=== PATIENT | male | born 1970 | race Caucasian/White ===

== ENCOUNTER 2018-12-24 04:56 | Inpatient (IN) | payer MEDICAID ==
[2018-12-24] VITALS (78 sets, daily range): BP systolic 69–153; BP diastolic 46–81; PULSE 67–117; RESP 18–28; Ht 167.6 cm; Wt 68.2 kg
[~2018-12-24] VITALS: Ht 167.6 cm; Wt 68.2 kg
[2018-12-24] MEDS ORDERED: SUCCINYLCHOLINE CHLORIDE 100 MG/5 ML SYG IV STA (05:25)
[2018-12-24] MEDS ORDERED: DOPamine-D5W 1.6 MG/ML 250 ML IV SCH (05:30)
[2018-12-24] MEDS ORDERED: SOD CHLORIDE 0.9% 1,000 ML IV ONE (05:30)
--- NOTE | 2018-12-24 05:39 | ERD ---
ER Documentation Chief Complaint Chief Complaint Cardiac arrest HPI This is a 43-year-old male brought in by rescue in cardiac arrest. Apparently the patient was being arrested by police when he suddenly dropped. According to police were here in the ER, the patient admitted to using meth for the past 5 days. Upon arrival the patient is pulseless and cannot provide any history outside of what EMS and police have given me at this time. EMS established an IV and started ACLS on route. ROS All systems reviewed and are negative except as per history of present illness. Physical Exam Physical Exam Const: Obtunded Head: Atraumatic Eyes: Fixed dilated ENT: Normal External Ears, Nose and Mouth. Neck: Full range of motion. No meningismus. Resp: Clear to auscultation bilaterally Cardio: No heart rate Abd: Soft, non tender, non distended. No bowel sounds Skin: No petechiae or rashes Back: No midline or flank tenderness Ext: No cyanosis, or edema Neur: Obtunded Psych: Deferred Result Diagram: 12/24/18 0515 Results 24 hrs Laboratory Tests Test 12/24/18 05:15 White Blood Count 12.9 10^3/ul Red Blood Count 4.76 10^6/ul Hemoglobin 14.3 g/dl Hematocrit 47.7 % Mean Corpuscular Volume 100.2 fl Mean Corpuscular Hemoglobin 30.0 pg Mean Corpuscular Hemoglobin Concent 30.0 g/dl Red Cell Distribution Width 12.9 % Platelet Count 340 10^3/UL Mean Platelet Volume 10.1 fl Immature Granulocytes % 4.200 % Neutrophils % 44.5 % Lymphocytes % 38.4 % Monocytes % 12.3 % Eosinophils % 0.2 % Basophils % 0.4 % Nucleated Red Blood Cells % 0.2 /100WBC Immature Granulocytes # 0.540 10^3/ul Neutrophils # 5.7 10^3/ul Lymphocytes # 4.9 10^3/ul Monocytes # 1.6 10^3/ul Eosinophils # 0.0 10^3/ul Basophils # 0.1 10^3/ul Nucleated Red Blood Cells # 0.0 10^3/ul Current Medications Medications Dose Sig/Adalberto Start Time Status Last (Trade) Ordered Route PRN Stop Time Admin Dose Reason Admin 100 mg ONCE STAT 12/24/18 DC Succinylcholi IV 05:25 12/24/18 ne Chloride 05:29 (Anectine Syringe) Dopamine 250 ml @ TITRATE IV 12/24/18 UNV HCl/ 5.625 mls/ 05:30 Dextrose hr Sodium 1,000 ml @ Q1H ONCE 12/24/18 Chloride 1,000 mls/hr IV 05:30 12/24/18 06:29 Procedures/MDM Emergency department course: ACLS initiated by EMS continued here in the e mergency department. Patient was intubated. Serial rounds of ACLS. Patient regained pulses twice, lost pulses twice, regained pulses of the third time. Post resuscitation EKG showed STEMI. STEMI on-call editorial director Dr. Ng and notified. Patient to be taken to [facility]. Patient's course in the ER remained complicated and he lost pulses a total of 3 times here in the emergency department prior to being stabilized enough to be taken to [facility]. EKG: Rate/Rhythm: [Normal Sinus Rhythm] QRS, ST, T-waves: ST segment elevation in 1 aVL V1 V2 with reciprocal changes Impression: STEMI Chest X-ray 1V Interpreted by me: Soft Tissue: No acute abnormalities Bones: No acute abnormalities Mediastinum/Cardiac Silhouette/Lungs: ET tube in good position Critical Care: Time: 32 minutes, independent of any separately billable procedural time Treatments/Evaluations: Close monitoring and treatment of unstable vital signs, cardiorespiratory, and neurologic status, while maintaining tight balance of fluid, respiratory, and cardiac interventions. Endotracheal Intubation by me: Pre assessment performed. See preceding note for details. Pre-oxygenation performed with 100% oxygen RSI: Performed w/o complication or hypoxic events. Medications as ordered. Blade: [Mac 4] ET Tube: 7.5 cm Depth: 22 cm at the lip Intubation confirmed by colorimetric CO2, equal breath sounds, quiet over the stomach. Chest X-ray 1V Interpreted by me: 2 cm above the collette ET tube. Normal soft tissue, No pneumothorax. Medical decision making: This is a 43-year-old male cardiac arrest with postarrest STEMI to be taken to [facility] and then to the intensive care unit where he will hopefully recover. Dr. Han was made aware of situation at 5:40 AM. Departure Diagnosis: Primary Impression: Cardiac arrest Additional Impression: STEMI (ST elevation myocardial infarction) Involved coronary artery: unspecified coronary artery Qualified Codes: I21.3 - ST elevation (STEMI) myocardial infarction of unspecified site Condition: Critical CECI RUANO Dec 24, 2018 05:39
--- NOTE | 2018-12-24 05:52 | CONS ---
Assessment/Plan Assessment/Plan Hospital Course (Demo Recall) Cardiac arrest: PEA and not VF. EKG with JACOBO V1 and III with Brugada looking ST elevation V2. Does have anterolateral ST depressions though. Cath to evaluate Acute respiratory failure: intubated Unknown history -cath to define coronary anatomy Consultation Date/Type/Reason Admit Date/Time Date of Consultation: Dec 24, 2018 Type of Consult Cardiology Reason for Consultation STEMI Requesting Provider: CECI RUANO Date/Time of Note DATE: 12/24/18 TIME: 05:45 Hx of Present Illness 43 yo M [place] who was apparently found altered on the street and in the process of being arrested, had cardiac arrest. No defibrillation per report. I was called by the ER MD for anterior STEMI. He was coded multiple times in the ER as well for PEA arrest.No information is known about the pt but he is presumed to be under the influence. not able to obtain Past Medical History not known Medications Current Medications Dopamine HCl/ Dextrose 250 ml @ 5.625 mls/ hr TITRATE IV ; Start 12/24/18 at 05:30 Sodium Chloride 1,000 ml @ 1,000 mls/hr Q1H ONCE IV ; Start 12/24/18 at 05:30; Stop 12/24/18 at 06:29 Allergies: Coded Allergies: No Known Allergies (Verified Allergy, Unknown, 12/24/18) Exam/Review of Systems Exam Constitutional: No alert, No oriented ENMT: intubated Neck: No jvd Respiratory: No clear to auscultation, No diminished breath sounds Cardiovascular: No edema Gastrointestinal: soft; No distended Musculoskeletal: No nl extremities to inspection Neurological: No nl mental status, No nl speech Labs Result Diagram: 12/24/18 0515 12/24/18 0515 Results 24hrs Laboratory Tests Test 12/24/18 05:15 White Blood Count 12.9 H Red Blood Count 4.76 Hemoglobin 14.3 Hematocrit 47.7 Mean Corpuscular Volume 100.2 Mean Corpuscular Hemoglobin 30.0 Mean Corpuscular Hemoglobin Concent 30.0 L Red Cell Distribution Width 12.9 Platelet Count 340 Mean Platelet Volume 10.1 Immature Granulocytes % 4.200 H Neutrophils % 44.5 Lymphocytes % 38.4 Monocytes % 12.3 H Eosinophils % 0.2 Basophils % 0.4 Nucleated Red Blood Cells % 0.2 H Immature Granulocytes # 0.540 H Neutrophils # 5.7 Lymphocytes # 4.9 H Monocytes # 1.6 H Eosinophils # 0.0 Basophils # 0.1 Nucleated Red Blood Cells # 0.0 Sodium Level 143 Potassium Level 4.7 Chloride Level 99 Carbon Dioxide Level 7 *L Anion Gap 37 H Blood Urea Nitrogen 20 Creatinine 1.39 H Est Glomerular Filtrat Rate mL/min 55 L Glucose Level 294 H Calcium Level 10.0 Total Bilirubin 0.2 Direct Bilirubin 0.00 Indirect Bilirubin 0.2 Aspartate Amino Transf (AST/SGOT) 447 H Alanine Aminotransferase (ALT/SGPT) 324 H Alkaline Phosphatase 102 Troponin I Pending B-Type Natriuretic Peptide Pending Total Protein 7.7 Albumin 4.5 Globulin 3.20 Albumin/Globulin Ratio 1.40 Triglycerides Level 141 Cholesterol Level 194 LDL Cholesterol, Calculated 112 HDL Cholesterol 54 Cholesterol/HDL Ratio 3.5 Medications Medications Current Medications Dopamine HCl/ Dextrose 250 ml @ 5.625 mls/ hr TITRATE IV ; Start 12/24/18 at 05:30 Sodium Chloride 1,000 ml @ 1,000 mls/hr Q1H ONCE IV ; Start 12/24/18 at 05:30; Stop 12/24/18 at 06:29 KRISTIAN GUERRERO Dec 24, 2018 05:52
[2018-12-24] MEDS ORDERED: SOD CHLORIDE 0.9% 1,000 ML IV SCH ×2 (06:25→09:00)
[2018-12-24] MEDS ORDERED: IPRATROPIUM (HFA) 12.9 GM INHALER INH PRN (06:30)
[2018-12-24] MEDS ORDERED: DEXTROSE 50% 50 ML SYRINGE IV PRN ×4 (06:30→07:30)
[2018-12-24] MEDS ORDERED: INSULIN HUMAN REGULAR 100 UNIT in SOD CHLORIDE 0.9% 99 ML IV SCH (06:30)
[2018-12-24] MEDS ORDERED: MEPERIDINE 25 MG INJ IV PRN ×4 (06:30→07:30)
[2018-12-24] MEDS ORDERED: ACETAMINOPHEN 650 MG SUPP PR PRN ×2 (06:30→07:30)
[2018-12-24] MEDS ORDERED: ACETAMINOPHEN 650MG/20.3ML CUP PO PRN ×3 (06:30→07:30)
--- NOTE | 2018-12-24 06:41 | OPR ---
Date/Time of Note Date/Time of Note DATE: 12/24/18 TIME: 06:33 Operative Report Preoperative Diagnosis cardiac arrest, concern for STEMI Postoperative Diagnosis normal coronaries and EF Operation/Procedure Performed see details Surgeon see signature line Gasoline Catalyst Operator none Anesthesia Type: other (intubated ) Estimated Blood Loss: minimal Transfusion none Specimen none Grafts/Implants none Complications none Procedure Description Procedure Date:12/24/2018 Tipple Boss/surgeon:Néstor Sung MD. Procedures Performed: 1)Left heart catheterization with selective left and right coronary angiography. 2)Left ventricle angiography 3)Right femoral artery angiography with Perclose closure 4)Right femoral venous central venous catheter Pre-operative Diagnosis:cardiac arrest, concern for STEMI Post-operative Diagnosis:normal coronaries and LV function Indications: 43 yo M with PEA arrest. EKG with ST elevations Description of Procedure: The procedure site was prepped and draped in usual manner. Using the Seldinger technique, the 6 vietnamese sheath was inserted into the left femoral artery. Next u sing the JL4 and JR4, selective angiography of the left and right coronary arteries were obtained. The pigtail was then advanced into the ventricle and hemodynamics obtained. Left ventricle angiography was obtained. Next all equipment was removed and hemostasis was obtained by Perclose after right femoral artery angiography. A right femoral vein triple lumen catheter was also placed via Seldinger technique. Findings: Anatomy/Hemodynamics: Left main:normal LAD:normal Diagonal:normal Circumflex:normal Obtuse marginal:normal RCA:normal PDA:normal PLV:normal Right femoral artery: normal. Sheath enters through the common femoral LV angiography: EF >60, no wall motion abnormalities LV-Ao:no gradient LVEDP:18 mmHg Contrast used:60 mL Fluoroscopy time:3.0 Estimated blood loss<10 mL. Specimen: none Grafts/implants: none Complications: none Assessment: PEA cardiac arrest ST elevation: possible Brugada. Normal coronaries and LV function Plan: -hypothermia protocol -ABG was 6.75 with PCO 88. Vent rate and TV increased. Recheck in ICU -continue dopamine and levophed NÉSTOR SUNG Dec 24, 2018 06:41
[2018-12-24] MEDS ORDERED: NA BICARBONATE 8.4% 50 ML SYG ONE ×2 (07:00→09:14)
[2018-12-24] MEDS ORDERED: DOPamine-D5W 1.6 MG/ML 250 ML ONE (07:00)
[2018-12-24] MEDS ORDERED: SODIUM CL BACTERIOSTATIC 30 ML INJ ONE (07:00)
[2018-12-24] MEDS ORDERED: CA CHLORIDE 10% 10 ML SYRINGE ONE (07:00)
[2018-12-24] MEDS ORDERED: EPINEPHrine 0.1 MG/ML SYG ONE (07:00)
[2018-12-24] MEDS ORDERED: DEXTROSE 50% 50 ML SYRINGE ONE (07:00)
[2018-12-24] MEDS ORDERED: PROPOFOL 100 ML ONE (07:21)
[2018-12-24] MEDS ORDERED: FENTAnyl 50 MCG/ML VIAL IV ONE (07:30)
[2018-12-24] MEDS ORDERED: ACCU-CHEK XX SCH ×3 (07:30→12:00)
[2018-12-24] MEDS ORDERED: ALBUTEROL HFA 8 GM INHALER INH PRN (07:30)
[2018-12-24] MEDS ORDERED: FENTAnyl 50 MCG/ML VIAL IV SCH (07:30)
[2018-12-24] MEDS ORDERED: PROPOFOL 100 ML IV SCH (07:30)
[2018-12-24] MEDS: MIDAZOLAM (DRIP) 50 mg/50 mL 50 ML IV SCH ×2 (08:30→14:40)
[2018-12-24] MEDS ORDERED: VECURONIUM 10 MG VIAL IV ONE (09:00)
[2018-12-24] MEDS: VECURONIUM 100 MG in DEXTROSE 5% 100 ML IV SCH (09:13)
[2018-12-24] MEDS ORDERED: NA BICARBONATE 8.4% 50 ML SYG IV STA ×3 (09:14→11:55)
--- NOTE | 2018-12-24 09:42 | CONS ---
Assessment/Plan Assessment/Plan Assessment/Plan (Daily) Chest x-ray showing right mainstem intubation with left lung atelectasis, pulmonary edema is present. Ventilator setting; AC of 22, tidal volume 550, PEEP of 0, 100% FiO2. Patient is on Levophed 24 mics per minute, dopamine 10 mcg/min, propofol 40 mics per kilogram per minute, Versed 1 mg/h. Assessment recommendations; next 1. Patient status post cardiac arrest currently on hypothermia protocol, status post cardiac cath which was negative for CAD. This likely is drug induced. 2. Right mainstem intubation, repeat chest x-ray pending after he was withdrawn. 3. Severe metabolic acidosis. 4. Acute renal injury. 5. Difficult to rule out some element of aspiration. 6. Persistent severe shock. Administer additional sodium bicarbonate. Patient will need to have an arterial line placed. Add Zosyn 2.25 g every 8 hours. Monitor renal function. Add fentanyl and discontinue propofol because of hypotension. Prognosis very guarded. 40 minutes of critical care time was spent evaluating patient exclusive of any procedures. Consultation Date/Type/Reason Admit Date/Time Date of Consultation: Dec 24, 2018 Type of Consult Pulmonary/critical care Patient is a 43-year-old male who was admitted to the hospital after cardiac arrest event. Patient apparently was being arrested when he collapsed, CPR was done with revival of vital signs. Patient developed acute IN was taken to the [place] [facility] where patient had normal coronary arteries. Patient is transferred to ICU intubated, remains hypotensive and hypoxemic. Patient is currently on hypothermia protocol. Past medical history; unknown. Apparently none. Medications; reviewed. Patient is on Levophed 24 mics per minute, dopamine 10 mics per kilogram per minute, propofol 40 mics per kilogram per minute, Versed 4 mg/h. Other medications were reviewed as well. Allergies; none. Family history; not available. Occupational history and review of systems not available either. General exam; young male, orally intubated, on hypothermia protocol. Sedated. Date/Time of Note DATE: 12/24/18 TIME: 09:37 Past Medical History Medications Current Medications Dopamine HCl/ Dextrose 250 ml @ 5.625 mls/ hr TITRATE IV ; Start 12/24/18 at 05:30 Sodium Chloride 1,000 ml @ 75 mls/hr [id number] IV ; Start 12/24/18 at 06:25 Albuterol (Ventolin Hfa) 4 puff Q2H RESP THERAPY PRN INH SHORTNESS OF BREATH; Start 12/24/18 at 07:30 Ipratropium Novelty (Atrovent Hfa) 4 puff Q2H RESP THERAPY PRN INH SHORTNESS OF BREATH; Start 12/24/18 at 06:30 Acetaminophen (Tylenol Liquid) 650 mg Q6H PRN PO PAIN LEVEL 1-3 OR FEVER; Start 12/24/18 at 06:30 Midazolam HCl 50 ml @ 2 mls/hr PER PROTOCOL IV ; Start 12/24/18 at 07:30 Propofol 100 ml @ 2.041 mls/ hr PER PROTOCOL IV Last administered on 12/24/18at 07:27; Admin Dose 2.041 MLS/HR; Start 12/24/18 at 07:30 Vecuronium Novelty 100 mg/ Dextrose 100 ml @ 4.08 mls/hr Q24H IV Last administered on 12/24/18at 09:13; Admin Dose 4.08 MLS/HR; Start 12/24/18 at 08:30 Acetaminophen (Tylenol Supp) 650 mg Q4H PRN OR TEMP > 37C; Start 12/24/18 at 07:30 Acetaminophen (Tylenol Liquid) 650 mg Q4H PRN PO TEMP > 37C; Start 12/24/18 at 07:30 Acetaminophen (Tylenol Supp) 500 mg Q6H OR ; Start 12/25/18 at 07:30 Acetaminophen (Tylenol Liquid) 500 mg Q6H PO ; Start 12/25/18 at 07:30 Meperidine HCl (Demerol) 12.5 mg Q4H PRN IV POST OPERATIVE SHIVERING; Start 12/24/18 at 07:30 Meperidine HCl (Demerol) 25 mg Q4H PRN IV POST OPERATIVE SHIVERING; Start 12/24/18 at 07:30 Eye Lubricant (Artificial Tears Oph) 2 drop Q6 BOTH EYES ; Start 12/24/18 at 12:00 Diagnostic Test (Pha) (Accu-Chek) 1 ea Q1H XX Last administered on 12/24/18at 07:36; Admin Dose 1 EA; Start 12/24/18 at 07:30 Insulin Human Regular 100 unit/ Sodium Chloride 100 ml @ 0 mls/hr PER PROTOCOL IV ; Start 12/24/18 at 08:30 Miscellaneous Information (* Miscellaneous Pharmacy Order) Treatment of Hypoglycemia: 1.BG 51... Per protocol XX ; Start 12/24/18 at 07:30 Dextrose (D50w Syringe) 25 ml Q15M PRN IV .DECREASED GLUCOSE; Start 12/24/18 at 07:30 Dextrose (D50w Syringe) 50 ml Q15M PRN IV .DECREASED GLUCOSE; Start 12/24/18 at 07:30 Hypromellose (Genteal Severe) 1 applic Q6 BOTH EYES ; Start 12/24/18 at 12:00 Fentanyl 100 ml @ 2.5 mls/hr TITRATE IV ; Start 12/24/18 at 08:30 Sodium Chloride 1,000 ml @ 75 mls/hr [id number] IV Last administered on 12/24/18at 09:19; Admin Dose 75 MLS/HR; Start 12/24/18 at 09:00; Stop 12/25/18 at 11:39 Pantoprazole (Protonix Iv) 40 mg BID@06,18 IV ; Start 12/24/18 at 18:00 Allergies: Coded Allergies: No Known Allergies (Verified Allergy, Unknown, 12/24/18) Exam/Review of Systems Exam Vitals Vital Signs Date Temp Pulse Resp B/P (MAP) Pulse Ox O2 O2 Flow FiO2 Time Delivery Rate 12/24/18 98.3 114 25 93/63 (73) 97 08:12 12/24/18 100 07:52 Exam H EENT exam; supple neck, positive JVD. No lymphadenopathy. Midline trachea. Pupils are small bilaterally. Patient has fair dentition. No neck masses. Chest exam; bilateral crackles. S1-S2 audible, no murmurs. Frothy secretions coming through endotracheal tube. Abdomen exam; soft, no organomegaly. Bowel sounds are absent. Extremity exam; no peripheral edema. [employer] INTERMEDIARY exam; patient is sedated. Results Result Diagram: 12/24/18 0741 12/24/18 0741 Results 24hrs Laboratory Tests Test 12/24/18 05:10 12/24/18 05:15 12/24/18 05:25 12/24/18 07:26 Bedside Glucose 221 H 124 White Blood Count 12.9 H Red Blood Count 4.76 Hemoglobin 14.3 Hematocrit 47.7 Mean Corpuscular 100.2 Volume Mean Corpuscular 30.0 Hemoglobin Mean Corpuscular 30.0 L Hemoglobin Concent Red Cell 12.9 Distribution Width Platelet Count 340 Mean Platelet 10.1 Volume Immature 4.200 H Granulocytes % Neutrophils % 44.5 Lymphocytes % 38.4 Monocytes % 12.3 H Eosinophils % 0.2 Basophils % 0.4 Nucleated Red 0.2 H Blood Cells % Immature 0.540 H Granulocytes # Neutrophils # 5.7 Lymphocytes # 4.9 H Monocytes # 1.6 H Eosinophils # 0.0 Basophils # 0.1 Nucleated Red 0.0 Blood Cells # Prothrombin Time 18.2 H Prothrombin Time 1.4 Ratio INR International 1.50 Normalized Ratio Activated 46.[address] Time Sodium Level 143 Potassium Level 4.7 Chloride Level 99 Carbon Dioxide 7 *L Level Anion Gap 37 H Blood Urea 20 Nitrogen Creatinine 1.39 H Est Glomerular 55 L Filtrat Rate mL/min Glucose Level 294 H Calcium Level 10.0 Total Bilirubin 0.2 Direct Bilirubin 0.00 Indirect Bilirubin 0.2 Aspartate Amino 447 H Transf (AST/SGOT) Alanine 324 H Aminotransferase ( ALT/SGPT) Alkaline 108 Phosphatase Troponin I < 0.012 B-Type Natriuretic 229 H Peptide Total Protein 7.7 Albumin 4.5 Globulin 3.20 Albumin/Globulin 1.40 Ratio Triglycerides 141 Level Cholesterol Level 194 LDL Cholesterol, 112 Calculated HDL Cholesterol 54 Cholesterol/HDL 3.5 Ratio Ethyl Alcohol < 10.0 H Level Blood Gas Specimen Blood arterial Source Arterial Blood 12/24/2018 6:05:03 Date Drawn AM Arterial Blood pH 6.751 *L (Temp corrected) Arterial Blood 88.3 *H pCO2 (Temp correct) Arterial Blood pO2 152.6 H (Temp corrected) Arterial Blood 12.0 L HCO3 Arterial Blood -24.6 L Base Excess Arterial Blood 95.9 Oxygen Saturation Adarsh Test N/A Arterial Blood Gas A-Line Puncture Site Arterial 0.3 Blood Carboxyhemog lobin Arterial Blood 0.6 Methemoglobin Blood Gas A-a O2 472.1 H Differential Oxyhemoglobin 95.0 Percent Blood Gas 37.0 Temperature Blood Gas 14.0 Respiration Rate Blood Gas Actual 14 Respiration Rate Blood Gas Modality VENT - AC FiO2 100.0 Blood Gas Tidal 500.0 Volume Blood Gas Low PEEP 0 Setting Blood Gas Critical Tyler QUINN MD Value Read Back Blood Gas Notified AA Whom Blood Gas Notified 12/24/2018 6:10:59 Time AM Test 12/24/18 07:41 White Blood Count 12.0 H Red Blood Count 4.79 Hemoglobin 14.4 Hematocrit 43.4 Mean Corpuscular 90.6 Volume Mean Corpuscular 30.1 Hemoglobin Mean Corpuscular 33.2 Hemoglobin Concent Red Cell 13.1 Distribution Width Platelet Count 262 # Mean Platelet 8.6 Volume Immature 9.900 H Granulocytes % Neutrophils % Segmented 64 Neutrophils % (Manual) Band Neutrophils % 10 H (Manual) Lymphocytes % Lymphocytes % 14 L (Manual) Reactive 5 H Lymphocytes % (Manual) Monocytes % Monocytes % 4 (Manual) Eosinophils % Eosinophils % 1 (Manual) Basophils % Metamyelocytes % 1 H (manual) Myelocytes % 1 H (Manual) Nucleated Red 0.2 H Blood Cells % Immature 1.180 H Granulocytes # Neutrophils # Neutrophils # 7.8 H (Manual) Band Neutrophils # 1.2 H Lymphocytes 1.6 (Manual) Lymphocytes # Reactive 0.6 H Lymphocytes # Monocytes # Monocytes # 0.4 (Manual) Eosinophils # Basophils # Metamyelocytes # 0.1 H Myelocytes # 0.1 H Nucleated Red Blood Cells # Platelet Estimate NORMAL Giant Platelets 1 H Poikilocytosis 1+ Prothrombin Time 17.0 H Prothrombin Time 1.3 Ratio INR International 1.37 Normalized Ratio Activated 77.7 *H Partial Thrombopla st Time Sodium Level 140 Potassium Level 4.9 Chloride Level 102 Carbon Dioxide 22 # Level Anion Gap 16 #H Blood Urea 28 H Nitrogen Creatinine 1.70 H Est Glomerular 44 L Filtrat Rate mL/min Glucose Level 88 # Calcium Level 9.0 Phosphorus Level 12.6 H Magnesium Level 4.7 H Total Bilirubin 0.1 L Direct Bilirubin 0.00 Indirect Bilirubin 0.1 Aspartate Amino 742 #H Transf (AST/SGOT) Alanine 512 H Aminotransferase ( ALT/SGPT) Alkaline 216 #H Phosphatase Lactate 4520 H Dehydrogenase Creatine Kinase 1347 H Creatine Kinase 2.1 Index Creatinine Kinase 27.80 H MB (Mass) Troponin I 1.650 *H Total Protein 7.0 Albumin 3.8 Globulin 3.20 Albumin/Globulin 1.18 Ratio Amylase Level 204 H Lipase 251 Thyroid 3.910 Stimulating Hormone (TSH) Medications Medication Current Medications Dopamine HCl/ Dextrose 250 ml @ 5.625 mls/ hr TITRATE IV ; Start 12/24/18 at 05:30 Sodium Chloride 1,000 ml @ 75 mls/hr [id number] IV ; Start 12/24/18 at 06:25 Albuterol (Ventolin Hfa) 4 puff Q2H RESP THERAPY PRN INH SHORTNESS OF BREATH; Start 12/24/18 at 07:30 Ipratropium Novelty (Atrovent Hfa) 4 puff Q2H RESP THERAPY PRN INH SHORTNESS OF BREATH; Start 12/24/18 at 06:30 Acetaminophen (Tylenol Liquid) 650 mg Q6H PRN PO PAIN LEVEL 1-3 OR FEVER; Start 12/24/18 at 06:30 Midazolam HCl 50 ml @ 2 mls/hr PER PROTOCOL IV ; Start 12/24/18 at 07:30 Propofol 100 ml @ 2.041 mls/ hr PER PROTOCOL IV Last administered on 12/24/18at 07:27; Admin Dose 2.041 MLS/HR; Start 12/24/18 at 07:30 Vecuronium Novelty 100 mg/ Dextrose 100 ml @ 4.08 mls/hr Q24H IV Last administered on 12/24/18at 09:13; Admin Dose 4.08 MLS/HR; Start 12/24/18 at 08:30 Acetaminophen (Tylenol Supp) 650 mg Q4H PRN OR TEMP > 37C; Start 12/24/18 at 07:30 Acetaminophen (Tylenol Liquid) 650 mg Q4H PRN PO TEMP > 37C; Start 12/24/18 at 07:30 Acetaminophen (Tylenol Supp) 500 mg Q6H OR ; Start 12/25/18 at 07:30 Acetaminophen (Tylenol Liquid) 500 mg Q6H PO ; Start 12/25/18 at 07:30 Meperidine HCl (Demerol) 12.5 mg Q4H PRN IV POST OPERATIVE SHIVERING; Start 12/24/18 at 07:30 Meperidine HCl (Demerol) 25 mg Q4H PRN IV POST OPERATIVE SHIVERING; Start 12/24/18 at 07:30 Eye Lubricant (Artificial Tears Oph) 2 drop Q6 BOTH EYES ; Start 12/24/18 at 12:00 Diagnostic Test (Pha) (Accu-Chek) 1 ea Q1H XX Last administered on 12/24/18at 07:36; Admin Dose 1 EA; Start 12/24/18 at 07:30 Insulin Human Regular 100 unit/ Sodium Chloride 100 ml @ 0 mls/hr PER PROTOCOL IV ; Start 12/24/18 at 08:30 Miscellaneous Information (* Miscellaneous Pharmacy Order) Treatment of Hypoglycemia: 1.BG 51... Per protocol XX ; Start 12/24/18 at 07:30 Dextrose (D50w Syringe) 25 ml Q15M PRN IV .DECREASED GLUCOSE; Start 12/24/18 at 07:30 Dextrose (D50w Syringe) 50 ml Q15M PRN IV .DECREASED GLUCOSE; Start 12/24/18 at 07:30 Hypromellose (Genteal Severe) 1 applic Q6 BOTH EYES ; Start 12/24/18 at 12:00 Fentanyl 100 ml @ 2.5 mls/hr TITRATE IV ; Start 12/24/18 at 08:30 Sodium Chloride 1,000 ml @ 75 mls/hr [id number] IV Last administered on 12/24/18at 09:19; Admin Dose 75 MLS/HR; Start 12/24/18 at 09:00; Stop 12/25/18 at 11:39 Pantoprazole (Protonix Iv) 40 mg BID@06,18 IV ; Start 12/24/18 at 18:00 KIRSTIN VICTORIA Dec 24, 2018 09:42
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
[2018-12-24] MEDS: NORepinephrine 8MG/250 ML (PMX 250 ML IV SCH ×3 (11:46→23:27)
[2018-12-24] MEDS: DOPamine-D5W 1.6 MG/ML 250 ML IV SCH ×2 (11:48→23:27)
[2018-12-24] MEDS ORDERED: OCULAR LUBRICANT 3.5 GM OPH OINT BOTH EYES SCH ×2 (12:00)
[2018-12-24] MEDS ORDERED: ARTIFICIAL TEARS 15 ML OPH BOTH EYES SCH (12:00)
[2018-12-24] MEDS: ARTIFICIAL TEARS 15 ML OPH BOTH EYES SCH ×3 (12:24→23:22)
[2018-12-24] MEDS: SODIUM BICARBONATE (IV ADD) 100 MEQ in DEXTROSE 5% 1,000 ML IV SCH (12:30)
[2018-12-24] MEDS: PIPER-TAZO 2.25 GM (PMX) 50 ML IVPB SCH ×3 (12:53→21:43)
[2018-12-24] MEDS: ALBUMIN HUMAN 25% 100 ML IV SCH ×2 (12:54→20:05)
[2018-12-24] MEDS ORDERED: VANCOMYCIN IV PER PHARMACY XX SCH (13:00)
[2018-12-24] MEDS: HYPROMELLOSE OPHTHALMIC LUBRICANT GEL (10 GM) BOTH EYES SCH ×3 (13:03→23:23)
--- NOTE | 2018-12-24 13:08 | RADRPT ---
Vent Rate: 107 bpm RR Interval: 0 msec UT Interval: 134 msec QRS Duration: 84 msec QT Interval: 348 msec QTC Interval: 464 msec P-R-T [place]: 71 - 75 - 80 degrees Sinus tachycardia Otherwise normal ECG Electronically Signed By: Wood Farris
[2018-12-24] MEDS ORDERED: MAGNESIUM SULFATE 2 GM/50 ML 50 ML IVPB PRN (13:30)
[2018-12-24] MEDS: FENTAnyl (DRIP) 1000 mcg/100mL 100 ML IV SCH (14:39)
[2018-12-24] MEDS ORDERED: VANCOMYCIN HCL 1.25 GM in SOD CHLORIDE 0.9% 250 ML IVPB SCH (15:00)
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
[2018-12-24] MEDS: ACCU-CHEK XX SCH ×3 (15:50→23:28)
[2018-12-24] MEDS: PANTOPRAZOLE 40 MG INJ IV SCH (17:34)
[2018-12-24] MEDS: POTASSIUM CHLORIDE 100 ML IVPB PRN (20:05)
[2018-12-24] MEDS ORDERED: CEFEPIME 1GM/50 ML (PMX) 50 ML IVPB SCH (21:00)
[2018-12-24] MEDS ORDERED: ALBUMIN HUMAN 5% 250 ML IV PRN (21:30)
[2018-12-24] MEDS ORDERED: POTASSIUM CHLORIDE 100 ML IVPB ONE (22:00)
[2018-12-25] VITALS (104 sets, daily range): BP systolic 47–125; BP diastolic 28–93; PULSE 70–103; RESP 18–24
[2018-12-25] MEDS: PHENYLephrine 80 MG in DEXTROSE 5% 242 ML IV SCH ×5 (00:27→21:58)
[2018-12-25] MEDS: VASOPRESSIN 60 UNIT in DEXTROSE 5% 57 ML IV SCH ×2 (01:00→05:38)
[2018-12-25] MEDS: POTASSIUM CHLORIDE 100 ML IVPB PRN (02:00)
[2018-12-25] MEDS: SODIUM BICARBONATE (IV ADD) 100 MEQ in DEXTROSE 5% 1,000 ML IV SCH ×2 (02:53→16:41)
[2018-12-25] MEDS: MIDAZOLAM (DRIP) 50 mg/50 mL 50 ML IV SCH ×2 (02:54→14:20)
[2018-12-25] MEDS: NORepinephrine 8MG/250 ML (PMX 250 ML IV SCH ×5 (03:58→21:58)
[2018-12-25] MEDS: DOPamine-D5W 1.6 MG/ML 250 ML IV SCH ×5 (03:59→21:59)
[2018-12-25] MEDS: ACCU-CHEK XX SCH ×5 (04:00→20:17)
[2018-12-25] MEDS: ALBUMIN HUMAN 25% 100 ML IV SCH (04:35)
[2018-12-25] MEDS: INSULIN HUMAN REGULAR 100 UNIT in SOD CHLORIDE 0.9% 99 ML IV SCH ×2 (04:46→21:02)
[2018-12-25] MEDS: HYPROMELLOSE OPHTHALMIC LUBRICANT GEL (10 GM) BOTH EYES SCH ×3 (05:23→18:03)
[2018-12-25] MEDS: ARTIFICIAL TEARS 15 ML OPH BOTH EYES SCH ×3 (05:23→18:03)
[2018-12-25] MEDS: PANTOPRAZOLE 40 MG INJ IV SCH ×2 (05:28→18:16)
[2018-12-25] MEDS: PIPER-TAZO 2.25 GM (PMX) 50 ML IVPB SCH ×3 (05:28→21:41)
[2018-12-25] MEDS ORDERED: PANTOPRAZOLE 40 MG INJ IV SCH (06:00)
[2018-12-25] MEDS ORDERED: ACETAMINOPHEN 650MG/20.3ML CUP PO SCH ×2 (06:30→07:30)
[2018-12-25] MEDS ORDERED: ACETAMINOPHEN 650 MG SUPP PR SCH ×2 (06:30→07:30)
--- NOTE | 2018-12-25 08:26 | PN ---
DATE: 12/24/2018 SUBJECTIVE: The patient is critically ill, on multiple pressors. The patient is on 4 pressors. Uri nary output has been marginal. The patient is on full ventilator support. No other events noted. OBJECTIVE: VITAL SIGNS: Blood pressure is 115/75, respirations 22, pulse 75, temperature is 91.0. HEENT: Head is normocephalic. NECK: Supple. HEART: Tachycardic. LUNGS: Show diminished breath sounds at the base. ABDOMEN: Soft, nontender to palpation without rebound or guarding. EXTREMITIES: Negative for clubbing, cyanosis. Trace edema. DERMATOLOGIC: No rashes. MUSCULOSKELETAL: No joint effusion. NEUROLOGIC: The patient is obtunded. MEDICATIONS: Reviewed. LABORATORY DATA: Shows sodium 143, potassium 2.5, BUN 47, creatinine 3.03. Lactic acid 10.8. The p don's ABG showed pH 7.289, pCO2 38. White count 3.5, hemoglobin 12.4. Urinalysis was reviewed. IMAGING STUDIES: Reviewed. Cultures were reviewed. ASSESSMENT AND PLAN: 1. Oligoanuric acute kidney injury, etiology is secondary to acute tubular necrosis due to shock, is chemic hypoperfusion. The patient currently remains in injury phase of acute tubular necrosis. The patient is clinically unstable for any form of renal replacement therapy. Recommendation is to garett nue current medical management. Continue pressor support to maintain MAP of 65. Continue broad spec trum antibiotics, continue volume expansion and IV fluids. We will otherwise continue supportive car e, renally dose all medicines and avoid nephrotoxins. 2. Hyperkalemia. Etiology is multifactorial secondary to total body deficit, hypothermic protocol, possible bicarbonate drip. Continue to replete with potassium chloride. Monitor potassium levels cl osely. 3. Mixed acid base disorder. The patient has a metabolic acidosis, respiratory acidosis and a metab olic alkalosis. The patient's ABG was reviewed. Currently on bicarbonate drip. We will continue to monitor. 4. Mineral bone disorder, monitor calcium and phosphorus levels. 5. Rhabdomyolysis secondary to cardiac arrest, pulmonary resuscitation. Continue to monitor CK leve ls. 6. Cardiac arrest. Etiology is unclear, possibly due to polysubstance abuse. The patient is status post cardiac catheterization within coronaries. Continue to monitor. Continue hypothermic protocol . 7. Shock. The patient's etiology is possibly multifactorial, cardiac, septic. The patient is on 4 pressors, IV fluids, antibiotic therapy. We will continue current treatment plan. 8. Ventilator-dependent respiratory failure. Vent settings and ABG was reviewed. Continue to monit or. 9. Acute encephalopathy, etiology is toxic metabolic. 10. Hypokalemia. We will replete with potassium chloride. Please note, I spent over 30 minutes of critical care time with this patient. The patient has a poor prognosis. Dictated By: HERB MATOS DO NR/NTS Conf#: [id number] DID#: [id number] CC: KRISTIAN GUERRERO MD; ANASTASIA GILBERT MD;*End*
[2018-12-25] MEDS: VECURONIUM 100 MG in DEXTROSE 5% 100 ML IV SCH (08:30)
[2018-12-25] MEDS ORDERED: NA BICARBONATE 8.4% 50 ML SYG IV STA (08:37)
--- NOTE | 2018-12-25 08:47 | RADRPT ---
Echocardiogram Report Patient Name: ELAINA [id number] ID: [id number] : [id number] (43y 3m)Study Date: 12/24/2018 3:28:11 PM Gender: MAccession #: [id number] Tech: Vishal Villeda [facility] Location: 102-A Ref.Physician: ANASTASIA GILBERT Height(Cm): BSA: Weight(Kg): Quality: Technically Difficult StudyAccount #: Procedures: Echocardiographic Report: Transthoracic echocardiogram with complete 2D, M-Mode, and doppler examination. Indications: Cardiac Arrest. Measurements: 2D/M Mode Doppler Measurement Value Normal Range Measurement Value Normal Range LVIDd 2D 3.2 [ 4.2 - 5.8 ] cm AV Peak Quinn 1.0 [ 100.0 - 170.0 ] cm/sec LVIDs 2D 2.2 [ 2.5 - 4.0 ] cm AV Peak PG 4.0 [ 2.0 - 9.0 ] mmHg LVPWd 2D 1.1 [ 0.6 - 1.0 ] cm LVOT Peak Quinn 0.4 [ 70.0 - 110.0 ] cm/sec IVSd 2D 1.1 [ 0.6 - 1.0 ] cm LVOT Peak PG 1.0 [ 2.0 - 6.0 ] mmHg AoR Diam 2D 2.1 [ 2.6 - 3.4 ] cm MV E Peak Quinn 0.4 [ 60.0 - 130.0 ] cm/sec EDV 2D 41.0 [ 62.0 - 150.0 ] ml MV A Peak Quinn 0.3 [ 100.0 - 120.0 ] cm/sec ESV 2D 17.0 [ 21.0 - 61.0 ] ml MV E/A 1.2 [ 0.8 - 1.5 ] ratio EF 2D 58.5 [ 52.0 - 72.0 ] percent MV Decel Time 176 [ 104 - 258 ] msec LA Dimen 2D 2.1 [ 3.0 - 4.0 ] cm Lat E` Quinn 0.1 [ 10.0 - 15.0 ] cm/sec Lateral E/E` 7.1 [ 1.0 - 2.0 ] ratio MV E/A 1.2 [ 0.8 - 1.5 ] ratio TR Peak Quinn 3.0 [ 100.0 - 280.0 ] cm/sec TR Peak PG 36.0 mmHg RVSP 39.0 [ 10.0 - 36.0 ] mmHg Findings: Left Ventricle: Overall, normal left ventricular systolic function. Not all segments visualized. Normal left ventricular cavity size. Left ventricular wall thickness upper limits of normal. Ejection fraction is visually estimated at 55 %. Right Ventricle: Not well visualized. Left Atrium: The left atrium is normal in size. Right Atrium: The right atrium is normal in size. Mitral Valve: Normal appearance of the mitral valve. Normal appearance and function of the mitral valve with trace physiologic regurgitation. Trace mitral regurgitation. Aortic Valve: Normal appearance of the aortic valve. No significant aortic stenosis or insufficiency. Tricuspid Valve: Normal appearance of the tricuspid valve. Estimated peak PA systolic pressure 39 mmHg. There is mild tricuspid regurgitation. Pericardium: Normal pericardium with no significant pericardial effusion. Aorta: Normal aortic root. IVC: Normal size and normal respiratory collapse consistent with normal right atrial pressure. Conclusions: Technically very difficult study with very poor endocardial visualization. Overall, normal left ventricular systolic function. Not all segments visualized. Normal left ventricular cavity size. Left ventricular wall thickness upper limits of normal. Ejection fraction is visually estimated at 55 %. Right ventricle is poorly visualized but some suggestion of mild enlargement and hypokinesis. No significant valvular stenosis or regurgitation seen. Estimated peak PA systolic pressure 39 mmHg. Normal size and normal respiratory collapse consistent with normal right atrial pressure. Electronically Signed By: Néstor Sung 2018-12-25 08:47:19 PDT
--- NOTE | 2018-12-25 09:14 | CONS ---
Assessment/Plan Assessment/Plan Assessment/Plan (Daily) Chest x-ray was reviewed from today which is showing infiltrative changes involving left lung. There is mild pulmonary edema present as well. Ventilator setting; AC of 22, tidal volume 500, PEEP of 10, 30% FiO2. Patient is currently on max tolerable dose of Levophed, Shaggy-Synephrine and dopamine and vasopressin drip. Assessment recommendations; 1. Patient admitted with cardiac arrest status post CPR, currently on hypothermia protocol. 2. Likely aspiration pneumonia involving left lung. Currently on appropriate antimicrobial regimen. 3. Severe thrombocytopenia. 4. Worsening renal function. 5. Metabolic acidosis. 6. Profound shock. 7. Likely significant anoxic encephalopathy. Continue current supportive care. Administer additional sodium bicarbonate. Obtain ABG in 2 hours. Continue current antibiotics. Monitor platelet count. Prognosis appears poor. 35 minutes of critical care time was spent evaluating the patient. Consultation Date/Type/Reason Admit Date/Time Dec 24, 2018 at 05:33 Initial Consult Date 12/24/18 Type of Consult Pulmonary/critical care Patient is a 43-year-old male who was admitted to the hospital after cardiac arrest event. Patient apparently was being arrested when he collapsed, CPR was done with revival of vital signs. Patient developed acute [place] was taken to the [facility] where patient had normal coronary arteries. Patient is transferred to ICU intubated, remains hypotensive and hypoxemic. Patient is currently on hypothermia protocol. Past medical history; unknown. Apparently none. Medications; reviewed. Patient is on Levophed 24 mics per minute, dopamine 10 mics per kilogram per minute, propofol 40 mics per kilogram per minute, Versed 4 mg/h. Other medications were reviewed as well. Allergies; none. Family history; not available. Occupational history and review of systems not available either. General exam; young male, orally intubated, on hypothermia protocol. Sedated. Requesting Provider: CECI RUANO Date/Time of Note DATE: 12/25/18 TIME: 09:10 24 HR Interval Summary Free Text/Dictation Patient's condition remains extremely critical. Still on hypothermia protocol. General exam; young male, orally intubated, sedated. Exam/Review of Systems Exam Vitals Vital Signs Date Temp Pulse Resp B/P (MAP) Pulse Ox O2 O2 Flow FiO2 Time Delivery Rate 12/25/18 75 22 100 30 08:39 12/25/18 104/63 08:30 (77) 12/25/18 91.4 08:00 Intake and Output 12/24/18 12/24/18 12/25/18 1515:00 23:00 07:00 IntakeIntake Total 1392.314 ml 1675.869 ml 1740.9 ml OutputOutput Total 285 ml 260 ml 290 ml BalanceBalance 1107.314 ml 1415.869 ml 1450.9 ml Exam H EENT exam; supple neck, no JVD. No lymphadenopathy. Midline trachea. No thyromegaly. Orally intubated. Pupils are dilated and not reactive to light. Patient has fair dentition. Chest exam; diminished but clear breath sounds. S1-S2 audible, no murmurs. Regular rhythm. Abdomen exam; soft, no organomegaly. Bowel sounds are absent. Extremity exam; peripheral edema. [employer] exam; patient is sedated. Results Result Diagram: 12/25/18 0600 12/25/18 0600 Results 24hrs Laboratory Tests Test 12/24/18 10:30 12/24/18 11:00 12/24/18 11:28 12/24/18 11:29 Blood Gas Blood arterial Specimen Source Arterial Blood 12/24/2018 10:48:5 Date Drawn 4 AM Arterial Blood 7.238 *L pH (Temp corrected) Arterial Blood 57.1 H pCO2 (Temp correct) Arterial Blood 40.3 *L pO2 (Temp corrected) Arterial Blood 25.1 HCO3 Arterial Blood -4.9 L Base Excess Arterial Blood 79.5 L Oxygen Saturatio n Adarsh Test ACCEPTAB Arterial Blood Right Radial Gas Puncture Site Arterial 0.3 Blood Carboxyhem oglobin Arterial Blood 0.2 Methemoglobin Blood Gas A-a O2 625.4 H Differential Oxyhemoglobin 79.1 L Percent Blood Gas 32.8 Temperature Blood Gas 22.0 Respiration Rate Blood Gas Actual 22 Respiration Rate Blood Gas VENT - AC Modality FiO2 100.0 Blood Gas Tidal 550.0 Volume Blood Gas Low 5.0 PEEP Setting Blood Gas R PAYNE RN Critical Value Read Back Blood Gas Notified Whom Blood Gas 12/24/2018 10:57:3 Notified Time 3 AM Urine Color YELLOW Urine Clarity SLIGHTLY CLOUDY A Urine pH 5.0 Urine Specific 1.027 [place] Urine Ketones NEGATIVE Urine Nitrite NEGATIVE Urine Bilirubin NEGATIVE Urine NEGATIVE Urobilinogen Urine Leukocyte NEGATIVE Esterase Urine 4 Microscopic RBC Urine 4 Microscopic WBC Urine Mucus FEW A Urine Hemoglobin 2+ H Urine Glucose NEGATIVE Urine Total 1+ H Protein Urine Opiates Negative Screen Urine Negative Barbiturates Urine POSITIVE Amphetamines Screen Urine Negative Benzodiazepines Screen Urine Cocaine Negative Screen Urine Positive Cannabinoids Sodium Level 144 Potassium Level 3.5 Chloride Level 102 Carbon Dioxide 27 Level Anion Gap 15 H Blood Urea 35 H Nitrogen Creatinine 1.93 H Est Glomerular 38 L Filtrat Rate mL/min Glucose Level 82 Calcium Level 8.5 Total Bilirubin 0.3 Direct Bilirubin 0.00 Indirect 0.3 Bilirubin Aspartate Amino 1156 H Transf (AST/SGOT ) Alanine 528 H Aminotransferase (ALT/SGPT) Alkaline 249 H Phosphatase Creatine Kinase 5642 #H Creatine Kinase 1.4 Index Creatinine 76.20 H Kinase MB (Mass) Troponin I 13.100 *H Total Protein 6.5 Albumin 3.6 Globulin 2.90 Albumin/Globulin 1.24 Ratio White Blood 14.3 H Count Red Blood Count 5.18 Hemoglobin 15.5 Hematocrit 46.1 Mean Corpuscular 89.0 Volume Mean Corpuscular 29.9 Hemoglobin Mean Corpuscular 33.6 Hemoglobin Lisa nt Red Cell 13.2 Distribution Width Platelet Count 200 # Mean Platelet 8.5 Volume Immature 1.900 H Granulocytes % Neutrophils % Segmented 56 Neutrophils % (Manual) Band Neutrophils 31 H % (Manual) Lymphocytes % Lymphocytes % 5 L (Manual) Reactive 2 H Lymphocytes % (Manual) Monocytes % Monocytes % 2 (Manual) Eosinophils % Basophils % Metamyelocytes % 4 H (manual) Nucleated Red 0.2 H Blood Cells % Immature 0.270 H Granulocytes # Neutrophils # Neutrophils # 8.6 H (Manual) Band Neutrophils 4.4 H # Lymphocytes 0.7 L (Manual) Lymphocytes # Reactive 0.2 H Lymphocytes # Monocytes # Monocytes # 0.2 L (Manual) Eosinophils # Basophils # Metamyelocytes # 0.5 H Nucleated Red Blood Cells # Platelet NORMAL Estimate Poikilocytosis 1+ Test 12/24/18 12:22 12/24/18 15:49 12/24/18 18:01 12/24/18 19:16 Bedside Glucose 94 152 Creatine Kinase 7801 H Creatine Kinase 1.1 Index Creatinine 86.70 H Kinase MB (Mass) Troponin I 12.900 *H Hepatitis B NEGATIVE Surface Antigen Hepatitis B NEGATIVE Surface Antibody Hepatitis C NEGATIVE Antibody HIV (1&2) NEGATIVE Antibody White Blood 6.5 # Count Red Blood Count 4.78 Hemoglobin 14.1 Hematocrit 41.7 L Mean Corpuscular 87.2 Volume Mean Corpuscular 29.5 Hemoglobin Mean Corpuscular 33.8 Hemoglobin Lisa nt Red Cell 13.3 Distribution Width Platelet Count 157 # Mean Platelet 9.0 Volume Immature 0.600 H Granulocytes % Neutrophils % Segmented 55 Neutrophils % (Manual) Band Neutrophils 31 H % (Manual) Lymphocytes % Lymphocytes % 9 L (Manual) Reactive 1 H Lymphocytes % (Manual) Monocytes % Monocytes % 1 (Manual) Eosinophils % Basophils % Metamyelocytes % 3 H (manual) Nucleated Red 0.0 Blood Cells % Immature 0.040 H Granulocytes # Neutrophils # Neutrophils # 3.7 (Manual) Band Neutrophils 2.0 H # Lymphocytes 0.5 L (Manual) Lymphocytes # Reactive 0.0 Lymphocytes # Monocytes # Monocytes # 0.0 L (Manual) Eosinophils # Basophils # Metamyelocytes # 0.1 H Nucleated Red Blood Cells # Poikilocytosis 1+ Anisocytosis 1+ Microcytosis 1+ Target Cells 1+ Ovalocytes 1+ Echinocytes 1+ Schistocytes 1+ Sodium Level 141 Potassium Level 2.7 *L Chloride Level 102 Carbon Dioxide 23 Level Anion Gap 16 H Blood Urea 44 H Nitrogen Creatinine 2.21 H Est Glomerular 32 L Filtrat Rate mL/min Glucose Level 228 #H Calcium Level 7.3 L Total Bilirubin 1.1 Direct Bilirubin 0.70 #H Indirect 0.4 Bilirubin Aspartate Amino 1106 H Transf (AST/SGOT ) Alanine 394 H Aminotransferase (ALT/SGPT) Alkaline 132 H Phosphatase Total Protein 5.8 L Albumin 3.2 L Globulin 2.60 Albumin/Globulin 1.23 Ratio Test 12/24/18 19:59 12/24/18 21:30 12/24/18 23:25 12/25/18 01:04 Bedside Glucose 177 195 Blood Gas Blood arterial Specimen Source Arterial Blood 12/24/2018 9:15:59 Date Drawn PM Arterial Blood 7.359 pH (Temp corrected) Arterial Blood 34.4 L pCO2 (Temp correct) Arterial Blood 109.6 H pO2 (Temp corrected) Arterial Blood 19.7 L HCO3 Arterial Blood -6.1 L Base Excess Arterial Blood 98.3 H Oxygen Saturatio n Adarsh Test N/A Arterial Blood A-Line Gas Puncture Site Arterial 0.7 Blood Carboxyhem oglobin Arterial Blood 0.3 Methemoglobin Blood Gas A-a O2 139.4 H Differential Oxyhemoglobin 97.3 Percent Blood Gas 33.5 Temperature Blood Gas 24.0 Respiration Rate Blood Gas Actual 24 Respiration Rate Blood Gas VENT - AC Modality FiO2 40.0 Blood Gas Tidal 500.0 Volume Blood Gas Low 10.0 PEEP Setting Blood Gas 28.0 Inspiratory Pressure Blood Gas KM Notified Whom Blood Gas 12/24/2018 9:29:03 Notified Time PM White Blood 4.4 #L Count Red Blood Count 4.12 L Hemoglobin 12.5 L Hematocrit 36.7 L Mean Corpuscular 89.1 Volume Mean Corpuscular 30.3 Hemoglobin Mean Corpuscular 34.1 Hemoglobin Lisa nt Red Cell 13.2 Distribution Width Platelet Count 123 #L Mean Platelet 9.2 Volume Immature 0.500 H Granulocytes % Neutrophils % Segmented 47 Neutrophils % (Manual) Band Neutrophils 37 H % (Manual) Lymphocytes % Lymphocytes % 10 L (Manual) Reactive 1 H Lymphocytes % (Manual) Monocytes % Monocytes % 2 (Manual) Eosinophils % Basophils % Metamyelocytes % 3 H (manual) Nucleated Red 0.0 Blood Cells % Immature 0.020 Granulocytes # Neutrophils # Neutrophils # 2.1 (Manual) Band Neutrophils 1.6 H # Lymphocytes 0.4 L (Manual) Lymphocytes # Reactive 0.0 Lymphocytes # Monocytes # Monocytes # 0.0 L (Manual) Eosinophils # Basophils # Metamyelocytes # 0.1 H Nucleated Red Blood Cells # Platelet NORMAL Estimate Giant Platelets 2 H Polychromasia 3+ Poikilocytosis 1+ Anisocytosis 1+ Microcytosis 1+ Sodium Level 143 Potassium Level 2.9 *L Chloride Level 102 Carbon Dioxide 20 L Level Anion Gap 21 H Blood Urea 45 H Nitrogen Creatinine 2.55 H Est Glomerular 27 L Filtrat Rate mL/min Glucose Level 196 Calcium Level 6.6 L Total Bilirubin 1.0 Direct Bilirubin 0.70 H Indirect 0.3 Bilirubin Aspartate Amino 791 H Transf (AST/SGOT ) Alanine 310 H Aminotransferase (ALT/SGPT) Alkaline 87 Phosphatase Total Protein 5.2 L Albumin 3.1 L Globulin 2.10 Albumin/Globulin 1.47 Ratio Test 12/25/18 03:30 12/25/18 04:39 12/25/18 06:00 12/25/18 06:02 Blood Gas Blood arterial Specimen Source Arterial Blood 12/25/2018 3:25:57 Date Drawn AM Arterial Blood 7.289 *L pH (Temp corrected) Arterial Blood 38.6 pCO2 (Temp correct) Arterial Blood 67.1 L pO2 (Temp corrected) Arterial Blood 18.9 L HCO3 Arterial Blood -8.2 L Base Excess Arterial Blood 95.5 Oxygen Saturatio n Adarsh Test N/A Arterial Blood A-Line Gas Puncture Site Arterial 1.7 Blood Carboxyhem oglobin Arterial Blood 0.3 Methemoglobin Blood Gas A-a O2 103.9 H Differential Oxyhemoglobin 93.6 Percent Blood Gas 33.4 Temperature Blood Gas 20.0 Respiration Rate Blood Gas Actual 20 Respiration Rate Blood Gas VENT - AC Modality FiO2 30.0 Blood Gas Tidal 500.0 Volume Blood Gas Low 10.0 PEEP Setting Blood Gas 28.0 Inspiratory Pressure Blood Gas ALYSSIA BUI Critical Value Read Back Blood Gas Notified Whom Blood Gas 12/25/2018 3:35:11 Notified Time AM Bedside Glucose 222 H 221 H White Blood 3.5 #L Count Red Blood Count 4.10 L Hemoglobin 12.4 L Hematocrit 37.3 L Mean Corpuscular 91.0 Volume Mean Corpuscular 30.2 Hemoglobin Mean Corpuscular 33.2 Hemoglobin Lisa nt Red Cell 13.4 Distribution Width Platelet Count 102 L Mean Platelet 9.7 Volume Immature 0.300 Granulocytes % Neutrophils % Lymphocytes % Monocytes % Eosinophils % Basophils % Nucleated Red 0.0 Blood Cells % Immature 0.010 Granulocytes # Neutrophils # Lymphocytes # Monocytes # Eosinophils # Basophils # Nucleated Red Blood Cells # Sodium Level 143 Potassium Level 2.5 *L Chloride Level 101 Carbon Dioxide 18 L Level Anion Gap 24 H Blood Urea 47 H Nitrogen Creatinine 3.03 H Est Glomerular 22 L Filtrat Rate mL/min Glucose Level 257 H Lactic Acid 10.8 *H Level Calcium Level 6.6 L Phosphorus Level 8.7 #H Magnesium Level 3.7 H Total Bilirubin 1.2 Direct Bilirubin 0.80 H Indirect 0.4 Bilirubin Aspartate Amino 679 H Transf (AST/SGOT ) Alanine 304 H Aminotransferase (ALT/SGPT) Alkaline 85 Phosphatase Troponin I Pending Total Protein 5.5 L Albumin 3.4 Globulin 2.10 Albumin/Globulin 1.61 Ratio Test 12/25/18 07:07 12/25/18 07:58 12/25/18 07:59 12/25/18 09:07 Bedside Glucose 253 H 258 H 195 Prothrombin Time 19.4 H Prothrombin Time 1.5 Ratio INR 1.63 International Normalized Ratio Activated 37.3 H Partial Thrombop last Time Fibrinogen Pending Amylase Level 159 H Lipase 70 Medications Medication Current Medications Albuterol (Ventolin Hfa) 4 puff Q2H RESP THERAPY PRN INH SHORTNESS OF BREATH; Start 12/24/18 at 07:30 Ipratropium [place] (Atrovent Hfa) 4 puff Q2H RESP THERAPY PRN INH SHORTNESS OF BREATH; Start 12/24/18 at 06:30 Acetaminophen (Tylenol Liquid) 650 mg Q6H PRN PO PAIN LEVEL 1-3 OR FEVER; Start 12/24/18 at 06:30 Midazolam HCl 50 ml @ 2 mls/hr PER PROTOCOL IV Last administered on 12/25/18at 02:54; Admin Dose 4 MLS/HR; Start 12/24/18 at 07:30 Propofol 100 ml @ 2.041 mls/ hr PER PROTOCOL IV Last administered on 12/24/18at 07:27; Admin Dose 2.041 MLS/HR; Start 12/24/18 at 07:30 Vecuronium [place] 100 mg/ Dextrose 100 ml @ 4.08 mls/hr Q24H IV Last administered on 12/24/18at 09:13; Admin Dose 4.08 MLS/HR; Start 12/24/18 at 08:30 Acetaminophen (Tylenol Supp) 650 mg Q4H PRN RI TEMP > 37C; Start 12/24/18 at 07:30 Acetaminophen (Tylenol Liquid) 650 mg Q4H PRN PO TEMP > 37C; Start 12/24/18 at 07:30 Meperidine HCl (Demerol) 12.5 mg Q4H PRN IV POST OPERATIVE SHIVERING; Start 12/24/18 at 07:30 Meperidine HCl (Demerol) 25 mg Q4H PRN IV POST OPERATIVE SHIVERING; Start 12/24/18 at 07:30 Eye Lubricant (Artificial Tears Oph) 2 drop Q6 BOTH EYES Last administered on 12/25/18at 05:23; Admin Dose 2 DROP; Start 12/24/18 at 12:00 Insulin Human Regular 100 unit/ Sodium Chloride 100 ml @ 0 mls/hr PER PROTOCOL IV Last administered on 12/25/18at 04:46; Admin Dose 0 MLS/HR; Start 12/24/18 at 08:30 Miscellaneous Information (* Miscellaneous Pharmacy Order) Treatment of Hypoglycemia: 1.BG 51... Per protocol XX ; Start 12/24/18 at 07:30 Dextrose (D50w Syringe) 25 ml Q15M PRN IV .DECREASED GLUCOSE; Start 12/24/18 at 07:30 Dextrose (D50w Syringe) 50 ml Q15M PRN IV .DECREASED GLUCOSE; Start 12/24/18 at 07:30 Hypromellose (Genteal Severe) 1 applic Q6 BOTH EYES Last administered on 12/25/18 05:23; Admin Dose 1 APPLIC; Start 12/24/18 at 12:00 Fentanyl 100 ml @ 2.5 mls/hr TITRATE IV Last administered on 12/24/18 14:39; Admin Dose 2.5 MLS/HR; Start 12/24/18 at 08:30 Pantoprazole (Protonix Iv) 40 mg BID@06,18 IV Last administered on 12/25/18 05:28; Admin Dose 40 MG; Start 12/24/18 at 18:00 Piperacillin Sod/ Tazobactam Sod 50 ml @ 100 mls/hr Q8 IVPB Last administered on 12/25/18 05:28; Admin Dose 100 MLS/HR; Start 12/24/18 at 10:00 Norepinephrine 250 ml @ 1.875 mls/ hr TITRATE IV Last administered on 12/25/18 08:36; Admin Dose 56.25 MLS/HR; Start 12/24/18 at 11:00 Dopamine HCl/ Dextrose 250 ml @ 5.115 mls/ hr TITRATE IV Last administered on 12/25/18 08:37; Admin Dose 51.15 MLS/HR; Start 12/24/18 at 11:00 Sodium Bicarbonate 100 meq/Dextrose 1,100 ml @ 75 mls/hr [id number] IV Last adm inistered on 12/25/18 02:53; Admin Dose 75 MLS/HR; Start 12/24/18 at 12:30 Vancomycin HCl (Vanco Iv Per Pharmacy) VANCOMYCIN PER PHARMACY PER PROTOCOL XX ; Start 12/24/18 at 13:00 Diagnostic Test (Pha) (Accu-Chek) 1 ea Q4H XX Last administered on 4/9/19at 08:05; Admin Dose 1 EA; Start 12/24/18 at 16:00 Albumin Human 250 ml @ 250 mls/hr PRN PRN IV CVP<10; Start 12/24/18 at 21:30 Phenylephrine HCl 80 mg/Dextrose 250 ml @ 18.75 mls/ hr TITRATE IV Last administered on 12/25/18at 07:41; Admin Dose 56.25 MLS/HR; Start 12/24/18 at 23:00 Vasopressin 60 unit/Dextrose 60 ml @ 1.2 mls/hr Q12H IV Last administered on 12/25/18at 05:38; Admin Dose 1.2 MLS/HR; Start 12/25/18 at 01:00 Acetaminophen (Tylenol Supp) 500 mg Q6H RI ; Start 12/25/18 at 10:00 Acetaminophen (Tylenol Liquid) 500 mg Q6H PO ; Start 12/25/18 at 10:00 KIRSTIN VICTORIA Dec 25, 2018 09:14
[2018-12-25] MEDS: ACETAMINOPHEN 650 MG SUPP PR SCH ×3 (10:00→22:00)
--- NOTE | 2018-12-25 10:26 | PN ---
Date/Time of Note Date/Time of Note DATE: 12/25/18 TIME: 10:26 Assessment/Plan VTE Prophylaxis Risk score (from Ns)>0 risk: 5 SCD applied (from Ns): Yes Pharmacological prophylaxis: NA/contraindicated Pharm contraindication: blood coag disorder, thrombocytopenia Lines/Catheters IV C[facility]ter Type (from [facility] A Line Urinary Cath still in place: Yes Reason Cath still needed: other (indicate) Assessment/Plan Hospital Course A 43-year-old male who was found on the street, altered, who subsequently underwent cardiac arrest with return of spontaneous circulation, went to senior laboratory technician urgently as a Code STEMI. Currently managed for the following medical problems: 1. Altered mentation, likely toxic metabolic, report of substance use. -r/o ischemic brain injury 2. Cardiac arrest, likely secondary to possible substance use, status post ACLS with ROSC -now on hypothermia protocol 3. Acute respiratory failure -remains vent dependent 4. Systemic shock with severe lactic acidosis -septic ? -requiring 4 pressors 5. Severe rhabdomyolysis. 6. Acute hepatic failure, likely secondary to shock liver. 7. Acute renal insufficiency, with metabolic acidosis, -started on bicarb drip per pulm 8. Elevated troponins, status post left heart catheterization with clean coronaries, 9. Pancytopenia 10. Hyperglycemia :on Insulin GTT 11. Multisubstance abuse (meth / marijuana) 12. Coagulopathy: worsening PLAN OF CARE: -continue IV abx -complete rewarming -continue vent support -continue pressors and wean as tolerated -Continue insulin GTT and get hba1c -monitor electrolytes and intervene as indicated -continue all other icu support and care -Brain CT once off protocol -prognosis guarded, patient may Code at any time again CRITICAL CARE TIME: >35 mins Result Diagram: 12/25/18 0600 12/25/18 0600 Results 24hrs Laboratory Tests Test 12/24/18 10:30 12/24/18 11:00 12/24/18 11:28 12/24/18 11:29 Blood Gas Blood arterial Specimen Source Arterial Blood 12/24/2018 10:48:5 Date Drawn 4 AM Arterial Blood 7.238 *L pH (Temp corrected) Arterial Blood 57.1 H pCO2 (Temp correct) Arterial Blood 40.3 *L pO2 (Temp corrected) Arterial Blood 25.1 HCO3 Arterial Blood -4.9 L Base Excess Arterial Blood 79.5 L Oxygen Saturatio n Adarsh Test ACCEPTAB Arterial Blood Right Radial Gas Puncture Site Arterial 0.3 Blood Carboxyhem oglobin Arterial Blood 0.2 Methemoglobin Blood Gas A-a O2 625.4 H Differential Oxyhemoglobin 79.1 L Percent Blood Gas 32.8 Temperature Blood Gas 22.0 Respiration Rate Blood Gas Actual 22 Respiration Rate Blood Gas VENT - AC Modality FiO2 100.0 Blood Gas Tidal 550.0 Volume Blood Gas Low 5.0 PEEP Setting Blood Gas R PAYNE RN Critical Value Read Back Blood Gas Notified Whom Blood Gas 12/24/2018 10:57:3 Notified Time 3 AM Urine Color YELLOW Urine Clarity SLIGHTLY CLOUDY A Urine pH 5.0 Urine Specific 1.027 Schurz Urine Ketones NEGATIVE Urine Nitrite NEGATIVE Urine Bilirubin NEGATIVE Urine NEGATIVE Urobilinogen Urine Leukocyte NEGATIVE Esterase Urine 4 Microscopic RBC Urine 4 Microscopic WBC Urine Mucus FEW A Urine Hemoglobin 2+ H Urine Glucose NEGATIVE Urine Total 1+ H Protein Urine Opiates Negative Screen Urine Negative Barbiturates Urine POSITIVE Amphetamines Screen Urine Negative Benzodiazepines Screen Urine Cocaine Negative Screen Urine Positive Cannabinoids Sodium Level 144 Potassium Level 3.5 Chloride Level 102 Carbon Dioxide 27 Level Anion Gap 15 H Blood Urea 35 H Nitrogen Creatinine 1.93 H Est Glomerular 38 L Filtrat Rate mL/min Glucose Level 82 Calcium Level 8.5 Total Bilirubin 0.3 Direct Bilirubin 0.00 Indirect 0.3 Bilirubin Aspartate Amino 1156 H Transf (AST/SGOT ) Alanine 528 H Aminotransferase (ALT/SGPT) Alkaline 249 H Phosphatase Creatine Kinase 5642 #H Creatine Kinase 1.4 Index Creatinine 76.20 H Kinase MB (Mass) Troponin I 13.100 *H Total Protein 6.5 Albumin 3.6 Globulin 2.90 Albumin/Globulin 1.24 Ratio White Blood 14.3 H Count Red Blood Count 5.18 Hemoglobin 15.5 Hematocrit 46.1 Mean Corpuscular 89.0 Volume Mean Corpuscular 29.9 Hemoglobin Mean Corpuscular 33.6 Hemoglobin Lisa nt Red Cell 13.2 Distribution Width Platelet Count 200 # Mean Platelet 8.5 Volume Immature 1.900 H Granulocytes % Neutrophils % Segmented 56 Neutrophils % (Manual) Band Neutrophils 31 H % (Manual) Lymphocytes % Lymphocytes % 5 L (Manual) Reactive 2 H Lymphocytes % (Manual) Monocytes % Monocytes % 2 (Manual) Eosinophils % Basophils % Metamyelocytes % 4 H (manual) Nucleated Red 0.2 H Blood Cells % Immature 0.270 H Granulocytes # Neutrophils # Neutrophils # 8.6 H (Manual) Band Neutrophils 4.4 H # Lymphocytes 0.7 L (Manual) Lymphocytes # Reactive 0.2 H Lymphocytes # Monocytes # Monocytes # 0.2 L (Manual) Eosinophils # Basophils # Metamyelocytes # 0.5 H Nucleated Red Blood Cells # Platelet NORMAL Estimate Poikilocytosis 1+ Test 12/24/18 12:22 12/24/18 15:49 12/24/18 18:01 12/24/18 19:16 Bedside Glucose 94 152 Creatine Kinase 7801 H Creatine Kinase 1.1 Index Creatinine 86.70 H Kinase MB (Mass) Troponin I 12.900 *H Hepatitis B NEGATIVE Surface Antigen Hepatitis B NEGATIVE Surface Antibody Hepatitis C NEGATIVE Antibody HIV (1&2) NEGATIVE Antibody White Blood 6.5 # Count Red Blood Count 4.78 Hemoglobin 14.1 Hematocrit 41.7 L Mean Corpuscular 87.2 Volume Mean Corpuscular 29.5 Hemoglobin Mean Corpuscular 33.8 Hemoglobin Lisa nt Red Cell 13.3 Distribution Width Platelet Count 157 # Mean Platelet 9.0 Volume Immature 0.600 H Granulocytes % Neutrophils % Segmented 55 Neutrophils % (Manual) Band Neutrophils 31 H % (Manual) Lymphocytes % Lymphocytes % 9 L (Manual) Reactive 1 H Lymphocytes % (Manual) Monocytes % Monocytes % 1 (Manual) Eosinophils % Basophils % Metamyelocytes % 3 H (manual) Nucleated Red 0.0 Blood Cells % Immature 0.040 H Granulocytes # Neutrophils # Neutrophils # 3.7 (Manual) Band Neutrophils 2.0 H # Lymphocytes 0.5 L (Manual) Lymphocytes # Reactive 0.0 Lymphocytes # Monocytes # Monocytes # 0.0 L (Manual) Eosinophils # Basophils # Metamyelocytes # 0.1 H Nucleated Red Blood Cells # Poikilocytosis 1+ Anisocytosis 1+ Microcytosis 1+ Target Cells 1+ Ovalocytes 1+ Echinocytes 1+ Schistocytes 1+ Sodium Level 141 Potassium Level 2.7 *L Chloride Level 102 Carbon Dioxide 23 Level Anion Gap 16 H Blood Urea 44 H Nitrogen Creatinine 2.21 H Est Glomerular 32 L Filtrat Rate mL/min Glucose Level 228 #H Calcium Level 7.3 L Total Bilirubin 1.1 Direct Bilirubin 0.70 #H Indirect 0.4 Bilirubin Aspartate Amino 1106 H Transf (AST/SGOT ) Alanine 394 H Aminotransferase (ALT/SGPT) Alkaline 132 H Phosphatase Total Protein 5.8 L Albumin 3.2 L Globulin 2.60 Albumin/Globulin 1.23 Ratio Test 12/24/18 19:59 12/24/18 21:30 12/24/18 23:25 12/25/18 01:04 Bedside Glucose 177 195 Blood Gas Blood arterial Specimen Source Arterial Blood 12/24/2018 9:15:59 Date Drawn PM Arterial Blood 7.359 pH (Temp corrected) Arterial Blood 34.4 L pCO2 (Temp correct) Arterial Blood 109.6 H pO2 (Temp corrected) Arterial Blood 19.7 L HCO3 Arterial Blood -6.1 L Base Excess Arterial Blood 98.3 H Oxygen Saturatio n Adarsh Test N/A Arterial Blood A-Line Gas Puncture Site Arterial 0.7 Blood Carboxyhem oglobin Arterial Blood 0.3 Methemoglobin Blood Gas A-a O2 139.4 H Differential Oxyhemoglobin 97.3 Percent Blood Gas 33.5 Temperature Blood Gas 24.0 Respiration Rate Blood Gas Actual 24 Respiration Rate Blood Gas VENT - AC Modality FiO2 40.0 Blood Gas Tidal 500.0 Volume Blood Gas Low 10.0 PEEP Setting Blood Gas 28.0 Inspiratory Pressure Blood Gas Notified Whom Blood Gas 12/24/2018 9:29:03 Notified Time PM White Blood 4.4 #L Count Red Blood Count 4.12 L Hemoglobin 12.5 L Hematocrit 36.7 L Mean Corpuscular 89.1 Volume Mean Corpuscular 30.3 Hemoglobin Mean Corpuscular 34.1 Hemoglobin Lisa nt Red Cell 13.2 Distribution Width Platelet Count 123 #L Mean Platelet 9.2 Volume Immature 0.500 H Granulocytes % Neutrophils % Segmented 47 Neutrophils % (Manual) Band Neutrophils 37 H % (Manual) Lymphocytes % Lymphocytes % 10 L (Manual) Reactive 1 H Lymphocytes % (Manual) Monocytes % Monocytes % 2 (Manual) Eosinophils % Basophils % Metamyelocytes % 3 H (manual) Nucleated Red 0.0 Blood Cells % Immature 0.020 Granulocytes # Neutrophils # Neutrophils # 2.1 (Manual) Band Neutrophils 1.6 H # Lymphocytes 0.4 L (Manual) Lymphocytes # Reactive 0.0 Lymphocytes # Monocytes # Monocytes # 0.0 L (Manual) Eosinophils # Basophils # Metamyelocytes # 0.1 H Nucleated Red Blood Cells # Platelet NORMAL Estimate Giant Platelets 2 H Polychromasia 3+ Poikilocytosis 1+ Anisocytosis 1+ Microcytosis 1+ Sodium Level 143 Potassium Level 2.9 *L Chloride Level 102 Carbon Dioxide 20 L Level Anion Gap 21 H Blood Urea 45 H Nitrogen Creatinine 2.55 H Est Glomerular 27 L Filtrat Rate mL/min Glucose Level 196 Calcium Level 6.6 L Total Bilirubin 1.0 Direct Bilirubin 0.70 H Indirect 0.3 Bilirubin Aspartate Amino 791 H Transf (AST/SGOT ) Alanine 310 H Aminotransferase (ALT/SGPT) Alkaline 87 Phosphatase Total Protein 5.2 L Albumin 3.1 L Globulin 2.10 Albumin/Globulin 1.47 Ratio Test 12/25/18 03:30 12/25/18 04:39 12/25/18 06:00 12/25/18 06:02 Blood Gas Blood arterial Specimen Source Arterial Blood 12/25/2018 3:25:57 Date Drawn AM Arterial Blood 7.289 *L pH (Temp corrected) Arterial Blood 38.6 pCO2 (Temp correct) Arterial Blood 67.1 L pO2 (Temp corrected) Arterial Blood 18.9 L HCO3 Arterial Blood -8.2 L Base Excess Arterial Blood 95.5 Oxygen Saturatio n Adarsh Test N/A Arterial Blood A-Line Gas Puncture Site Arterial 1.7 Blood Carboxyhem oglobin Arterial Blood 0.3 Methemoglobin Blood Gas A-a O2 103.9 H Differential Oxyhemoglobin 93.6 Percent Blood Gas 33.4 Temperature Blood Gas 20.0 Respiration Rate Blood Gas Actual 20 Respiration Rate Blood Gas VENT - AC Modality FiO2 30.0 Blood Gas Tidal 500.0 Volume Blood Gas Low 10.0 PEEP Setting Blood Gas 28.0 Inspiratory Pressure Blood Gas ALYSSIA BUI Critical Value Read Back Blood Gas Notified Whom Blood Gas 12/25/2018 3:35:11 Notified Time AM Bedside Glucose 222 H 221 H White Blood 3.5 #L Count Red Blood Count 4.10 L Hemoglobin 12.4 L Hematocrit 37.3 L Mean Corpuscular 91.0 Volume Mean Corpuscular 30.2 Hemoglobin Mean Corpuscular 33.2 Hemoglobin Lisa nt Red Cell 13.4 Distribution Width Platelet Count 102 L Mean Platelet 9.7 Volume Immature 0.300 Granulocytes % Neutrophils % Segmented 23 L Neutrophils % (Manual) Band Neutrophils 51 H % (Manual) Lymphocytes % Lymphocytes % 8 L (Manual) Reactive 5 H Lymphocytes % (Manual) Monocytes % Monocytes % 5 (Manual) Eosinophils % Basophils % Metamyelocytes % 4 H (manual) Myelocytes % 4 H (Manual) Nucleated Red 0.0 Blood Cells % Immature 0.010 Granulocytes # Neutrophils # Neutrophils # 0.9 L (Manual) Band Neutrophils 1.7 H # Lymphocytes 0.2 L (Manual) Lymphocytes # Reactive 0.1 H Lymphocytes # Monocytes # Monocytes # 0.1 L (Manual) Eosinophils # Basophils # Metamyelocytes # 0.1 H Myelocytes # 0.1 H Nucleated Red Blood Cells # Platelet DECREASED Estimate Poikilocytosis 1+ Sodium Level 143 Potassium Level 2.5 *L Chloride Level 101 Carbon Dioxide 18 L Level Anion Gap 24 H Blood Urea 47 H Nitrogen Creatinine 3.03 H Est Glomerular 22 L Filtrat Rate mL/min Glucose Level 257 H Lactic Acid 10.8 *H Level Calcium Level 6.6 L Phosphorus Level 8.7 #H Magnesium Level 3.7 H Total Bilirubin 1.2 Direct Bilirubin 0.80 H Indirect 0.4 Bilirubin Aspartate Amino 679 H Transf (AST/SGOT ) Alanine 304 H Aminotransferase (ALT/SGPT) Alkaline 85 Phosphatase Troponin I 7.300 *H Total Protein 5.5 L Albumin 3.4 Globulin 2.10 Albumin/Globulin 1.61 Ratio Test 12/25/18 07:07 12/25/18 07:58 12/25/18 07:59 12/25/18 09:07 Bedside Glucose 253 H 258 H 195 Prothrombin Time 19.4 H Prothrombin Time 1.5 Ratio INR 1.63 International Normalized Ratio Activated 37.3 H Partial Thrombop last Time Fibrinogen Pending Amylase Level 159 H Lipase 70 Test 12/25/18 10:02 Bedside Glucose 176 Subjective 24 Hr Interval Summary Free Text/Dictation Intubated and sedated for comfort, now requiring 4 pressors currently on rewarming cycle of hypothermia protocol Some relatives have shown up but we still need to confirm patient's identity Exam/Review of Systems Exam Vitals Vital Signs Date Temp Pulse Resp B/P (MAP) Pulse Ox O2 O2 Flow FiO2 Time Delivery Rate 12/25/18 77 22 100 30 09:38 12/25/18 104/63 08:30 (77) 12/25/18 91.4 08:00 Intake and Output 12/24/18 12/24/18 12/25/18 1515:00 23:00 07:00 IntakeIntake Total 1392.314 ml 1675.869 ml 1740.9 ml OutputOutput Total 285 ml 260 ml 290 ml BalanceBalance 1107.314 ml 1415.869 ml 1450.9 ml Exam Constitutional: intubated and sedated Psych: other (unable to assess) Head: mild bruising R forehead Eyes: Pupils fixed and dilated, off vecuronium since overnight, icterus ENMT: intubated Neck: non-tender Respiratory: diminished breath sounds, Cardiovascular: tachycardia Gastrointestinal: non distended, hypoactive BS Genitourinary - male: galaviz with good output Extremities: mild edema in iban ankles Neurological: no extremity movement noted, but on mild sedation 2/2 need for hypothermia . Results Results 24hrs Laboratory Tests Test 12/24/18 10:30 12/24/18 11:00 12/24/18 11:28 12/24/18 11:29 Blood Gas Blood arterial Specimen Source Arterial Blood 12/24/2018 10:48:5 Date Drawn 4 AM Arterial Blood 7.238 *L pH (Temp corrected) Arterial Blood 57.1 H pCO2 (Temp correct) Arterial Blood 40.3 *L pO2 (Temp corrected) Arterial Blood 25.1 HCO3 Arterial Blood -4.9 L Base Excess Arterial Blood 79.5 L Oxygen Saturatio n Adarsh Test ACCEPTAB Arterial Blood Right Radial Gas Puncture Site Arterial 0.3 Blood Carboxyhem oglobin Arterial Blood 0.2 Methemoglobin Blood Gas A-a O2 625.4 H Differential Oxyhemoglobin 79.1 L Percent Blood Gas 32.8 Temperature Blood Gas 22.0 Respiration Rate Blood Gas Actual 22 Respiration Rate Blood Gas VENT - AC Modality FiO2 100.0 Blood Gas Tidal 550.0 Volume Blood Gas Low 5.0 PEEP Setting Blood Gas R PAYNE RN Critical Value Read Back Blood Gas Notified Whom Blood Gas 12/24/2018 10:57:3 Notified Time 3 AM Urine Color YELLOW Urine Clarity SLIGHTLY CLOUDY A Urine pH 5.0 Urine Specific 1.027 Schurz Urine Ketones NEGATIVE Urine Nitrite NEGATIVE Urine Bilirubin NEGATIVE Urine NEGATIVE Urobilinogen Urine Leukocyte NEGATIVE Esterase Urine 4 Microscopic RBC Urine 4 Microscopic WBC Urine Mucus FEW A Urine Hemoglobin 2+ H Urine Glucose NEGATIVE Urine Total 1+ H Protein Urine Opiates Negative Screen Urine Negative Barbiturates Urine POSITIVE Amphetamines Screen Urine Negative Benzodiazepines Screen Urine Cocaine Negative Screen Urine Positive Cannabinoids Sodium Level 144 Potassium Level 3.5 Chloride Level 102 Carbon Dioxide 27 Level Anion Gap 15 H Blood Urea 35 H Nitrogen Creatinine 1.93 H Est Glomerular 38 L Filtrat Rate mL/min Glucose Level 82 Calcium Level 8.5 Total Bilirubin 0.3 Direct Bilirubin 0.00 Indirect 0.3 Bilirubin Aspartate Amino 1156 H Transf (AST/SGOT ) Alanine 528 H Aminotransferase (ALT/SGPT) Alkaline 249 H Phosphatase Creatine Kinase 5642 #H Creatine Kinase 1.4 Index Creatinine 76.20 H Kinase MB (Mass) Troponin I 13.100 *H Total Protein 6.5 Albumin 3.6 Globulin 2.90 Albumin/Globulin 1.24 Ratio White Blood 14.3 H Count Red Blood Count 5.18 Hemoglobin 15.5 Hematocrit 46.1 Mean Corpuscular 89.0 Volume Mean Corpuscular 29.9 Hemoglobin Mean Corpuscular 33.6 Hemoglobin Lisa nt Red Cell 13.2 Distribution Width Platelet Count 200 # Mean Platelet 8.5 Volume Immature 1.900 H Granulocytes % Neutrophils % Segmented 56 Neutrophils % (Manual) Band Neutrophils 31 H % (Manual) Lymphocytes % Lymphocytes % 5 L (Manual) Reactive 2 H Lymphocytes % (Manual) Monocytes % Monocytes % 2 (Manual) Eosinophils % Basophils % Metamyelocytes % 4 H (manual) Nucleated Red 0.2 H Blood Cells % Immature 0.270 H Granulocytes # Neutrophils # Neutrophils # 8.6 H (Manual) Band Neutrophils 4.4 H # Lymphocytes 0.7 L (Manual) Lymphocytes # Reactive 0.2 H Lymphocytes # Monocytes # Monocytes # 0.2 L (Manual) Eosinophils # Basophils # Metamyelocytes # 0.5 H Nucleated Red Blood Cells # Platelet NORMAL Estimate Poikilocytosis 1+ Test 12/24/18 12:22 12/24/18 15:49 12/24/18 18:01 12/24/18 19:16 Bedside Glucose 94 152 Creatine Kinase 7801 H Creatine Kinase 1.1 Index Creatinine 86.70 H Kinase MB (Mass) Troponin I 12.900 *H Hepatitis B NEGATIVE Surface Antigen Hepatitis B NEGATIVE Surface Antibody Hepatitis C NEGATIVE Antibody HIV (1&2) NEGATIVE Antibody White Blood 6.5 # Count Red Blood Count 4.78 Hemoglobin 14.1 Hematocrit 41.7 L Mean Corpuscular 87.2 Volume Mean Corpuscular 29.5 Hemoglobin Mean Corpuscular 33.8 Hemoglobin Lisa nt Red Cell 13.3 Distribution Width Platelet Count 157 # Mean Platelet 9.0 Volume Immature 0.600 H Granulocytes % Neutrophils % Segmented 55 Neutrophils % (Manual) Band Neutrophils 31 H % (Manual) Lymphocytes % Lymphocytes % 9 L (Manual) Reactive 1 H Lymphocytes % (Manual) Monocytes % Monocytes % 1 (Manual) Eosinophils % Basophils % Metamyelocytes % 3 H (manual) Nucleated Red 0.0 Blood Cells % Immature 0.040 H Granulocytes # Neutrophils # Neutrophils # 3.7 (Manual) Band Neutrophils 2.0 H # Lymphocytes 0.5 L (Manual) Lymphocytes # Reactive 0.0 Lymphocytes # Monocytes # Monocytes # 0.0 L (Manual) Eosinophils # Basophils # Metamyelocytes # 0.1 H Nucleated Red Blood Cells # Poikilocytosis 1+ Anisocytosis 1+ Microcytosis 1+ Target Cells 1+ Ovalocytes 1+ Echinocytes 1+ Schistocytes 1+ Sodium Level 141 Potassium Level 2.7 *L Chloride Level 102 Carbon Dioxide 23 Level Anion Gap 16 H Blood Urea 44 H Nitrogen Creatinine 2.21 H Est Glomerular 32 L Filtrat Rate mL/min Glucose Level 228 #H Calcium Level 7.3 L Total Bilirubin 1.1 Direct Bilirubin 0.70 #H Indirect 0.4 Bilirubin Aspartate Amino 1106 H Transf (AST/SGOT ) Alanine 394 H Aminotransferase (ALT/SGPT) Alkaline 132 H Phosphatase Total Protein 5.8 L Albumin 3.2 L Globulin 2.60 Albumin/Globulin 1.23 Ratio Test 12/24/18 19:59 12/24/18 21:30 12/24/18 23:25 12/25/18 01:04 Bedside Glucose 177 195 Blood Gas Blood arterial Specimen Source Arterial Blood 12/24/2018 9:15:59 Date Drawn PM Arterial Blood 7.359 pH (Temp corrected) Arterial Blood 34.4 L pCO2 (Temp correct) Arterial Blood 109.6 H pO2 (Temp corrected) Arterial Blood 19.7 L HCO3 Arterial Blood -6.1 L Base Excess Arterial Blood 98.3 H Oxygen Saturatio n Adarsh Test N/A Arterial Blood A-Line Gas Puncture Site Arterial 0.7 Blood Carboxyhem oglobin Arterial Blood 0.3 Methemoglobin Blood Gas A-a O2 139.4 H Differential Oxyhemoglobin 97.3 Percent Blood Gas 33.5 Temperature Blood Gas 24.0 Respiration Rate Blood Gas Actual 24 Respiration Rate Blood Gas VENT - AC Modality FiO2 40.0 Blood Gas Tidal 500.0 Volume Blood Gas Low 10.0 PEEP Setting Blood Gas 28.0 Inspiratory Pressure Blood Gas KM Notified Whom Blood Gas 12/24/2018 9:29:03 Notified Time PM White Blood 4.4 #L Count Red Blood Count 4.12 L Hemoglobin 12.5 L Hematocrit 36.7 L Mean Corpuscular 89.1 Volume Mean Corpuscular 30.3 Hemoglobin Mean Corpuscular 34.1 Hemoglobin Lisa nt Red Cell 13.2 Distribution Width Platelet Count 123 #L Mean Platelet 9.2 Volume Immature 0.500 H Granulocytes % Neutrophils % Segmented 47 Neutrophils % (Manual) Band Neutrophils 37 H % (Manual) Lymphocytes % Lymphocytes % 10 L (Manual) Reactive 1 H Lymphocytes % (Manual) Monocytes % Monocytes % 2 (Manual) Eosinophils % Basophils % Metamyelocytes % 3 H (manual) Nucleated Red 0.0 Blood Cells % Immature 0.020 Granulocytes # Neutrophils # Neutrophils # 2.1 (Manual) Band Neutrophils 1.6 H # Lymphocytes 0.4 L (Manual) Lymphocytes # Reactive 0.0 Lymphocytes # Monocytes # Monocytes # 0.0 L (Manual) Eosinophils # Basophils # Metamyelocytes # 0.1 H Nucleated Red Blood Cells # Platelet NORMAL Estimate Giant Platelets 2 H Polychromasia 3+ Poikilocytosis 1+ Anisocytosis 1+ Microcytosis 1+ Sodium Level 143 Potassium Level 2.9 *L Chloride Level 102 Carbon Dioxide 20 L Level Anion Gap 21 H Blood Urea 45 H Nitrogen Creatinine 2.55 H Est Glomerular 27 L Filtrat Rate mL/min Glucose Level 196 Calcium Level 6.6 L Total Bilirubin 1.0 Direct Bilirubin 0.70 H Indirect 0.3 Bilirubin Aspartate Amino 791 H Transf (AST/SGOT ) Alanine 310 H Aminotransferase (ALT/SGPT) Alkaline 87 Phosphatase Total Protein 5.2 L Albumin 3.1 L Globulin 2.10 Albumin/Globulin 1.47 Ratio Test 12/25/18 03:30 12/25/18 04:39 12/25/18 06:00 12/25/18 06:02 Blood Gas Blood arterial Specimen Source Arterial Blood 12/25/2018 3:25:57 Date Drawn AM Arterial Blood 7.289 *L pH (Temp corrected) Arterial Blood 38.6 pCO2 (Temp correct) Arterial Blood 67.1 L pO2 (Temp corrected) Arterial Blood 18.9 L HCO3 Arterial Blood -8.2 L Base Excess Arterial Blood 95.5 Oxygen Saturatio n Adarsh Test N/A Arterial Blood A-Line Gas Puncture Site Arterial 1.7 Blood Carboxyhem oglobin Arterial Blood 0.3 Methemoglobin Blood Gas A-a O2 103.9 H Differential Oxyhemoglobin 93.6 Percent Blood Gas 33.4 Temperature Blood Gas 20.0 Respiration Rate Blood Gas Actual 20 Respiration Rate Blood Gas VENT - AC Modality FiO2 30.0 Blood Gas Tidal 500.0 Volume Blood Gas Low 10.0 PEEP Setting Blood Gas 28.0 Inspiratory Pressure Blood Gas ALYSISA BUI Critical Value Read Back Blood Gas Notified Whom Blood Gas 12/25/2018 3:35:11 Notified Time AM Bedside Glucose 222 H 221 H White Blood 3.5 #L Count Red Blood Count 4.10 L Hemoglobin 12.4 L Hematocrit 37.3 L Mean Corpuscular 91.0 Volume Mean Corpuscular 30.2 Hemoglobin Mean Corpuscular 33.2 Hemoglobin Lisa nt Red Cell 13.4 Distribution Width Platelet Count 102 L Mean Platelet 9.7 Volume Immature 0.300 Granulocytes % Neutrophils % Segmented 23 L Neutrophils % (Manual) Band Neutrophils 51 H % (Manual) Lymphocytes % Lymphocytes % 8 L (Manual) Reactive 5 H Lymphocytes % (Manual) Monocytes % Monocytes % 5 (Manual) Eosinophils % Basophils % Metamyelocytes % 4 H (manual) Myelocytes % 4 H (Manual) Nucleated Red 0.0 Blood Cells % Immature 0.010 Granulocytes # Neutrophils # Neutrophils # 0.9 L (Manual) Band Neutrophils 1.7 H # Lymphocytes 0.2 L (Manual) Lymphocytes # Reactive 0.1 H Lymphocytes # Monocytes # Monocytes # 0.1 L (Manual) Eosinophils # Basophils # Metamyelocytes # 0.1 H Myelocytes # 0.1 H Nucleated Red Blood Cells # Platelet DECREASED Estimate Poikilocytosis 1+ Sodium Level 143 Potassium Level 2.5 *L Chloride Level 101 Carbon Dioxide 18 L Level Anion Gap 24 H Blood Urea 47 H Nitrogen Creatinine 3.03 H Est Glomerular 22 L Filtrat Rate mL/min Glucose Level 257 H Lactic Acid 10.8 *H Level Calcium Level 6.6 L Phosphorus Level 8.7 #H Magnesium Level 3.7 H Total Bilirubin 1.2 Direct Bilirubin 0.80 H Indirect 0.4 Bilirubin Aspartate Amino 679 H Transf (AST/SGOT ) Alanine 304 H Aminotransferase (ALT/SGPT) Alkaline 85 Phosphatase Troponin I 7.300 *H Total Protein 5.5 L Albumin 3.4 Globulin 2.10 Albumin/Globulin 1.61 Ratio Test 12/25/18 07:07 12/25/18 07:58 12/25/18 07:59 12/25/18 09:07 Bedside Glucose 253 H 258 H 195 Prothrombin Time 19.4 H Prothrombin Time 1.5 Ratio INR 1.63 International Normalized Ratio Activated 37.3 H Partial Thrombop last Time Fibrinogen Pending Amylase Level 159 H Lipase 70 Test 12/25/18 10:02 Bedside Glucose 176 Imaging Imaging PROCEDURE: XR Chest. CLINICAL INDICATION: Intubated. TECHNIQUE: Chest, 1 view. COMPARISON: 12/24/2018 FINDINGS: Endotracheal tube with tip approximately 4.2 cm above the collette. Enteric tube with tip in the stomach. The cardiomediastinal silhouette is normal in size. Mild decrease in diffuse left interstitial opacities. Improved aeration of the right upper lobe with decrease in interstitial/air space opacities. No pleural effusion is seen. No definite pneumothorax is seen. No acute osseous abnormality. IMPRESSION: Mild decrease in diffuse left interstitial opacities. Improved aeration of the right upper lobe with decrease in interstitial/air space opacities. Findings may represent improving edema versus pneumonia. Support tubes as described. RPTAT: AAEE Physician Verena Date Time Electronically viewed and signed by Steve Morocho Physician on 12/25/2018 08:42 PH/ CC: KIRSTIN VICTORIA [id number] Medications Medication Current Medications Albuterol (Ventolin Hfa) 4 puff Q2H RESP THERAPY PRN INH SHORTNESS OF BREATH; Start 12/24/18 at 07:30 Ipratropium [place] (Atrovent Hfa) 4 puff Q2H RESP THERAPY PRN INH SHORTNESS OF BREATH; Start 12/24/18 at 06:30 Acetaminophen (Tylenol Liquid) 650 mg Q6H PRN PO PAIN LEVEL 1-3 OR FEVER; Start 12/24/18 at 06:30 Midazolam HCl 50 ml @ 2 mls/hr PER PROTOCOL IV Last administered on 4/9/19at 02:54; Admin Dose 4 MLS/HR; Start 12/24/18 at 07:30 Propofol 100 ml @ 2.041 mls/ hr PER PROTOCOL IV Last administered on 12/24/18 07:27; Admin Dose 2.041 MLS/HR; Start 12/24/18 at 07:30 Acetaminophen (Tylenol Supp) 650 mg Q4H PRN [place] TEMP > 37C; Start 12/24/18 at 07:30 Acetaminophen (Tylenol Liquid) 650 mg Q4H PRN PO TEMP > 37C; Start 12/24/18 at 07:30 Meperidine HCl (Demerol) 12.5 mg Q4H PRN IV POST OPERATIVE SHIVERING; Start 12/24/18 at 07:30 Meperidine HCl (Demerol) 25 mg Q4H PRN IV POST OPERATIVE SHIVERING; Start 12/24/18 at 07:30 Eye Lubricant (Artificial Tears Oph) 2 drop Q6 BOTH EYES Last administered on 12/25/18 05:23; Admin Dose 2 DROP; Start 12/24/18 at 12:00 Insulin Human Regular 100 unit/ Sodium Chloride 100 ml @ 0 mls/hr PER PROTOCOL IV Last administered on 12/25/18 04:46; Admin Dose 0 MLS/HR; Start 12/24/18 at 08:30 Miscellaneous Information (* Miscellaneous Pharmacy Order) Treatment of Hypoglycemia: 1.BG 51... Per protocol XX ; Start 12/24/18 at 07:30 Dextrose (D50w Syringe) 25 ml Q15M PRN IV .DECREASED GLUCOSE; Start 12/24/18 at 07:30 Dextrose (D50w Syringe) 50 ml Q15M PRN IV .DECREASED GLUCOSE; Start 12/24/18 at 07:30 Hypromellose (Genteal Severe) 1 applic Q6 BOTH EYES Last administered on 12/25/18 05:23; Admin Dose 1 APPLIC; Start 12/24/18 at 12:00 Fentanyl 100 ml @ 2.5 mls/hr TITRATE IV Last administered on 12/24/18 14:39; Admin Dose 2.5 MLS/HR; Start 12/24/18 at 08:30 Pantoprazole (Protonix Iv) 40 mg BID@06,18 IV Last administered on 12/25/18 05:28; Admin Dose 40 MG; Start 12/24/18 at 18:00 Piperacillin Sod/ Tazobactam Sod 50 ml @ 100 mls/hr Q8 IVPB Last administered on 12/25/18 05:28; Admin Dose 100 MLS/HR; Start 12/24/18 at 10:00 Norepinephrine 250 ml @ 1.875 mls/ hr TITRATE IV Last administered on 12/25/18 08:36; Admin Dose 56.25 MLS/HR; Start 12/24/18 at 11:00 Dopamine HCl/ Dextrose 250 ml @ 5.115 mls/ hr TITRATE IV Last administered on 12/25/18 08:37; Admin Dose 51.15 MLS/HR; Start 12/24/18 at 11:00 Sodium Bicarbonate 100 meq/Dextrose 1,100 ml @ 75 mls/hr [id number] IV Last administered on 12/25/18 02:53; Admin Dose 75 MLS/HR; Start 12/24/18 at 12:30 Vancomycin HCl (Vanco Iv Per Pharmacy) VANCOMYCIN PER PHARMACY PER PROTOCOL XX ; Start 12/24/18 at 13:00 Diagnostic Test (Pha) (Accu-Chek) 1 ea Q4H XX Last administered on 12/25/18 08:05; Admin Dose 1 EA; Start 12/24/18 at 16:00 Albumin Human 250 ml @ 250 mls/hr PRN PRN IV CVP<10; Start 12/24/18 at 21:30 Phenylephrine HCl 80 mg/Dextrose 250 ml @ 18.75 mls/ hr TITRATE IV Last administered on 12/25/18 07:41; Admin Dose 56.25 MLS/HR; Start 12/24/18 at 23:00 Vasopressin 60 unit/Dextrose 60 ml @ 1.2 mls/hr Q12H IV Last administered on 12/25/18 05:38; Admin Dose 1.2 MLS/HR; Start 12/25/18 at 01:00 Acetaminophen (Tylenol Supp) 500 mg Q6H [place] ; Start 12/25/18 at 10:00 Acetaminophen (Tylenol Liquid) 500 mg Q6H PO ; Start 12/25/18 at 10:00 YUVAL BLACKWOOD Dec 25, 2018 10:26
[2018-12-25] MEDS: ACETAMINOPHEN 650MG/20.3ML CUP PO SCH ×3 (10:31→22:00)
--- NOTE | 2018-12-25 10:33 | CONS ---
Assessment/Plan Assessment/Plan Hospital Course Middle-age appearing male w/ uncertain PMHx, who is admitted to the [facility] ICU following cardiac arrest. Now s/p ROSC, undergoing TTM.. CXR is notable for edema vs/ pneumonia.. P: TTM per primary Monitor for emergence of clinical seizures Head CT for further characterization when medically able Will follow with you Consultation Date/Type/Reason Admit Date/Time Dec 24, 2018 at 05:33 Type of Consult Neurology Reason for Consultation coma Requesting Provider: YUVAL BLACKWOOD Date/Time of Note DATE: 12/25/18 TIME: 10:33 Hx of Present Illness The pt is currently unable to contribute a hx. Targeted temperature management was initiated post-cardiac arrest on 12/24/18 ~0915am. He reached goal temp ~ 1100. He is currently being rewarmed. It is elsewhere noted: PRESENTING COMPLAINT: Altered mental status. HISTORY OF PRESENTING COMPLAINT: Presently, a 43-year-old male who was found on the street via the opticianry teacher. Apparently the patient was found on the street and altered some reports states that he was trying to swim on the street and another report states that he was being arrested when he suddenly dropped. When he was altered, policed called the EMS and when EMS arrived, the patient en routed to the emergency room. Apparently went into cardiac arrest and ACLS was started. This was continued in the emergency room and the patient is being endo tracheally intubated. A code STEMI was called and patient was taken to [facility]. Apparently, the patient received multiple times, but the patient was never shocked. The patient did get return of spontaneous circulation. At hospital left heart catheterization was done. The patient was found to have normal coronaries and normal left ventricular function. Of note is that the patient was set of going into PEA cardiac arrest. The patient was started on hypothermia protocol and is being currently managed in the intensive care unit on that protocol. At this time, the patient is in the process of being paralyzed and is intubated and as such, no further history is obtainable. We h ave police officers at the bedside who can assist us in identification and obtain more information. The patient has complete left hemithorax opacification, rule out mucus plug versus left lung pathology. Subjective hx not possible: pt non-verbal, pt critical, pt critical status Exam/Review of Systems Exam Vitals Vital Signs Date Temp Pulse Resp B/P (MAP) Pulse Ox O2 O2 Flow FiO2 Time Delivery Rate 12/25/18 77 22 100 30 09:38 12/25/18 104/63 08:30 (77) 12/25/18 91.4 08:00 Intake and Output 12/24/18 12/24/18 12/25/18 1515:00 23:00 07:00 IntakeIntake Total 1392.314 ml 1675.869 ml 1740.9 ml OutputOutput Total 285 ml 260 ml 290 ml BalanceBalance 1107.314 ml 1415.869 ml 1450.9 ml Exam PE: Gen Appearance: No Apparent Distress HEENT: Intubated Cardiovascular: Regular rate Abdomen: Soft Extremities: Dry NE: The patient was comatose Cranial nerve examination was limited by mental status. Pupils were fix and dilated. There was no afferent pupillary defect. Funduscopic examination was limited. Face was grossly symmetric, w/out present corneal and cough reflexes. Tone was flaccid. Muscle bulk was normal. I did not see fasciculations. The patient did not withdraw to noxious stimulation. Coordination and gait testing was limited by mental status. Arm and leg reflexes were symmetric. Mccall's sign was absent. Plantar responses were mute. Results Result Diagram: 12/25/18 0600 12/25/18 0600 Results 24hrs Laboratory Tests Test 12/24/18 11:00 12/24/18 11:28 12/24/18 11:29 12/24/18 12:22 Urine Color YELLOW Urine Clarity SLIGHTLY CLOUDY A Urine pH 5.0 Urine Specific 1.027 [place] Urine Ketones NEGATIVE Urine Nitrite NEGATIVE Urine Bilirubin NEGATIVE Urine NEGATIVE Urobilinogen Urine Leukocyte NEGATIVE Esterase Urine 4 Microscopic RBC Urine 4 Microscopic WBC Urine Mucus FEW A Urine Hemoglobin 2+ H Urine Glucose NEGATIVE Urine Total 1+ H Protein Urine Opiates Negative Screen Urine Negative Barbiturates Urine POSITIVE Amphetamines Screen Urine Negative Benzodiazepines Screen Urine Cocaine Negative Screen Urine Positive Cannabinoids Sodium Level 144 Potassium Level 3.5 Chloride Level 102 Carbon Dioxide 27 Level Anion Gap 15 H Blood Urea 35 H Nitrogen Creatinine 1.93 H Est Glomerular 38 L Filtrat Rate mL/min Glucose Level 82 Calcium Level 8.5 Total Bilirubin 0.3 Direct Bilirubin 0.00 Indirect 0.3 Bilirubin Aspartate Amino 1156 H Transf (AST/SGOT ) Alanine 528 H Aminotransferase (ALT/SGPT) Alkaline 249 H Phosphatase Creatine Kinase 5642 #H Creatine Kinase 1.4 Index Creatinine 76.20 H Kinase MB (Mass) Troponin I 13.100 *H Total Protein 6.5 Albumin 3.6 Globulin 2.90 Albumin/Globulin 1.24 Ratio White Blood 14.3 H Count Red Blood Count 5.18 Hemoglobin 15.5 Hematocrit 46.1 Mean Corpuscular 89.0 Volume Mean Corpuscular 29.9 Hemoglobin Mean Corpuscular 33.6 Hemoglobin Lisa nt Red Cell 13.2 Distribution Width Platelet Count 200 # Mean Platelet 8.5 Volume Immature 1.900 H Granulocytes % Neutrophils % Segmented 56 Neutrophils % (Manual) Band Neutrophils 31 H % (Manual) Lymphocytes % Lymphocytes % 5 L (Manual) Reactive 2 H Lymphocytes % (Manual) Monocytes % Monocytes % 2 (Manual) Eosinophils % Basophils % Metamyelocytes % 4 H (manual) Nucleated Red 0.2 H Blood Cells % Immature 0.270 H Granulocytes # Neutrophils # Neutrophils # 8.6 H (Manual) Band Neutrophils 4.4 H # Lymphocytes 0.7 L (Manual) Lymphocytes # Reactive 0.2 H Lymphocytes # Monocytes # Monocytes # 0.2 L (Manual) Eosinophils # Basophils # Metamyelocytes # 0.5 H Nucleated Red Blood Cells # Platelet NORMAL Estimate Poikilocytosis 1+ Bedside Glucose 94 Test 12/24/18 15:49 12/24/18 18:01 12/24/18 19:16 12/24/18 19:59 Bedside Glucose 152 177 Creatine Kinase 7801 H Creatine Kinase 1.1 Index Creatinine 86.70 H Kinase MB (Mass) Troponin I 12.900 *H Hepatitis B NEGATIVE Surface Antigen Hepatitis B NEGATIVE Surface Antibody Hepatitis C NEGATIVE Antibody HIV (1&2) NEGATIVE Antibody White Blood 6.5 # Count Red Blood Count 4.78 Hemoglobin 14.1 Hematocrit 41.7 L Mean Corpuscular 87.2 Volume Mean Corpuscular 29.5 Hemoglobin Mean Corpuscular 33.8 Hemoglobin Lisa nt Red Cell 13.3 Distribution Width Platelet Count 157 # Mean Platelet 9.0 Volume Immature 0.600 H Granulocytes % Neutrophils % Segmented 55 Neutrophils % (Manual) Band Neutrophils 31 H % (Manual) Lymphocytes % Lymphocytes % 9 L (Manual) Reactive 1 H Lymphocytes % (Manual) Monocytes % Monocytes % 1 (Manual) Eosinophils % Basophils % Metamyelocytes % 3 H (manual) Nucleated Red 0.0 Blood Cells % Immature 0.040 H Granulocytes # Neutrophils # Neutrophils # 3.7 (Manual) Band Neutrophils 2.0 H # Lymphocytes 0.5 L (Manual) Lymphocytes # Reactive 0.0 Lymphocytes # Monocytes # Monocytes # 0.0 L (Manual) Eosinophils # Basophils # Metamyelocytes # 0.1 H Nucleated Red Blood Cells # Poikilocytosis 1+ Anisocytosis 1+ Microcytosis 1+ Target Cells 1+ Ovalocytes 1+ Echinocytes 1+ Schistocytes 1+ Sodium Level 141 Potassium Level 2.7 *L Chloride Level 102 Carbon Dioxide 23 Level Anion Gap 16 H Blood Urea 44 H Nitrogen Creatinine 2.21 H Est Glomerular 32 L Filtrat Rate mL/min Glucose Level 228 #H Calcium Level 7.3 L Total Bilirubin 1.1 Direct Bilirubin 0.70 #H Indirect 0.4 Bilirubin Aspartate Amino 1106 H Transf (AST/SGOT ) Alanine 394 H Aminotransferase (ALT/SGPT) Alkaline 132 H Phosphatase Total Protein 5.8 L Albumin 3.2 L Globulin 2.60 Albumin/Globulin 1.23 Ratio Test 12/24/18 21:30 12/24/18 23:25 12/25/18 01:04 12/25/18 03:30 Blood Gas Blood arterial Blood arterial Specimen Source Arterial Blood 12/24/2018 9:15:59 12/25/2018 3:25:57 Date Drawn PM AM Arterial Blood 7.359 7.289 *L pH (Temp corrected) Arterial Blood 34.4 L 38.6 pCO2 (Temp correct) Arterial Blood 109.6 H 67.1 L pO2 (Temp corrected) Arterial Blood 19.7 L 18.9 L HCO3 Arterial Blood -6.1 L -8.2 L Base Excess Arterial Blood 98.3 H 95.5 Oxygen Saturatio n Adarsh Test N/A N/A Arterial Blood A-Line A-Line Gas Puncture Site Arterial 0.7 1.7 Blood Carboxyhem oglobin Arterial Blood 0.3 0.3 Methemoglobin Blood Gas A-a O2 139.4 H 103.9 H Differential Oxyhemoglobin 97.3 93.6 Percent Blood Gas 33.5 33.4 Temperature Blood Gas 24.0 20.0 Respiration Rate Blood Gas Actual 24 20 Respiration Rate Blood Gas VENT - AC VENT - AC Modality FiO2 40.0 30.0 Blood Gas Tidal 500.0 500.0 Volume Blood Gas Low 10.0 10.0 PEEP Setting Blood Gas 28.0 28.0 Inspiratory Pressure Blood Gas KM KM Notified Whom Blood Gas 12/24/2018 9:29:03 12/25/2018 3:35:11 Notified Time PM AM Bedside Glucose 195 White Blood 4.4 #L Count Red Blood Count 4.12 L Hemoglobin 12.5 L Hematocrit 36.7 L Mean Corpuscular 89.1 Volume Mean Corpuscular 30.3 Hemoglobin Mean Corpuscular 34.1 Hemoglobin Lisa nt Red Cell 13.2 Distribution Width Platelet Count 123 #L Mean Platelet 9.2 Volume Immature 0.500 H Granulocytes % Neutrophils % Segmented 47 Neutrophils % (Manual) Band Neutrophils 37 H % (Manual) Lymphocytes % Lymphocytes % 10 L (Manual) Reactive 1 H Lymphocytes % (Manual) Monocytes % Monocytes % 2 (Manual) Eosinophils % Basophils % Metamyelocytes % 3 H (manual) Nucleated Red 0.0 Blood Cells % Immature 0.020 Granulocytes # Neutrophils # Neutrophils # 2.1 (Manual) Band Neutrophils 1.6 H # Lymphocytes 0.4 L (Manual) Lymphocytes # Reactive 0.0 Lymphocytes # Monocytes # Monocytes # 0.0 L (Manual) Eosinophils # Basophils # Metamyelocytes # 0.1 H Nucleated Red Blood Cells # Platelet NORMAL Estimate Giant Platelets 2 H Polychromasia 3+ Poikilocytosis 1+ Anisocytosis 1+ Microcytosis 1+ Sodium Level 143 Potassium Level 2.9 *L Chloride Level 102 Carbon Dioxide 20 L Level Anion Gap 21 H Blood Urea 45 H Nitrogen Creatinine 2.55 H Est Glomerular 27 L Filtrat Rate mL/min Glucose Level 196 Calcium Level 6.6 L Total Bilirubin 1.0 Direct Bilirubin 0.70 H Indirect 0.3 Bilirubin Aspartate Amino 791 H Transf (AST/SGOT ) Alanine 310 H Aminotransferase (ALT/SGPT) Alkaline 87 Phosphatase Total Protein 5.2 L Albumin 3.1 L Globulin 2.10 Albumin/Globulin 1.47 Ratio Blood Gas ALYSSIA BUI Critical Value Read Back Test 12/25/18 04:39 12/25/18 06:00 12/25/18 06:02 12/25/18 07:07 Bedside Glucose 222 H 221 H 253 H White Blood 3.5 #L Count Red Blood Count 4.10 L Hemoglobin 12.4 L Hematocrit 37.3 L Mean Corpuscular 91.0 Volume Mean Corpuscular 30.2 Hemoglobin Mean Corpuscular 33.2 Hemoglobin Lisa nt Red Cell 13.4 Distribution Width Platelet Count 102 L Mean Platelet 9.7 Volume Immature 0.300 Granulocytes % Neutrophils % Segmented 23 L Neutrophils % (Manual) Band Neutrophils 51 H % (Manual) Lymphocytes % Lymphocytes % 8 L (Manual) Reactive 5 H Lymphocytes % (Manual) Monocytes % Monocytes % 5 (Manual) Eosinophils % Basophils % Metamyelocytes % 4 H (manual) Myelocytes % 4 H (Manual) Nucleated Red 0.0 Blood Cells % Immature 0.010 Granulocytes # Neutrophils # Neutrophils # 0.9 L (Manual) Band Neutrophils 1.7 H # Lymphocytes 0.2 L (Manual) Lymphocytes # Reactive 0.1 H Lymphocytes # Monocytes # Monocytes # 0.1 L (Manual) Eosinophils # Basophils # Metamyelocytes # 0.1 H Myelocytes # 0.1 H Nucleated Red Blood Cells # Platelet DECREASED Estimate Poikilocytosis 1+ Sodium Level 143 Potassium Level 2.5 *L Chloride Level 101 Carbon Dioxide 18 L Level Anion Gap 24 H Blood Urea 47 H Nitrogen Creatinine 3.03 H Est Glomerular 22 L Filtrat Rate mL/min Glucose Level 257 H Lactic Acid 10.8 *H Level Calcium Level 6.6 L Phosphorus Level 8.7 #H Magnesium Level 3.7 H Total Bilirubin 1.2 Direct Bilirubin 0.80 H Indirect 0.4 Bilirubin Aspartate Amino 679 H Transf (AST/SGOT ) Alanine 304 H Aminotransferase (ALT/SGPT) Alkaline 85 Phosphatase Troponin I 7.300 *H Total Protein 5.5 L Albumin 3.4 Globulin 2.10 Albumin/Globulin 1.61 Ratio Test 12/25/18 07:58 12/25/18 07:59 12/25/18 09:07 12/25/18 10:02 Bedside Glucose 258 H 195 176 Prothrombin Time 19.4 H Prothrombin Time 1.5 Ratio INR 1.63 International Normalized Ratio Activated 37.3 H Partial Thrombop last Time Fibrinogen Pending Amylase Level 159 H Lipase 70 Medications Medication Current Medications Albuterol (Ventolin Hfa) 4 puff Q2H RESP THERAPY PRN INH SHORTNESS OF BREATH; Start 12/24/18 at 07:30 Ipratropium [place] (Atrovent Hfa) 4 puff Q2H RESP THERAPY PRN INH SHORTNESS OF BREATH; Start 12/24/18 at 06:30 Acetaminophen (Tylenol Liquid) 650 mg Q6H PRN PO PAIN LEVEL 1-3 OR FEVER; Start 12/24/18 at 06:30 Midazolam HCl 50 ml @ 2 mls/hr PER PROTOCOL IV Last administered on 12/25/18at 02:54; Admin Dose 4 MLS/HR; Start 12/24/18 at 07:30 Propofol 100 ml @ 2.041 mls/ hr PER PROTOCOL IV Last administered on 12/24/18at 07:27; Admin Dose 2.041 MLS/HR; Start 12/24/18 at 07:30 Acetaminophen (Tylenol Supp) 650 mg Q4H PRN [place] TEMP > 37C; Start 12/24/18 at 07:30 Acetaminophen (Tylenol Liquid) 650 mg Q4H PRN PO TEMP > 37C; Start 12/24/18 at 07:30 Meperidine HCl (Demerol) 12.5 mg Q4H PRN IV POST OPERATIVE SHIVERING; Start 12/24/18 at 07:30 Meperidine HCl (Demerol) 25 mg Q4H PRN IV POST OPERATIVE SHIVERING; Start 12/24/18 at 07:30 Eye Lubricant (Artificial Tears Oph) 2 drop Q6 BOTH EYES Last administered on 12/25/18 05:23; Admin Dose 2 DROP; Start 12/24/18 at 12:00 Insulin Human Regular 100 unit/ Sodium Chloride 100 ml @ 0 mls/hr PER PROTOCOL IV Last administered on 12/25/18at 04:46; Admin Dose 0 MLS/HR; Start 12/24/18 at 08:30 Miscellaneous Information (* Miscellaneous Pharmacy Order) Treatment of Hypoglycemia: 1.BG 51... Per protocol XX ; Start 12/24/18 at 07:30 Dextrose (D50w Syringe) 25 ml Q15M PRN IV .DECREASED GLUCOSE; Start 12/24/18 at 07:30 Dextrose (D50w Syringe) 50 ml Q15M PRN IV .DECREASED GLUCOSE; Start 12/24/18 at 07:30 Hypromellose (Genteal Severe) 1 applic Q6 BOTH EYES Last administered on 12/25/18 05:23; Admin Dose 1 APPLIC; Start 12/24/18 at 12:00 Fentanyl 100 ml @ 2.5 mls/hr TITRATE IV Last administered on 12/24/18at 14:39; Admin Dose 2.5 MLS/HR; Start 12/24/18 at 08:30 Pantoprazole (Protonix Iv) 40 mg BID@06,18 IV Last administered on 12/25/18 05:28; Admin Dose 40 MG; Start 12/24/18 at 18:00 Piperacillin Sod/ Tazobactam Sod 50 ml @ 100 mls/hr Q8 IVPB Last administered on 12/25/18 05:28; Admin Dose 100 MLS/HR; Start 12/24/18 at 10:00 Norepinephrine 250 ml @ 1.875 mls/ hr TITRATE IV Last administered on 12/25/18 08:36; Admin Dose 56.25 MLS/HR; Start 12/24/18 at 11:00 Dopamine HCl/ Dextrose 250 ml @ 5.115 mls/ hr TITRATE IV Last administered on 12/25/18 08:37; Admin Dose 51.15 MLS/HR; Start 12/24/18 at 11:00 Sodium Bicarbonate 100 meq/Dextrose 1,100 ml @ 75 mls/hr [id number] IV Last administered on 12/25/18 02:53; Admin Dose 75 MLS/HR; Start 12/24/18 at 12:30 Vancomycin HCl (Vanco Iv Per Pharmacy) VANCOMYCIN PER PHARMACY PER PROTOCOL XX ; Start 12/24/18 at 13:00 Diagnostic Test (Pha) (Accu-Chek) 1 ea Q4H XX Last administered on 12/25/18 08:05; Admin Dose 1 EA; Start 12/24/18 at 16:00 Albumin Human 250 ml @ 250 mls/hr PRN PRN IV CVP<10; Start 12/24/18 at 21:30 Phenylephrine HCl 80 mg/Dextrose 250 ml @ 18.75 mls/ hr TITRATE IV Last administered on 12/25/18 07:41; Admin Dose 56.25 MLS/HR; Start 12/24/18 at 23:00 Vasopressin 60 unit/Dextrose 60 ml @ 1.2 mls/hr Q12H IV Last administered on 12/25/18 05:38; Admin Dose 1.2 MLS/HR; Start 12/25/18 at 01:00 Acetaminophen (Tylenol Supp) 500 mg Q6H [place] ; Start 12/25/18 at 10:00 Acetaminophen (Tylenol Liquid) 500 mg Q6H PO Last administered on 12/25/18at 10:31; Admin Dose 500 MG; Start 12/25/18 at 10:00 Past Medical History reviewed Medical History: other (Unknown) Medications Current Medications Albuterol (Ventolin Hfa) 4 puff Q2H RESP THERAPY PRN INH SHORTNESS OF BREATH; Start 12/24/18 at 07:30 Ipratropium [place] (Atrovent Hfa) 4 puff Q2H RESP THERAPY PRN INH SHORTNESS OF BREATH; Start 12/24/18 at 06:30 Acetaminophen (Tylenol Liquid) 650 mg Q6H PRN PO PAIN LEVEL 1-3 OR FEVER; Start 12/24/18 at 06:30 Midazolam HCl 50 ml @ 2 mls/hr PER PROTOCOL IV Last administered on 12/25/18at 02:54; Admin Dose 4 MLS/HR; Start 12/24/18 at 07:30 Propofol 100 ml @ 2.041 mls/ hr PER PROTOCOL IV Last administered on 12/24/18at 07:27; Admin Dose 2.041 MLS/HR; Start 12/24/18 at 07:30 Acetaminophen (Tylenol Supp) 650 mg Q4H PRN [place] TEMP > 37C; Start 12/24/18 at 07:30 Acetaminophen (Tylenol Liquid) 650 mg Q4H PRN PO TEMP > 37C; Start 12/24/18 at 07:30 Meperidine HCl (Demerol) 12.5 mg Q4H PRN IV POST OPERATIVE SHIVERING; Start 12/24/18 at 07:30 Meperidine HCl (Demerol) 25 mg Q4H PRN IV POST OPERATIVE SHIVERING; Start 12/24/18 at 07:30 Eye Lubricant (Artificial Tears Oph) 2 drop Q6 BOTH EYES Last administered on 12/25/18at 05:23; Admin Dose 2 DROP; Start 12/24/18 at 12:00 Insulin Human Regular 100 unit/ Sodium Chloride 100 ml @ 0 mls/hr PER PROTOCOL IV Last administered on 12/25/18at 04:46; Admin Dose 0 MLS/HR; Start 12/24/18 at 08:30 Miscellaneous Information (* Miscellaneous Pharmacy Order) Treatment of Hypoglycemia: 1.BG 51... Per protocol XX ; Start 12/24/18 at 07:30 Dextrose (D50w Syringe) 25 ml Q15M PRN IV .DECREASED GLUCOSE; Start 12/24/18 at 07:30 Dextrose (D50w Syringe) 50 ml Q15M PRN IV .DECREASED GLUCOSE; Start 12/24/18 at 07:30 Hypromellose (Genteal Severe) 1 applic Q6 BOTH EYES Last administered on 12/25/18 05:23; Admin Dose 1 APPLIC; Start 12/24/18 at 12:00 Fentanyl 100 ml @ 2.5 mls/hr TITRATE IV Last administered on 12/24/18 14:39; Admin Dose 2.5 MLS/HR; Start 12/24/18 at 08:30 Pantoprazole (Protonix Iv) 40 mg BID@06,18 IV Last administered on 12/25/18 05:28; Admin Dose 40 MG; Start 12/24/18 at 18:00 Piperacillin Sod/ Tazobactam Sod 50 ml @ 100 mls/hr Q8 IVPB Last administered on 12/25/18 05:28; Admin Dose 100 MLS/HR; Start 12/24/18 at 10:00 Norepinephrine 250 ml @ 1.875 mls/ hr TITRATE IV Last administered on 12/25/18 08:36; Admin Dose 56.25 MLS/HR; Start 12/24/18 at 11:00 Dopamine HCl/ Dextrose 250 ml @ 5.115 mls/ hr TITRATE IV Last administered on 12/25/18 08:37; Admin Dose 51.15 MLS/HR; Start 12/24/18 at 11:00 Sodium Bicarbonate 100 meq/Dextrose 1,100 ml @ 75 mls/hr [id number] IV Last administered on 12/25/18 02:53; Admin Dose 75 MLS/HR; Start 12/24/18 at 12:30 Vancomycin HCl (Vanco Iv Per Pharmacy) VANCOMYCIN PER PHARMACY PER PROTOCOL XX ; Start 12/24/18 at 13:00 Diagnostic Test (Pha) (Accu-Chek) 1 ea Q4H XX Last administered on 12/25/18 08:05; Admin Dose 1 EA; Start 12/24/18 at 16:00 Albumin Human 250 ml @ 250 mls/hr PRN PRN IV CVP<10; Start 12/24/18 at 21:30 Phenylephrine HCl 80 mg/Dextrose 250 ml @ 18.75 mls/ hr TITRATE IV Last administered on 12/25/18at 07:41; Admin Dose 56.25 MLS/HR; Start 12/24/18 at 23:00 Vasopressin 60 unit/Dextrose 60 ml @ 1.2 mls/hr Q12H IV Last administered on 12/25/18at 05:38; Admin Dose 1.2 MLS/HR; Start 12/25/18 at 01:00 Acetaminophen (Tylenol Supp) 500 mg Q6H DC ; Start 12/25/18 at 10:00 Acetaminophen (Tylenol Liquid) 500 mg Q6H PO Last administered on 12/25/18at 10:31; Admin Dose 500 MG; Start 12/25/18 at 10:00 Allergies: Coded Allergies: No Known Allergies (Verified Allergy, Unknown, 12/24/18) Past Surgical History reviewed Past Surgical Hx: other Social History reviewed Smoking Status: Unknown if ever smoked Drug Use: cocaine, marijuana, other (Methamphetamine) MEGAN ARENAS Dec 25, 2018 10:33 ONELIA ESCOBAR NP Dec 25, 2018 14:07
[2018-12-25] MEDS: POTASSIUM CHLORIDE 100 ML IVPB SCH ×2 (15:00→16:08)
[2018-12-25] MEDS ORDERED: CALCIUM GLUCONATE 10% 2 GM in DEXTROSE 5% 100 ML IVPB ONE (15:30)
--- NOTE | 2018-12-25 17:13 | CONS ---
Assessment/Plan Assessment/Plan Hospital Course (Demo Recall) Cardiac arrest: PEA and not VF. EKG with JACOBO V1 and III with Brugada looking ST elevation V2. Cath with normal coronaries and preserved LV function. Rv poorly seen on echo but may be mildly enlarged and hypokinetic so PE is in the differential. Massive intracranial event is also in the differential if he was very hypertensive in the setting of meth intoxication and agitation. Shock: LV function normal. Possibly RV dysfunction if massive PE but not well seen on echo. Also possible if neurologic event NSTEMI: trop 13, normal coros. Demand from arrest/shock vs PE Acute respiratory failure: intubated Acute renal failure Meth abuse -wean pressors to keep MAP >65 -at some point if stable, needs CT head and then PE eval -would not empirically anticoagulate as the possibility of ICH has not been ruled out >40 in critical care time Consultation Date/Type/Reason Admit Date/Time Dec 24, 2018 at 05:33 Initial Consult Date 12/24/18 Type of Consult Cardiology Requesting Provider: YUVAL BLACKWOOD Date/Time of Note DATE: 12/25/18 TIME: 17:05 24 HR Interval Summary Free Text/Dictation Now on 4 pressors and BP 90-100s. On hypothermia. Trop peaked at 13. Acute renal failure now. Exam/Review of Systems Vital Signs Vitals Vital Signs Date Temp Pulse Resp B/P (MAP) Pulse Ox O2 O2 Flow FiO2 Time Delivery Rate 12/25/18 93.7 16:08 12/25/18 86 16:00 12/25/18 22 100 30 15:31 12/25/18 90/54 (66) 13:15 Intake and Output 12/24/18 12/24/18 12/25/18 1515:00 23:00 07:00 IntakeIntake Total 1392.314 ml 1675.869 ml 1740.9 ml OutputOutput Total 285 ml 260 ml 290 ml BalanceBalance 1107.314 ml 1415.869 ml 1450.9 ml Exam Constitutional: No alert ENMT: intubated Neck: No jvd Respiratory: diminished breath sounds; No clear to auscultation Cardiovascular: regular rate and rhythm; No edema, No systolic murmur Gastrointestinal: soft; No distended Musculoskeletal: No nl extremities to inspection Neurological: No nl mental status, No nl speech Labs Result Diagram: 12/25/18 1200 12/25/18 1200 Results 24hrs Laboratory Tests Test 12/24/18 18:01 12/24/18 19:16 12/24/18 19:59 12/24/18 21:30 Creatine Kinase 7801 H Creatine Kinase 1.1 Index Creatinine 86.70 H Kinase MB (Mass) Troponin I 12.900 *H Hepatitis B NEGATIVE Surface Antigen Hepatitis B NEGATIVE Surface Antibody Hepatitis C NEGATIVE Antibody HIV (1&2) NEGATIVE Antibody White Blood 6.5 # Count Red Blood Count 4.78 Hemoglobin 14.1 Hematocrit 41.7 L Mean 87.2 Corpuscular Volume Mean 29.5 Corpuscular Hemoglobin Mean 33.8 Corpuscular Hemoglobin Conc ent Red Cell 13.3 Distribution Width Platelet Count 157 # Mean Platelet 9.0 Volume Immature 0.600 H Granulocytes % Neutrophils % Segmented 55 Neutrophils % (Manual) Band 31 H Neutrophils % (Manual) Lymphocytes % Lymphocytes % 9 L (Manual) Reactive 1 H Lymphocytes % (Manual) Monocytes % Monocytes % 1 (Manual) Eosinophils % Basophils % Metamyelocytes 3 H % (manual) Nucleated Red 0.0 Blood Cells % Immature 0.040 H Granulocytes # Neutrophils # Neutrophils # 3.7 (Manual) Band 2.0 H Neutrophils # Lymphocytes 0.5 L (Manual) Lymphocytes # Reactive 0.0 Lymphocytes # Monocytes # Monocytes # 0.0 L (Manual) Eosinophils # Basophils # Metamyelocytes 0.1 H # Nucleated Red Blood Cells # Poikilocytosis 1+ Anisocytosis 1+ Microcytosis 1+ Target Cells 1+ Ovalocytes 1+ Echinocytes 1+ Schistocytes 1+ Sodium Level 141 Potassium Level 2.7 *L Chloride Level 102 Carbon Dioxide 23 Level Anion Gap 16 H Blood Urea 44 H Nitrogen Creatinine 2.21 H Est Glomerular 32 L Filtrat Rate mL/min Glucose Level 228 #H Calcium Level 7.3 L Total Bilirubin 1.1 Direct 0.70 #H Bilirubin Indirect 0.4 Bilirubin Aspartate Amino 1106 H Transf (AST/SGO T) Alanine 394 H Aminotransferas e (ALT/SGPT) Alkaline 132 H Phosphatase Total Protein 5.8 L Albumin 3.2 L Globulin 2.60 Albumin/Globuli 1.23 n Ratio Bedside Glucose 177 Blood Gas Blood arterial Specimen Source Arterial Blood 12/24/2018 9:15:5 Date Drawn 9 PM Arterial Blood 7.359 pH (Temp corrected ) Arterial Blood 34.4 L pCO2 (Temp correct) Arterial Blood 109.6 H pO2 (Temp corrected ) Arterial Blood 19.7 L HCO3 Arterial Blood -6.1 L Base Excess Arterial Blood 98.3 H Oxygen Saturati on Adarsh Test N/A Arterial Blood A-Line Gas Puncture Site Arterial 0.7 Blood Carboxyhe moglobin Arterial Blood 0.3 Methemoglobin Blood Gas A-a 139.4 H O2 Differential Oxyhemoglobin 97.3 Percent Blood Gas 33.5 Temperature Blood Gas 24.0 Respiration Rate Blood Gas 24 Actual Respiration Rat e Blood Gas VENT - AC Modality FiO2 40.0 Blood Gas Tidal 500.0 Volume Blood Gas Low 10.0 PEEP Setting Blood Gas 28.0 Inspiratory Pressure Blood Gas KM Notified Whom Blood Gas 12/24/2018 9:29:0 Notified Time 3 PM Test 12/24/18 23:25 12/25/18 01:04 12/25/18 03:30 12/25/18 04:39 Bedside Glucose 195 222 H White Blood 4.4 #L Count Red Blood Count 4.12 L Hemoglobin 12.5 L Hematocrit 36.7 L Mean 89.1 Corpuscular Volume Mean 30.3 Corpuscular Hemoglobin Mean 34.1 Corpuscular Hemoglobin Conc ent Red Cell 13.2 Distribution Width Platelet Count 123 #L Mean Platelet 9.2 Volume Immature 0.500 H Granulocytes % Neutrophils % Segmented 47 Neutrophils % (Manual) Band 37 H Neutrophils % (Manual) Lymphocytes % Lymphocytes % 10 L (Manual) Reactive 1 H Lymphocytes % (Manual) Monocytes % Monocytes % 2 (Manual) Eosinophils % Basophils % Metamyelocytes 3 H % (manual) Nucleated Red 0.0 Blood Cells % Immature 0.020 Granulocytes # Neutrophils # Neutrophils # 2.1 (Manual) Band 1.6 H Neutrophils # Lymphocytes 0.4 L (Manual) Lymphocytes # Reactive 0.0 Lymphocytes # Monocytes # Monocytes # 0.0 L (Manual) Eosinophils # Basophils # Metamyelocytes 0.1 H # Nucleated Red Blood Cells # Platelet NORMAL Estimate Giant Platelets 2 H Polychromasia 3+ Poikilocytosis 1+ Anisocytosis 1+ Microcytosis 1+ Sodium Level 143 Potassium Level 2.9 *L Chloride Level 102 Carbon Dioxide 20 L Level Anion Gap 21 H Blood Urea 45 H Nitrogen Creatinine 2.55 H Est Glomerular 27 L Filtrat Rate mL/min Glucose Level 196 Calcium Level 6.6 L Total Bilirubin 1.0 Direct 0.70 H Bilirubin Indirect 0.3 Bilirubin Aspartate Amino 791 H Transf (AST/SGO T) Alanine 310 H Aminotransferas e (ALT/SGPT) Alkaline 87 Phosphatase Total Protein 5.2 L Albumin 3.1 L Globulin 2.10 Albumin/Globuli 1.47 n Ratio Blood Gas Blood arterial Specimen Source Arterial Blood 12/25/2018 3:25:5 Date Drawn 7 AM Arterial Blood 7.289 *L pH (Temp corrected ) Arterial Blood 38.6 pCO2 (Temp correct) Arterial Blood 67.1 L pO2 (Temp corrected ) Arterial Blood 18.9 L HCO3 Arterial Blood -8.2 L Base Excess Arterial Blood 95.5 Oxygen Saturati on Adarsh Test N/A Arterial Blood A-Line Gas Puncture Site Arterial 1.7 Blood Carboxyhe moglobin Arterial Blood 0.3 Methemoglobin Blood Gas A-a 103.9 H O2 Differential Oxyhemoglobin 93.6 Percent Blood Gas 33.4 Temperature Blood Gas 20.0 Respiration Rate Blood Gas 20 Actual Respiration Rat e Blood Gas VENT - AC Modality FiO2 30.0 Blood Gas Tidal 500.0 Volume Blood Gas Low 10.0 PEEP Setting Blood Gas 28.0 Inspiratory Pressure Blood Gas ALYSSIA BUI Critical Value Read Back Blood Gas Notified Whom Blood Gas 12/25/2018 3:35:1 Notified Time 1 AM Test 12/25/18 06:00 12/25/18 06:02 12/25/18 07:07 12/25/18 07:58 White Blood 3.5 #L Count Red Blood Count 4.10 L Hemoglobin 12.4 L Hematocrit 37.3 L Mean 91.0 Corpuscular Volume Mean 30.2 Corpuscular Hemoglobin Mean 33.2 Corpuscular Hemoglobin Conc ent Red Cell 13.4 Distribution Width Platelet Count 102 L Mean Platelet 9.7 Volume Immature 0.300 Granulocytes % Neutrophils % Segmented 23 L Neutrophils % (Manual) Band 51 H Neutrophils % (Manual) Lymphocytes % Lymphocytes % 8 L (Manual) Reactive 5 H Lymphocytes % (Manual) Monocytes % Monocytes % 5 (Manual) Eosinophils % Basophils % Metamyelocytes 4 H % (manual) Myelocytes % 4 H (Manual) Nucleated Red 0.0 Blood Cells % Immature 0.010 Granulocytes # Neutrophils # Neutrophils # 0.9 L (Manual) Band 1.7 H Neutrophils # Lymphocytes 0.2 L (Manual) Lymphocytes # Reactive 0.1 H Lymphocytes # Monocytes # Monocytes # 0.1 L (Manual) Eosinophils # Basophils # Metamyelocytes 0.1 H # Myelocytes # 0.1 H Nucleated Red Blood Cells # Platelet DECREASED Estimate Poikilocytosis 1+ Sodium Level 143 Potassium Level 2.5 *L Chloride Level 101 Carbon Dioxide 18 L Level Anion Gap 24 H Blood Urea 47 H Nitrogen Creatinine 3.03 H Est Glomerular 22 L Filtrat Rate mL/min Glucose Level 257 H Lactic Acid 10.8 *H Level Calcium Level 6.6 L Phosphorus 8.7 #H Level Magnesium Level 3.7 H Total Bilirubin 1.2 Direct 0.80 H Bilirubin Indirect 0.4 Bilirubin Aspartate Amino 679 H Transf (AST/SGO T) Alanine 304 H Aminotransferas e (ALT/SGPT) Alkaline 85 Phosphatase Troponin I 7.300 *H Total Protein 5.5 L Albumin 3.4 Globulin 2.10 Albumin/Globuli 1.61 n Ratio Bedside Glucose 221 H 253 H 258 H Test 12/25/18 07:59 12/25/18 09:07 12/25/18 10:02 12/25/18 11:02 Prothrombin 19.4 H Time Prothrombin 1.5 Time Ratio INR 1.63 International Normalized Rati o Activated 37.3 H Partial Thrombo plast Time Fibrinogen 158.0 L Amylase Level 159 H Lipase 70 Bedside Glucose 195 176 151 Test 12/25/18 11:57 12/25/18 12:00 12/25/18 12:13 12/25/18 13:00 Lactic Acid 10.4 *H Level White Blood 3.6 L Count Red Blood Count 4.04 L Hemoglobin 12.1 L Hematocrit 35.5 L Mean 87.9 Corpuscular Volume Mean 30.0 Corpuscular Hemoglobin Mean 34.1 Corpuscular Hemoglobin Conc ent Red Cell 13.2 Distribution Width Platelet Count 88 L Mean Platelet 9.1 Volume Immature 0.600 H Granulocytes % Neutrophils % 88.5 H Segmented 16 L Neutrophils % (Manual) Band 62 H Neutrophils % (Manual) Lymphocytes % 7.0 L Lymphocytes % 10 L (Manual) Reactive 1 H Lymphocytes % (Manual) Monocytes % 3.6 Monocytes % 5 (Manual) Eosinophils % 0.0 Basophils % 0.3 Metamyelocytes 4 H % (manual) Myelocytes % 2 H (Manual) Nucleated Red 0.0 Blood Cells % Immature 0.020 Granulocytes # Neutrophils # 3.2 Neutrophils # 0.7 L (Manual) Band 2.2 H Neutrophils # Lymphocytes 0.3 L (Manual) Lymphocytes # 0.3 L Reactive 0.0 Lymphocytes # Monocytes # 0.1 L Monocytes # 0.1 L (Manual) Eosinophils # 0.0 Basophils # 0.0 Metamyelocytes 0.1 H # Myelocytes # 0.0 Nucleated Red 0.0 Blood Cells # Platelet SIG DECREASED Estimate Giant Platelets 7 H Poikilocytosis 1+ Anisocytosis 1+ Blood Gas Blood arterial Specimen Source Arterial Blood 12/25/2018 11:50: Date Drawn 37 AM Arterial Blood 7.336 L pH (Temp corrected ) Arterial Blood 35.4 pCO2 (Temp correct) Arterial Blood 70.8 L pO2 (Temp corrected ) Arterial Blood 19.3 L HCO3 Arterial Blood -7.0 L Base Excess Arterial Blood 96.5 Oxygen Saturati on Adarsh Test N/A Arterial Blood A-Line Gas Puncture Site Arterial 1.3 Blood Carboxyhe moglobin Arterial Blood 0.2 Methemoglobin Blood Gas A-a 104.2 H O2 Differential Oxyhemoglobin 95.1 Percent Blood Gas 33.2 Temperature Blood Gas 22.0 Respiration Rate Blood Gas 22 Actual Respiration Rat e Blood Gas VENT - AC Modality FiO2 30.0 Blood Gas Tidal 500.0 Volume Blood Gas Low 10.0 PEEP Setting Blood Gas TRELL DANGELO Critical Value Read Back Blood Gas TM Notified Whom Blood Gas 12/25/2018 12:06: Notified Time 02 PM Sodium Level 144 Potassium Level 1.9 *L Chloride Level 102 Carbon Dioxide 22 Level Anion Gap 20 H Blood Urea 49 H Nitrogen Creatinine 3.11 H Est Glomerular 22 L Filtrat Rate mL/min Glucose Level 140 # Hemoglobin A1c 5.6 Calcium Level 6.4 L Phosphorus 4.8 # Level Magnesium Level 3.2 H Total Bilirubin 1.1 Direct 0.70 H Bilirubin Indirect 0.4 Bilirubin Aspartate Amino 534 H Transf (AST/SGO T) Alanine 304 H Aminotransferas e (ALT/SGPT) Alkaline 74 Phosphatase Troponin I 6.030 *H Total Protein 4.9 L Albumin 2.9 L Globulin 2.00 Albumin/Globuli 1.45 n Ratio Bedside Glucose 123 133 Test 12/25/18 13:59 12/25/18 15:09 12/25/18 16:10 Bedside Glucose 117 118 114 Medications Medications Current Medications Albuterol (Ventolin Hfa) 4 puff Q2H RESP THERAPY PRN INH SHORTNESS OF BREATH; Start 12/24/18 at 07:30 Ipratropium [place] (Atrovent Hfa) 4 puff Q2H RESP THERAPY PRN INH SHORTNESS OF BREATH; Start 12/24/18 at 06:30 Acetaminophen (Tylenol Liquid) 650 mg Q6H PRN PO PAIN LEVEL 1-3 OR FEVER; Start 12/24/18 at 06:30 Midazolam HCl 50 ml @ 2 mls/hr PER PROTOCOL IV Last administered on 12/25/18at 14:20; Admin Dose 4 MLS/HR; Start 12/24/18 at 07:30 Propofol 100 ml @ 2.041 mls/ hr PER PROTOCOL IV Last administered on 12/24/18at 07:27; Admin Dose 2.041 MLS/HR; Start 12/24/18 at 07:30 Acetaminophen (Tylenol Supp) 650 mg Q4H PRN HI TEMP > 37C; Start 12/24/18 at 07:30 Acetaminophen (Tylenol Liquid) 650 mg Q4H PRN PO TEMP > 37C; Start 12/24/18 at 07:30 Meperidine HCl (Demerol) 12.5 mg Q4H PRN IV POST OPERATIVE SHIVERING; Start 12/24/18 at 07:30 Meperidine HCl (Demerol) 25 mg Q4H PRN IV POST OPERATIVE SHIVERING; Start 12/24/18 at 07:30 Eye Lubricant (Artificial Tears Oph) 2 drop Q6 BOTH EYES Last administered on 12/25/18at 12:14; Admin Dose 2 DROP; Start 12/24/18 at 12:00 Insulin Human Regular 100 unit/ Sodium Chloride 100 ml @ 0 mls/hr PER PROTOCOL IV Last administered on 12/25/18at 04:46; Admin Dose 0 MLS/HR; Start 12/24/18 at 08:30 Miscellaneous Information (* Miscellaneous Pharmacy Order) Treatment of Hypoglycemia: 1.BG 51... Per protocol XX ; Start 12/24/18 at 07:30 Dextrose (D50w Syringe) 25 ml Q15M PRN IV .DECREASED GLUCOSE; Start 12/24/18 at 07:30 Dextrose (D50w Syringe) 50 ml Q15M PRN IV .DECREASED GLUCOSE; Start 12/24/18 at 07:30 Hypromellose (Genteal Severe) 1 applic Q6 BOTH EYES Last administered on 12/25/18 12:14; Admin Dose 1 APPLIC; Start 12/24/18 at 12:00 Fentanyl 100 ml @ 2.5 mls/hr TITRATE IV Last administered on 12/24/18 14:39; Admin Dose 2.5 MLS/HR; Start 12/24/18 at 08:30 Pantoprazole (Protonix Iv) 40 mg BID@06,18 IV Last administered on 12/25/18 05:28; Admin Dose 40 MG; Start 12/24/18 at 18:00 Piperacillin Sod/ Tazobactam Sod 50 ml @ 100 mls/hr Q8 IVPB Last administered on 12/25/18 14:19; Admin Dose 100 MLS/HR; Start 12/24/18 at 10:00 Norepinephrine 250 ml @ 1.875 mls/ hr TITRATE IV Last administered on 12/25/18 13:05; Admin Dose 56.25 MLS/HR; Start 12/24/18 at 11:00 Dopamine HCl/ Dextrose 250 ml @ 5.115 mls/ hr TITRATE IV Last administered on 12/25/18 13:05; Admin Dose 51.15 MLS/HR; Start 12/24/18 at 11:00 Sodium Bicarbonate 100 meq/Dextrose 1,100 ml @ 75 mls/hr [id number] IV Last administered on 12/25/18 16:41; Admin Dose 75 MLS/HR; Start 12/24/18 at 12:30 Vancomycin HCl (Vanco Iv Per Pharmacy) VANCOMYCIN PER PHARMACY PER PROTOCOL XX ; Start 12/24/18 at 13:00 Diagnostic Test (Pha) (Accu-Chek) 1 ea Q4H XX Last administered on 12/25/18 16:08; Admin Dose 1 EA; Start 12/24/18 at 16:00 Albumin Human 250 ml @ 250 mls/hr PRN PRN IV CVP<10; Start 12/24/18 at 21:30 Phenylephrine HCl 80 mg/Dextrose 250 ml @ 18.75 mls/ hr TITRATE IV Last administered on 12/25/18 12:34; Admin Dose 56.25 MLS/HR; Start 12/24/18 at 23:00 Vasopressin 60 unit/Dextrose 60 ml @ 1.2 mls/hr Q12H IV Last administered on 12/25/18at 05:38; Admin Dose 1.2 MLS/HR; Start 12/25/18 at 01:00 Acetaminophen (Tylenol Supp) 500 mg Q6H HI ; Start 12/25/18 at 10:00 Acetaminophen (Tylenol Liquid) 500 mg Q6H PO Last administered on 12/25/18at 16:08; Admin Dose 500 MG; Start 12/25/18 at 10:00 Miscellaneous Information (*Rx Drug Level Order Reminder*) VANCO RANDOM W/ AM LABS... 0500 ONCE XX ; Start 12/26/18 at 05:00; Stop 12/26/18 at 05:01 Calcium Gluconate 2 gm/Dextrose 120 ml @ 60 mls/hr ONCE ONCE IVPB ; Start 12/25/18 at 15:30; Stop 12/25/18 at 17:29 Potassium Chloride 100 ml @ 50 mls/hr Q2H IVPB Last administered on 12/25/18at 16:08; Admin Dose 50 MLS/HR; Start 12/25/18 at 14:30; Stop 12/25/18 at 18:29 KRISTIAN GUERRERO Dec 25, 2018 17:13
--- NOTE | 2018-12-25 17:56 | RADRPT ---
Vent Rate: 81 bpm RR Interval: 0 msec [place] Interval: 152 msec QRS Duration: 104 msec QT Interval: 488 msec QTC Interval: 566 msec P-R-T [place]: 66 - 64 - 71 degrees Normal sinus rhythm Prolonged QT Abnormal ECG Electronically Signed By: Wood Farris
--- NOTE | 2018-12-25 17:58 | RADRPT ---
Vent Rate: 76 bpm RR Interval: 0 msec [place] Interval: 156 msec QRS Duration: 110 msec QT Interval: 480 msec QTC Interval: 540 msec P-R-T [place]: 62 - 68 - 73 degrees Normal sinus rhythm Prolonged QT Abnormal ECG Electronically Signed By: Wood Farris
--- NOTE | 2018-12-25 18:00 | RADRPT ---
Vent Rate: 77 bpm RR Interval: 0 msec [place] Interval: 140 msec QRS Duration: 96 msec QT Interval: 466 msec QTC Interval: 527 msec P-R-T [place]: 12 - 67 - 75 degrees Normal sinus rhythm Prolonged QT Abnormal ECG Electronically Signed By: Wood Farris
[2018-12-25] MEDS: FENTAnyl (DRIP) 1000 mcg/100mL 100 ML IV SCH (22:00)
[2018-12-26] VITALS (103 sets, daily range): BP systolic 62–171; BP diastolic 39–105; PULSE 78–120; RESP 17–22
[2018-12-26] MEDS: ACCU-CHEK XX SCH ×7 (00:03→23:37)
[2018-12-26] MEDS: ARTIFICIAL TEARS 15 ML OPH BOTH EYES SCH ×5 (00:45→23:37)
[2018-12-26] MEDS: HYPROMELLOSE OPHTHALMIC LUBRICANT GEL (10 GM) BOTH EYES SCH ×5 (00:45→23:37)
[2018-12-26] MEDS: VASOPRESSIN 60 UNIT in DEXTROSE 5% 57 ML IV SCH ×2 (00:46→03:01)
[2018-12-26] MEDS: PHENYLephrine 80 MG in DEXTROSE 5% 242 ML IV SCH ×5 (02:24→22:16)
[2018-12-26] MEDS: NORepinephrine 8MG/250 ML (PMX 250 ML IV SCH ×6 (02:25→23:08)
[2018-12-26] MEDS: MIDAZOLAM (DRIP) 50 mg/50 mL 50 ML IV SCH (02:59)
[2018-12-26] MEDS: DOPamine-D5W 1.6 MG/ML 250 ML IV SCH ×5 (03:04→23:09)
[2018-12-26] MEDS: ACETAMINOPHEN 650MG/20.3ML CUP PO SCH ×4 (03:34→21:49)
[2018-12-26] MEDS: ACETAMINOPHEN 650 MG SUPP PR SCH ×4 (03:34→22:00)
[2018-12-26] MEDS: PANTOPRAZOLE 40 MG INJ IV SCH ×2 (05:28→17:14)
[2018-12-26] MEDS: PIPER-TAZO 2.25 GM (PMX) 50 ML IVPB SCH ×3 (05:28→21:48)
[2018-12-26] MEDS: SODIUM BICARBONATE (IV ADD) 100 MEQ in DEXTROSE 5% 1,000 ML IV SCH (06:30)
[2018-12-26] MEDS: SOD CHLORIDE 0.9% 1,000 ML IV SCH (08:26)
--- NOTE | 2018-12-26 08:36 | PN ---
DATE: 12/26/2018 SUBJECTIVE: The patient is critically ill on 4 pressors. The patient's urinary output is marginal. The patient is on full ventilatory support. No other events noted. OBJECTIVE: VITAL SIGNS: Blood pressure is 95/55, pulse 110, respirations 22, temperature 98.1. HEENT: Head is normocephalic. NECK: Shows trach. HEART: Tachycardic. LUNGS: Show diminished breath sounds at the base. ABDOMEN: Soft, nontender to palpation without rebound or guarding. EXTREMITIES: Negative for clubbing, cyanosis. Trace edema. DERMATOLOGIC: No rashes. MUSCULOSKELETAL: No joint effusion. NEUROLOGIC: No change in exam. MEDICATIONS: Reviewed. LABORATORY DATA: Reviewed. The patient's lactic acid is 4.3, BUN 56, creatinine 3.52. White count 10.1, hemoglobin 9.6, platelet count is 80. The patient's ABG was reviewed. Microbiology was review ed. IMAGING STUDIES: Chest x-ray from 12/25/2018 shows a decrease in left interstitial opacities, improv ed aeration of right upper lobe, findings may represent improving edema versus pneumonia. A renal ul trasound was reviewed, showed increased echogenicity consistent with medical renal disease. ASSESSMENT AND PLAN: 1. Oliguric r acute kidney injury, etiology is secondary to acute tubular necrosis due to shock, isc hemic hypoperfusion. The patient currently remains in injury phase of acute tubular necrosis as tierney l function continues to decline. Urinary output has been marginal, but stable in the last 24 hours. At this point, we would continue current medical management. Continue pressor support to maintain M AP of 65. Continue antibiotic therapy, continue IV fluids. Otherwise, continue supportive care, chad ally dose all medicines, and avoid nephrotoxins. Please note the patient is hemodynamically unstable for renal replacement therapy at this time. 2. Hypokalemia, resolved. Continue to monitor and replete as needed. 3. Mixed acid base disorder. The patient has metabolic acidosis, respiratory acidosis and metabolic alkalosis. The patient's ABG was reviewed. We will discontinue bicarbonate drip. 4. Mineral bone disorder. The patient is hyperphosphatemic, and hypocalcemic. Etiology is secondar y to acute kidney injury. Continue to replete with calcium gluconate. We will discontinue bicarbona te drip, which can be precipitating hypocalcemia. We will monitor closely. 5. Lactic acidosis secondary to septic shock. Continue to monitor. Treat underlying sepsis. 6. Shock, etiology is multifactorial, cardiac, septic. The patient remains on multiple pressors, IV fluids, antibiotics, continue. Cultures have been reviewed. 7. Status post cardiac arrest. Etiology is possibly due to polysubstance abuse. The patient is sta tus post cardiac catheterization with normal coronaries. Continue to monitor. 8. Ventilator-dependent respiratory failure. Vent settings and ABG was reviewed. Continue to monit or. 9. Acute encephalopathy, etiology is toxic metabolic. Please note I spent over 30 minutes of critical care time with this patient. Dictated By: HERB MATOS DO NR/NTS Conf#: [id number] DID#: [id number] CC: KRISTIAN GUERRERO MD; YUVAL BLACKWOOD MD; ANASTASIA GILBERT MD;*End*
--- NOTE | 2018-12-26 09:27 | CONS ---
Assessment/Plan Assessment/Plan Assessment/Plan (Daily) Chest x-ray was reviewed from today which is showing patchy bilateral infiltrates. Ventilator setting; AC of 22, tidal volume 500, PEEP of 10, 40% FiO2. Patient is currently on insulin drip 1 unit/h, Levophed 30 mics per minute, dopamine 20 mics per kilogram per minute, phenylephrine drip 300 mics per minute, vasopressin 0.04 units/min. Assessment and recommendations; 1. Patient status post cardiac arrest status post hypothermia protocol with profound mental unresponsiveness indicating severe anoxic brain injury. Patient does not have any gag reflex, pupils are dilated and nonreactive to light. 2. Possible some element of aspiration pneumonia versus pulmonary edema. Patient currently on appropriate empiric antimicrobial coverage. 3. Worsening renal function due to acute tubular necrosis. 4. Profound hypotension. 5. Anemia and severe thrombocytopenia. Continue current supportive care. Obtain ABG. Wean down PEEP to 0 as tolerated. Prognosis appears extremely poor. Monitor renal function. Further recommendations once ABG is performed. 35 minutes of critical care time was spent evaluating the patient. Consultation Date/Type/Reason Admit Date/Time Dec 24, 2018 at 05:33 Initial Consult Date 12/24/18 Type of Consult Pulmonary/critical care Patient is a 43-year-old male who was admitted to the hospital after cardiac arrest event. Patient apparently was being arrested when he collapsed, CPR was done with revival of vital signs. Patient developed acute [place] was taken to the [facility] where patient had normal coronary arteries. Patient is transferred to ICU intubated, remains hypotensive and hypoxemic. Patient is currently on hypothermia protocol. Past medical history; unknown. Apparently none. Medications; reviewed. Patient is on Levophed 24 mics per minute, dopamine 10 mics per kilogram per minute, propofol 40 mics per kilogram per minute, Versed 4 mg/h. Other medications were reviewed as well. Allergies; none. Family history; not available. Occupational history and review of systems not available either. General exam; young male, orally intubated, on hypothermia protocol. Sedated. Requesting Provider: YUVAL BLACKWOOD Date/Time of Note DATE: 12/26/18 TIME: 09:24 24 HR Interval Summary Free Text/Dictation Patient's condition is extremely critical. Remains unresponsive. Remains profoundly hypotensive. General exam; middle-aged male, orally intubated, unresponsive, currently in no distress. Exam/Review of Systems Exam Vitals Vital Signs Date Temp Pulse Resp B/P (MAP) Pulse Ox O2 O2 Flow FiO2 Time Delivery Rate 12/26/18 112 22 92/54 (67) 99 Mechanical 08:45 Ventilator 12/26/18 35 08:17 12/26/18 98.1 07:00 Intake and Output 12/25/18 12/25/18 12/26/18 1515:00 23:00 07:00 IntakeIntake Total 2307.20 ml 2317.70 ml 1500.00 ml OutputOutput Total 523 ml 590 ml 455 ml BalanceBalance 1784.20 ml 1727.70 ml 1045.00 ml Exam H EENT exam; supple neck, no JVD. No lymphadenopathy. No thyromegaly. Pupils are dilated and not reactive to light. Patient has fair dentition. Orally intubated. Orogastric tube in place. Chest exam; diminished but clear breath sounds. No added sounds. S1-S2 audible, no murmurs. Regular rhythm. Abdomen exam; soft, nondistended. No organomegaly. Bowel sounds are sluggish. Extremity exam; no edema. [employer] exam; patient is unresponsive. Results Result Diagram: 12/26/18 0426 12/26/18425 Results 24hrs Laboratory Tests Test 12/25/18 10:02 12/25/18 11:02 12/25/18 11:57 12/25/18 12:00 Bedside Glucose 176 151 Lactic Acid 10.4 *H Level White Blood 3.6 L Count Red Blood Count 4.04 L Hemoglobin 12.1 L Hematocrit 35.5 L Mean Corpuscular 87.9 Volume Mean Corpuscular 30.0 Hemoglobin Mean Corpuscular 34.1 Hemoglobin Lisa nt Red Cell 13.2 Distribution Width Platelet Count 88 L Mean Platelet 9.1 Volume Immature 0.600 H Granulocytes % Neutrophils % 88.5 H Segmented 16 L Neutrophils % (Manual) Band Neutrophils 62 H % (Manual) Lymphocytes % 7.0 L Lymphocytes % 10 L (Manual) Reactive 1 H Lymphocytes % (Manual) Monocytes % 3.6 Monocytes % 5 (Manual) Eosinophils % 0.0 Basophils % 0.3 Metamyelocytes % 4 H (manual) Myelocytes % 2 H (Manual) Nucleated Red 0.0 Blood Cells % Immature 0.020 Granulocytes # Neutrophils # 3.2 Neutrophils # 0.7 L (Manual) Band Neutrophils 2.2 H # Lymphocytes 0.3 L (Manual) Lymphocytes # 0.3 L Reactive 0.0 Lymphocytes # Monocytes # 0.1 L Monocytes # 0.1 L (Manual) Eosinophils # 0.0 Basophils # 0.0 Metamyelocytes # 0.1 H Myelocytes # 0.0 Nucleated Red 0.0 Blood Cells # Platelet SIG DECREASED Estimate Giant Platelets 7 H Poikilocytosis 1+ Anisocytosis 1+ Blood Gas Blood arterial Specimen Source Arterial Blood 12/25/2018 11:50: Date Drawn 37 AM Arterial Blood 7.336 L pH (Temp corrected) Arterial Blood 35.4 pCO2 (Temp correct) Arterial Blood 70.8 L pO2 (Temp corrected) Arterial Blood 19.3 L HCO3 Arterial Blood -7.0 L Base Excess Arterial Blood 96.5 Oxygen Saturatio n Adarsh Test N/A Arterial Blood A-Line Gas Puncture Site Arterial 1.3 Blood Carboxyhem oglobin Arterial Blood 0.2 Methemoglobin Blood Gas A-a O2 104.2 H Differential Oxyhemoglobin 95.1 Percent Blood Gas 33.2 Temperature Blood Gas 22.0 Respiration Rate Blood Gas Actual 22 Respiration Rate Blood Gas VENT - AC Modality FiO2 30.0 Blood Gas Tidal 500.0 Volume Blood Gas Low 10.0 PEEP Setting Blood Gas LALFONZO RNTM Critical Value Read Back Blood Gas TM Notified Whom Blood Gas 12/25/2018 12:06: Notified Time 02 PM Sodium Level 144 Potassium Level 1.9 *L Chloride Level 102 Carbon Dioxide 22 Level Anion Gap 20 H Blood Urea 49 H Nitrogen Creatinine 3.11 H Est Glomerular 22 L Filtrat Rate mL/min Glucose Level 140 # Hemoglobin A1c 5.6 Calcium Level 6.4 L Phosphorus Level 4.8 # Magnesium Level 3.2 H Total Bilirubin 1.1 Direct Bilirubin 0.70 H Indirect 0.4 Bilirubin Aspartate Amino 534 H Transf (AST/SGOT ) Alanine 304 H Aminotransferase (ALT/SGPT) Alkaline 74 Phosphatase Troponin I 6.030 *H Total Protein 4.9 L Albumin 2.9 L Globulin 2.00 Albumin/Globulin 1.45 Ratio Test 12/25/18 12:13 12/25/18 13:00 12/25/18 13:59 12/25/18 15:09 Bedside Glucose 123 133 117 118 Test 12/25/18 16:10 12/25/18 17:10 4/9/19 18:00 12/25/18 18:01 Bedside Glucose 114 118 Blood Gas Blood arterial Specimen Source Arterial Blood 12/25/2018 6:00:5 Date Drawn 6 PM Arterial Blood 7.372 pH (Temp corrected) Arterial Blood 38.1 pCO2 (Temp correct) Arterial Blood 69.8 L pO2 (Temp corrected) Arterial Blood 22.2 HCO3 Arterial Blood -3.4 L Base Excess Arterial Blood 96.1 Oxygen Saturatio n Adarsh Test N/A Arterial Blood A-Line Gas Puncture Site Arterial 1.4 Blood Carboxyhem oglobin Arterial Blood 0.2 Methemoglobin Blood Gas A-a O2 100.9 H Differential Oxyhemoglobin 94.6 Percent Blood Gas 34.8 Temperature Blood Gas 22.0 Respiration Rate Blood Gas Actual 22 Respiration Rate Blood Gas VENT - AC Modality FiO2 30.0 Blood Gas Tidal 500.0 Volume Blood Gas High 10.0 PEEP Setting Blood Gas MACO BUI Critical Value Read Back Blood Gas CMOLENO [employer]W [employer]TER Notified Whom Blood Gas 12/25/2018 6:18:1 Notified Time 4 PM Lactic Acid 6.6 *H Level Test 12/25/18 18:02 12/25/18 18:59 12/25/18 20:08 12/25/18 22:08 White Blood 5.2 # Count Red Blood Count 4.14 L Hemoglobin 12.4 L Hematocrit 35.7 L Mean Corpuscular 86.2 Volume Mean Corpuscular 30.0 Hemoglobin Mean Corpuscular 34.7 Hemoglobin Lisa nt Red Cell 13.4 Distribution Width Platelet Count 88 L Mean Platelet 10.0 Volume Immature 1.200 H Granulocytes % Neutrophils % Segmented 11 L Neutrophils % (Manual) Band Neutrophils 70 H % (Manual) Lymphocytes % Lymphocytes % 8 L (Manual) Monocytes % Monocytes % 3 (Manual) Eosinophils % Basophils % Metamyelocytes % 8 H (manual) Nucleated Red 0.0 Blood Cells % Immature 0.060 H Granulocytes # Neutrophils # Neutrophils # 0.8 L (Manual) Band Neutrophils 3.6 H # Lymphocytes 0.4 L (Manual) Lymphocytes # Monocytes # Monocytes # 0.1 L (Manual) Eosinophils # Basophils # Metamyelocytes # 0.4 H Nucleated Red Blood Cells # Platelet DECREASED Estimate Polychromasia 1+ Poikilocytosis 2+ Anisocytosis 1+ Microcytosis 1+ Fibrinogen 260.0 # Sodium Level 143 Potassium Level 2.7 *L Chloride Level 97 Carbon Dioxide 25 Level Anion Gap 21 H Blood Urea 52 H Nitrogen Creatinine 3.14 H Est Glomerular 21 L Filtrat Rate mL/min Glucose Level 135 Bedside Glucose 141 130 102 118 Calcium Level 6.0 L Phosphorus Level 6.4 H Magnesium Level 2.6 H Total Bilirubin 0.8 Direct Bilirubin 0.50 #H Indirect 0.3 Bilirubin Aspartate Amino 478 H Transf (AST/SGOT ) Alanine 302 H Aminotransferase (ALT/SGPT) Alkaline 60 Phosphatase Troponin I 4.580 *H Total Protein 4.9 L Albumin 2.8 L Globulin 2.10 Albumin/Globulin 1.33 Ratio Amylase Level 78 Lipase 62 Test 12/26/18 00:02 12/26/18 00:23 12/26/18 04:03 12/26/18 04:26 Bedside Glucose 156 145 White Blood 7.6 # 10.1 # Count Red Blood Count 3.83 L 3.81 L Hemoglobin 11.7 L 11.6 L Hematocrit 32.7 L 32.9 L Mean Corpuscular 85.4 86.4 Volume Mean Corpuscular 30.5 30.4 Hemoglobin Mean Corpuscular 35.8 35.3 Hemoglobin Lisa nt Red Cell 13.3 13.4 Distribution Width Platelet Count 84 L 80 L Mean Platelet 10.9 H 10.6 H Volume Immature 2.100 H 4.100 H Granulocytes % Neutrophils % Segmented 33 L 21 L Neutrophils % (Manual) Band Neutrophils 52 H 62 H % (Manual) Lymphocytes % Lymphocytes % 7 L 9 L (Manual) Monocytes % Monocytes % 2 4 (Manual) Eosinophils % Basophils % Metamyelocytes % 6 H 4 H (manual) Nucleated Red 0.0 1 H Blood Cells % Immature 0.160 H 0.410 H Granulocytes # Neutrophils # Neutrophils # 2.8 2.7 (Manual) Band Neutrophils 3.9 H 6.2 H # Lymphocytes 0.5 L 0.9 (Manual) Lymphocytes # Monocytes # Monocytes # 0.1 L 0.4 (Manual) Eosinophils # Basophils # Metamyelocytes # 0.4 H 0.4 H Nucleated Red Blood Cells # Platelet DECREASED DECREASED Estimate Sodium Level 137 138 Potassium Level 4.2 4.8 Chloride Level 93 L 94 L Carbon Dioxide 26 26 Level Anion Gap 18 H 18 H Blood Urea 53 H 56 H Nitrogen Creatinine 3.37 H 3.52 H Est Glomerular 19 L 19 L Filtrat Rate mL/min Glucose Level 155 135 Lactic Acid 5.3 *H Level Calcium Level 5.9 *L 5.5 *L Phosphorus Level 9.8 #H 9.6 H Magnesium Level 2.3 2.3 Troponin I 3.130 *H 3.350 *H Giant Platelets 1 H Macrocytosis 1+ Prothrombin Time 21.6 H Prothrombin Time 1.7 Ratio INR 1.87 International Normalized Ratio Activated 37.4 H Partial Thrombop last Time Random 11.0 Vancomycin Level Test 12/26/18 04:50 12/26/18 07:22 12/26/18 07:51 Lactic Acid 4.3 *H Level Amylase Level 78 Lipase 15 L Bedside Glucose 94 Medications Medication Current Medications Albuterol (Ventolin Hfa) 4 puff Q2H RESP THERAPY PRN INH SHORTNESS OF BREATH; Start 12/24/18 at 07:30 Ipratropium [place] (Atrovent Hfa) 4 puff Q2H RESP THERAPY PRN INH SHORTNESS OF BREATH; Start 12/24/18 at 06:30 Acetaminophen (Tylenol Liquid) 650 mg Q6H PRN PO PAIN LEVEL 1-3 OR FEVER; Start 12/24/18 at 06:30 Midazolam HCl 50 ml @ 2 mls/hr PER PROTOCOL IV Last administered on 12/26/18at 02:59; Admin Dose 4 MLS/HR; Start 12/24/18 at 07:30 Propofol 100 ml @ 2.041 mls/ hr PER PROTOCOL IV Last administered on 12/24/18at 07:27; Admin Dose 2.041 MLS/HR; Start 12/24/18 at 07:30 Acetaminophen (Tylenol Supp) 650 mg Q4H PRN [place] TEMP > 37C; Start 12/24/18 at 07:30 Acetaminophen (Tylenol Liquid) 650 mg Q4H PRN PO TEMP > 37C; Start 12/24/18 at 07:30 Meperidine HCl (Demerol) 12.5 mg Q4H PRN IV POST OPERATIVE SHIVERING; Start 12/24/18 at 07:30 Meperidine HCl (Demerol) 25 mg Q4H PRN IV POST OPERATIVE SHIVERING; Start 12/24/18 at 07:30 Eye Lubricant (Artificial Tears Oph) 2 drop Q6 BOTH EYES Last administered on 4/10/19at 05:27; Admin Dose 2 DROP; Start 12/24/18 at 12:00 Insulin Human Regular 100 unit/ Sodium Chloride 100 ml @ 0 mls/hr PER PROTOCOL IV Last administered on 12/25/18 21:02; Admin Dose 1.5 MLS/HR; Start 12/24/18 at 08:30 Miscellaneous Information (* Miscellaneous Pharmacy Order) Treatment of Hypoglycemia: 1.BG 51... Per protocol XX ; Start 12/24/18 at 07:30 Dextrose (D50w Syringe) 25 ml Q15M PRN IV .DECREASED GLUCOSE; Start 12/24/18 at 07:30 Dextrose (D50w Syringe) 50 ml Q15M PRN IV .DECREASED GLUCOSE; Start 12/24/18 at 07:30 Hypromellose (Genteal Severe) 1 applic Q6 BOTH EYES Last administered on 12/26/18 05:27; Admin Dose 1 APPLIC; Start 12/24/18 at 12:00 Fentanyl 100 ml @ 2.5 mls/hr TITRATE IV Last administered on 12/25/18 22:00; Admin Dose 2.5 MLS/HR; Start 12/24/18 at 08:30 Pantoprazole (Protonix Iv) 40 mg BID@06,18 IV Last administered on 12/26/18 05:28; Admin Dose 40 MG; Start 12/24/18 at 18:00 Piperacillin Sod/ Tazobactam Sod 50 ml @ 100 mls/hr Q8 IVPB Last administered on 12/26/18 05:28; Admin Dose 100 MLS/HR; Start 12/24/18 at 10:00 Norepinephrine 250 ml @ 1.875 mls/ hr TITRATE IV Last administered on 12/26/18 06:31; Admin Dose 56.25 MLS/HR; Start 12/24/18 at 11:00 Dopamine HCl/ Dextrose 250 ml @ 5.115 mls/ hr TITRATE IV Last administered on 12/26/18 07:58; Admin Dose 51.15 MLS/HR; Start 12/24/18 at 11:00 Vancomycin HCl (Vanco Iv Per Pharmacy) VANCOMYCIN PER PHARMACY PER PROTOCOL XX ; Start 12/24/18 at 13:00 Diagnostic Test (Pha) (Accu-Chek) 1 ea Q4H XX Last administered on 4/10/19at 07:52; Admin Dose 1 EA; Start 12/24/18 at 16:00 Albumin Human 250 ml @ 250 mls/hr PRN PRN IV CVP<10; Start 12/24/18 at 21:30 Phenylephrine HCl 80 mg/Dextrose 250 ml @ 18.75 mls/ hr TITRATE IV Last administered on 12/26/18at 06:22; Admin Dose 56.25 MLS/HR; Start 12/24/18 at 23:00 Vasopressin 60 unit/Dextrose 60 ml @ 1.2 mls/hr Q12H IV Last administered on 12/26/18at 03:01; Admin Dose 1.2 MLS/HR; Start 12/25/18 at 01:00 Acetaminophen (Tylenol Supp) 500 mg Q6H [place] ; Start 12/25/18 at 10:00 Acetaminophen (Tylenol Liquid) 500 mg Q6H PO Last administered on 12/25/18at 16:08; Admin Dose 500 MG; Start 12/25/18 at 10:00 Vancomycin HCl 250 ml @ 125 mls/hr ONCE IVPB ; Start 12/26/18 at 12:00; Stop 12/26/18 at 13:59 Sodium Chloride 1,000 ml @ 50 mls/hr Q20H IV Last administered on 12/26/18at 08:26; Admin Dose 50 MLS/HR; Start 12/26/18 at 08:00 KIRSTIN VICTORIA Dec 26, 2018 09:27
--- NOTE | 2018-12-26 10:52 | PN ---
Date/Time of Note Date/Time of Note DATE: 12/26/18 TIME: 10:38 Assessment/Plan VTE Prophylaxis Risk score (from Ns)>0 risk: 7 SCD applied (from Ns): Yes Pharmacological prophylaxis: NA/contraindicated Pharm contraindication: thrombocytopenia Lines/Catheters IV Catheter Type (from [facility]): A Line Urinary Cath still in place: Yes Reason Cath still needed: other (indicate) Assessment/Plan Hospital Course S: Remains intubated and sedated on 4 pressors O: Constitutional: intubated and sedated Psych: other (unable to assess) Head: mild bruising R forehead Eyes: Pupils fixed and dilated, off vecuronium since overnight, icterus ENMT: intubated Neck: non-tender Respiratory: diminished breath sounds, Cardiovascular: tachycardia Gastrointestinal: non distended, hypoactive BS Genitourinary - male: galaivz with good output Extremities: mild edema in iban ankles Neurological: no extremity movement noted assessment and plan: A 43-year-old male who was found on the street, altered, who subsequently underwent cardiac arrest with return of spontaneous circulation, went to electronic lab technician urgently as a Code STEMI. Currently managed for the following medical problems: 1. Altered mentation, likely toxic metabolic, report of substance use. -r/o ischemic brain injury 2. Cardiac arrest, likely secondary to possible substance use, status post ACLS with ROSC -now on hypothermia protocol 3. Acute respiratory failure -remains vent dependent 4. Systemic shock with severe lactic acidosis -septic ? -requiring 4 pressors 5. Severe rhabdomyolysis. 6. Acute hepatic failure, likely secondary to shock liver. 7. Acute renal insufficiency, with metabolic acidosis, -started on bicarb drip per pulm 8. NSTEMI, status post left heart catheterization with clean coronaries, 9. Pancytopenia 10. Hyperglycemia :on Insulin GTT, but A1c 5.6 11. Multisubstance abuse (meth / marijuana) 12. Coagulopathy: worsening PLAN OF CARE: -continue IV abx -continue vent support -continue pressors and wean as tolerated -Continue insulin GTT and get hba1c -monitor electrolytes and intervene as indicated -continue all other icu support and care -Brain CT once off protocol -prognosis guarded, patient may Code at any time again CRITICAL CARE TIME: >35 mins Result Diagram: 12/26/186 12/26/186 Results 24hrs Laboratory Tests Test 12/25/18 11:02 12/25/18 11:57 12/25/18 12:00 12/25/18 12:13 Bedside Glucose 151 123 Lactic Acid 10.4 *H Level White Blood 3.6 L Count Red Blood Count 4.04 L Hemoglobin 12.1 L Hematocrit 35.5 L Mean Corpuscular 87.9 Volume Mean Corpuscular 30.0 Hemoglobin Mean Corpuscular 34.1 Hemoglobin Lisa nt Red Cell 13.2 Distribution Width Platelet Count 88 L Mean Platelet 9.1 Volume Immature 0.600 H Granulocytes % Neutrophils % 88.5 H Segmented 16 L Neutrophils % (Manual) Band Neutrophils 62 H % (Manual) Lymphocytes % 7.0 L Lymphocytes % 10 L (Manual) Reactive 1 H Lymphocytes % (Manual) Monocytes % 3.6 Monocytes % 5 (Manual) Eosinophils % 0.0 Basophils % 0.3 Metamyelocytes % 4 H (manual) Myelocytes % 2 H (Manual) Nucleated Red 0.0 Blood Cells % Immature 0.020 Granulocytes # Neutrophils # 3.2 Neutrophils # 0.7 L (Manual) Band Neutrophils 2.2 H # Lymphocytes 0.3 L (Manual) Lymphocytes # 0.3 L Reactive 0.0 Lymphocytes # Monocytes # 0.1 L Monocytes # 0.1 L (Manual) Eosinophils # 0.0 Basophils # 0.0 Metamyelocytes # 0.1 H Myelocytes # 0.0 Nucleated Red 0.0 Blood Cells # Platelet SIG DECREASED Estimate Giant Platelets 7 H Poikilocytosis 1+ Anisocytosis 1+ Blood Gas Blood arterial Specimen Source Arterial Blood 12/25/2018 11:50: Date Drawn 37 AM Arterial Blood 7.336 L pH (Temp corrected) Arterial Blood 35.4 pCO2 (Temp correct) Arterial Blood 70.8 L pO2 (Temp corrected) Arterial Blood 19.3 L HCO3 Arterial Blood -7.0 L Base Excess Arterial Blood 96.5 Oxygen Saturatio n Adarsh Test N/A Arterial Blood A-Line Gas Puncture Site Arterial 1.3 Blood Carboxyhem oglobin Arterial Blood 0.2 Methemoglobin Blood Gas A-a O2 104.2 H Differential Oxyhemoglobin 95.1 Percent Blood Gas 33.2 Temperature Blood Gas 22.0 Respiration Rate Blood Gas Actual 22 Respiration Rate Blood Gas VENT - AC Modality FiO2 30.0 Blood Gas Tidal 500.0 Volume Blood Gas Low 10.0 PEEP Setting Blood Gas L.MARCELO RNTM Critical Value Read Back Blood Gas TM Notified Whom Blood Gas 12/25/2018 12:06: Notified Time 02 PM Sodium Level 144 Potassium Level 1.9 *L Chloride Level 102 Carbon Dioxide 22 Level Anion Gap 20 H Blood Urea 49 H Nitrogen Creatinine 3.11 H Est Glomerular 22 L Filtrat Rate mL/min Glucose Level 140 # Hemoglobin A1c 5.6 Calcium Level 6.4 L Phosphorus Level 4.8 # Magnesium Level 3.2 H Total Bilirubin 1.1 Direct Bilirubin 0.70 H Indirect 0.4 Bilirubin Aspartate Amino 534 H Transf (AST/SGOT ) Alanine 304 H Aminotransferase (ALT/SGPT) Alkaline 74 Phosphatase Troponin I 6.030 *H Total Protein 4.9 L Albumin 2.9 L Globulin 2.00 Albumin/Globulin 1.45 Ratio Test 12/25/18 13:00 12/25/18 13:59 12/25/18 15:09 12/25/18 16:10 Bedside Glucose 133 117 118 114 Test 12/25/18 17:10 12/25/18 18:00 12/25/18 18:01 12/25/18 18:02 Bedside Glucose 118 141 Blood Gas Blood arterial Specimen Source Arterial Blood 12/25/2018 6:00:5 Date Drawn 6 PM Arterial Blood 7.372 pH (Temp corrected) Arterial Blood 38.1 pCO2 (Temp correct) Arterial Blood 69.8 L pO2 (Temp corrected) Arterial Blood 22.2 HCO3 Arterial Blood -3.4 L Base Excess Arterial Blood 96.1 Oxygen Saturatio n Adarsh Test N/A Arterial Blood A-Line Gas Puncture Site Arterial 1.4 Blood Carboxyhem oglobin Arterial Blood 0.2 Methemoglobin Blood Gas A-a O2 100.9 H Differential Oxyhemoglobin 94.6 Percent Blood Gas 34.8 Temperature Blood Gas 22.0 Respiration Rate Blood Gas Actual 22 Respiration Rate Blood Gas VENT - AC Modality FiO2 30.0 Blood Gas Tidal 500.0 Volume Blood Gas High 10.0 PEEP Setting Blood Gas MACO BUI Critical Value Read Back Blood Gas [employer] Notified Whom Blood Gas 12/25/2018 6:18:1 Notified Time 4 PM Lactic Acid 6.6 *H Level White Blood 5.2 # Count Red Blood Count 4.14 L Hemoglobin 12.4 L Hematocrit 35.7 L Mean Corpuscular 86.2 Volume Mean Corpuscular 30.0 Hemoglobin Mean Corpuscular 34.7 Hemoglobin Lisa nt Red Cell 13.4 Distribution Width Platelet Count 88 L Mean Platelet 10.0 Volume Immature 1.200 H Granulocytes % Neutrophils % Segmented 11 L Neutrophils % (Manual) Band Neutrophils 70 H % (Manual) Lymphocytes % Lymphocytes % 8 L (Manual) Monocytes % Monocytes % 3 (Manual) Eosinophils % Basophils % Metamyelocytes % 8 H (manual) Nucleated Red 0.0 Blood Cells % Immature 0.060 H Granulocytes # Neutrophils # Neutrophils # 0.8 L (Manual) Band Neutrophils 3.6 H # Lymphocytes 0.4 L (Manual) Lymphocytes # Monocytes # Monocytes # 0.1 L (Manual) Eosinophils # Basophils # Metamyelocytes # 0.4 H Nucleated Red Blood Cells # Platelet DECREASED Estimate Polychromasia 1+ Poikilocytosis 2+ Anisocytosis 1+ Microcytosis 1+ Fibrinogen 260.0 # Sodium Level 143 Potassium Level 2.7 *L Chloride Level 97 Carbon Dioxide 25 Level Anion Gap 21 H Blood Urea 52 H Nitrogen Creatinine 3.14 H Est Glomerular 21 L Filtrat Rate mL/min Glucose Level 135 Calcium Level 6.0 L Phosphorus Level 6.4 H Magnesium Level 2.6 H Total Bilirubin 0.8 Direct Bilirubin 0.50 #H Indirect 0.3 Bilirubin Aspartate Amino 478 H Transf (AST/SGOT ) Alanine 302 H Aminotransferase (ALT/SGPT) Alkaline 60 Phosphatase Troponin I 4.580 *H Total Protein 4.9 L Albumin 2.8 L Globulin 2.10 Albumin/Globulin 1.33 Ratio Amylase Level 78 Lipase 62 Test 12/25/18 18:59 12/25/18 20:08 12/25/18 22:08 12/26/18 00:02 Bedside Glucose 130 102 118 156 Test 12/26/18 00:23 12/26/18 04:03 12/26/18 04:26 12/26/18 04:50 White Blood 7.6 # 10.1 # Count Red Blood Count 3.83 L 3.81 L Hemoglobin 11.7 L 11.6 L Hematocrit 32.7 L 32.9 L Mean Corpuscular 85.4 86.4 Volume Mean Corpuscular 30.5 30.4 Hemoglobin Mean Corpuscular 35.8 35.3 Hemoglobin Lisa nt Red Cell 13.3 13.4 Distribution Width Platelet Count 84 L 80 L Mean Platelet 10.9 H 10.6 H Volume Immature 2.100 H 4.100 H Granulocytes % Neutrophils % Segmented 33 L 21 L Neutrophils % (Manual) Band Neutrophils 52 H 62 H % (Manual) Lymphocytes % Lymphocytes % 7 L 9 L (Manual) Monocytes % Monocytes % 2 4 (Manual) Eosinophils % Basophils % Metamyelocytes % 6 H 4 H (manual) Nucleated Red 0.0 1 H Blood Cells % Immature 0.160 H 0.410 H Granulocytes # Neutrophils # Neutrophils # 2.8 2.7 (Manual) Band Neutrophils 3.9 H 6.2 H # Lymphocytes 0.5 L 0.9 (Manual) Lymphocytes # Monocytes # Monocytes # 0.1 L 0.4 (Manual) Eosinophils # Basophils # Metamyelocytes # 0.4 H 0.4 H Nucleated Red Blood Cells # Platelet DECREASED DECREASED Estimate Sodium Level 137 138 Potassium Level 4.2 4.8 Chloride Level 93 L 94 L Carbon Dioxide 26 26 Level Anion Gap 18 H 18 H Blood Urea 53 H 56 H Nitrogen Creatinine 3.37 H 3.52 H Est Glomerular 19 L 19 L Filtrat Rate mL/min Glucose Level 155 135 Lactic Acid 5.3 *H 4.3 *H Level Calcium Level 5.9 *L 5.5 *L Phosphorus Level 9.8 #H 9.6 H Magnesium Level 2.3 2.3 Troponin I 3.130 *H 3.350 *H Bedside Glucose 145 Giant Platelets 1 H Macrocytosis 1+ Prothrombin Time 21.6 H Prothrombin Time 1.7 Ratio INR 1.87 International Normalized Ratio Activated 37.4 H Partial Thrombop last Time Random 11.0 Vancomycin Level Test 12/26/18 07:22 12/26/18 07:51 12/26/18 09:10 Amylase Level 78 Lipase 15 L Bedside Glucose 94 Blood Gas Blood arterial Specimen Source Arterial Blood 12/26/2018 9:35: Date Drawn 52 AM Arterial Blood 7.390 pH (Temp corrected) Arterial Blood 41.5 pCO2 (Temp correct) Arterial Blood 93.6 pO2 (Temp corrected) Arterial Blood 24.5 HCO3 Arterial Blood -0.4 Base Excess Arterial Blood 97.2 Oxygen Saturatio n Adarsh Test N/A Arterial Blood A-Line Gas Puncture Site Arterial 1.1 Blood Carboxyhem oglobin Arterial Blood 0.3 Methemoglobin Blood Gas A-a O2 143.8 H Differential Oxyhemoglobin 95.8 Percent Blood Gas 37.1 Temperature Blood Gas 22.0 Respiration Rate Blood Gas Actual 22 Respiration Rate Blood Gas VENT - AC Modality FiO2 40.0 Blood Gas Tidal 500.0 Volume Blood Gas Low 10.0 PEEP Setting Blood Gas TM Notified Whom Blood Gas 12/26/2018 9:57: Notified Time 33 AM Exam/Review of Systems Exam Vitals Vital Signs Date Temp Pulse Resp B/P (MAP) Pulse Ox O2 O2 Flow FiO2 Time Delivery Rate 12/26/18 112 22 82/59 (67) 99 Mechanical 10:00 Ventilator 12/26/18 40 09:27 12/26/18 98.1 07:00 Intake and Output 12/25/18 12/25/18 12/26/18 1515:00 23:00 07:00 IntakeIntake Total 2307.20 ml 2317.70 ml 1500.00 ml OutputOutput Total 523 ml 590 ml 455 ml BalanceBalance 1784.20 ml 1727.70 ml 1045.00 ml Results Results 24hrs Laboratory Tests Test 12/25/18 11:02 12/25/18 11:57 12/25/18 12:00 12/25/18 12:13 Bedside Glucose 151 123 Lactic Acid 10.4 *H Level White Blood 3.6 L Count Red Blood Count 4.04 L Hemoglobin 12.1 L Hematocrit 35.5 L Mean Corpuscular 87.9 Volume Mean Corpuscular 30.0 Hemoglobin Mean Corpuscular 34.1 Hemoglobin Lisa nt Red Cell 13.2 Distribution Width Platelet Count 88 L Mean Platelet 9.1 Volume Immature 0.600 H Granulocytes % Neutrophils % 88.5 H Segmented 16 L Neutrophils % (Manual) Band Neutrophils 62 H % (Manual) Lymphocytes % 7.0 L Lymphocytes % 10 L (Manual) Reactive 1 H Lymphocytes % (Manual) Monocytes % 3.6 Monocytes % 5 (Manual) Eosinophils % 0.0 Basophils % 0.3 Metamyelocytes % 4 H (manual) Myelocytes % 2 H (Manual) Nucleated Red 0.0 Blood Cells % Immature 0.020 Granulocytes # Neutrophils # 3.2 Neutrophils # 0.7 L (Manual) Band Neutrophils 2.2 H # Lymphocytes 0.3 L (Manual) Lymphocytes # 0.3 L Reactive 0.0 Lymphocytes # Monocytes # 0.1 L Monocytes # 0.1 L (Manual) Eosinophils # 0.0 Basophils # 0.0 Metamyelocytes # 0.1 H Myelocytes # 0.0 Nucleated Red 0.0 Blood Cells # Platelet SIG DECREASED Estimate Giant Platelets 7 H Poikilocytosis 1+ Anisocytosis 1+ Blood Gas Blood arterial Specimen Source Arterial Blood 12/25/2018 11:50: Date Drawn 37 AM Arterial Blood 7.336 L pH (Temp corrected) Arterial Blood 35.4 pCO2 (Temp correct) Arterial Blood 70.8 L pO2 (Temp corrected) Arterial Blood 19.3 L HCO3 Arterial Blood -7.0 L Base Excess Arterial Blood 96.5 Oxygen Saturatio n Adarsh Test N/A Arterial Blood A-Line Gas Puncture Site Arterial 1.3 Blood Carboxyhem oglobin Arterial Blood 0.2 Methemoglobin Blood Gas A-a O2 104.2 H Differential Oxyhemoglobin 95.1 Percent Blood Gas 33.2 Temperature Blood Gas 22.0 Respiration Rate Blood Gas Actual 22 Respiration Rate Blood Gas VENT - AC Modality FiO2 30.0 Blood Gas Tidal 500.0 Volume Blood Gas Low 10.0 PEEP Setting Blood Gas TRELL BUITM Critical Value Read Back Blood Gas TM Notified Whom Blood Gas 12/25/2018 12:06: Notified Time 02 PM Sodium Level 144 Potassium Level 1.9 *L Chloride Level 102 Carbon Dioxide 22 Level Anion Gap 20 H Blood Urea 49 H Nitrogen Creatinine 3.11 H Est Glomerular 22 L Filtrat Rate mL/min Glucose Level 140 # Hemoglobin A1c 5.6 Calcium Level 6.4 L Phosphorus Level 4.8 # Magnesium Level 3.2 H Total Bilirubin 1.1 Direct Bilirubin 0.70 H Indirect 0.4 Bilirubin Aspartate Amino 534 H Transf (AST/SGOT ) Alanine 304 H Aminotransferase (ALT/SGPT) Alkaline 74 Phosphatase Troponin I 6.030 *H Total Protein 4.9 L Albumin 2.9 L Globulin 2.00 Albumin/Globulin 1.45 Ratio Test 12/25/18 13:00 12/25/18 13:59 12/25/18 15:09 12/25/18 16:10 Bedside Glucose 133 117 118 114 Test 12/25/18 17:10 12/25/18 18:00 12/25/18 18:01 12/25/18 18:02 Bedside Glucose 118 141 Blood Gas Blood arterial Specimen Source Arterial Blood 12/25/2018 6:00:5 Date Drawn 6 PM Arterial Blood 7.372 pH (Temp corrected) Arterial Blood 38.1 pCO2 (Temp correct) Arterial Blood 69.8 L pO2 (Temp corrected) Arterial Blood 22.2 HCO3 Arterial Blood -3.4 L Base Excess Arterial Blood 96.1 Oxygen Saturatio n Adarsh Test N/A Arterial Blood A-Line Gas Puncture Site Arterial 1.4 Blood Carboxyhem oglobin Arterial Blood 0.2 Methemoglobin Blood Gas A-a O2 100.9 H Differential Oxyhemoglobin 94.6 Percent Blood Gas 34.8 Temperature Blood Gas 22.0 Respiration Rate Blood Gas Actual 22 Respiration Rate Blood Gas VENT - AC Modality FiO2 30.0 Blood Gas Tidal 500.0 Volume Blood Gas High 10.0 PEEP Setting Blood Gas MACO HAO Critical Value Read Back Blood Gas [employer] Notified Whom Blood Gas 12/25/2018 6:18:1 Notified Time 4 PM Lactic Acid 6.6 *H Level White Blood 5.2 # Count Red Blood Count 4.14 L Hemoglobin 12.4 L Hematocrit 35.7 L Mean Corpuscular 86.2 Volume Mean Corpuscular 30.0 Hemoglobin Mean Corpuscular 34.7 Hemoglobin Lisa nt Red Cell 13.4 Distribution Width Platelet Count 88 L Mean Platelet 10.0 Volume Immature 1.200 H Granulocytes % Neutrophils % Segmented 11 L Neutrophils % (Manual) Band Neutrophils 70 H % (Manual) Lymphocytes % Lymphocytes % 8 L (Manual) Monocytes % Monocytes % 3 (Manual) Eosinophils % Basophils % Metamyelocytes % 8 H (manual) Nucleated Red 0.0 Blood Cells % Immature 0.060 H Granulocytes # Neutrophils # Neutrophils # 0.8 L (Manual) Band Neutrophils 3.6 H # Lymphocytes 0.4 L (Manual) Lymphocytes # Monocytes # Monocytes # 0.1 L (Manual) Eosinophils # Basophils # Metamyelocytes # 0.4 H Nucleated Red Blood Cells # Platelet DECREASED Estimate Polychromasia 1+ Poikilocytosis 2+ Anisocytosis 1+ Microcytosis 1+ Fibrinogen 260.0 # Sodium Level 143 Potassium Level 2.7 *L Chloride Level 97 Carbon Dioxide 25 Level Anion Gap 21 H Blood Urea 52 H Nitrogen Creatinine 3.14 H Est Glomerular 21 L Filtrat Rate mL/min Glucose Level 135 Calcium Level 6.0 L Phosphorus Level 6.4 H Magnesium Level 2.6 H Total Bilirubin 0.8 Direct Bilirubin 0.50 #H Indirect 0.3 Bilirubin Aspartate Amino 478 H Transf (AST/SGOT ) Alanine 302 H Aminotransferase (ALT/SGPT) Alkaline 60 Phosphatase Troponin I 4.580 *H Total Protein 4.9 L Albumin 2.8 L Globulin 2.10 Albumin/Globulin 1.33 Ratio Amylase Level 78 Lipase 62 Test 12/25/18 18:59 12/25/18 20:08 12/25/18 22:08 12/26/18 00:02 Bedside Glucose 130 102 118 156 Test 12/26/18 00:23 12/26/18 04:03 12/26/18 04:26 12/26/18 04:50 White Blood 7.6 # 10.1 # Count Red Blood Count 3.83 L 3.81 L Hemoglobin 11.7 L 11.6 L Hematocrit 32.7 L 32.9 L Mean Corpuscular 85.4 86.4 Volume Mean Corpuscular 30.5 30.4 Hemoglobin Mean Corpuscular 35.8 35.3 Hemoglobin Lisa nt Red Cell 13.3 13.4 Distribution Width Platelet Count 84 L 80 L Mean Platelet 10.9 H 10.6 H Volume Immature 2.100 H 4.100 H Granulocytes % Neutrophils % Segmented 33 L 21 L Neutrophils % (Manual) Band Neutrophils 52 H 62 H % (Manual) Lymphocytes % Lymphocytes % 7 L 9 L (Manual) Monocytes % Monocytes % 2 4 (Manual) Eosinophils % Basophils % Metamyelocytes % 6 H 4 H (manual) Nucleated Red 0.0 1 H Blood Cells % Immature 0.160 H 0.410 H Granulocytes # Neutrophils # Neutrophils # 2.8 2.7 (Manual) Band Neutrophils 3.9 H 6.2 H # Lymphocytes 0.5 L 0.9 (Manual) Lymphocytes # Monocytes # Monocytes # 0.1 L 0.4 (Manual) Eosinophils # Basophils # Metamyelocytes # 0.4 H 0.4 H Nucleated Red Blood Cells # Platelet DECREASED DECREASED Estimate Sodium Level 137 138 Potassium Level 4.2 4.8 Chloride Level 93 L 94 L Carbon Dioxide 26 26 Level Anion Gap 18 H 18 H Blood Urea 53 H 56 H Nitrogen Creatinine 3.37 H 3.52 H Est Glomerular 19 L 19 L Filtrat Rate mL/min Glucose Level 155 135 Lactic Acid 5.3 *H 4.3 *H Level Calcium Level 5.9 *L 5.5 *L Phosphorus Level 9.8 #H 9.6 H Magnesium Level 2.3 2.3 Troponin I 3.130 *H 3.350 *H Bedside Glucose 145 Giant Platelets 1 H Macrocytosis 1+ Prothrombin Time 21.6 H Prothrombin Time 1.7 Ratio INR 1.87 International Normalized Ratio Activated 37.4 H Partial Thrombop last Time Random 11.0 Vancomycin Level Test 12/26/18 07:22 12/26/18 07:51 12/26/18 09:10 Amylase Level 78 Lipase 15 L Bedside Glucose 94 Blood Gas Blood arterial Specimen Source Arterial Blood 12/26/2018 9:35: Date Drawn 52 AM Arterial Blood 7.390 pH (Temp corrected) Arterial Blood 41.5 pCO2 (Temp correct) Arterial Blood 93.6 pO2 (Temp corrected) Arterial Blood 24.5 HCO3 Arterial Blood -0.4 Base Excess Arterial Blood 97.2 Oxygen Saturatio n Adarsh Test N/A Arterial Blood A-Line Gas Puncture Site Arterial 1.1 Blood Carboxyhem oglobin Arterial Blood 0.3 Methemoglobin Blood Gas A-a O2 143.8 H Differential Oxyhemoglobin 95.8 Percent Blood Gas 37.1 Temperature Blood Gas 22.0 Respiration Rate Blood Gas Actual 22 Respiration Rate Blood Gas VENT - AC Modality FiO2 40.0 Blood Gas Tidal 500.0 Volume Blood Gas Low 10.0 PEEP Setting Blood Gas TM Notified Whom Blood Gas 12/26/2018 9:57: Notified Time 33 AM Medications Medication Current Medications Albuterol (Ventolin Hfa) 4 puff Q2H RESP THERAPY PRN INH SHORTNESS OF BREATH; Start 12/24/18 at 07:30 Ipratropium Arnold (Atrovent Hfa) 4 puff Q2H RESP THERAPY PRN INH SHORTNESS OF BREATH; Start 12/24/18 at 06:30 Acetaminophen (Tylenol Liquid) 650 mg Q6H PRN PO PAIN LEVEL 1-3 OR FEVER; Start 12/24/18 at 06:30 Midazolam HCl 50 ml @ 2 mls/hr PER PROTOCOL IV Last administered on 12/26/18at 02:59; Admin Dose 4 MLS/HR; Start 12/24/18 at 07:30 Propofol 100 ml @ 2.041 mls/ hr PER PROTOCOL IV Last administered on 12/24/18at 07:27; Admin Dose 2.041 MLS/HR; Start 12/24/18 at 07:30 Acetaminophen (Tylenol Supp) 650 mg Q4H PRN VT TEMP > 37C; Start 12/24/18 at 07:30 Acetaminophen (Tylenol Liquid) 650 mg Q4H PRN PO TEMP > 37C; Start 12/24/18 at 07:30 Meperidine HCl (Demerol) 12.5 mg Q4H PRN IV POST OPERATIVE SHIVERING; Start 12/24/18 at 07:30 Meperidine HCl (Demerol) 25 mg Q4H PRN IV POST OPERATIVE SHIVERING; Start 12/24/18 at 07:30 Eye Lubricant (Artificial Tears Oph) 2 drop Q6 BOTH EYES Last administered on 12/26/18 05:27; Admin Dose 2 DROP; Start 12/24/18 at 12:00 Insulin Human Regular 100 unit/ Sodium Chloride 100 ml @ 0 mls/hr PER PROTOCOL IV Last administered on 12/25/18 21:02; Admin Dose 1.5 MLS/HR; Start 12/24/18 at 08:30 Miscellaneous Information (* Miscellaneous Pharmacy Order) Treatment of Hypoglycemia: 1.BG 51... Per protocol XX ; Start 12/24/18 at 07:30 Dextrose (D50w Syringe) 25 ml Q15M PRN IV .DECREASED GLUCOSE; Start 12/24/18 at 07:30 Dextrose (D50w Syringe) 50 ml Q15M PRN IV .DECREASED GLUCOSE; Start 12/24/18 at 07:30 Hypromellose (Genteal Severe) 1 applic Q6 BOTH EYES Last administered on 12/26/18 05:27; Admin Dose 1 APPLIC; Start 12/24/18 at 12:00 Fentanyl 100 ml @ 2.5 mls/hr TITRATE IV Last administered on 12/25/18at 22:00; Admin Dose 2.5 MLS/HR; Start 12/24/18 at 08:30 Pantoprazole (Protonix Iv) 40 mg BID@06,18 IV Last administered on 12/26/18 05:28; Admin Dose 40 MG; Start 12/24/18 at 18:00 Piperacillin Sod/ Tazobactam Sod 50 ml @ 100 mls/hr Q8 IVPB Last administered on 12/26/18 05:28; Admin Dose 100 MLS/HR; Start 12/24/18 at 10:00 Norepinephrine 250 ml @ 1.875 mls/ hr TITRATE IV Last administered on 12/26/18 10:28; Admin Dose 56.25 MLS/HR; Start 12/24/18 at 11:00 Dopamine HCl/ Dextrose 250 ml @ 5.115 mls/ hr TITRATE IV Last administered on 12/26/18 07:58; Admin Dose 51.15 MLS/HR; Start 12/24/18 at 11:00 Vancomycin HCl (Vanco Iv Per Pharmacy) VANCOMYCIN PER PHARMACY PER PROTOCOL XX ; Start 12/24/18 at 13:00 Diagnostic Test (Pha) (Accu-Chek) 1 ea Q4H XX Last administered on 12/26/18 07:52; Admin Dose 1 EA; Start 12/24/18 at 16:00 Albumin Human 250 ml @ 250 mls/hr PRN PRN IV CVP<10; Start 12/24/18 at 21:30 Phenylephrine HCl 80 mg/Dextrose 250 ml @ 18.75 mls/ hr TITRATE IV Last administered on 12/26/18 06:22; Admin Dose 56.25 MLS/HR; Start 12/24/18 at 23:00 Vasopressin 60 unit/Dextrose 60 ml @ 1.2 mls/hr Q12H IV Last administered on 12/26/18at 03:01; Admin Dose 1.2 MLS/HR; Start 12/25/18 at 01:00 Acetaminophen (Tylenol Supp) 500 mg Q6H VT ; Start 12/25/18 at 10:00 Acetaminophen (Tylenol Liquid) 500 mg Q6H PO Last administered on 12/25/18at 16:08; Admin Dose 500 MG; Start 12/25/18 at 10:00 Vancomycin HCl 250 ml @ 125 mls/hr ONCE IVPB ; Start 12/26/18 at 12:00; Stop 12/26/18 at 13:59 Sodium Chloride 1,000 ml @ 50 mls/hr Q20H IV Last administered on 12/26/18 08:26; Admin Dose 50 MLS/HR; Start 12/26/18 at 08:00 YUVAL BLACKWOOD Dec 26, 2018 10:49
--- NOTE | 2018-12-26 11:04 | CONS ---
Assessment/Plan Assessment/Plan Hospital Course 48 yo male w/ uncertain PMHx, who is admitted to the [facility] ICU following cardiac arrest. Now s/p TTM.. On neurologic examination, he is presently without brainstem or cortical activity.. His prognosis for meaningful neurologic recovery is, thus, probably poor. CXR is notable for edema vs/ pneumonia.. Neuroimaging is limited by critical illness. P: TTM per primary Monitor for emergence of clinical seizures Head CT for further characterization when medically able Will follow with you Consultation Date/Type/Reason Admit Date/Time Dec 24, 2018 at 05:33 Type of Consult Neurology Reason for Consultation coma s/p cardiac arrest Requesting Provider: YUVAL BLACKWOOD Date/Time of Note DATE: 12/26/18 TIME: 11:01 24 HR Interval Summary Free Text/Dictation s/p rewarming continues icu care Exam Vital Signs Vitals Vital Signs Date Temp Pulse Resp B/P (MAP) Pulse Ox O2 O2 Flow FiO2 Time Delivery Rate 12/26/18 114 22 171/105 92 Mechanical 10:45 (127) Ventilator 12/26/18 40 09:27 12/26/18 98.1 07:00 Intake and Output 12/25/18 12/25/18 12/26/18 1515:00 23:00 07:00 IntakeIntake Total 2307.20 ml 2317.70 ml 1500.00 ml OutputOutput Total 523 ml 590 ml 455 ml BalanceBalance 1784.20 ml 1727.70 ml 1045.00 ml MEGAN ARENAS Dec 26, 2018 11:04
--- NOTE | 2018-12-26 11:58 | CONS ---
Assessment/Plan Assessment/Plan Hospital Course (Demo Recall) Cardiac arrest: PEA and not VF. EKG with JACOBO V1 and III with Brugada looking ST elevation V2. Cath with normal coronaries and preserved LV function. Rv poorly seen on echo but may be mildly enlarged and hypokinetic so PE is in the differential. Massive intracranial event is also in the differential if he was very hypertensive in the setting of meth intoxication and agitation. Shock: LV function normal. Possibly RV dysfunction if massive PE but not well seen on echo. Also possible if neurologic event NSTEMI: trop 13, normal coros. Demand from arrest/shock vs PE Acute respiratory failure: intubated Acute renal failure Meth abuse -wean pressors to keep MAP >65 -at some point if stable, needs CT head and then PE eval -would not empirically anticoagulate as the possibility of ICH has not been ruled out >40 in critical care time Consultation Date/Type/Reason Admit Date/Time Dec 24, 2018 at 05:33 Initial Consult Date 12/24/18 Type of Consult Cardiology Requesting Provider: YUVAL BLACKWOOD Date/Time of Note DATE: 12/26/18 TIME: 11:55 24 HR Interval Summary Free Text/Dictation Remains critically ill on 4 pressors. Hypothermia completed. Exam/Review of Systems Vital Signs Vitals Vital Signs Date Temp Pulse Resp B/P (MAP) Pulse Ox O2 O2 Flow FiO2 Time Delivery Rate 12/26/18 110 22 88/53 (65) 90 Mechanical 11:45 Ventilator 12/26/18 50 11:10 12/26/18 98.1 07:00 Intake and Output 12/25/18 12/25/18 12/26/18 1515:00 23:00 07:00 IntakeIntake Total 2307.20 ml 2317.70 ml 1500.00 ml OutputOutput Total 523 ml 590 ml 455 ml BalanceBalance 1784.20 ml 1727.70 ml 1045.00 ml Exam Constitutional: No alert ENMT: intubated Neck: No jvd Respiratory: diminished breath sounds; No clear to auscultation Cardiovascular: regular rate and rhythm; No edema Gastrointestinal: soft; No distended Neurological: No nl mental status, No nl speech Labs Result Diagram: 12/26/18 0426 12/26/18 0426 Results 24hrs Laboratory Tests Test 12/25/18 11:57 12/25/18 12:00 12/25/18 12:13 12/25/18 13:00 Lactic Acid 10.4 *H Level White Blood 3.6 L Count Red Blood Count 4.04 L Hemoglobin 12.1 L Hematocrit 35.5 L Mean Corpuscular 87.9 Volume Mean Corpuscular 30.0 Hemoglobin Mean Corpuscular 34.1 Hemoglobin Lisa nt Red Cell 13.2 Distribution Width Platelet Count 88 L Mean Platelet 9.1 Volume Immature 0.600 H Granulocytes % Neutrophils % 88.5 H Segmented 16 L Neutrophils % (Manual) Band Neutrophils 62 H % (Manual) Lymphocytes % 7.0 L Lymphocytes % 10 L (Manual) Reactive 1 H Lymphocytes % (Manual) Monocytes % 3.6 Monocytes % 5 (Manual) Eosinophils % 0.0 Basophils % 0.3 Metamyelocytes % 4 H (manual) Myelocytes % 2 H (Manual) Nucleated Red 0.0 Blood Cells % Immature 0.020 Granulocytes # Neutrophils # 3.2 Neutrophils # 0.7 L (Manual) Band Neutrophils 2.2 H # Lymphocytes 0.3 L (Manual) Lymphocytes # 0.3 L Reactive 0.0 Lymphocytes # Monocytes # 0.1 L Monocytes # 0.1 L (Manual) Eosinophils # 0.0 Basophils # 0.0 Metamyelocytes # 0.1 H Myelocytes # 0.0 Nucleated Red 0.0 Blood Cells # Platelet SIG DECREASED Estimate Giant Platelets 7 H Poikilocytosis 1+ Anisocytosis 1+ Blood Gas Blood arterial Specimen Source Arterial Blood 12/25/2018 11:50: Date Drawn 37 AM Arterial Blood 7.336 L pH (Temp corrected) Arterial Blood 35.4 pCO2 (Temp correct) Arterial Blood 70.8 L pO2 (Temp corrected) Arterial Blood 19.3 L HCO3 Arterial Blood -7.0 L Base Excess Arterial Blood 96.5 Oxygen Saturatio n Adarsh Test N/A Arterial Blood A-Line Gas Puncture Site Arterial 1.3 Blood Carboxyhem oglobin Arterial Blood 0.2 Methemoglobin Blood Gas A-a O2 104.2 H Differential Oxyhemoglobin 95.1 Percent Blood Gas 33.2 Temperature Blood Gas 22.0 Respiration Rate Blood Gas Actual 22 Respiration Rate Blood Gas VENT - AC Modality FiO2 30.0 Blood Gas Tidal 500.0 Volume Blood Gas Low 10.0 PEEP Setting Blood Gas TRELL DANGELO Critical Value Read Back Blood Gas TM Notified Whom Blood Gas 12/25/2018 12:06: Notified Time 02 PM Sodium Level 144 Potassium Level 1.9 *L Chloride Level 102 Carbon Dioxide 22 Level Anion Gap 20 H Blood Urea 49 H Nitrogen Creatinine 3.11 H Est Glomerular 22 L Filtrat Rate mL/min Glucose Level 140 # Hemoglobin A1c 5.6 Calcium Level 6.4 L Phosphorus Level 4.8 # Magnesium Level 3.2 H Total Bilirubin 1.1 Direct Bilirubin 0.70 H Indirect 0.4 Bilirubin Aspartate Amino 534 H Transf (AST/SGOT ) Alanine 304 H Aminotransferase (ALT/SGPT) Alkaline 74 Phosphatase Troponin I 6.030 *H Total Protein 4.9 L Albumin 2.9 L Globulin 2.00 Albumin/Globulin 1.45 Ratio Bedside Glucose 123 133 Test 12/25/18 13:59 12/25/18 15:09 12/25/18 16:10 12/25/18 17:10 Bedside Glucose 117 118 114 118 Test 12/25/18 18:00 12/25/18 18:01 12/25/18 18:02 12/25/18 18:59 Blood Gas Blood arterial Specimen Source Arterial Blood 12/25/2018 6:00:5 Date Drawn 6 PM Arterial Blood 7.372 pH (Temp corrected) Arterial Blood 38.1 pCO2 (Temp correct) Arterial Blood 69.8 L pO2 (Temp corrected) Arterial Blood 22.2 HCO3 Arterial Blood -3.4 L Base Excess Arterial Blood 96.1 Oxygen Saturatio n Adarsh Test N/A Arterial Blood A-Line Gas Puncture Site Arterial 1.4 Blood Carboxyhem oglobin Arterial Blood 0.2 Methemoglobin Blood Gas A-a O2 100.9 H Differential Oxyhemoglobin 94.6 Percent Blood Gas 34.8 Temperature Blood Gas 22.0 Respiration Rate Blood Gas Actual 22 Respiration Rate Blood Gas VENT - AC Modality FiO2 30.0 Blood Gas Tidal 500.0 Volume Blood Gas High 10.0 PEEP Setting Blood Gas MACO BUI Critical Value Read Back Blood Gas [employer] Notified Whom Blood Gas 12/25/2018 6:18:1 Notified Time 4 PM Lactic Acid 6.6 *H Level White Blood 5.2 # Count Red Blood Count 4.14 L Hemoglobin 12.4 L Hematocrit 35.7 L Mean Corpuscular 86.2 Volume Mean Corpuscular 30.0 Hemoglobin Mean Corpuscular 34.7 Hemoglobin Lisa nt Red Cell 13.4 Distribution Width Platelet Count 88 L Mean Platelet 10.0 Volume Immature 1.200 H Granulocytes % Neutrophils % Segmented 11 L Neutrophils % (Manual) Band Neutrophils 70 H % (Manual) Lymphocytes % Lymphocytes % 8 L (Manual) Monocytes % Monocytes % 3 (Manual) Eosinophils % Basophils % Metamyelocytes % 8 H (manual) Nucleated Red 0.0 Blood Cells % Immature 0.060 H Granulocytes # Neutrophils # Neutrophils # 0.8 L (Manual) Band Neutrophils 3.6 H # Lymphocytes 0.4 L (Manual) Lymphocytes # Monocytes # Monocytes # 0.1 L (Manual) Eosinophils # Basophils # Metamyelocytes # 0.4 H Nucleated Red Blood Cells # Platelet DECREASED Estimate Polychromasia 1+ Poikilocytosis 2+ Anisocytosis 1+ Microcytosis 1+ Fibrinogen 260.0 # Sodium Level 143 Potassium Level 2.7 *L Chloride Level 97 Carbon Dioxide 25 Level Anion Gap 21 H Blood Urea 52 H Nitrogen Creatinine 3.14 H Est Glomerular 21 L Filtrat Rate mL/min Glucose Level 135 Bedside Glucose 141 130 Calcium Level 6.0 L Phosphorus Level 6.4 H Magnesium Level 2.6 H Total Bilirubin 0.8 Direct Bilirubin 0.50 #H Indirect 0.3 Bilirubin Aspartate Amino 478 H Transf (AST/SGOT ) Alanine 302 H Aminotransferase (ALT/SGPT) Alkaline 60 Phosphatase Troponin I 4.580 *H Total Protein 4.9 L Albumin 2.8 L Globulin 2.10 Albumin/Globulin 1.33 Ratio Amylase Level 78 Lipase 62 Test 12/25/18 20:08 12/25/18 22:08 12/26/18 00:02 12/26/18 00:23 Bedside Glucose 102 118 156 White Blood 7.6 # Count Red Blood Count 3.83 L Hemoglobin 11.7 L Hematocrit 32.7 L Mean Corpuscular 85.4 Volume Mean Corpuscular 30.5 Hemoglobin Mean Corpuscular 35.8 Hemoglobin Lisa nt Red Cell 13.3 Distribution Width Platelet Count 84 L Mean Platelet 10.9 H Volume Immature 2.100 H Granulocytes % Neutrophils % Segmented 33 L Neutrophils % (Manual) Band Neutrophils 52 H % (Manual) Lymphocytes % Lymphocytes % 7 L (Manual) Monocytes % Monocytes % 2 (Manual) Eosinophils % Basophils % Metamyelocytes % 6 H (manual) Nucleated Red 0.0 Blood Cells % Immature 0.160 H Granulocytes # Neutrophils # Neutrophils # 2.8 (Manual) Band Neutrophils 3.9 H # Lymphocytes 0.5 L (Manual) Lymphocytes # Monocytes # Monocytes # 0.1 L (Manual) Eosinophils # Basophils # Metamyelocytes # 0.4 H Nucleated Red Blood Cells # Platelet DECREASED Estimate Sodium Level 137 Potassium Level 4.2 Chloride Level 93 L Carbon Dioxide 26 Level Anion Gap 18 H Blood Urea 53 H Nitrogen Creatinine 3.37 H Est Glomerular 19 L Filtrat Rate mL/min Glucose Level 155 Lactic Acid 5.3 *H Level Calcium Level 5.9 *L Phosphorus Level 9.8 #H Magnesium Level 2.3 Troponin I 3.130 *H Test 12/26/18 04:03 12/26/18 04:26 12/26/18 04:50 12/26/18 07:22 Bedside Glucose 145 White Blood 10.1 # Count Red Blood Count 3.81 L Hemoglobin 11.6 L Hematocrit 32.9 L Mean Corpuscular 86.4 Volume Mean Corpuscular 30.4 Hemoglobin Mean Corpuscular 35.3 Hemoglobin Lisa nt Red Cell 13.4 Distribution Width Platelet Count 80 L Mean Platelet 10.6 H Volume Immature 4.100 H Granulocytes % Neutrophils % Segmented 21 L Neutrophils % (Manual) Band Neutrophils 62 H % (Manual) Lymphocytes % Lymphocytes % 9 L (Manual) Monocytes % Monocytes % 4 (Manual) Eosinophils % Basophils % Metamyelocytes % 4 H (manual) Nucleated Red 1 H Blood Cells % Immature 0.410 H Granulocytes # Neutrophils # Neutrophils # 2.7 (Manual) Band Neutrophils 6.2 H # Lymphocytes 0.9 (Manual) Lymphocytes # Monocytes # Monocytes # 0.4 (Manual) Eosinophils # Basophils # Metamyelocytes # 0.4 H Nucleated Red Blood Cells # Platelet DECREASED Estimate Giant Platelets 1 H Macrocytosis 1+ Prothrombin Time 21.6 H Prothrombin Time 1.7 Ratio INR 1.87 International Normalized Ratio Activated 37.4 H Partial Thrombop last Time Sodium Level 138 Potassium Level 4.8 Chloride Level 94 L Carbon Dioxide 26 Level Anion Gap 18 H Blood Urea 56 H Nitrogen Creatinine 3.52 H Est Glomerular 19 L Filtrat Rate mL/min Glucose Level 135 Calcium Level 5.5 *L Phosphorus Level 9.6 H Magnesium Level 2.3 Troponin I 3.350 *H Random 11.0 Vancomycin Level Lactic Acid 4.3 *H Level Amylase Level 78 Lipase 15 L Test 12/26/18 07:51 12/26/18 09:10 12/26/18 11:31 Bedside Glucose 94 74 Blood Gas Blood arterial Specimen Source Arterial Blood 12/26/2018 9:35: Date Drawn 52 AM Arterial Blood 7.390 pH (Temp corrected) Arterial Blood 41.5 pCO2 (Temp correct) Arterial Blood 93.6 pO2 (Temp corrected) Arterial Blood 24.5 HCO3 Arterial Blood -0.4 Base Excess Arterial Blood 97.2 Oxygen Saturatio n Adarsh Test N/A Arterial Blood A-Line Gas Puncture Site Arterial 1.1 Blood Carboxyhem oglobin Arterial Blood 0.3 Methemoglobin Blood Gas A-a O2 143.8 H Differential Oxyhemoglobin 95.8 Percent Blood Gas 37.1 Temperature Blood Gas 22.0 Respiration Rate Blood Gas Actual 22 Respiration Rate Blood Gas VENT - AC Modality FiO2 40.0 Blood Gas Tidal 500.0 Volume Blood Gas Low 10.0 PEEP Setting Blood Gas TM Notified Whom Blood Gas 12/26/2018 9:57: Notified Time 33 AM Medications Medications Current Medications Albuterol (Ventolin Hfa) 4 puff Q2H RESP THERAPY PRN INH SHORTNESS OF BREATH; Start 12/24/18 at 07:30 Ipratropium [place] (Atrovent Hfa) 4 puff Q2H RESP THERAPY PRN INH SHORTNESS OF BREATH; Start 12/24/18 at 06:30 Acetaminophen (Tylenol Liquid) 650 mg Q6H PRN PO PAIN LEVEL 1-3 OR FEVER; Start 12/24/18 at 06:30 Midazolam HCl 50 ml @ 2 mls/hr PER PROTOCOL IV Last administered on 12/26/18at 02:59; Admin Dose 4 MLS/HR; Start 12/24/18 at 07:30 Propofol 100 ml @ 2.041 mls/ hr PER PROTOCOL IV Last administered on 12/24/18at 07:27; Admin Dose 2.041 MLS/HR; Start 12/24/18 at 07:30 Acetaminophen (Tylenol Supp) 650 mg Q4H PRN [place] TEMP > 37C; Start 12/24/18 at 07:30 Acetaminophen (Tylenol Liquid) 650 mg Q4H PRN PO TEMP > 37C; Start 12/24/18 at 07:30 Meperidine HCl (Demerol) 12.5 mg Q4H PRN IV POST OPERATIVE SHIVERING; Start 12/24/18 at 07:30 Meperidine HCl (Demerol) 25 mg Q4H PRN IV POST OPERATIVE SHIVERING; Start 12/24/18 at 07:30 Eye Lubricant (Artificial Tears Oph) 2 drop Q6 BOTH EYES Last administered on 12/26/18 11:19; Admin Dose 2 DROP; Start 12/24/18 at 12:00 Insulin Human Regular 100 unit/ Sodium Chloride 100 ml @ 0 mls/hr PER PROTOCOL IV Last administered on 12/25/18 21:02; Admin Dose 1.5 MLS/HR; Start 12/24/18 at 08:30 Miscellaneous Information (* Miscellaneous Pharmacy Order) Treatment of Hypoglycemia: 1.BG 51... Per protocol XX ; Start 12/24/18 at 07:30 Dextrose (D50w Syringe) 25 ml Q15M PRN IV .DECREASED GLUCOSE; Start 12/24/18 at 07:30 Dextrose (D50w Syringe) 50 ml Q15M PRN IV .DECREASED GLUCOSE; Start 12/24/18 at 07:30 Hypromellose (Genteal Severe) 1 applic Q6 BOTH EYES Last administered on 12/26/18 11:19; Admin Dose 1 APPLIC; Start 12/24/18 at 12:00 Fentanyl 100 ml @ 2.5 mls/hr TITRATE IV Last administered on 12/25/18 22:00; Admin Dose 2.5 MLS/HR; Start 12/24/18 at 08:30 Pantoprazole (Protonix Iv) 40 mg BID@06,18 IV Last administered on 12/26/18 05:28; Admin Dose 40 MG; Start 12/24/18 at 18:00 Piperacillin Sod/ Tazobactam Sod 50 ml @ 100 mls/hr Q8 IVPB Last administered on 12/26/18 05:28; Admin Dose 100 MLS/HR; Start 12/24/18 at 10:00 Norepinephrine 250 ml @ 1.875 mls/ hr TITRATE IV Last administered on 12/26/18 10:28; Admin Dose 56.25 MLS/HR; Start 12/24/18 at 11:00 Dopamine HCl/ Dextrose 250 ml @ 5.115 mls/ hr TITRATE IV Last administered on 12/26/18 07:58; Admin Dose 51.15 MLS/HR; Start 12/24/18 at 11:00 Vancomycin HCl (Vanco Iv Per Pharmacy) VANCOMYCIN PER PHARMACY PER PROTOCOL XX ; Start 12/24/18 at 13:00 Diagnostic Test (Pha) (Accu-Chek) 1 ea Q4H XX Last administered on 12/26/18at 11:32; Admin Dose 1 EA; Start 12/24/18 at 16:00 Albumin Human 250 ml @ 250 mls/hr PRN PRN IV CVP<10; Start 12/24/18 at 21:30 Phenylephrine HCl 80 mg/Dextrose 250 ml @ 18.75 mls/ hr TITRATE IV Last administered on 12/26/18at 11:02; Admin Dose 56.25 MLS/HR; Start 12/24/18 at 23:00 Vasopressin 60 unit/Dextrose 60 ml @ 1.2 mls/hr Q12H IV Last administered on 12/26/18at 03:01; Admin Dose 1.2 MLS/HR; Start 12/25/18 at 01:00 Acetaminophen (Tylenol Supp) 500 mg Q6H [place] ; Start 12/25/18 at 10:00 Acetaminophen (Tylenol Liquid) 500 mg Q6H PO Last administered on 12/25/18at 16:08; Admin Dose 500 MG; Start 12/25/18 at 10:00 Vancomycin HCl 250 ml @ 125 mls/hr ONCE IVPB Last administered on 12/26/18at 11:23; Admin Dose 125 MLS/HR; Start 12/26/18 at 12:00; Stop 12/26/18 at 13:59 Sodium Chloride 1,000 ml @ 50 mls/hr Q20H IV Last administered on 12/26/18at 08:26; Admin Dose 50 MLS/HR; Start 12/26/18 at 08:00 Calcium Gluconate 2 gm/Dextrose 120 ml @ 60 mls/hr ONCE ONCE IVPB ; Start 12/26/18 at 12:00; Stop 12/26/18 at 13:59 KRISTIAN GUERRERO Dec 26, 2018 11:58
[2018-12-26] MEDS ORDERED: CALCIUM GLUCONATE 10% 2 GM in DEXTROSE 5% 100 ML IVPB ONE (12:00)
[2018-12-26] MEDS ORDERED: VANCOMYCIN 1 GM 250 ML IVPB SCH (12:00)
--- NOTE | 2018-12-26 12:58 | RADRPT ---
Vent Rate: 109 bpm RR Interval: 0 msec [place] Interval: 148 msec QRS Duration: 82 msec QT Interval: 360 msec QTC Interval: 484 msec P-R-T [place]: 52 - 70 - 72 degrees Sinus tachycardia Otherwise normal ECG Electronically Signed By: Wood Farris
[2018-12-26] MEDS ORDERED: PHENYLephrine 20MG IN 250 ML 250 ML ONE (15:40)
[2018-12-26] MEDS: INSULIN ASPART [NOVOLOG] 3 ML PEN SC SCH ×2 (16:44→21:00)
[2018-12-27] VITALS (90 sets, daily range): BP systolic 87–125; BP diastolic 47–74; PULSE 93–109; RESP 19–31
[2018-12-27] MEDS: INSULIN ASPART [NOVOLOG] 3 ML PEN SC SCH ×6 (01:00→21:00)
[2018-12-27] MEDS: VASOPRESSIN 60 UNIT in DEXTROSE 5% 57 ML IV SCH ×2 (01:01→12:21)
[2018-12-27] MEDS: PHENYLephrine 80 MG in DEXTROSE 5% 242 ML IV SCH ×3 (03:40→18:14)
[2018-12-27] MEDS: SOD CHLORIDE 0.9% 1,000 ML IV SCH (03:41)
[2018-12-27] MEDS: ACETAMINOPHEN 650MG/20.3ML CUP PO SCH ×3 (04:00→16:00)
[2018-12-27] MEDS: ACCU-CHEK XX SCH ×5 (04:00→20:32)
[2018-12-27] MEDS: ACETAMINOPHEN 650 MG SUPP PR SCH ×3 (04:00→16:00)
[2018-12-27] MEDS: NORepinephrine 8MG/250 ML (PMX 250 ML IV SCH (05:02)
[2018-12-27] MEDS: PANTOPRAZOLE 40 MG INJ IV SCH ×2 (05:38→18:06)
[2018-12-27] MEDS: PIPER-TAZO 2.25 GM (PMX) 50 ML IVPB SCH ×3 (05:38→21:36)
[2018-12-27] MEDS: HYPROMELLOSE OPHTHALMIC LUBRICANT GEL (10 GM) BOTH EYES SCH ×3 (05:39→18:06)
[2018-12-27] MEDS: ARTIFICIAL TEARS 15 ML OPH BOTH EYES SCH ×3 (05:39→18:06)
--- NOTE | 2018-12-27 08:24 | CONS ---
Assessment/Plan Assessment/Plan Assessment/Plan (Daily) Patient found down Status post cardiac arrest Status post cardiac catheterization Without acute pathology Respiratory failure ventilator dependent Pressor dependent Positive drug screen for methamphetamine and marijuana Patient being warmed now per hypothermia protocol, agree with neurology cons ultation patient may need bioethics consultation if first-degree family members are not found. Neuro significantly improved, trach'd full code. will continue to support family Consultation Date/Type/Reason Admit Date/Time Dec 24, 2018 at 05:33 Initial Consult Date 12/24/18 Requesting Provider: YUVAL BLACKWOOD Date/Time of Note DATE: 12/27/18 TIME: 08:22 Exam/Review of Systems Exam Vitals Vital Signs Date Temp Pulse Resp B/P (MAP) Pulse Ox O2 O2 Flow FiO2 Time Delivery Rate 12/27/18 105 08:00 12/27/18 22 104/60 98 Mechanical 08:00 (75) Ventilator 12/27/18 40 07:33 12/27/18 99.3 07:00 Intake and Output 12/26/18 12/26/18 12/27/18 1515:00 23:00 07:00 IntakeIntake Total 2104.40 ml 1958.905 ml 1281.425 ml OutputOutput Total 365 ml 475 ml 825 ml BalanceBalance 1739.40 ml 1483.905 ml 456.425 ml Constitutional: alert, oriented, well developed Respiratory: clear to auscultation, normal air movement Cardiovascular: regular rate and rhythm, nl pulses Results Result Diagram: 12/27/18 0434 12/27/18 0434 Results 24hrs Laboratory Tests Test 12/26/18 09:10 12/26/18 11:31 12/26/18 13:30 12/26/18 13:34 Blood Gas Blood arterial Blood Specimen arterial Source Arterial Blood 12/26/2018 9:35: 12/26/2018 1:51 Date Drawn 52 AM :20 PM Arterial Blood 7.390 7.363 pH (Temp corrected ) Arterial Blood 41.5 40.6 pCO2 (Temp correct) Arterial Blood 93.6 99.6 pO2 (Temp corrected ) Arterial Blood 24.5 22.6 HCO3 Arterial Blood -0.4 -2.6 Base Excess Arterial Blood 97.2 97.6 Oxygen Saturati on Adarsh Test N/A N/A Arterial Blood A-Line A-Line Gas Puncture Site Arterial 1.1 1.2 Blood Carboxyhe moglobin Arterial Blood 0.3 0.3 Methemoglobin Blood Gas A-a 143.8 H 211.2 H O2 Differential Oxyhemoglobin 95.8 96.1 Percent Blood Gas 37.1 37.0 Temperature Blood Gas 22.0 22.0 Respiration Rate Blood Gas 22 22 Actual Respiration Rat e Blood Gas VENT - AC VENT - AC Modality FiO2 40.0 50.0 Blood Gas Tidal 500.0 500.0 Volume Blood Gas Low 10.0 8.0 PEEP Setting Blood Gas TM TM Notified Whom Blood Gas 12/26/2018 9:57: 12/26/2018 2:02 Notified Time 33 AM :05 PM Bedside Glucose 74 60 L Test 12/26/18 13:44 12/26/18 16:43 12/26/18 19:32 12/26/18 23:36 Bedside Glucose 112 97 107 72 Test 12/27/18 04:34 12/27/18 04:45 12/27/18 07:00 White Blood 18.7 #H Count Red Blood Count 3.43 L Hemoglobin 10.5 L Hematocrit 30.4 L Mean 88.6 Corpuscular Volume Mean 30.6 Corpuscular Hemoglobin Mean 34.5 Corpuscular Hemoglobin Conc ent Red Cell 14.4 Distribution Width Platelet Count 59 #L Mean Platelet 12.0 H Volume Immature 0.700 H Granulocytes % Neutrophils % Segmented 76 Neutrophils % (Manual) Band 8 H Neutrophils % (Manual) Lymphocytes % Lymphocytes % 11 L (Manual) Monocytes % Monocytes % 5 (Manual) Eosinophils % Basophils % Nucleated Red 0.2 H Blood Cells % Immature 0.130 H Granulocytes # Neutrophils # Neutrophils # 14.5 H (Manual) Band 1.4 H Neutrophils # Lymphocytes 2.0 (Manual) Lymphocytes # Monocytes # Monocytes # 0.9 (Manual) Eosinophils # Basophils # Nucleated Red Blood Cells # Platelet DECREASED Estimate Poikilocytosis 1+ Prothrombin 16.7 #H Time Prothrombin 1.3 Time Ratio INR 1.34 International Normalized Rati o Activated 48.2 H Partial Thrombo plast Time Sodium Level 132 L Potassium Level 5.4 H Chloride Level 91 L Carbon Dioxide 23 Level Anion Gap 18 H Blood Urea 67 H Nitrogen Creatinine 4.64 #H Est Glomerular 13 L Filtrat Rate mL/min Glucose Level 92 # Calcium Level 5.0 *L Phosphorus 9.9 H Level Magnesium Level 2.0 Creatine Kinase 4619 H Bedside Glucose 79 Blood Gas Blood arterial Specimen Source Arterial Blood 12/27/2018 7:03: Date Drawn 06 AM Arterial Blood 7.362 pH (Temp corrected ) Arterial Blood 39.9 pCO2 (Temp correct) Arterial Blood 105.7 H pO2 (Temp corrected ) Arterial Blood 22.1 HCO3 Arterial Blood -3.0 Base Excess Arterial Blood 97.7 Oxygen Saturati on Adarsh Test N/A Arterial Blood A-Line Gas Puncture Site Arterial 0.9 Blood Carboxyhe moglobin Arterial Blood 0.3 Methemoglobin Blood Gas A-a 133.6 H O2 Differential Oxyhemoglobin 96.5 Percent Blood Gas 37.0 Temperature Blood Gas 22.0 Respiration Rate Blood Gas 22 Actual Respiration Rat e Blood Gas VENT - AC Modality FiO2 40.0 Blood Gas Tidal 500.0 Volume Blood Gas Low 5.0 PEEP Setting Blood Gas TM Notified Whom Blood Gas 12/27/2018 7:27: Notified Time 56 AM Medications Medication Current Medications Albuterol (Ventolin Hfa) 4 puff Q2H RESP THERAPY PRN INH SHORTNESS OF BREATH; Start 12/24/18 at 07:30 Ipratropium [place] (Atrovent Hfa) 4 puff Q2H RESP THERAPY PRN INH SHORTNESS OF BREATH; Start 12/24/18 at 06:30 Acetaminophen (Tylenol Liquid) 650 mg Q6H PRN PO PAIN LEVEL 1-3 OR FEVER; Start 12/24/18 at 06:30 Midazolam HCl 50 ml @ 2 mls/hr PER PROTOCOL IV Last administered on 12/26/18at 02:59; Admin Dose 4 MLS/HR; Start 12/24/18 at 07:30 Propofol 100 ml @ 2.041 mls/ hr PER PROTOCOL IV Last administered on 12/24/18at 07:27; Admin Dose 2.041 MLS/HR; Start 12/24/18 at 07:30 Acetaminophen (Tylenol Supp) 650 mg Q4H PRN [place] TEMP > 37C; Start 12/24/18 at 07:30 Acetaminophen (Tylenol Liquid) 650 mg Q4H PRN PO TEMP > 37C; Start 12/24/18 at 07:30 Meperidine HCl (Demerol) 12.5 mg Q4H PRN IV POST OPERATIVE SHIVERING; Start 12/24/18 at 07:30 Meperidine HCl (Demerol) 25 mg Q4H PRN IV POST OPERATIVE SHIVERING; Start 12/24/18 at 07:30 Eye Lubricant (Artificial Tears Oph) 2 drop Q6 BOTH EYES Last administered on 12/27/18 05:39; Admin Dose 2 DROP; Start 12/24/18 at 12:00 Miscellaneous Information (* Miscellaneous Pharmacy Order) Treatment of Hypoglycemia: 1.BG 51... Per protocol XX ; Start 12/24/18 at 07:30 Dextrose (D50w Syringe) 25 ml Q15M PRN IV .DECREASED GLUCOSE Last administered on 12/26/18 13:32; Admin Dose 25 ML; Start 12/24/18 at 07:30 Dextrose (D50w Syringe) 50 ml Q15M PRN IV .DECREASED GLUCOSE; Start 12/24/18 at 07:30 Hypromellose (Genteal Severe) 1 applic Q6 BOTH EYES Last administered on 12/27/18 05:39; Admin Dose 1 APPLIC; Start 12/24/18 at 12:00 Fentanyl 100 ml @ 2.5 mls/hr TITRATE IV Last administered on 12/25/18 22:00; Admin Dose 2.5 MLS/HR; Start 12/24/18 at 08:30 Pantoprazole (Protonix Iv) 40 mg BID@06,18 IV Last administered on 12/27/18 05:38; Admin Dose 40 MG; Start 12/24/18 at 18:00 Piperacillin Sod/ Tazobactam Sod 50 ml @ 100 mls/hr Q8 IVPB Last administered on 12/27/18 05:38; Admin Dose 100 MLS/HR; Start 12/24/18 at 10:00 Norepinephrine 250 ml @ 1.875 mls/ hr TITRATE IV Last administered on 12/27/18 05:02; Admin Dose 37.5 MLS/HR; Start 12/24/18 at 11:00 Dopamine HCl/ Dextrose 250 ml @ 5.115 mls/ hr TITRATE IV Last administered on 12/26/18 23:09; Admin Dose 51.15 MLS/HR; Start 12/24/18 at 11:00 Vancomycin HCl (Vanco Iv Per Pharmacy) VANCOMYCIN PER PHARMACY PER PROTOCOL XX ; Start 12/24/18 at 13:00 Diagnostic Test (Pha) (Accu-Chek) 1 ea Q4H XX Last administered on 12/27/18at 07:36; Admin Dose 1 EA; Start 12/24/18 at 16:00 Albumin Human 250 ml @ 250 mls/hr PRN PRN IV CVP<10; Start 12/24/18 at 21:30 Phenylephrine HCl 80 mg/Dextrose 250 ml @ 18.75 mls/ hr TITRATE IV Last administered on 12/27/18at 03:40; Admin Dose 41.25 MLS/HR; Start 12/24/18 at 23:00 Vasopressin 60 unit/Dextrose 60 ml @ 1.2 mls/hr Q12H IV Last administered on 12/27/18at 01:01; Admin Dose 2.4 MLS/HR; Start 12/25/18 at 01:00 Acetaminophen (Tylenol Supp) 500 mg Q6H [place] ; Start 12/25/18 at 10:00 Acetaminophen (Tylenol Liquid) 500 mg Q6H PO Last administered on 12/26/18at 21:49; Admin Dose 500 MG; Start 12/25/18 at 10:00 Sodium Chloride 1,000 ml @ 50 mls/hr Q20H IV Last administered on 12/27/18at 03:41; Admin Dose 50 MLS/HR; Start 12/26/18 at 08:00 Insulin Aspart (Novolog Insulin Pen) NOVOLOG *MILD* ALGORI... Q4 SC ; Start 12/26/18 at 17:00 Calcium Gluconate 2 gm/Dextrose 120 ml @ 60 mls/hr ONCE ONCE IVPB ; Start 12/27/18 at 09:00; Stop 12/27/18 at 10:59 VERITO COLLINS Dec 27, 2018 08:24
--- NOTE | 2018-12-27 08:33 | CONS ---
Assessment/Plan Assessment/Plan Assessment/Plan (Daily) Ventilator setting; AC of 22, tidal volume 500, PEEP of 5, 30% FiO2. Patient is currently on Levophed at 12 mics per minute, dopamine m 5 mics micrograms per minute, phenylephrine drip 180 mics per minute, vasopressin 0.04 units/min. Assessment recommendations; 1. Patient status post cardiac arrest, status post hypothermia protocol with severe anoxic brain injury. Pupils are dilated not reactive to light, patient has no gag reflex. 2. History of drug abuse. 3. Severe thrombocytopenia. However no overt bleeding noted. 4. Possibly aspiration pneumonia, patient exhibiting increasing leukocytosis. Currently on appropriate empiric antibiotic regimen. 5. Acute renal failure, however patient now having increasing urine output. 6. Status post emergent coronary angiography at admission with negative findings. Continue current supportive care. Obtain follow-up chest x-ray. Monitor renal function. Prognosis appears extremely poor. 35-minute of critical care time was spent evaluating the patient. Consultation Date/Type/Reason Admit Date/Time Dec 24, 2018 at 05:33 Initial Consult Date 12/24/18 Type of Consult Pulmonary/critical care Patient is a 43-year-old male who was admitted to the hospital after cardiac arrest event. Patient apparently was being arrested when he collapsed, CPR was done with revival of vital signs. Patient developed acute NC was taken to the [facility] where patient had normal coronary arteries. Patient is transferred to ICU intubated, remains hypotensive and hypoxemic. Patient is currently on hypothermia protocol. Past medical history; unknown. Apparently none. Medications; reviewed. Patient is on Levophed 24 mics per minute, dopamine 10 mics per kilogram per minute, propofol 40 mics per kilogram per minute, Versed 4 mg/h. Other medications were reviewed as well. Allergies; none. Family history; not available. Occupational history and review of systems not available either. General exam; young male, orally intubated, on hypothermia protocol. Sedated. Requesting Provider: YUVAL BLACKWOOD Date/Time of Note DATE: 12/27/18 TIME: 08:30 24 HR Interval Summary Free Text/Dictation Patient's condition remains extremely critical. On multiple high-dose pressor agents. General exam; middle-aged male, orally intubated, unresponsive, currently no distress. Exam/Review of Systems Exam Vitals Vital Signs Date Temp Pulse Resp B/P (MAP) Pulse Ox O2 O2 Flow FiO2 Time Delivery Rate 12/27/18 105 08:00 12/27/18 22 104/60 98 Mechanical 08:00 (75) Ventilator 12/27/18 40 07:33 12/27/18 99.3 07:00 Intake and Output 12/26/18 12/26/18 12/27/18 1414:59 22:59 06:59 IntakeIntake Total 2022.40 ml 2081.525 ml 1305.92 ml OutputOutput Total 360 ml 480 ml 810 ml BalanceBalance 1662.40 ml 1601.525 ml 495.92 ml Exam H EENT exam; supple neck, no JVD. No lymphadenopathy. Midline trachea. No thyromegaly. Orally intubated. Patient has fair dentition. Pupils are dilated and nonreactive to light. Chest exam; diminished but clear breath sounds. S1-S2 audible, no murmurs. Regular rhythm. Abdomen exam; soft, no organomegaly. Bowel sounds are sluggish. Extremity exam; peripheral edema. DRAWING MACHINE OPERATOR exam; patient remains unresponsive. Results Result Diagram: 12/27/18 0434 12/27/18 0434 Results 24hrs Laboratory Tests Test 12/26/18 09:10 12/26/18 11:31 12/26/18 13:30 12/26/18 13:34 Blood Gas Blood arterial Blood Specimen arterial Source Arterial Blood 12/26/2018 9:35: 12/26/2018 1:51 Date Drawn 52 AM :20 PM Arterial Blood 7.390 7.363 pH (Temp corrected ) Arterial Blood 41.5 40.6 pCO2 (Temp correct) Arterial Blood 93.6 99.6 pO2 (Temp corrected ) Arterial Blood 24.5 22.6 HCO3 Arterial Blood -0.4 -2.6 Base Excess Arterial Blood 97.2 97.6 Oxygen Saturati on Adarsh Test N/A N/A Arterial Blood A-Line A-Line Gas Puncture Site Arterial 1.1 1.2 Blood Carboxyhe moglobin Arterial Blood 0.3 0.3 Methemoglobin Blood Gas A-a 143.8 H 211.2 H O2 Differential Oxyhemoglobin 95.8 96.1 Percent Blood Gas 37.1 37.0 Temperature Blood Gas 22.0 22.0 Respiration Rate Blood Gas 22 22 Actual Respiration Rat e Blood Gas VENT - AC VENT - AC Modality FiO2 40.0 50.0 Blood Gas Tidal 500.0 500.0 Volume Blood Gas Low 10.0 8.0 PEEP Setting Blood Gas TM TM Notified Whom Blood Gas 12/26/2018 9:57: 12/26/2018 2:02 Notified Time 33 AM :05 PM Bedside Glucose 74 60 L Test 12/26/18 13:44 12/26/18 16:43 12/26/18 19:32 12/26/18 23:36 Bedside Glucose 112 97 107 72 Test 12/27/18 04:34 12/27/18 04:45 12/27/18 07:00 White Blood 18.7 #H Count Red Blood Count 3.43 L Hemoglobin 10.5 L Hematocrit 30.4 L Mean 88.6 Corpuscular Volume Mean 30.6 Corpuscular Hemoglobin Mean 34.5 Corpuscular Hemoglobin Conc ent Red Cell 14.4 Distribution Width Platelet Count 59 #L Mean Platelet 12.0 H Volume Immature 0.700 H Granulocytes % Neutrophils % Segmented 76 Neutrophils % (Manual) Band 8 H Neutrophils % (Manual) Lymphocytes % Lymphocytes % 11 L (Manual) Monocytes % Monocytes % 5 (Manual) Eosinophils % Basophils % Nucleated Red 0.2 H Blood Cells % Immature 0.130 H Granulocytes # Neutrophils # Neutrophils # 14.5 H (Manual) Band 1.4 H Neutrophils # Lymphocytes 2.0 (Manual) Lymphocytes # Monocytes # Monocytes # 0.9 (Manual) Eosinophils # Basophils # Nucleated Red Blood Cells # Platelet DECREASED Estimate Poikilocytosis 1+ Prothrombin 16.7 #H Time Prothrombin 1.3 Time Ratio INR 1.34 International Normalized Rati o Activated 48.2 H Partial Thrombo plast Time Sodium Level 132 L Potassium Level 5.4 H Chloride Level 91 L Carbon Dioxide 23 Level Anion Gap 18 H Blood Urea 67 H Nitrogen Creatinine 4.64 #H Est Glomerular 13 L Filtrat Rate mL/min Glucose Level 92 # Calcium Level 5.0 *L Phosphorus 9.9 H Level Magnesium Level 2.0 Creatine Kinase 4619 H Bedside Glucose 79 Blood Gas Blood arterial Specimen Source Arterial Blood 12/27/2018 7:03: Date Drawn 06 AM Arterial Blood 7.362 pH (Temp corrected ) Arterial Blood 39.9 pCO2 (Temp correct) Arterial Blood 105.7 H pO2 (Temp corrected ) Arterial Blood 22.1 HCO3 Arterial Blood -3.0 Base Excess Arterial Blood 97.7 Oxygen Saturati on Adarsh Test N/A Arterial Blood A-Line Gas Puncture Site Arterial 0.9 Blood Carboxyhe moglobin Arterial Blood 0.3 Methemoglobin Blood Gas A-a 133.6 H O2 Differential Oxyhemoglobin 96.5 Percent Blood Gas 37.0 Temperature Blood Gas 22.0 Respiration Rate Blood Gas 22 Actual Respiration Rat e Blood Gas VENT - AC Modality FiO2 40.0 Blood Gas Tidal 500.0 Volume Blood Gas Low 5.0 PEEP Setting Blood Gas TM Notified Whom Blood Gas 12/27/2018 7:27: Notified Time 56 AM Medications Medication Current Medications Albuterol (Ventolin Hfa) 4 puff Q2H RESP THERAPY PRN INH SHORTNESS OF BREATH; Start 12/24/18 at 07:30 Ipratropium [place] (Atrovent Hfa) 4 puff Q2H RESP THERAPY PRN INH SHORTNESS OF BREATH; Start 12/24/18 at 06:30 Acetaminophen (Tylenol Liquid) 650 mg Q6H PRN PO PAIN LEVEL 1-3 OR FEVER; Start 12/24/18 at 06:30 Midazolam HCl 50 ml @ 2 mls/hr PER PROTOCOL IV Last administered on 12/26/18at 02:59; Admin Dose 4 MLS/HR; Start 12/24/18 at 07:30 Propofol 100 ml @ 2.041 mls/ hr PER PROTOCOL IV Last administered on 12/24/18at 07:27; Admin Dose 2.041 MLS/HR; Start 12/24/18 at 07:30 Acetaminophen (Tylenol Supp) 650 mg Q4H PRN [place] TEMP > 37C; Start 12/24/18 at 07:30 Acetaminophen (Tylenol Liquid) 650 mg Q4H PRN [place] TEMP > 37C; Start 12/24/18 at 07:30 Meperidine HCl (Demerol) 12.5 mg Q4H PRN IV POST OPERATIVE SHIVERING; Start 12/24/18 at 07:30 Meperidine HCl (Demerol) 25 mg Q4H PRN IV POST OPERATIVE SHIVERING; Start 12/24/18 at 07:30 Eye Lubricant (Artificial Tears Oph) 2 drop Q6 BOTH EYES Last administered on 12/27/18at 05:39; Admin Dose 2 DROP; Start 12/24/18 at 12:00 Miscellaneous Information (* Miscellaneous Pharmacy Order) Treatment of Hypoglycemia: 1.BG 51... Per protocol XX ; Start 12/24/18 at 07:30 Dextrose (D50w Syringe) 25 ml Q15M PRN IV .DECREASED GLUCOSE Last administered on 12/26/18at 13:32; Admin Dose 25 ML; Start 12/24/18 at 07:30 Dextrose (D50w Syringe) 50 ml Q15M PRN IV .DECREASED GLUCOSE; Start 12/24/18 at 07:30 Hypromellose (Genteal Severe) 1 applic Q6 BOTH EYES Last administered on 12/27/18at 05:39; Admin Dose 1 APPLIC; Start 12/24/18 at 12:00 Fentanyl 100 ml @ 2.5 mls/hr TITRATE IV Last administered on 12/25/18 22:00; Admin Dose 2.5 MLS/HR; Start 12/24/18 at 08:30 Pantoprazole (Protonix Iv) 40 mg BID@06,18 IV Last administered on 12/27/18 05:38; Admin Dose 40 MG; Start 12/24/18 at 18:00 Piperacillin Sod/ Tazobactam Sod 50 ml @ 100 mls/hr Q8 IVPB Last administered on 12/27/18 05:38; Admin Dose 100 MLS/HR; Start 12/24/18 at 10:00 Norepinephrine 250 ml @ 1.875 mls/ hr TITRATE IV Last administered on 12/27/18 05:02; Admin Dose 37.5 MLS/HR; Start 12/24/18 at 11:00 Dopamine HCl/ Dextrose 250 ml @ 5.115 mls/ hr TITRATE IV Last administered on 12/26/18at 23:09; Admin Dose 51.15 MLS/HR; Start 12/24/18 at 11:00 Vancomycin HCl (Vanco Iv Per Pharmacy) VANCOMYCIN PER PHARMACY PER PROTOCOL XX ; Start 12/24/18 at 13:00 Diagnostic Test (Pha) (Accu-Chek) 1 ea Q4H XX Last administered on 12/27/18at 07:36; Admin Dose 1 EA; Start 12/24/18 at 16:00 Albumin Human 250 ml @ 250 mls/hr PRN PRN IV CVP<10; Start 12/24/18 at 21:30 Phenylephrine HCl 80 mg/Dextrose 250 ml @ 18.75 mls/ hr TITRATE IV Last administered on 12/27/18at 03:40; Admin Dose 41.25 MLS/HR; Start 12/24/18 at 23:00 Vasopressin 60 unit/Dextrose 60 ml @ 1.2 mls/hr Q12H IV Last administered on 12/27/18at 01:01; Admin Dose 2.4 MLS/HR; Start 12/25/18 at 01:00 Acetaminophen (Tylenol Supp) 500 mg Q6H [place] ; Start 12/25/18 at 10:00 Acetaminophen (Tylenol Liquid) 500 mg Q6H PO Last administered on 12/26/18at 21:49; Admin Dose 500 MG; Start 12/25/18 at 10:00 Sodium Chloride 1,000 ml @ 50 mls/hr Q20H IV Last administered on 12/27/18at 03:41; Admin Dose 50 MLS/HR; Start 12/26/18 at 08:00 Insulin Aspart (Novolog Insulin Pen) NOVOLOG *MILD* ALGORI... Q4 SC ; Start 12/26/18 at 17:00 Calcium Gluconate 2 gm/Dextrose 120 ml @ 60 mls/hr ONCE ONCE IVPB Last administered on 12/27/18at 08:26; Admin Dose 60 MLS/HR; Start 12/27/18 at 09:00; Stop 12/27/18 at 10:59 KIRSTIN VICTORIA Dec 27, 2018 08:33
--- NOTE | 2018-12-27 08:46 | PN ---
DATE: 12/27/2018 SUBJECTIVE: The patient remains critically ill on 4 pressor supports. The patient's urinary output has been marginal. The patient is on full ventilatory support. There has been no neurological impro vement. The patient is off sedation. No other events noted. OBJECTIVE: VITAL SIGNS: Blood pressure is 114/68, respiration 22, pulse 105, temperature 99.3. HEENT: Head is normocephalic. NECK: Supple. HEART: Tachycardic. LUNGS: Show diminished breath sounds at the base. ABDOMEN: Soft, nontender to palpation without rebound or guarding. EXTREMITIES: Negative for clubbing, cyanosis. Trace edema. DERMATOLOGIC: No rashes. MUSCULOSKELETAL: No joint effusion. NEUROLOGIC: No change in exam. MEDICATIONS: Have been reviewed. LABORATORY DATA: Has been reviewed. The patient has sodium 132, potassium 5.4, calcium 5.0, phospho kelley 9.9, urine 67, creatinine 4.64. White count 18.7, hemoglobin 10.5, platelet count is 59. Patitj t's ABG was reviewed. Patient's cultures were reviewed. IMAGING: Chest x-ray was reviewed. ASSESSMENT AND PLAN: Oliguric acute kidney injury. Etiology is secondary to acute tubular necrosis due to shock, ischemic hypoperfusion, cardiac arrest. The patient remains in injury phase of tubular necrosis. The patien t is developing hyperkalemia and is markedly hypophosphatemic. Will discuss with patient's family ab out the possibility of hemodialysis. Currently, the patient remains hemodynamically unstable on 4 pr essors. However, if patient's hemodynamics should stabilize and pressors can be weaned off, the mo ent may be able to tolerate hemodialysis. I will discuss with patient's family about goals of care. Otherwise, would continue current treatment plan. Continue pressor support to maintain MAP of 65. Continue antibiotic therapy, continue IV hydration. Continue to renally dose all meds, avoid nephrot oxins. 2. Hyperkalemia. Etiology is secondary to acute kidney injury. Potassium levels will continue to b e monitored. If they continue to increase, the patient may require renal replacement therapy if hemo dynamically stable. 3. Mixed acid base disorder. The patient's ABG was reviewed. Continue to monitor. Currently off b icarbonate drip. 4. Mineral bone disorder. The patient is hyperphosphatemic and hypocalcemic secondary to acute kidn ey injury. Continue to replete with calcium gluconate. Will check ionized calcium. The patient brittany l likely need dialysis for clearance of hyperphosphatemia. We will continue to monitor as stated abo ve. 5. Lactic acidosis secondary to septic shock. Continue to monitor. 6. Shock, etiology is multifactorial, cardiac, septic. The patient is on multiple pressors, IV flui ds, antibiotics, continue to monitor. 7. Status post cardiac arrest. Etiology is unclear, possibly from polysubstance abuse. Continue cu rrent medical management. Follow up with cardiology. The patient is status post cardiac catheteriza tion. 9. Ventilator-dependent respiratory failure. Vent settings and ABG was reviewed. Continue to monit or. 10. Acute encephalopathy, etiology toxic metabolic. The possibility of acute CVA or anoxic injury i s a consideration. Follow up with neurology. Please note I spent over 30 minutes of critical care time with this patient. Dictated By: HERB MAOTS DO NR/NTS Conf#: [id number] DID#: [id number] CC: ANASTASIA GILBERT MD;*EndCC*
[2018-12-27] MEDS ORDERED: CALCIUM GLUCONATE 10% 2 GM in DEXTROSE 5% 100 ML IVPB ONE (09:00)
--- NOTE | 2018-12-27 09:04 | CONS ---
Assessment/Plan Assessment/Plan Hospital Course (Demo Recall) Cardiac arrest: PEA and not VF. EKG with JACOBO V1 and III with Brugada looking ST elevation V2. Cath with normal coronaries and preserved LV function. RV poorly seen on echo but may be mildly enlarged and hypokinetic so PE is in the differential. Massive intracranial event is also in the differential if he was very hypertensive in the setting of meth intoxication and agitation. Shock: LV function normal. Possibly RV dysfunction if massive PE but not well seen on echo. Also possible if neurologic event NSTEMI: trop 13, normal coros. Demand from arrest/shock vs PE Acute respiratory failure: intubated Acute renal failure Meth abuse -wean pressors to keep MAP >60 -at some point if stable, needs CT head and then PE eval >40 in critical care time Consultation Date/Type/Reason Admit Date/Time Dec 24, 2018 at 05:33 Initial Consult Date 12/24/18 Type of Consult Cardiology Requesting Provider: YUVAL BLACKWOOD Date/Time of Note DATE: 12/27/18 TIME: 09:02 24 HR Interval Summary Free Text/Dictation No events. Lower pressor requirements. Otherwise unchanged Exam/Review of Systems Vital Signs Vitals Vital Signs Date Temp Pulse Resp B/P (MAP) Pulse Ox O2 O2 Flow FiO2 Time Delivery Rate 12/27/18 106 22 110/64 98 Mechanical 08:30 (79) Ventilator 12/27/18 40 07:33 12/27/18 99.3 07:00 Intake and Output 12/26/18 12/26/18 12/27/18 1515:00 23:00 07:00 IntakeIntake Total 2104.40 ml 1958.905 ml 1281.425 ml OutputOutput Total 365 ml 475 ml 825 ml BalanceBalance 1739.40 ml 1483.905 ml 456.425 ml Exam Constitutional: No alert, No oriented ENMT: intubated Neck: No jvd Respiratory: diminished breath sounds; No clear to auscultation Cardiovascular: regular rate and rhythm; No edema, No systolic murmur Gastrointestinal: soft; No distended Musculoskeletal: No nl extremities to inspection Neurological: No nl mental status, No nl speech Labs Result Diagram: 12/27/18 0434 12/27/18 0434 Results 24hrs Laboratory Tests Test 4/10/19 09:10 12/26/18 11:31 12/26/18 13:30 12/26/18 13:34 Blood Gas Blood arterial Blood Specimen arterial Source Arterial Blood 12/26/2018 9:35: 12/26/2018 1:51 Date Drawn 52 AM :20 PM Arterial Blood 7.390 7.363 pH (Temp corrected ) Arterial Blood 41.5 40.6 pCO2 (Temp correct) Arterial Blood 93.6 99.6 pO2 (Temp corrected ) Arterial Blood 24.5 22.6 HCO3 Arterial Blood -0.4 -2.6 Base Excess Arterial Blood 97.2 97.6 Oxygen Saturati on Adarsh Test N/A N/A Arterial Blood A-Line A-Line Gas Puncture Site Arterial 1.1 1.2 Blood Carboxyhe moglobin Arterial Blood 0.3 0.3 Methemoglobin Blood Gas A-a 143.8 H 211.2 H O2 Differential Oxyhemoglobin 95.8 96.1 Percent Blood Gas 37.1 37.0 Temperature Blood Gas 22.0 22.0 Respiration Rate Blood Gas 22 22 Actual Respiration Rat e Blood Gas VENT - AC VENT - AC Modality FiO2 40.0 50.0 Blood Gas Tidal 500.0 500.0 Volume Blood Gas Low 10.0 8.0 PEEP Setting Blood Gas TM TM Notified Whom Blood Gas 12/26/2018 9:57: 12/26/2018 2:02 Notified Time 33 AM :05 PM Bedside Glucose 74 60 L Test 12/26/18 13:44 12/26/18 16:43 12/26/18 19:32 12/26/18 23:36 Bedside Glucose 112 97 107 72 Test 12/27/18 04:34 12/27/18 04:45 12/27/18 07:00 12/27/18 08:30 White Blood 18.7 #H Count Red Blood Count 3.43 L Hemoglobin 10.5 L Hematocrit 30.4 L Mean 88.6 Corpuscular Volume Mean 30.6 Corpuscular Hemoglobin Mean 34.5 Corpuscular Hemoglobin Conc ent Red Cell 14.4 Distribution Width Platelet Count 59 #L Mean Platelet 12.0 H Volume Immature 0.700 H Granulocytes % Neutrophils % Segmented 76 Neutrophils % (Manual) Band 8 H Neutrophils % (Manual) Lymphocytes % Lymphocytes % 11 L (Manual) Monocytes % Monocytes % 5 (Manual) Eosinophils % Basophils % Nucleated Red 0.2 H Blood Cells % Immature 0.130 H Granulocytes # Neutrophils # Neutrophils # 14.5 H (Manual) Band 1.4 H Neutrophils # Lymphocytes 2.0 (Manual) Lymphocytes # Monocytes # Monocytes # 0.9 (Manual) Eosinophils # Basophils # Nucleated Red Blood Cells # Platelet DECREASED Estimate Poikilocytosis 1+ Prothrombin 16.7 #H Time Prothrombin 1.3 Time Ratio INR 1.34 International Normalized Rati o Activated 48.2 H Partial Thrombo plast Time Sodium Level 132 L Potassium Level 5.4 H Chloride Level 91 L Carbon Dioxide 23 Level Anion Gap 18 H Blood Urea 67 H Nitrogen Creatinine 4.64 #H Est Glomerular 13 L Filtrat Rate mL/min Glucose Level 92 # Calcium Level 5.0 *L Phosphorus 9.9 H Level Magnesium Level 2.0 Creatine Kinase 4619 H Bedside Glucose 79 87 Blood Gas Blood arterial Specimen Source Arterial Blood 12/27/2018 7:03: Date Drawn 06 AM Arterial Blood 7.362 pH (Temp corrected ) Arterial Blood 39.9 pCO2 (Temp correct) Arterial Blood 105.7 H pO2 (Temp corrected ) Arterial Blood 22.1 HCO3 Arterial Blood -3.0 Base Excess Arterial Blood 97.7 Oxygen Saturati on Adarsh Test N/A Arterial Blood A-Line Gas Puncture Site Arterial 0.9 Blood Carboxyhe moglobin Arterial Blood 0.3 Methemoglobin Blood Gas A-a 133.6 H O2 Differential Oxyhemoglobin 96.5 Percent Blood Gas 37.0 Temperature Blood Gas 22.0 Respiration Rate Blood Gas 22 Actual Respiration Rat e Blood Gas VENT - AC Modality FiO2 40.0 Blood Gas Tidal 500.0 Volume Blood Gas Low 5.0 PEEP Setting Blood Gas TM Notified Whom Blood Gas 12/27/2018 7:27: Notified Time 56 AM Medications Medications Current Medications Albuterol (Ventolin Hfa) 4 puff Q2H RESP THERAPY PRN INH SHORTNESS OF BREATH; Start 12/24/18 at 07:30 Ipratropium [place] (Atrovent Hfa) 4 puff Q2H RESP THERAPY PRN INH SHORTNESS OF BREATH; Start 12/24/18 at 06:30 Acetaminophen (Tylenol Liquid) 650 mg Q6H PRN PO PAIN LEVEL 1-3 OR FEVER; Start 12/24/18 at 06:30 Midazolam HCl 50 ml @ 2 mls/hr PER PROTOCOL IV Last administered on 12/26/18at 02:59; Admin Dose 4 MLS/HR; Start 12/24/18 at 07:30 Propofol 100 ml @ 2.041 mls/ hr PER PROTOCOL IV Last administered on 12/24/18at 07:27; Admin Dose 2.041 MLS/HR; Start 12/24/18 at 07:30 Acetaminophen (Tylenol Supp) 650 mg Q4H PRN [place] TEMP > 37C; Start 12/24/18 at 07:30 Acetaminophen (Tylenol Liquid) 650 mg Q4H PRN PO TEMP > 37C; Start 12/24/18 at 07:30 Meperidine HCl (Demerol) 12.5 mg Q4H PRN IV POST OPERATIVE SHIVERING; Start 12/24/18 at 07:30 Meperidine HCl (Demerol) 25 mg Q4H PRN IV POST OPERATIVE SHIVERING; Start 12/24/18 at 07:30 Eye Lubricant (Artificial Tears Oph) 2 drop Q6 BOTH EYES Last administered on 12/27/18 05:39; Admin Dose 2 DROP; Start 12/24/18 at 12:00 Miscellaneous Information (* Miscellaneous Pharmacy Order) Treatment of Hypoglycemia: 1.BG 51... Per protocol XX ; Start 12/24/18 at 07:30 Dextrose (D50w Syringe) 25 ml Q15M PRN IV .DECREASED GLUCOSE Last administered on 12/26/18at 13:32; Admin Dose 25 ML; Start 12/24/18 at 07:30 Dextrose (D50w Syringe) 50 ml Q15M PRN IV .DECREASED GLUCOSE; Start 12/24/18 at 07:30 Hypromellose (Genteal Severe) 1 applic Q6 BOTH EYES Last administered on 12/27/18 05:39; Admin Dose 1 APPLIC; Start 12/24/18 at 12:00 Fentanyl 100 ml @ 2.5 mls/hr TITRATE IV Last administered on 12/25/18at 22:00; Admin Dose 2.5 MLS/HR; Start 12/24/18 at 08:30 Pantoprazole (Protonix Iv) 40 mg BID@06,18 IV Last administered on 12/27/18 05:38; Admin Dose 40 MG; Start 12/24/18 at 18:00 Piperacillin Sod/ Tazobactam Sod 50 ml @ 100 mls/hr Q8 IVPB Last administered on 12/27/18 05:38; Admin Dose 100 MLS/HR; Start 12/24/18 at 10:00 Norepinephrine 250 ml @ 1.875 mls/ hr TITRATE IV Last administered on 12/27/18 05:02; Admin Dose 37.5 MLS/HR; Start 12/24/18 at 11:00 Dopamine HCl/ Dextrose 250 ml @ 5.115 mls/ hr TITRATE IV Last administered on 12/26/18 23:09; Admin Dose 51.15 MLS/HR; Start 12/24/18 at 11:00 Vancomycin HCl (Vanco Iv Per Pharmacy) VANCOMYCIN PER PHARMACY PER PROTOCOL XX ; Start 12/24/18 at 13:00 Diagnostic Test (Pha) (Accu-Chek) 1 ea Q4H XX Last administered on 12/27/18 07:36; Admin Dose 1 EA; Start 12/24/18 at 16:00 Albumin Human 250 ml @ 250 mls/hr PRN PRN IV CVP<10; Start 12/24/18 at 21:30 Phenylephrine HCl 80 mg/Dextrose 250 ml @ 18.75 mls/ hr TITRATE IV Last administered on 12/27/18 03:40; Admin Dose 41.25 MLS/HR; Start 12/24/18 at 23:00 Vasopressin 60 unit/Dextrose 60 ml @ 1.2 mls/hr Q12H IV Last administered on 12/27/18 01:01; Admin Dose 2.4 MLS/HR; Start 12/25/18 at 01:00 Acetaminophen (Tylenol Supp) 500 mg Q6H [place] ; Start 12/25/18 at 10:00 Acetaminophen (Tylenol Liquid) 500 mg Q6H PO Last administered on 12/26/18at 21:49; Admin Dose 500 MG; Start 12/25/18 at 10:00 Sodium Chloride 1,000 ml @ 50 mls/hr Q20H IV Last administered on 12/27/18 03:41; Admin Dose 50 MLS/HR; Start 12/26/18 at 08:00 Insulin Aspart (Novolog Insulin Pen) NOVOLOG *MILD* ALGORI... Q4 SC ; Start 12/26/18 at 17:00 Calcium Gluconate 2 gm/Dextrose 120 ml @ 60 mls/hr ONCE ONCE IVPB Last administered on 4/11/19at 08:26; Admin Dose 60 MLS/HR; Start 12/27/18 at 09:00; Stop 12/27/18 at 10:59 KRISTIAN GUERRERO Dec 27, 2018 09:04
--- NOTE | 2018-12-27 09:24 | PN ---
Date/Time of Note Date/Time of Note DATE: 12/27/18 TIME: 09:20 Assessment/Plan VTE Prophylaxis Risk score (from Ns)>0 risk: 7 SCD applied (from Ns): Yes Pharmacological prophylaxis: NA/contraindicated Pharm contraindication: blood coag disorder Lines/Catheters [facility] (from [facility] A Line Urinary Cath still in place: Yes Reason Cath still needed: other (indicate) Assessment/Plan Hospital Course S: Remains intubated and sedated on 4 pressors O: Constitutional: intubated and sedated Psych: other (unable to assess) Head: mild bruising R forehead Eyes: Pupils fixed and dilated, off vecuronium since overnight, icterus ENMT: intubated Neck: non-tender Respiratory: diminished breath sounds, Cardiovascular: tachycardia Gastrointestinal: non distended, hypoactive BS Genitourinary - male: galaviz with good output Extremities: mild edema in iban ankles Neurological: no extremity movement noted assessment and plan: A 43-year-old male who was found on the street, altered, who subsequently underwent cardiac arrest with return of spontaneous circulation, went to analytical lab analyst urgently as a Code STEMI. Currently managed for the following medical problems: 1. Altered mentation, likely toxic metabolic, report of substance use. -r/o ischemic brain injury 2. Cardiac arrest, likely secondary to possible substance use, status post ACLS with ROSC -s/p hypothermia 3. Acute respiratory failure -remains vent dependent 4. Systemic shock with severe lactic acidosis -septic ? -requiring 4 pressors 5. Severe rhabdomyolysis. 6. Acute hepatic failure, likely secondary to shock liver. 7. Acute renal insufficiency, with metabolic acidosis, -started on bicarb drip per pulm 8. NSTEMI, status post left heart catheterization with clean coronaries, 9. Pancytopenia 10. Hyperglycemia :on Insulin GTT, but A1c 5.6 11. Multisubstance abuse (meth / marijuana) 12. Coagulopathy: worsening PLAN OF CARE: -unable to anticoagulate 2/2 thrombocytopenia -not a candidate for HD 2/2 systemic shock -continue IV abx -continue vent support -continue pressors and wean as tolerated -Continue insulin GTT and get hba1c -monitor electrolytes and intervene as indicated -continue all other icu support and care -Brain CT once stable -prognosis guarded, patient may Code at any time again CRITICAL CARE TIME: >35 mins Result Diagram: 4/11/19 0434 12/27/18 0434 Results 24hrs Laboratory Tests Test 12/26/18 11:31 12/26/18 13:30 12/26/18 13:34 12/26/18 13:44 Bedside Glucose 74 60 L 112 Blood Gas Blood arterial Specimen Source Arterial Blood 12/26/2018 1:51: Date Drawn 20 PM Arterial Blood 7.363 pH (Temp corrected) Arterial Blood 40.6 pCO2 (Temp correct) Arterial Blood 99.6 pO2 (Temp corrected) Arterial Blood 22.6 HCO3 Arterial Blood -2.6 Base Excess Arterial Blood 97.6 Oxygen Saturatio n Adarsh Test N/A Arterial Blood A-Line Gas Puncture Site Arterial 1.2 Blood Carboxyhem oglobin Arterial Blood 0.3 Methemoglobin Blood Gas A-a O2 211.2 H Differential Oxyhemoglobin 96.1 Percent Blood Gas 37.0 Temperature Blood Gas 22.0 Respiration Rate Blood Gas Actual 22 Respiration Rate Blood Gas VENT - AC Modality FiO2 50.0 Blood Gas Tidal 500.0 Volume Blood Gas Low 8.0 PEEP Setting Blood Gas TM Notified Whom Blood Gas 12/26/2018 2:02: Notified Time 05 PM Test 12/26/18 16:43 12/26/18 19:32 12/26/18 23:36 12/27/18 04:34 Bedside Glucose 97 107 72 White Blood 18.7 #H Count Red Blood Count 3.43 L Hemoglobin 10.5 L Hematocrit 30.4 L Mean Corpuscular 88.6 Volume Mean Corpuscular 30.6 Hemoglobin Mean Corpuscular 34.5 Hemoglobin Lisa nt Red Cell 14.4 Distribution Width Platelet Count 59 #L Mean Platelet 12.0 H Volume Immature 0.700 H Granulocytes % Neutrophils % Segmented 76 Neutrophils % (Manual) Band Neutrophils 8 H % (Manual) Lymphocytes % Lymphocytes % 11 L (Manual) Monocytes % Monocytes % 5 (Manual) Eosinophils % Basophils % Nucleated Red 0.2 H Blood Cells % Immature 0.130 H Granulocytes # Neutrophils # Neutrophils # 14.5 H (Manual) Band Neutrophils 1.4 H # Lymphocytes 2.0 (Manual) Lymphocytes # Monocytes # Monocytes # 0.9 (Manual) Eosinophils # Basophils # Nucleated Red Blood Cells # Platelet DECREASED Estimate Poikilocytosis 1+ Prothrombin Time 16.7 #H Prothrombin Time 1.3 Ratio INR 1.34 International Normalized Ratio Activated 48.2 H Partial Thrombop last Time Sodium Level 132 L Potassium Level 5.4 H Chloride Level 91 L Carbon Dioxide 23 Level Anion Gap 18 H Blood Urea 67 H Nitrogen Creatinine 4.64 #H Est Glomerular 13 L Filtrat Rate mL/min Glucose Level 92 # Calcium Level 5.0 *L Phosphorus Level 9.9 H Magnesium Level 2.0 Creatine Kinase 4619 H Test 12/27/18 04:45 12/27/18 07:00 12/27/18 08:30 Bedside Glucose 79 87 Blood Gas Blood arterial Specimen Source Arterial Blood 12/27/2018 7:03: Date Drawn 06 AM Arterial Blood 7.362 pH (Temp corrected) Arterial Blood 39.9 pCO2 (Temp correct) Arterial Blood 105.7 H pO2 (Temp corrected) Arterial Blood 22.1 HCO3 Arterial Blood -3.0 Base Excess Arterial Blood 97.7 Oxygen Saturatio n Adarsh Test N/A Arterial Blood A-Line Gas Puncture Site Arterial 0.9 Blood Carboxyhem oglobin Arterial Blood 0.3 Methemoglobin Blood Gas A-a O2 133.6 H Differential Oxyhemoglobin 96.5 Percent Blood Gas 37.0 Temperature Blood Gas 22.0 Respiration Rate Blood Gas Actual 22 Respiration Rate Blood Gas VENT - AC Modality FiO2 40.0 Blood Gas Tidal 500.0 Volume Blood Gas Low 5.0 PEEP Setting Blood Gas TM Notified Whom Blood Gas 12/27/2018 7:27: Notified Time 56 AM Exam/Review of Systems Exam Vitals Vital Signs Date Temp Pulse Resp B/P (MAP) Pulse Ox O2 O2 Flow FiO2 Time Delivery Rate 12/27/18 106 22 106/66 98 Mechanical 09:00 (79) Ventilator 12/27/18 40 07:33 12/27/18 99.3 07:00 Intake and Output 12/26/18 12/26/18 12/27/18 1515:00 23:00 07:00 IntakeIntake Total 2104.40 ml 1958.905 ml 1281.425 ml OutputOutput Total 365 ml 475 ml 825 ml BalanceBalance 1739.40 ml 1483.905 ml 456.425 ml Results Results 24hrs Laboratory Tests Test 12/26/18 11:31 12/26/18 13:30 12/26/18 13:34 12/26/18 13:44 Bedside Glucose 74 60 L 112 Blood Gas Blood arterial Specimen Source Arterial Blood 12/26/2018 1:51: Date Drawn 20 PM Arterial Blood 7.363 pH (Temp corrected) Arterial Blood 40.6 pCO2 (Temp correct) Arterial Blood 99.6 pO2 (Temp corrected) Arterial Blood 22.6 HCO3 Arterial Blood -2.6 Base Excess Arterial Blood 97.6 Oxygen Saturatio n Adarsh Test N/A Arterial Blood A-Line Gas Puncture Site Arterial 1.2 Blood Carboxyhem oglobin Arterial Blood 0.3 Methemoglobin Blood Gas A-a O2 211.2 H Differential Oxyhemoglobin 96.1 Percent Blood Gas 37.0 Temperature Blood Gas 22.0 Respiration Rate Blood Gas Actual 22 Respiration Rate Blood Gas VENT - AC Modality FiO2 50.0 Blood Gas Tidal 500.0 Volume Blood Gas Low 8.0 PEEP Setting Blood Gas TM Notified Whom Blood Gas 12/26/2018 2:02: Notified Time 05 PM Test 12/26/18 16:43 12/26/18 19:32 12/26/18 23:36 12/27/18 04:34 Bedside Glucose 97 107 72 White Blood 18.7 #H Count Red Blood Count 3.43 L Hemoglobin 10.5 L Hematocrit 30.4 L Mean Corpuscular 88.6 Volume Mean Corpuscular 30.6 Hemoglobin Mean Corpuscular 34.5 Hemoglobin Lisa nt Red Cell 14.4 Distribution Width Platelet Count 59 #L Mean Platelet 12.0 H Volume Immature 0.700 H Granulocytes % Neutrophils % Segmented 76 Neutrophils % (Manual) Band Neutrophils 8 H % (Manual) Lymphocytes % Lymphocytes % 11 L (Manual) Monocytes % Monocytes % 5 (Manual) Eosinophils % Basophils % Nucleated Red 0.2 H Blood Cells % Immature 0.130 H Granulocytes # Neutrophils # Neutrophils # 14.5 H (Manual) Band Neutrophils 1.4 H # Lymphocytes 2.0 (Manual) Lymphocytes # Monocytes # Monocytes # 0.9 (Manual) Eosinophils # Basophils # Nucleated Red Blood Cells # Platelet DECREASED Estimate Poikilocytosis 1+ Prothrombin Time 16.7 #H Prothrombin Time 1.3 Ratio INR 1.34 International Normalized Ratio Activated 48.2 H Partial Thrombop last Time Sodium Level 132 L Potassium Level 5.4 H Chloride Level 91 L Carbon Dioxide 23 Level Anion Gap 18 H Blood Urea 67 H Nitrogen Creatinine 4.64 #H Est Glomerular 13 L Filtrat Rate mL/min Glucose Level 92 # Calcium Level 5.0 *L Phosphorus Level 9.9 H Magnesium Level 2.0 Creatine Kinase 4619 H Test 12/27/18 04:45 12/27/18 07:00 12/27/18 08:30 Bedside Glucose 79 87 Blood Gas Blood arterial Specimen Source Arterial Blood 12/27/2018 7:03: Date Drawn 06 AM Arterial Blood 7.362 pH (Temp corrected) Arterial Blood 39.9 pCO2 (Temp correct) Arterial Blood 105.7 H pO2 (Temp corrected) Arterial Blood 22.1 HCO3 Arterial Blood -3.0 Base Excess Arterial Blood 97.7 Oxygen Saturatio n Adarsh Test N/A Arterial Blood A-Line Gas Puncture Site Arterial 0.9 Blood Carboxyhem oglobin Arterial Blood 0.3 Methemoglobin Blood Gas A-a O2 133.6 H Differential Oxyhemoglobin 96.5 Percent Blood Gas 37.0 Temperature Blood Gas 22.0 Respiration Rate Blood Gas Actual 22 Respiration Rate Blood Gas VENT - AC Modality FiO2 40.0 Blood Gas Tidal 500.0 Volume Blood Gas Low 5.0 PEEP Setting Blood Gas TM Notified Whom Blood Gas 12/27/2018 7:27: Notified Time 56 AM Medications Medication Current Medications Albuterol (Ventolin Hfa) 4 puff Q2H RESP THERAPY PRN INH SHORTNESS OF BREATH; Start 12/24/18 at 07:30 Ipratropium [place] (Atrovent Hfa) 4 puff Q2H RESP THERAPY PRN INH SHORTNESS OF BREATH; Start 12/24/18 at 06:30 Acetaminophen (Tylenol Liquid) 650 mg Q6H PRN PO PAIN LEVEL 1-3 OR FEVER; Start 12/24/18 at 06:30 Midazolam HCl 50 ml @ 2 mls/hr PER PROTOCOL IV Last administered on 12/26/18at 02:59; Admin Dose 4 MLS/HR; Start 12/24/18 at 07:30 Propofol 100 ml @ 2.041 mls/ hr PER PROTOCOL IV Last administered on 12/24/18at 07:27; Admin Dose 2.041 MLS/HR; Start 12/24/18 at 07:30 Acetaminophen (Tylenol Supp) 650 mg Q4H PRN MA TEMP > 37C; Start 12/24/18 at 07:30 Acetaminophen (Tylenol Liquid) 650 mg Q4H PRN PO TEMP > 37C; Start 12/24/18 at 07:30 Meperidine HCl (Demerol) 12.5 mg Q4H PRN IV POST OPERATIVE SHIVERING; Start 12/24/18 at 07:30 Meperidine HCl (Demerol) 25 mg Q4H PRN IV POST OPERATIVE SHIVERING; Start 12/24/18 at 07:30 Eye Lubricant (Artificial Tears Oph) 2 drop Q6 BOTH EYES Last administered on 12/27/18 05:39; Admin Dose 2 DROP; Start 12/24/18 at 12:00 Miscellaneous Information (* Miscellaneous Pharmacy Order) Treatment of Hypoglycemia: 1.BG 51... Per protocol XX ; Start 12/24/18 at 07:30 Dextrose (D50w Syringe) 25 ml Q15M PRN IV .DECREASED GLUCOSE Last administered on 12/26/18 13:32; Admin Dose 25 ML; Start 12/24/18 at 07:30 Dextrose (D50w Syringe) 50 ml Q15M PRN IV .DECREASED GLUCOSE; Start 12/24/18 at 07:30 Hypromellose (Genteal Severe) 1 applic Q6 BOTH EYES Last administered on 12/27/18 05:39; Admin Dose 1 APPLIC; Start 12/24/18 at 12:00 Fentanyl 100 ml @ 2.5 mls/hr TITRATE IV Last administered on 12/25/18 22:00; Admin Dose 2.5 MLS/HR; Start 12/24/18 at 08:30 Pantoprazole (Protonix Iv) 40 mg BID@06,18 IV Last administered on 12/27/18 05:38; Admin Dose 40 MG; Start 12/24/18 at 18:00 Piperacillin Sod/ Tazobactam Sod 50 ml @ 100 mls/hr Q8 IVPB Last administered on 12/27/18 05:38; Admin Dose 100 MLS/HR; Start 12/24/18 at 10:00 Norepinephrine 250 ml @ 1.875 mls/ hr TITRATE IV Last administered on 12/27/18 05:02; Admin Dose 37.5 MLS/HR; Start 12/24/18 at 11:00 Dopamine HCl/ Dextrose 250 ml @ 5.115 mls/ hr TITRATE IV Last administered on 12/26/18 23:09; Admin Dose 51.15 MLS/HR; Start 12/24/18 at 11:00 Vancomycin HCl (Vanco Iv Per Pharmacy) VANCOMYCIN PER PHARMACY PER PROTOCOL XX ; Start 12/24/18 at 13:00 Diagnostic Test (Pha) (Accu-Chek) 1 ea Q4H XX Last administered on 12/27/18at 07:36; Admin Dose 1 EA; Start 12/24/18 at 16:00 Albumin Human 250 ml @ 250 mls/hr PRN PRN IV CVP<10; Start 12/24/18 at 21:30 Phenylephrine HCl 80 mg/Dextrose 250 ml @ 18.75 mls/ hr TITRATE IV Last administered on 12/27/18at 03:40; Admin Dose 41.25 MLS/HR; Start 12/24/18 at 23:00 Vasopressin 60 unit/Dextrose 60 ml @ 1.2 mls/hr Q12H IV Last administered on 12/27/18at 01:01; Admin Dose 2.4 MLS/HR; Start 12/25/18 at 01:00 Acetaminophen (Tylenol Supp) 500 mg Q6H MA ; Start 12/25/18 at 10:00 Acetaminophen (Tylenol Liquid) 500 mg Q6H PO Last administered on 12/26/18at 21:49; Admin Dose 500 MG; Start 12/25/18 at 10:00 Sodium Chloride 1,000 ml @ 50 mls/hr Q20H IV Last administered on 12/27/18at 03:41; Admin Dose 50 MLS/HR; Start 12/26/18 at 08:00 Insulin Aspart (Novolog Insulin Pen) NOVOLOG *MILD* ALGORI... Q4 SC ; Start 12/26/18 at 17:00 Calcium Gluconate 2 gm/Dextrose 120 ml @ 60 mls/hr ONCE ONCE IVPB Last administered on 12/27/18at 08:26; Admin Dose 60 MLS/HR; Start 12/27/18 at 09:00; Stop 12/27/18 at 10:59 YUVAL BLACKWOOD Dec 27, 2018 09:24
--- NOTE | 2018-12-27 11:36 | CONS ---
Assessment/Plan Assessment/Plan Hospital Course 48 yo male w/ uncertain PMHx, who is admitted to the [facility] ICU following cardiac arrest. Now s/p TTM.. On neurologic examination, he is presently without brainstem or cortical activity...suspicious for brain . CXR is notable for edema vs/ pneumonia.. Neuroimaging is limited by critical illness. P: Head CT when medically able EEG to confirm cortical inactivity Consider apnea test to confirm brainstem inactivity when medically able Will follow Consultation Date/Type/Reason Admit Date/Time Dec 24, 2018 at 05:33 Type of Consult Neurology Reason for Consultation coma Requesting Provider: YUVAL BLACKWOOD Date/Time of Note DATE: 12/27/18 TIME: 11:36 24 HR Interval Summary Free Text/Dictation Continues critical care. Remains on 4 pressors. Subjective hx not possible: pt non-verbal, pt critical, pt critical status Exam Vital Signs Vitals Vital Signs Date Temp Pulse Resp B/P (MAP) Pulse Ox O2 O2 Flow FiO2 Time Delivery Rate 12/27/18 107 22 99/57 (71) 96 [place] 11:15 l Ventilato r 12/27/18 30 11:00 12/27/18 100.0 10:13 Intake and Output 12/26/18 12/26/18 12/27/18 1515:00 23:00 07:00 IntakeIntake Total 2104.40 ml 1958.905 ml 1281.425 ml OutputOutput Total 365 ml 475 ml 825 ml BalanceBalance 1739.40 ml 1483.905 ml 456.425 ml Exam PE: Gen Appearance: No Apparent Distress HEENT: Intubated Cardiovascular: Regular rate Abdomen: Soft Extremities: Dry NE: The patient was comatose. Cranial nerve examination was limited by mental status. Pupils were fixed and dilated. There was no afferent pupillary defect. Funduscopic examination was limited. Face was grossly symmetric, w/ absent corneal and cough reflexes. Cold caloric testing did not elicit any eye deviation. Tone was flaccid. Muscle bulk was normal. I did not see fasciculations. The patient did not withdrew to noxious stimulation x 4. Coordination and gait testing was limited by mental status. Arm and leg reflexes were symmetric. Mccall's sign was absent. Plantar responses were mute. ONELIA ESCOBAR BODY SHOP ESTIMATOR Dec 27, 2018 11:36 MEGAN ARENAS Dec 27, 2018 13:35
[2018-12-28] VITALS (97 sets, daily range): BP systolic 81–138; BP diastolic 43–80; PULSE 75–94; RESP 18–22
[2018-12-28] MEDS: ACCU-CHEK XX SCH ×6 (00:40→20:00)
[2018-12-28] MEDS: ARTIFICIAL TEARS 15 ML OPH BOTH EYES SCH ×4 (00:40→17:21)
[2018-12-28] MEDS: HYPROMELLOSE OPHTHALMIC LUBRICANT GEL (10 GM) BOTH EYES SCH ×4 (00:40→17:21)
[2018-12-28] MEDS: INSULIN ASPART [NOVOLOG] 3 ML PEN SC SCH ×6 (00:40→21:00)
[2018-12-28] MEDS: SOD CHLORIDE 0.9% 1,000 ML IV SCH ×3 (02:17→21:48)
[2018-12-28] MEDS: VASOPRESSIN 60 UNIT in DEXTROSE 5% 57 ML IV SCH ×2 (02:21→12:27)
[2018-12-28] MEDS: PHENYLephrine 80 MG in DEXTROSE 5% 242 ML IV SCH ×2 (02:48→11:39)
[2018-12-28] MEDS: PIPER-TAZO 2.25 GM (PMX) 50 ML IVPB SCH ×3 (05:13→21:47)
[2018-12-28] MEDS: PANTOPRAZOLE 40 MG INJ IV SCH ×2 (05:13→17:23)
[2018-12-28] MEDS ORDERED: CALCIUM GLUCONATE 10% 2 GM in DEXTROSE 5% 100 ML IVPB ONE (08:00)
--- NOTE | 2018-12-28 08:14 | PN ---
DATE: 12/28/2018 SUBJECTIVE: The patient remains critically ill, on multiple pressors. The patient is able to be wea felipa off 3 pressors, currently only on 1. The patient's urinary output has improved. The patient rem ains on full ventilatory support. EEG was performed yesterday. Results are pending. Please note I did attempt to contact the patient's family, his brother, Femi, to discuss overall goals of care an d the possibility of renal replacement therapy. We will attempt again to contact the patient's famil y today. OBJECTIVE: VITAL SIGNS: Blood pressure is 105/84, respirations 22, pulse 77, temperature 97.6. HEENT: Head is normocephalic. NECK: Supple. HEART: Regular rate. LUNGS: Show diminished breath sounds at the base. ABDOMEN: Soft, nontender to palpation. No rebound or guarding. EXTREMITIES: Negative for clubbing, cyanosis. Positive edema. DERMATOLOGIC: No rashes. MUSCULOSKELETAL: No joint effusion. NEUROLOGIC: No change in exam. MEDICATIONS: Reviewed. LABORATORY DATA: Shows sodium 133, potassium 4.7, chloride 94, BUN 85, creatinine 5.65, ionized calc ium 5.4, phosphorus 12.4. White count 14.6, hemoglobin 9.0, platelet count is 44. IMAGING STUDIES: Reviewed. X-rays were reviewed. Cultures were reviewed. ASSESSMENT AND PLAN: 1. Nonoliguric acute kidney injury with unknown baseline creatinine. Etiology of acute kidney injur y is secondary to acute tubular necrosis due to ischemic hypoperfusion, shock, cardiac arrest. The p atient remains in injury phase of acute tubular necrosis as renal function continues to decline. Cre atinine continues to increase. However, the patient's urinary output has improved. Please note I del real ve attempted to contact the patient's family about the possibility of initiating hemodialysis. We wi ll attempt to contact again. The patient would be a candidate for dialysis if there is no evidence o f brain . At this point, we will continue current treatment plan. Continue supportive care, co ntinue to renally dose all medicines, avoid nephrotoxins, continue pressor support to maintain MAP of 60. Continue gentle IV hydration, antibiotic therapy. 2. Hyperkalemia secondary to acute kidney injury. The patient's potassium levels have normalized. Continue to monitor. 3. Hypernatremia secondary acute kidney injury. The patient's sodium levels have been stable, garett nue to monitor. Minimize free water flushes. 4. Mixed acid base disorder. The patient's ABG was reviewed. Continue to monitor. 5. Mineral bone disorder. The patient is hypophosphatemic and hypocalcemic secondary to acute kidne y injury. Continue to replete with calcium gluconate. The patient will require hemodialysis for rehana arance of hyperphosphatemia. Continue to monitor. 6. Lactic acidosis secondary to septic shock, improving. 7. Shock, etiology is multifactorial, septic, cardiac. The patient is being weaned off pressor supp ort. Continue to titrate off pressors if possible. Continue antibiotics. 8. Status post cardiac arrest. Etiology is unclear. The patient is status post cardiac cath with c lean coronaries. Continue to monitor. Follow up with cardiology. 9. Ventilator-dependent respiratory failure. Vent settings and ABG was reviewed. Continue to monit or. 10. Acute encephalopathy with possible anoxic injury. The patient is status post EEG, results pendi ng. Follow up with neurology. Please note I spent over 30 minutes of critical care time with this patient. Dictated By: HERB MATOS DO NR/NTS Conf#: [id number] DID#: [id number] CC: ANASTASIA GILBERT MD; KRISTIAN GUERRERO MD; YUVAL BLACKWOOD MD;*End*
--- NOTE | 2018-12-28 08:54 | CONS ---
Assessment/Plan Assessment/Plan Hospital Course (Demo Recall) Cardiac arrest: PEA and not VF. EKG with JACOBO V1 and III with Brugada looking ST elevation V2. Cath with normal coronaries and preserved LV function. RV poorly seen on echo but may be mildly enlarged and hypokinetic so PE is in the differential. Massive intracranial event is also in the differential if he was very hypertensive in the setting of meth intoxication and agitation. Shock: LV function normal. Possibly RV dysfunction if massive PE but not well seen on echo. Also possible if neurologic event NSTEMI: trop 13, normal coros. Demand from arrest/shock vs PE Acute respiratory failure: intubated Acute renal failure Meth abuse -wean pressors to keep MAP >60 -f/u head CT Consultation Date/Type/Reason Admit Date/Time Dec 24, 2018 at 05:33 Initial Consult Date 12/24/18 Type of Consult Cardiology Requesting Provider: YUVAL BLACKWOOD Date/Time of Note DATE: 12/28/18 TIME: 08:53 24 HR Interval Summary Free Text/Dictation Down to one pressor. Had CT today but no result yet. Cr worse but urine output better Exam/Review of Systems Vital Signs Vitals Vital Signs Date Temp Pulse Resp B/P (MAP) Pulse Ox O2 O2 Flow FiO2 Time Delivery Rate 12/28/18 75 22 106/58 99 Mechanical 08:30 (74) Ventilator 12/28/18 30 08:00 12/28/18 97.6 07:15 Intake and Output 12/27/18 12/27/18 12/28/18 1515:00 23:00 07:00 IntakeIntake Total 1082.391 ml 726.11 ml 778.40 ml OutputOutput Total 545 ml 1140 ml 1770 ml BalanceBalance 537.391 ml -413.89 ml -991.60 ml Exam Constitutional: No alert ENMT: intubated Neck: No jvd Respiratory: diminished breath sounds; No clear to auscultation Cardiovascular: regular rate and rhythm; No edema Gastrointestinal: soft; No distended Musculoskeletal: No nl extremities to inspection Neurological: No nl mental status, No nl speech Labs Result Diagram: 12/28/1843912/28/18439 Results 24hrs Laboratory Tests Test 12/27/18 10:41 12/27/18 12:07 12/27/18 16:45 12/27/18 20:32 Ionized Calcium 0.7 L (Measured) Bedside Glucose 96 93 108 Test 12/28/18 00:39 12/28/18 04:40 12/28/18 04:49 12/28/18 08:26 Bedside Glucose 117 108 103 White Blood Count 14.6 #H Red Blood Count 3.01 L Hemoglobin 9.0 L Hematocrit 26.3 L Mean Corpuscular 87.4 Volume Mean Corpuscular 29.9 Hemoglobin Mean Corpuscular 34.2 Hemoglobin Concent Red Cell 14.6 H Distribution Width Platelet Count 44 #L Mean Platelet 11.3 H Volume Immature 1.800 H Granulocytes % Neutrophils % Segmented 63 Neutrophils % (Manual) Band Neutrophils % 26 H (Manual) Lymphocytes % Lymphocytes % 7 L (Manual) Monocytes % Monocytes % 3 (Manual) Eosinophils % Basophils % Metamyelocytes % 1 H (manual) Nucleated Red 0.3 H Blood Cells % Immature 0.260 H Granulocytes # Neutrophils # Neutrophils # 9.7 H (Manual) Band Neutrophils # 3.7 H Lymphocytes 1.0 (Manual) Lymphocytes # Monocytes # Monocytes # 0.4 (Manual) Eosinophils # Basophils # Metamyelocytes # 0.1 H Nucleated Red Blood Cells # Platelet Estimate SIG DECREASED Polychromasia 2+ Poikilocytosis 1+ Sodium Level 133 L Potassium Level 4.7 Chloride Level 94 L Carbon Dioxide 23 Level Anion Gap 16 H Blood Urea 85 H Nitrogen Creatinine 5.65 H Est Glomerular 11 L Filtrat Rate mL/min Glucose Level 95 Calcium Level 5.4 *L Phosphorus Level 12.4 #H Magnesium Level 2.5 Random Vancomycin 14.5 Level Medications Medications Current Medications Albuterol (Ventolin Hfa) 4 puff Q2H RESP THERAPY PRN INH SHORTNESS OF BREATH; Start 12/24/18 at 07:30 Ipratropium [place] (Atrovent Hfa) 4 puff Q2H RESP THERAPY PRN INH SHORTNESS OF BREATH; Start 12/24/18 at 06:30 Acetaminophen (Tylenol Liquid) 650 mg Q6H PRN PO PAIN LEVEL 1-3 OR FEVER; Start 12/24/18 at 06:30 Midazolam HCl 50 ml @ 2 mls/hr PER PROTOCOL IV Last administered on 12/26/18at 02:59; Admin Dose 4 MLS/HR; Start 12/24/18 at 07:30 Propofol 100 ml @ 2.041 mls/ hr PER PROTOCOL IV Last administered on 12/24/18 07:27; Admin Dose 2.041 MLS/HR; Start 12/24/18 at 07:30 Acetaminophen (Tylenol Supp) 650 mg Q4H PRN [place] TEMP > 37C; Start 12/24/18 at 07:30 Acetaminophen (Tylenol Liquid) 650 mg Q4H PRN PO TEMP > 37C; Start 12/24/18 at 07:30 Meperidine HCl (Demerol) 12.5 mg Q4H PRN IV POST OPERATIVE SHIVERING; Start 12/24/18 at 07:30 Meperidine HCl (Demerol) 25 mg Q4H PRN IV POST OPERATIVE SHIVERING; Start 12/24/18 at 07:30 Eye Lubricant (Artificial Tears Oph) 2 drop Q6 BOTH EYES Last administered on 12/28/18 05:14; Admin Dose 2 DROP; Start 12/24/18 at 12:00 Miscellaneous Information (* Miscellaneous Pharmacy Order) Treatment of Hypoglycemia: 1.BG 51... Per protocol XX ; Start 12/24/18 at 07:30 Dextrose (D50w Syringe) 25 ml Q15M PRN IV .DECREASED GLUCOSE Last administered on 12/26/18 13:32; Admin Dose 25 ML; Start 12/24/18 at 07:30 Dextrose (D50w Syringe) 50 ml Q15M PRN IV .DECREASED GLUCOSE; Start 12/24/18 at 07:30 Hypromellose (Genteal Severe) 1 applic Q6 BOTH EYES Last administered on 12/28/18 05:14; Admin Dose 1 APPLIC; Start 12/24/18 at 12:00 Fentanyl 100 ml @ 2.5 mls/hr TITRATE IV Last administered on 12/25/18 22:00; Admin Dose 2.5 MLS/HR; Start 12/24/18 at 08:30 Pantoprazole (Protonix Iv) 40 mg BID@06,18 IV Last administered on 12/28/18 05:13; Admin Dose 40 MG; Start 12/24/18 at 18:00 Piperacillin Sod/ Tazobactam Sod 50 ml @ 100 mls/hr Q8 IVPB Last administered on 12/28/18 05:13; Admin Dose 100 MLS/HR; Start 12/24/18 at 10:00 Norepinephrine 250 ml @ 1.875 mls/ hr TITRATE IV Last administered on 12/27/18at 05:02; Admin Dose 37.5 MLS/HR; Start 12/24/18 at 11:00 Dopamine HCl/ Dextrose 250 ml @ 5.115 mls/ hr TITRATE IV Last administered on 12/26/18at 23:09; Admin Dose 51.15 MLS/HR; Start 12/24/18 at 11:00 Vancomycin HCl (Vanco Iv Per Pharmacy) VANCOMYCIN PER PHARMACY PER PROTOCOL XX ; Start 12/24/18 at 13:00 Diagnostic Test (Pha) (Accu-Chek) 1 ea Q4H XX Last administered on 12/28/18at 07:50; Admin Dose 1 EA; Start 12/24/18 at 16:00 Albumin Human 250 ml @ 250 mls/hr PRN PRN IV CVP<10; Start 12/24/18 at 21:30 Phenylephrine HCl 80 mg/Dextrose 250 ml @ 18.75 mls/ hr TITRATE IV Last administered on 12/28/18at 02:48; Admin Dose 33.75 MLS/HR; Start 12/24/18 at 23:00 Vasopressin 60 unit/Dextrose 60 ml @ 1.2 mls/hr Q12H IV Last administered on 12/28/18at 02:21; Admin Dose 0 MLS/HR; Start 12/25/18 at 01:00 Sodium Chloride 1,000 ml @ 50 mls/hr Q20H IV Last administered on 12/28/18at 02:17; Admin Dose 50 MLS/HR; Start 12/26/18 at 08:00 Insulin Aspart (Novolog Insulin Pen) NOVOLOG *MILD* ALGORI... Q4 SC ; Start 12/26/18 at 17:00 Calcium Gluconate 2 gm/Dextrose 120 ml @ 60 mls/hr ONCE ONCE IVPB Last administered on 12/28/18at 08:51; Admin Dose 60 MLS/HR; Start 12/28/18 at 08:00; Stop 12/28/18 at 09:59 KRISTIAN GUERRERO Dec 28, 2018 08:54
--- NOTE | 2018-12-28 09:29 | CONS ---
Consultation Date/Type/Reason Admit Date/Time Dec 24, 2018 at 05:33 Reason for Consultation Assessment/Plan (Daily) Patient found down Status post cardiac arrest Status post cardiac catheterization Without acute pathology Respiratory failure ventilator dependent Pressor dependent Positive drug screen for methamphetamine and marijuana Patient being warmed now per hypothermia protocol, agree with neurology consultation patient may need bioethics consultation if first-degree family members are not found. Patient has significant neurological injury and not sick encephalopathy without significant change since admitted by meeting family members today at 10 AM will speak to him about CODE STATUS change and possible comfort measures. Date/Time of Note DATE: 12/28/18 TIME: 09:27 Past Medical History Medical History: other (Unknown) Medications Current Medications Albuterol (Ventolin Hfa) 4 puff Q2H RESP THERAPY PRN INH SHORTNESS OF BREATH; Start 12/24/18 at 07:30 Ipratropium [place] (Atrovent Hfa) 4 puff Q2H RESP THERAPY PRN INH SHORTNESS OF BREATH; Start 12/24/18 at 06:30 Acetaminophen (Tylenol Liquid) 650 mg Q6H PRN PO PAIN LEVEL 1-3 OR FEVER; Start 12/24/18 at 06:30 Midazolam HCl 50 ml @ 2 mls/hr PER PROTOCOL IV Last administered on 12/26/18at 02:59; Admin Dose 4 MLS/HR; Start 12/24/18 at 07:30 Propofol 100 ml @ 2.041 mls/ hr PER PROTOCOL IV Last administered on 12/24/18at 07:27; Admin Dose 2.041 MLS/HR; Start 12/24/18 at 07:30 Acetaminophen (Tylenol Supp) 650 mg Q4H PRN [place] TEMP > 37C; Start 12/24/18 at 07:30 Acetaminophen (Tylenol Liquid) 650 mg Q4H PRN PO TEMP > 37C; Start 12/24/18 at 07:30 Meperidine HCl (Demerol) 12.5 mg Q4H PRN IV POST OPERATIVE SHIVERING; Start 12/24/18 at 07:30 Meperidine HCl (Demerol) 25 mg Q4H PRN IV POST OPERATIVE SHIVERING; Start 12/24/18 at 07:30 Eye Lubricant (Artificial Tears Oph) 2 drop Q6 BOTH EYES Last administered on 12/28/18at 05:14; Admin Dose 2 DROP; Start 12/24/18 at 12:00 Miscellaneous Information (* Miscellaneous Pharmacy Order) Treatment of Hypoglycemia: 1.BG 51... Per protocol XX ; Start 12/24/18 at 07:30 Dextrose (D50w Syringe) 25 ml Q15M PRN IV .DECREASED GLUCOSE Last administered on 12/26/18 13:32; Admin Dose 25 ML; Start 12/24/18 at 07:30 Dextrose (D50w Syringe) 50 ml Q15M PRN IV .DECREASED GLUCOSE; Start 12/24/18 at 07:30 Hypromellose (Genteal Severe) 1 applic Q6 BOTH EYES Last administered on 12/28/18 05:14; Admin Dose 1 APPLIC; Start 12/24/18 at 12:00 Fentanyl 100 ml @ 2.5 mls/hr TITRATE IV Last administered on 12/25/18 22:00; Admin Dose 2.5 MLS/HR; Start 12/24/18 at 08:30 Pantoprazole (Protonix Iv) 40 mg BID@06,18 IV Last administered on 12/28/18 05:13; Admin Dose 40 MG; Start 12/24/18 at 18:00 Piperacillin Sod/ Tazobactam Sod 50 ml @ 100 mls/hr Q8 IVPB Last administered on 12/28/18 05:13; Admin Dose 100 MLS/HR; Start 12/24/18 at 10:00 Norepinephrine 250 ml @ 1.875 mls/ hr TITRATE IV Last administered on 12/27/18 05:02; Admin Dose 37.5 MLS/HR; Start 12/24/18 at 11:00 Dopamine HCl/ Dextrose 250 ml @ 5.115 mls/ hr TITRATE IV Last administered on 12/26/18 23:09; Admin Dose 51.15 MLS/HR; Start 12/24/18 at 11:00 Vancomycin HCl (Vanco Iv Per Pharmacy) VANCOMYCIN PER PHARMACY PER PROTOCOL XX ; Start 12/24/18 at 13:00 Diagnostic Test (Pha) (Accu-Chek) 1 ea Q4H XX Last administered on 12/28/18 07:50; Admin Dose 1 EA; Start 12/24/18 at 16:00 Albumin Human 250 ml @ 250 mls/hr PRN PRN IV CVP<10; Start 12/24/18 at 21:30 Phenylephrine HCl 80 mg/Dextrose 250 ml @ 18.75 mls/ hr TITRATE IV Last administered on 12/28/18at 02:48; Admin Dose 33.75 MLS/HR; Start 12/24/18 at 23:00 Vasopressin 60 unit/Dextrose 60 ml @ 1.2 mls/hr Q12H IV Last administered on 12/28/18at 02:21; Admin Dose 0 MLS/HR; Start 12/25/18 at 01:00 Sodium Chloride 1,000 ml @ 50 mls/hr Q20H IV Last administered on 12/28/18at 02:17; Admin Dose 50 MLS/HR; Start 12/26/18 at 08:00 Insulin Aspart (Novolog Insulin Pen) NOVOLOG *MILD* ALGORI... Q4 SC ; Start 12/26/18 at 17:00 Calcium Gluconate 2 gm/Dextrose 120 ml @ 60 mls/hr ONCE ONCE IVPB Last administered on 12/28/18at 08:51; Admin Dose 60 MLS/HR; Start 12/28/18 at 08:00; Stop 12/28/18 at 09:59 Allergies: Coded Allergies: No Known Allergies (Verified Allergy, Unknown, 12/24/18) Past Surgical History Past Surgical Hx: other Social History Smoking Status: Unknown if ever smoked Drug Use: cocaine, marijuana, other (Methamphetamine) Exam/Review of Systems Exam Vitals Vital Signs Date Temp Pulse Resp B/P (MAP) Pulse Ox O2 O2 Flow FiO2 Time Delivery Rate 12/28/18 96.5 75 22 106/58 99 Mechanical 08:45 (74) Ventilator 12/28/18 30 08:00 Intake and Output 12/27/18 12/27/18 12/28/18 1515:00 23:00 07:00 IntakeIntake Total 1082.391 ml 726.11 ml 778.40 ml OutputOutput Total 545 ml 1140 ml 1770 ml BalanceBalance 537.391 ml -413.89 ml -991.60 ml Constitutional: other (Response to anything still intubated) Neurological: other (Oriented x0 no response to any verbal or tactile stimulation no oculocephalics not overbreathing the ventilator no gag reflex) Results Result Diagram: 4/12/19 0440 4/12/19 0440 Results 24hrs Laboratory Tests Test 12/27/18 10:41 12/27/18 12:07 12/27/18 16:45 12/27/18 20:32 Ionized Calcium 0.7 L (Measured) Bedside Glucose 96 93 108 Test 12/28/18 00:39 12/28/18 04:40 12/28/18 04:49 12/28/18 08:26 Bedside Glucose 117 108 103 White Blood Count 14.6 #H Red Blood Count 3.01 L Hemoglobin 9.0 L Hematocrit 26.3 L Mean Corpuscular 87.4 Volume Mean Corpuscular 29.9 Hemoglobin Mean Corpuscular 34.2 Hemoglobin Concent Red Cell 14.6 H Distribution Width Platelet Count 44 #L Mean Platelet 11.3 H Volume Immature 1.800 H Granulocytes % Neutrophils % Segmented 63 Neutrophils % (Manual) Band Neutrophils % 26 H (Manual) Lymphocytes % Lymphocytes % 7 L (Manual) Monocytes % Monocytes % 3 (Manual) Eosinophils % Basophils % Metamyelocytes % 1 H (manual) Nucleated Red 0.3 H Blood Cells % Immature 0.260 H Granulocytes # Neutrophils # Neutrophils # 9.7 H (Manual) Band Neutrophils # 3.7 H Lymphocytes 1.0 (Manual) Lymphocytes # Monocytes # Monocytes # 0.4 (Manual) Eosinophils # Basophils # Metamyelocytes # 0.1 H Nucleated Red Blood Cells # Platelet Estimate SIG DECREASED Polychromasia 2+ Poikilocytosis 1+ Sodium Level 133 L Potassium Level 4.7 Chloride Level 94 L Carbon Dioxide 23 Level Anion Gap 16 H Blood Urea 85 H Nitrogen Creatinine 5.65 H Est Glomerular 11 L Filtrat Rate mL/min Glucose Level 95 Calcium Level 5.4 *L Phosphorus Level 12.4 #H Magnesium Level 2.5 Random Vancomycin 14.5 Level Medications Medication Current Medications Albuterol (Ventolin Hfa) 4 puff Q2H RESP THERAPY PRN INH SHORTNESS OF BREATH; Start 12/24/18 at 07:30 Ipratropium [place] (Atrovent Hfa) 4 puff Q2H RESP THERAPY PRN INH SHORTNESS OF BREATH; Start 12/24/18 at 06:30 Acetaminophen (Tylenol Liquid) 650 mg Q6H PRN PO PAIN LEVEL 1-3 OR FEVER; Start 12/24/18 at 06:30 Midazolam HCl 50 ml @ 2 mls/hr PER PROTOCOL IV Last administered on 12/26/18 02:59; Admin Dose 4 MLS/HR; Start 12/24/18 at 07:30 Propofol 100 ml @ 2.041 mls/ hr PER PROTOCOL IV Last administered on 12/24/18 07:27; Admin Dose 2.041 MLS/HR; Start 12/24/18 at 07:30 Acetaminophen (Tylenol Supp) 650 mg Q4H PRN [place] TEMP > 37C; Start 12/24/18 at 07:30 Acetaminophen (Tylenol Liquid) 650 mg Q4H PRN PO TEMP > 37C; Start 12/24/18 at 07:30 Meperidine HCl (Demerol) 12.5 mg Q4H PRN IV POST OPERATIVE SHIVERING; Start 12/24/18 at 07:30 Meperidine HCl (Demerol) 25 mg Q4H PRN IV POST OPERATIVE SHIVERING; Start 12/24/18 at 07:30 Eye Lubricant (Artificial Tears Oph) 2 drop Q6 BOTH EYES Last administered on 12/28/18 05:14; Admin Dose 2 DROP; Start 12/24/18 at 12:00 Miscellaneous Information (* Miscellaneous Pharmacy Order) Treatment of Hypoglycemia: 1.BG 51... Per protocol XX ; Start 12/24/18 at 07:30 Dextrose (D50w Syringe) 25 ml Q15M PRN IV .DECREASED GLUCOSE Last administered on 12/26/18 13:32; Admin Dose 25 ML; Start 12/24/18 at 07:30 Dextrose (D50w Syringe) 50 ml Q15M PRN IV .DECREASED GLUCOSE; Start 12/24/18 at 07:30 Hypromellose (Genteal Severe) 1 applic Q6 BOTH EYES Last administered on 12/28/18 05:14; Admin Dose 1 APPLIC; Start 12/24/18 at 12:00 Fentanyl 100 ml @ 2.5 mls/hr TITRATE IV Last administered on 12/25/18 22:00; Admin Dose 2.5 MLS/HR; Start 12/24/18 at 08:30 Pantoprazole (Protonix Iv) 40 mg BID@06,18 IV Last administered on 12/28/18 05:13; Admin Dose 40 MG; Start 12/24/18 at 18:00 Piperacillin Sod/ Tazobactam Sod 50 ml @ 100 mls/hr Q8 IVPB Last administered on 12/28/18 05:13; Admin Dose 100 MLS/HR; Start 12/24/18 at 10:00 Norepinephrine 250 ml @ 1.875 mls/ hr TITRATE IV Last administered on 12/27/18at 05:02; Admin Dose 37.5 MLS/HR; Start 12/24/18 at 11:00 Dopamine HCl/ Dextrose 250 ml @ 5.115 mls/ hr TITRATE IV Last administered on 12/26/18 23:09; Admin Dose 51.15 MLS/HR; Start 12/24/18 at 11:00 Vancomycin HCl (Vanco Iv Per Pharmacy) VANCOMYCIN PER PHARMACY PER PROTOCOL XX ; Start 12/24/18 at 13:00 Diagnostic Test (Pha) (Accu-Chek) 1 ea Q4H XX Last administered on 12/28/18 07:50; Admin Dose 1 EA; Start 12/24/18 at 16:00 Albumin Human 250 ml @ 250 mls/hr PRN PRN IV CVP<10; Start 12/24/18 at 21:30 Phenylephrine HCl 80 mg/Dextrose 250 ml @ 18.75 mls/ hr TITRATE IV Last administered on 12/28/18at 02:48; Admin Dose 33.75 MLS/HR; Start 12/24/18 at 23:00 Vasopressin 60 unit/Dextrose 60 ml @ 1.2 mls/hr Q12H IV Last administered on 12/28/18at 02:21; Admin Dose 0 MLS/HR; Start 12/25/18 at 01:00 Sodium Chloride 1,000 ml @ 50 mls/hr Q20H IV Last administered on 12/28/18at 02:17; Admin Dose 50 MLS/HR; Start 12/26/18 at 08:00 Insulin Aspart (Novolog Insulin Pen) NOVOLOG *MILD* ALGORI... Q4 SC ; Start 12/26/18 at 17:00 Calcium Gluconate 2 gm/Dextrose 120 ml @ 60 mls/hr ONCE ONCE IVPB Last administered on 12/28/18at 08:51; Admin Dose 60 MLS/HR; Start 12/28/18 at 08:00; Stop 12/28/18 at 09:59 VERITO COLLINS Dec 28, 2018 09:29
--- NOTE | 2018-12-28 11:42 | CONS ---
Assessment/Plan Assessment/Plan Hospital Course 48 yo male w/ uncertain PMHx, who is admitted to the [facility] ICU following cardiac arrest. Now s/p TTM.. On neurologic examination, he is presently without brainstem or cortical activity...concerning for brain . EEG was nondiagnostic. CXR is notable for edema vs/ pneumonia.. CTH is notable for diffuse cerebral edema and loss of jones-white matter differentiation, consistent with anoxic brain injury P: Consider apnea test to confirm brainstem inactivity when medically able Will follow Consultation Date/Type/Reason Admit Date/Time Dec 24, 2018 at 05:33 Type of Consult Neurology Reason for Consultation coma Requesting Provider: YUVAL BLACKWOOD Date/Time of Note DATE: 12/28/18 TIME: 11:42 24 HR Interval Summary Free Text/Dictation Continues critical care. S/p HCT, EEG Subjective hx not possible: pt non-verbal, pt critical, pt critical status Exam Vital Signs Vitals Vital Signs Date Temp Pulse Resp B/P (MAP) Pulse Ox O2 O2 Flow FiO2 Time Delivery Rate 12/28/18 97.6 88 22 103/57 98 Mechanical 11:00 (72) Ventilator 12/28/18 30 09:00 Intake and Output 12/27/18 12/27/18 12/28/18 1414:59 22:59 06:59 IntakeIntake Total 1173.296 ml 729.86 ml 708.43 ml OutputOutput Total 555 ml 1130 ml 1735 ml BalanceBalance 618.296 ml -400.14 ml -1026.57 ml Exam PE: Gen Appearance: No Apparent Distress HEENT: Intubated Cardiovascular: Regular rate Abdomen: Soft Extremities: Dry NE: The patient was comatose. Cranial nerve examination was limited by mental status. Pupils were fixed and dilated. There was no afferent pupillary defect. Funduscopic examination was limited. Face was grossly symmetric, w/ absent corneal and cough reflexes. Cold caloric testing did not elicit any eye deviation. Tone was flaccid. Muscle bulk was normal. I did not see fasciculations. The patient did not withdrew to noxious stimulation x 4. Coordination and gait testing was limited by mental status. Arm and leg reflexes were symmetric. Mccall's sign was absent. Plantar responses were mute. ONELIA ESCOBAR TELEPHONE ORDER CLERK ROOM SERVICE Dec 28, 2018 11:42 MEGAN ARENAS Dec 28, 2018 15:22
--- NOTE | 2018-12-28 12:25 | CONS ---
Consult Date/Type/Reason Admit Date/Time Dec 24, 2018 at 05:33 Initial Consult Date 12/24/18 Type of Consult Pulmonary Requesting Provider: YUVAL BLACKWOOD Date/Time of Note DATE: 12/28/18 TIME: 12:22 Subjective Patient remains somnolent on mechanical ventilation. Objective Vital Signs Date Temp Pulse Resp B/P (MAP) Pulse Ox O2 O2 Flow FiO2 Time Delivery Rate 12/28/18 90 22 97/62 (74) 97 Mechanical 12:00 Ventilator 12/28/18 99.5 11:45 12/28/18 30 11:00 Intake and Output 12/27/18 12/27/18 12/28/18 1515:00 23:00 07:00 IntakeIntake Total 1082.391 ml 726.11 ml 778.40 ml OutputOutput Total 545 ml 1140 ml 1770 ml BalanceBalance 537.391 ml -413.89 ml -991.60 ml Exam GENERAL: Older than age appearing gentleman orally intubated on mechanical vent ilation unresponsive VITAL SIGNS: per chart NECK: Supple. No JVD or lymphadenopathy. CARDIAC EXAM: S1, S2. No added sounds or murmurs. CHEST: Diminished air entry bilaterally ABDOMEN: Soft, nontender. No guarding or rebound. EXTREMITIES: No cyanosis, clubbing or edema. NEUROLOGIC: Unable to assess Vent Setting Ventilator Support Mode: AC Fraction of Inspired Oxygen pe: 30 Positive End Expiratory Pressu: 5.0 Results/Medications Result Diagram: 12/28/18 0440 12/28/18 0440 Results 24 hrs Laboratory Tests Test 12/27/18 16:45 12/27/18 20:32 12/28/18 00:39 12/28/18 04:40 Bedside Glucose 93 108 117 White Blood Count 14.6 #H Red Blood Count 3.01 L Hemoglobin 9.0 L Hematocrit 26.3 L Mean Corpuscular 87.4 Volume Mean Corpuscular 29.9 Hemoglobin Mean Corpuscular 34.2 Hemoglobin Concent Red Cell 14.6 H Distribution Width Platelet Count 44 #L Mean Platelet 11.3 H Volume Immature 1.800 H Granulocytes % Neutrophils % Segmented 63 Neutrophils % (Manual) Band Neutrophils % 26 H (Manual) Lymphocytes % Lymphocytes % 7 L (Manual) Monocytes % Monocytes % 3 (Manual) Eosinophils % Basophils % Metamyelocytes % 1 H (manual) Nucleated Red 0.3 H Blood Cells % Immature 0.260 H Granulocytes # Neutrophils # Neutrophils # 9.7 H (Manual) Band Neutrophils # 3.7 H Lymphocytes 1.0 (Manual) Lymphocytes # Monocytes # Monocytes # 0.4 (Manual) Eosinophils # Basophils # Metamyelocytes # 0.1 H Nucleated Red Blood Cells # Platelet Estimate SIG DECREASED Polychromasia 2+ Poikilocytosis 1+ Sodium Level 133 L Potassium Level 4.7 Chloride Level 94 L Carbon Dioxide 23 Level Anion Gap 16 H Blood Urea 85 H Nitrogen Creatinine 5.65 H Est Glomerular 11 L Filtrat Rate mL/min Glucose Level 95 Calcium Level 5.4 *L Phosphorus Level 12.4 #H Magnesium Level 2.5 Random Vancomycin 14.5 Level Test 12/28/18 04:49 12/28/18 08:26 Bedside Glucose 108 103 Medications Current Medications Albuterol (Ventolin Hfa) 4 puff Q2H RESP THERAPY PRN INH SHORTNESS OF BREATH; Start 12/24/18 at 07:30 Ipratropium [place] (Atrovent Hfa) 4 puff Q2H RESP THERAPY PRN INH SHORTNESS OF BREATH; Start 12/24/18 at 06:30 Acetaminophen (Tylenol Liquid) 650 mg Q6H PRN PO PAIN LEVEL 1-3 OR FEVER; Start 12/24/18 at 06:30 Midazolam HCl 50 ml @ 2 mls/hr PER PROTOCOL IV Last administered on 12/26/18at 02:59; Admin Dose 4 MLS/HR; Start 12/24/18 at 07:30 Propofol 100 ml @ 2.041 mls/ hr PER PROTOCOL IV Last administered on 12/24/18at 07:27; Admin Dose 2.041 MLS/HR; Start 12/24/18 at 07:30 Acetaminophen (Tylenol Supp) 650 mg Q4H PRN SD TEMP > 37C; Start 12/24/18 at 07:30 Acetaminophen (Tylenol Liquid) 650 mg Q4H PRN PO TEMP > 37C; Start 12/24/18 at 07:30 Meperidine HCl (Demerol) 12.5 mg Q4H PRN IV POST OPERATIVE SHIVERING; Start 12/24/18 at 07:30 Meperidine HCl (Demerol) 25 mg Q4H PRN IV POST OPERATIVE SHIVERING; Start 12/24/18 at 07:30 Eye Lubricant (Artificial Tears Oph) 2 drop Q6 BOTH EYES Last administered on 12/28/18 11:13; Admin Dose 2 DROP; Start 12/24/18 at 12:00 Miscellaneous Information (* Miscellaneous Pharmacy Order) Treatment of Hypoglycemia: 1.BG 51... Per protocol XX ; Start 12/24/18 at 07:30 Dextrose (D50w Syringe) 25 ml Q15M PRN IV .DECREASED GLUCOSE Last administered on 12/26/18 13:32; Admin Dose 25 ML; Start 12/24/18 at 07:30 Dextrose (D50w Syringe) 50 ml Q15M PRN IV .DECREASED GLUCOSE; Start 12/24/18 at 07:30 Hypromellose (Genteal Severe) 1 applic Q6 BOTH EYES Last administered on 12/28/18 11:13; Admin Dose 1 APPLIC; Start 12/24/18 at 12:00 Fentanyl 100 ml @ 2.5 mls/hr TITRATE IV Last administered on 12/25/18 22:00; Admin Dose 2.5 MLS/HR; Start 12/24/18 at 08:30 Pantoprazole (Protonix Iv) 40 mg BID@06,18 IV Last administered on 12/28/18 05:13; Admin Dose 40 MG; Start 12/24/18 at 18:00 Piperacillin Sod/ Tazobactam Sod 50 ml @ 100 mls/hr Q8 IVPB Last administered on 12/28/18 05:13; Admin Dose 100 MLS/HR; Start 12/24/18 at 10:00 Norepinephrine 250 ml @ 1.875 mls/ hr TITRATE IV Last administered on 12/27/18 05:02; Admin Dose 37.5 MLS/HR; Start 12/24/18 at 11:00 Dopamine HCl/ Dextrose 250 ml @ 5.115 mls/ hr TITRATE IV Last administered on 12/26/18 23:09; Admin Dose 51.15 MLS/HR; Start 12/24/18 at 11:00 Vancomycin HCl (Vanco Iv Per Pharmacy) VANCOMYCIN PER PHARMACY PER PROTOCOL XX ; Start 12/24/18 at 13:00 Diagnostic Test (Pha) (Accu-Chek) 1 ea Q4H XX Last administered on 4/12/19at 11:43; Admin Dose 1 EA; Start 12/24/18 at 16:00 Albumin Human 250 ml @ 250 mls/hr PRN PRN IV CVP<10; Start 12/24/18 at 21:30 Phenylephrine HCl 80 mg/Dextrose 250 ml @ 18.75 mls/ hr TITRATE IV Last administered on 12/28/18 11:39; Admin Dose 26.25 MLS/HR; Start 12/24/18 at 23:00 Vasopressin 60 unit/Dextrose 60 ml @ 1.2 mls/hr Q12H IV Last administered on at 02:21; Admin Dose 0 MLS/HR; Start 12/25/18 at 01:00 Sodium Chloride 1,000 ml @ 50 mls/hr Q20H IV Last administered on 12/28/18at 02:17; Admin Dose 50 MLS/HR; Start 12/26/18 at 08:00 Insulin Aspart (Novolog Insulin Pen) NOVOLOG *MILD* ALGORI... Q4 SC ; Start 12/26/18 at 17:00 Assessment/Plan Hospital Course (Demo Recall) Assessment 1. Cardiopulmonary arrest status post hypothermia protocol 2. History of substance abuse 3. Anoxic encephalopathy But examination more consistent with brain . 4. Thrombo cytopenia 5. Acute renal failure likely ATN injury Plan 1. Await EEG confirmation of brain clinically consistent with brain 2. Continue ventilator support 3. Continue with pressors as needed Patient not stable for apnea test given vasopressor requirements critical care time 40 minutes. HALI BARILLAS MD, [facility] Dec 28, 2018 12:25
--- NOTE | 2018-12-28 14:02 | PN ---
Date/Time of Note Date/Time of Note DATE: 12/28/18 TIME OF EVALUATION: 09:58 Assessment/Plan VTE Prophylaxis Risk score (from Ns)>0 risk: 7 SCD applied (from Ns): Yes Pharmacological prophylaxis: NA/contraindicated Pharm contraindication: blood coag disorder Lines/Catheters IV [facility]ter Type (from [facility] A Line Urinary Cath still in place: Yes Reason Cath still needed: other (indicate) Assessment/Plan Hospital Course S: Remains intubated and sedated , has been weaned down to one pressor O: Constitutional: intubated and sedated Psych: other (unable to assess) Head: mild bruising R forehead Eyes: Pupils fixed , , icterus ENMT: intubated Respiratory: diminished breath sounds, Cardiovascular: tachycardia Gastrointestinal: mildly distended distended, hypoactive BS Genitourinary - male: galaviz with good output Extremities: mild edema in iban ankles Neurological: no extremity movement noted assessment and plan: A 43-year-old male who was found on the street, altered, who subsequently underwent cardiac arrest with return of spontaneous circulation, went to label sewer urgently as a Code STEMI. Currently managed for the following medical problems: 1. Altered mentation, likely toxic metabolic, report of substance use. -r/o ischemic brain injury -high probability of brain 2. Cardiac arrest, likely secondary to possible substance use, status post ACLS with ROSC -s/p hypothermia 3. Acute respiratory failure -remains vent dependent 4. Systemic shock with severe lactic acidosis -septic -now down to one pressor 5. Severe rhabdomyolysis. 6. Acute hepatic failure, likely secondary to shock liver. 7. Acute renal insufficiency, with metabolic acidosis, -started on bicarb drip per pulm 8. NSTEMI, status post left heart catheterization with clean coronaries, 9. Pancytopenia 10. Hyperglycemia :on Insulin GTT, but A1c 5.6 11. Multisubstance abuse (meth / marijuana) 12. Coagulopathy: worsening PLAN OF CARE: -highly concerning for brain , f/u CT brain findings and EEG, appreciate neurology and palliative care input -unable to anticoagulate 2/2 thrombocytopenia -may be able to tolerate HD now per renal, but await EEG findings re: brain , also unable to discuss with any family members -continue IV abx -continue vent support -continue pressors and wean as tolerated -Continue insulin GTT and get hba1c -monitor electrolytes and intervene as indicated -continue all other icu support and care -prognosis guarded, patient may Code at any time again CRITICAL CARE TIME: >35 mins Result Diagram: 12/28/18 0440 12/28/18 0440 Results 24hrs Laboratory Tests Test 12/27/18 16:45 12/27/18 20:32 12/28/18 00:39 12/28/18 04:40 Bedside Glucose 93 108 117 White Blood Count 14.6 #H Red Blood Count 3.01 L Hemoglobin 9.0 L Hematocrit 26.3 L Mean Corpuscular 87.4 Volume Mean Corpuscular 29.9 Hemoglobin Mean Corpuscular 34.2 Hemoglobin Concent Red Cell 14.6 H Distribution Width Platelet Count 44 #L Mean Platelet 11.3 H Volume Immature 1.800 H Granulocytes % Neutrophils % Segmented 63 Neutrophils % (Manual) Band Neutrophils % 26 H (Manual) Lymphocytes % Lymphocytes % 7 L (Manual) Monocytes % Monocytes % 3 (Manual) Eosinophils % Basophils % Metamyelocytes % 1 H (manual) Nucleated Red 0.3 H Blood Cells % Immature 0.260 H Granulocytes # Neutrophils # Neutrophils # 9.7 H (Manual) Band Neutrophils # 3.7 H Lymphocytes 1.0 (Manual) Lymphocytes # Monocytes # Monocytes # 0.4 (Manual) Eosinophils # Basophils # Metamyelocytes # 0.1 H Nucleated Red Blood Cells # Platelet Estimate SIG DECREASED Polychromasia 2+ Poikilocytosis 1+ Sodium Level 133 L Potassium Level 4.7 Chloride Level 94 L Carbon Dioxide 23 Level Anion Gap 16 H Blood Urea 85 H Nitrogen Creatinine 5.65 H Est Glomerular 11 L Filtrat Rate mL/min Glucose Level 95 Calcium Level 5.4 *L Phosphorus Level 12.4 #H Magnesium Level 2.5 Random Vancomycin 14.5 Level Test 12/28/18 04:49 12/28/18 08:26 12/28/18 12:25 Bedside Glucose 108 103 91 Exam/Review of Systems Exam Vitals Vital Signs Date Temp Pulse Resp B/P (MAP) Pulse Ox O2 O2 Flow FiO2 Time Delivery Rate 12/28/18 91 22 114/64 98 Mechanical 13:45 (81) Ventilator 12/28/18 99.5 11:45 12/28/18 30 11:00 Intake and Output 12/27/18 12/27/18 12/28/18 1515:00 23:00 07:00 IntakeIntake Total 1082.391 ml 726.11 ml 778.40 ml OutputOutput Total 545 ml 1140 ml 1770 ml BalanceBalance 537.391 ml -413.89 ml -991.60 ml Results Results 24hrs Laboratory Tests Test 12/27/18 16:45 12/27/18 20:32 12/28/18 00:39 12/28/18 04:40 Bedside Glucose 93 108 117 White Blood Count 14.6 #H Red Blood Count 3.01 L Hemoglobin 9.0 L Hematocrit 26.3 L Mean Corpuscular 87.4 Volume Mean Corpuscular 29.9 Hemoglobin Mean Corpuscular 34.2 Hemoglobin Concent Red Cell 14.6 H Distribution Width Platelet Count 44 #L Mean Platelet 11.3 H Volume Immature 1.800 H Granulocytes % Neutrophils % Segmented 63 Neutrophils % (Manual) Band Neutrophils % 26 H (Manual) Lymphocytes % Lymphocytes % 7 L (Manual) Monocytes % Monocytes % 3 (Manual) Eosinophils % Basophils % Metamyelocytes % 1 H (manual) Nucleated Red 0.3 H Blood Cells % Immature 0.260 H Granulocytes # Neutrophils # Neutrophils # 9.7 H (Manual) Band Neutrophils # 3.7 H Lymphocytes 1.0 (Manual) Lymphocytes # Monocytes # Monocytes # 0.4 (Manual) Eosinophils # Basophils # Metamyelocytes # 0.1 H Nucleated Red Blood Cells # Platelet Estimate SIG DECREASED Polychromasia 2+ Poikilocytosis 1+ Sodium Level 133 L Potassium Level 4.7 Chloride Level 94 L Carbon Dioxide 23 Level Anion Gap 16 H Blood Urea 85 H Nitrogen Creatinine 5.65 H Est Glomerular 11 L Filtrat Rate mL/min Glucose Level 95 Calcium Level 5.4 *L Phosphorus Level 12.4 #H Magnesium Level 2.5 Random Vancomycin 14.5 Level Test 12/28/18 04:49 12/28/18 08:26 12/28/18 12:25 Bedside Glucose 108 103 91 Medications Medication Current Medications Albuterol (Ventolin Hfa) 4 puff Q2H RESP THERAPY PRN INH SHORTNESS OF BREATH; Start 12/24/18 at 07:30 Ipratropium [place] (Atrovent Hfa) 4 puff Q2H RESP THERAPY PRN INH SHORTNESS OF BREATH; Start 12/24/18 at 06:30 Acetaminophen (Tylenol Liquid) 650 mg Q6H PRN PO PAIN LEVEL 1-3 OR FEVER; Start 12/24/18 at 06:30 Midazolam HCl 50 ml @ 2 mls/hr PER PROTOCOL IV Last administered on 12/26/18at 02:59; Admin Dose 4 MLS/HR; Start 12/24/18 at 07:30 Propofol 100 ml @ 2.041 mls/ hr PER PROTOCOL IV Last administered on 12/24/18at 07:27; Admin Dose 2.041 MLS/HR; Start 12/24/18 at 07:30 Acetaminophen (Tylenol Supp) 650 mg Q4H PRN RI TEMP > 37C; Start 12/24/18 at 07:30 Acetaminophen (Tylenol Liquid) 650 mg Q4H PRN PO TEMP > 37C; Start 12/24/18 at 07:30 Meperidine HCl (Demerol) 12.5 mg Q4H PRN IV POST OPERATIVE SHIVERING; Start 12/24/18 at 07:30 Meperidine HCl (Demerol) 25 mg Q4H PRN IV POST OPERATIVE SHIVERING; Start 12/24/18 at 07:30 Eye Lubricant (Artificial Tears Oph) 2 drop Q6 BOTH EYES Last administered on 12/28/18 11:13; Admin Dose 2 DROP; Start 12/24/18 at 12:00 Miscellaneous Information (* Miscellaneous Pharmacy Order) Treatment of Hypoglycemia: 1.BG 51... Per protocol XX ; Start 12/24/18 at 07:30 Dextrose (D50w Syringe) 25 ml Q15M PRN IV .DECREASED GLUCOSE Last administered on 12/26/18at 13:32; Admin Dose 25 ML; Start 12/24/18 at 07:30 Dextrose (D50w Syringe) 50 ml Q15M PRN IV .DECREASED GLUCOSE; Start 12/24/18 at 07:30 Hypromellose (Genteal Severe) 1 applic Q6 BOTH EYES Last administered on 12/28/18 11:13; Admin Dose 1 APPLIC; Start 12/24/18 at 12:00 Fentanyl 100 ml @ 2.5 mls/hr TITRATE IV Last administered on 12/25/18 22:00; Admin Dose 2.5 MLS/HR; Start 12/24/18 at 08:30 Pantoprazole (Protonix Iv) 40 mg BID@06,18 IV Last administered on 12/28/18 05:13; Admin Dose 40 MG; Start 12/24/18 at 18:00 Piperacillin Sod/ Tazobactam Sod 50 ml @ 100 mls/hr Q8 IVPB Last administered on 12/28/18at 13:37; Admin Dose 100 MLS/HR; Start 12/24/18 at 10:00 Norepinephrine 250 ml @ 1.875 mls/ hr TITRATE IV Last administered on 12/27/18at 05:02; Admin Dose 37.5 MLS/HR; Start 12/24/18 at 11:00 Dopamine HCl/ Dextrose 250 ml @ 5.115 mls/ hr TITRATE IV Last administered on 12/26/18at 23:09; Admin Dose 51.15 MLS/HR; Start 12/24/18 at 11:00 Vancomycin HCl (Vanco Iv Per Pharmacy) VANCOMYCIN PER PHARMACY PER PROTOCOL XX ; Start 12/24/18 at 13:00 Diagnostic Test (Pha) (Accu-Chek) 1 ea Q4H XX Last administered on 12/28/18at 11:43; Admin Dose 1 EA; Start 12/24/18 at 16:00 Albumin Human 250 ml @ 250 mls/hr PRN PRN IV CVP<10; Start 12/24/18 at 21:30 Phenylephrine HCl 80 mg/Dextrose 250 ml @ 18.75 mls/ hr TITRATE IV Last administered on 12/28/18 11:39; Admin Dose 26.25 MLS/HR; Start 12/24/18 at 23:00 Vasopressin 60 unit/Dextrose 60 ml @ 1.2 mls/hr Q12H IV Last administered on 12/28/18at 02:21; Admin Dose 0 MLS/HR; Start 12/25/18 at 01:00 Sodium Chloride 1,000 ml @ 50 mls/hr Q20H IV Last administered on 12/28/18 02:17; Admin Dose 50 MLS/HR; Start 12/26/18 at 08:00 Insulin Aspart (Novolog Insulin Pen) NOVOLOG *MILD* ALGORI... Q4 SC ; Start 12/26/18 at 17:00 Vancomycin HCl 250 ml @ 125 mls/hr ONCE IVPB ; Start 12/28/18 at 18:00; Stop 12/28/18 at 18:01 YUVAL BLACKWOOD Dec 28, 2018 14:02
--- NOTE | 2018-12-28 15:14 | EEG ---
EEG NOTE Report Details DATE OF TEST: 12/27/18 HISTORY: The patient is a 48-year-old M who presents with altered mental status s/p cardiac arrest. This EEG is requested to evaluate for electrocerebral inactivity. SEDATION: None. CONDITIONS OF RECORDING: This EEG was recorded digitally on the [employer] machine, using the International 10-20 System of electrodes plus anterior temporals and [place]. STATES SAMPLED: Unresponsive. FINDINGS: There is EKG artifact throughout.. At highest sensitivities, there is low voltage slow activity. IMPRESSION: Abnormal electroencephalogram due to: low voltage slow activity at highest sensitivities, which may or may not be cerebral in origin MEGAN ARENAS Dec 28, 2018 15:13
[2018-12-28] MEDS ORDERED: VANCOMYCIN 1 GM 250 ML IVPB SCH (18:00)
[2018-12-29] VITALS (81 sets, daily range): BP systolic 82–134; BP diastolic 47–83; PULSE 77–93; RESP 0–44
[2018-12-29] MEDS: ARTIFICIAL TEARS 15 ML OPH BOTH EYES SCH ×4 (00:14→17:37)
[2018-12-29] MEDS: HYPROMELLOSE OPHTHALMIC LUBRICANT GEL (10 GM) BOTH EYES SCH ×4 (00:14→17:37)
[2018-12-29] MEDS: INSULIN ASPART [NOVOLOG] 3 ML PEN SC SCH ×6 (01:00→21:00)
[2018-12-29] MEDS: PHENYLephrine 80 MG in DEXTROSE 5% 242 ML IV SCH (01:54)
[2018-12-29] MEDS: ACCU-CHEK XX SCH ×6 (04:00→20:00)
[2018-12-29] MEDS: PANTOPRAZOLE 40 MG INJ IV SCH ×2 (05:55→17:37)
[2018-12-29] MEDS: PIPER-TAZO 2.25 GM (PMX) 50 ML IVPB SCH ×3 (05:55→21:26)
[2018-12-29] MEDS ORDERED: CALCIUM GLUCONATE 10% 2 GM in DEXTROSE 5% 100 ML IVPB ONE (06:00)
[2018-12-29] MEDS: VASOPRESSIN 60 UNIT in DEXTROSE 5% 57 ML IV SCH ×2 (07:19→12:46)
--- NOTE | 2018-12-29 08:15 | PN ---
DATE: 12/29/2018 SUBJECTIVE: The patient remains critically ill on a pressor support. The patient's urinary output h as improved. The patient is on full ventilatory support. The patient's EEG was reviewed which showe d low voltage, inconclusive study. No other events noted. No hemoptysis, hematemesis or hematochezi a. Please note I have attempted to contact patient's family, his brother Femi regarding overall go als of care and possibility of dialysis. The patient's family has not returned my phone call. OBJECTIVE: VITAL SIGNS: Blood pressure is 105/56, respiration 22, pulse 87, temperature 98.6. I's and O's revi ewed. HEENT: Head is normocephalic. NECK: Supple. HEART: Regular rate. LUNGS: Show diminished breath sounds at the base. ABDOMEN: Nontender to palpation without rebound or guarding. EXTREMITIES: Negative for clubbing, cyanosis, positive edema. DERMATOLOGIC: No rashes. MUSCULOSKELETAL: No joint effusion. NEUROLOGIC: No change in exam. MEDICATIONS: The patient's medications have been reviewed. LABORATORY DATA: Has been reviewed. The patient BUN is 105, creatinine 6.1, phosphorus 12.4, magnes ium 3.0, calcium is 5.6. White count 10.4, hemoglobin 8.4, platelet count is 55. ASSESSMENT AND PLAN: 1. Nonoliguric acute kidney injury with unknown baseline creatinine. Etiology of acute kidney injur y secondary to acute tubular necrosis due to ischemic hypoperfusion, shock, cardiac arrest. The mo ent remains in injury phase of acute tubular necrosis as renal function continues to decline. Urinar y output has improved; however, no evidence of clearance. I attempted to contact the patient's famil y about the possibility of initiating dialysis. The patient's family is determining overall goals of care. If the patient's family wishes to pursue full care, the patient is a candidate for hemodialys is. At this point, will continue current treatment plan. Continue pressor support, maintain MAP of 60. Continue gentle IV hydration and continue antibiotic therapy. We will continue to monitor close ly. 2. Hyperkalemia. The patient's injury, resolved. Continue to monitor. 3. Hyponatremia secondary to acute kidney injury. Sodium levels have improved. Continue to monitor . 4. Mixed acid base disorder. The patient's ABG was reviewed. Continue to monitor. Currently off b icarbonate drip. 5. Mineral bone disorder. The patient is hyperphosphatemic and hypocalcemic secondary to acute kidn ey injury. The patient is status post calcium gluconate. The patient will require hemodialysis for solute clearance of hyperphosphatemia. Awaiting family decision. 6. Shock, etiology is multifactorial secondary to septic, cardiac. The patient is being weaned off pressor support. Continue current medical management, continue with antibiotic therapy. 7. Status post cardiac arrest. Etiology is unclear. The patient is status post cardiac cath with c lean coronaries. 8. Ventilator-dependent respiratory failure. Vent settings and ABG was reviewed. Continue to monit or. 9. Acute encephalopathy with possible anoxic injury. The patient is being evaluated for brain . Will continue to monitor. Follow up with neurology. Please note, I spent over 30 minutes of critical care time with this patient. Dictated By: HERB MATOS DO NR/NTS Conf#: [id number] DID#: [id number] CC: YUVAL BLACKWOOD MD; KRISTIAN GUERRERO MD; ANASTASIA GILBERT MD;*EndCC*
--- NOTE | 2018-12-29 09:02 | CONS ---
Consult Date/Type/Reason Admit Date/Time Dec 24, 2018 at 05:33 Initial Consult Date 12/24/18 Type of Consult Pulmonary Requesting Provider: YUVAL BLACKWOOD Date/Time of Note DATE: 12/29/18 TIME: 09:01 Subjective Patient remains unresponsive on mechanical ventilation. No spontaneous respiratory effort. Pupils fixed and dilated no gag reflex. Objective Vital Signs Date Temp Pulse Resp B/P (MAP) Pulse Ox O2 O2 Flow FiO2 Time Delivery Rate 12/29/18 87 22 105/56 98 Mechanical 06:45 (72) Ventilator 12/29/18 30 05:01 12/29/18 99.9 04:00 Intake and Output 12/28/18 12/28/18 12/29/18 1515:00 23:00 07:00 IntakeIntake Total 778.13 ml 553.09 ml 465.66 ml OutputOutput Total 760 ml 740 ml 1000 ml BalanceBalance 18.13 ml -186.91 ml -534.34 ml Exam GENERAL: Older than age appearing gentleman orally intubated on mechanical ventilation unresponsive VITAL SIGNS: per chart NECK: Supple. No JVD or lymphadenopathy. Pupils fixed and dilated CARDIAC EXAM: S1, S2. No added sounds or murmurs. CHEST: Diminished air entry bilaterally ABDOMEN: Soft, nontender. No guarding or rebound. EXTREMITIES: No cyanosis, clubbing or edema. NEUROLOGIC: Unable to assess Vent Setting Ventilator Support Mode: AC Fraction of Inspired Oxygen pe: 30 Positive End Expiratory Pressu: 5.0 Results/Medications Result Diagram: 12/29/18 0426 12/29/18 0426 Results 24 hrs Laboratory Tests Test 12/28/18 12:25 12/28/18 16:43 12/28/18 21:12 12/29/18 00:36 Bedside Glucose 91 81 97 84 Test 12/29/18 04:26 12/29/18 06:11 White Blood Count 10.4 # Red Blood Count 2.80 L Hemoglobin 8.4 L Hematocrit 24.6 L Mean Corpuscular 87.9 Volume Mean Corpuscular 30.0 Hemoglobin Mean Corpuscular 34.1 Hemoglobin Concent Red Cell 14.5 Distribution Width Platelet Count 55 #L Mean Platelet Volume 12.0 H Immature 3.000 H Granulocytes % Neutrophils % 84.8 H Lymphocytes % 5.0 L Monocytes % 6.6 Eosinophils % 0.3 Basophils % 0.3 Nucleated Red Blood 0.2 H Cells % Immature 0.310 H Granulocytes # Neutrophils # 8.8 H Lymphocytes # 0.5 L Monocytes # 0.7 Eosinophils # 0.0 Basophils # 0.0 Nucleated Red Blood 0.0 Cells # Sodium Level 135 Potassium Level 4.9 Chloride Level 95 L Carbon Dioxide Level 22 Anion Gap 18 H Blood Urea Nitrogen 105 H Creatinine 6.10 H Est Glomerular 10 L Filtrat Rate mL/min Glucose Level 85 Calcium Level 5.6 *L Phosphorus Level 12.4 H Magnesium Level 3.0 H Bedside Glucose 84 Medications Current Medications Albuterol (Ventolin Hfa) 4 puff Q2H RESP THERAPY PRN INH SHORTNESS OF BREATH; Start 12/24/18 at 07:30 Ipratropium [place] (Atrovent Hfa) 4 puff Q2H RESP THERAPY PRN INH SHORTNESS OF BREATH; Start 12/24/18 at 06:30 Acetaminophen (Tylenol Liquid) 650 mg Q6H PRN PO PAIN LEVEL 1-3 OR FEVER Last administered on 12/29/18at 00:40; Admin Dose 650 MG; Start 12/24/18 at 06:30 Midazolam HCl 50 ml @ 2 mls/hr PER PROTOCOL IV Last administered on 12/26/18at 02:59; Admin Dose 4 MLS/HR; Start 12/24/18 at 07:30 Propofol 100 ml @ 2.041 mls/ hr PER PROTOCOL IV Last administered on 12/24/18at 07:27; Admin Dose 2.041 MLS/HR; Start 12/24/18 at 07:30 Acetaminophen (Tylenol Supp) 650 mg Q4H PRN [place] TEMP > 37C; Start 12/24/18 at 07:30 Acetaminophen (Tylenol Liquid) 650 mg Q4H PRN PO TEMP > 37C; Start 12/24/18 at 07:30 Meperidine HCl (Demerol) 12.5 mg Q4H PRN IV POST OPERATIVE SHIVERING; Start 12/24/18 at 07:30 Meperidine HCl (Demerol) 25 mg Q4H PRN IV POST OPERATIVE SHIVERING; Start 12/24/18 at 07:30 Eye Lubricant (Artificial Tears Oph) 2 drop Q6 BOTH EYES Last administered on 12/29/18at 06:12; Admin Dose 2 DROP; Start 12/24/18 at 12:00 Miscellaneous Information (* Miscellaneous Pharmacy Order) Treatment of Hypoglycemia: 1.BG 51... Per protocol XX ; Start 12/24/18 at 07:30 Dextrose (D50w Syringe) 25 ml Q15M PRN IV .DECREASED GLUCOSE Last administered on 12/26/18at 13:32; Admin Dose 25 ML; Start 12/24/18 at 07:30 Dextrose (D50w Syringe) 50 ml Q15M PRN IV .DECREASED GLUCOSE; Start 12/24/18 at 07:30 Hypromellose (Genteal Severe) 1 applic Q6 BOTH EYES Last administered on 12/29/18 06:12; Admin Dose 1 APPLIC; Start 12/24/18 at 12:00 Fentanyl 100 ml @ 2.5 mls/hr TITRATE IV Last administered on 12/25/18at 22:00; Admin Dose 2.5 MLS/HR; Start 12/24/18 at 08:30 Pantoprazole (Protonix Iv) 40 mg BID@06,18 IV Last administered on 12/29/18at 05:55; Admin Dose 40 MG; Start 12/24/18 at 18:00 Piperacillin Sod/ Tazobactam Sod 50 ml @ 100 mls/hr Q8 IVPB Last administered on 12/29/18 05:55; Admin Dose 100 MLS/HR; Start 12/24/18 at 10:00 Norepinephrine 250 ml @ 1.875 mls/ hr TITRATE IV Last administered on 12/27/18 05:02; Admin Dose 37.5 MLS/HR; Start 12/24/18 at 11:00 Dopamine HCl/ Dextrose 250 ml @ 5.115 mls/ hr TITRATE IV Last administered on 12/26/18 23:09; Admin Dose 51.15 MLS/HR; Start 12/24/18 at 11:00 Vancomycin HCl (Vanco Iv Per Pharmacy) VANCOMYCIN PER PHARMACY PER PROTOCOL XX ; Start 12/24/18 at 13:00 Diagnostic Test (Pha) (Accu-Chek) 1 ea Q4H XX Last administered on 12/29/18 08:19; Admin Dose 1 EA; Start 12/24/18 at 16:00 Albumin Human 250 ml @ 250 mls/hr PRN PRN IV CVP<10; Start 12/24/18 at 21:30 Phenylephrine HCl 80 mg/Dextrose 250 ml @ 18.75 mls/ hr TITRATE IV Last administered on 12/29/18at 01:54; Admin Dose 9.38 MLS/HR; Start 12/24/18 at 23:00 Vasopressin 60 unit/Dextrose 60 ml @ 1.2 mls/hr Q12H IV Last administered on 12/28/18at 02:21; Admin Dose 0 MLS/HR; Start 12/25/18 at 01:00 Sodium Chloride 1,000 ml @ 50 mls/hr Q20H IV Last administered on 12/28/18at 21:48; Admin Dose 50 MLS/HR; Start 12/26/18 at 08:00 Insulin Aspart (Novolog Insulin Pen) NOVOLOG *MILD* ALGORI... Q4 SC ; Start 12/26/18 at 17:00 Assessment/Plan Hospital Course (Demo Recall) Assessment 1. Cardiopulmonary arrest status post hypothermia protocol 2. History of substance abuse 3. Clinical exam consistent with brain . Not confirmed on EEG yet. Decreased vasopressor requirements. We will attempt apnea study 4. Thrombo cytopenia 5. Acute renal failure likely ATN injury Plan 1. We will attempt apnea study and cerebral perfusion scan. 2. Continue ventilator support 3. Continue with pressors as needed Family conference regarding goals of care critical care time 40 minutes. HALI BARILLAS MD, [facility] Dec 29, 2018 09:02
--- NOTE | 2018-12-29 09:16 | CONS ---
Assessment/Plan Assessment/Plan Hospital Course 48 yo male w/ uncertain PMHx, who is admitted to the [facility] ICU following cardiac arrest. Now s/p TTM.. On neurologic examination, he is presently without brainstem or cortical activity...concerning for brain . EEG was inconclusive. CXR is notable for edema vs/ pneumonia.. CTH is notable for diffuse cerebral edema and loss of jones-white matter differentiation, consistent with anoxic brain injury P: Consider apnea test to confirm brainstem inactivity when medically able Will follow Consultation Date/Type/Reason Admit Date/Time Dec 24, 2018 at 05:33 Type of Consult Neurology Reason for Consultation coma Requesting Provider: YUVAL BLACKWOOD Date/Time of Note DATE: 12/29/18 TIME: 09:16 24 HR Interval Summary Free Text/Dictation Continues critical care. S/p EEG. Subjective hx not possible: pt non-verbal, pt critical, pt critical status Exam Vital Signs Vitals Vital Signs Date Temp Pulse Resp B/P (MAP) Pulse Ox O2 O2 Flow FiO2 Time Delivery Rate 12/29/18 87 22 105/56 98 Mechanical 06:45 (72) Ventilator 12/29/18 30 05:01 12/29/18 99.9 04:00 Intake and Output 12/28/18 12/28/18 12/29/18 1515:00 23:00 07:00 IntakeIntake Total 778.13 ml 553.09 ml 465.66 ml OutputOutput Total 760 ml 740 ml 1000 ml BalanceBalance 18.13 ml -186.91 ml -534.34 ml Exam PE: Gen Appearance: No Apparent Distress HEENT: Intubated Cardiovascular: Regular rate Abdomen: Soft Extremities: Dry NE: The patient was comatose. Cranial nerve examination was limited by mental status. Pupils were fixed and dilated. There was no afferent pupillary defect. Funduscopic examination was limited. Face was grossly symmetric, w/ absent corneal and cough reflexes. Cold caloric testing did not elicit any eye deviation. Tone was flaccid. Muscle bulk was normal. I did not see fasciculations. The patient did not withdrew to noxious stimulation. Coordination and gait testing was limited by mental status. Arm and leg reflexes were symmetric. Mccall's sign was absent. Plantar responses were mute. ONELIA ESCOBAR [employer] PLUMBER Dec 29, 2018 09:16 MEGAN ARENAS Dec 29, 2018 12:17
--- NOTE | 2018-12-29 09:32 | CONS ---
Assessment/Plan Assessment/Plan Assessment/Plan (Daily) Reviewed results of neurological consult and EEG and CT scan. On clinical examination patient has no oculocephalics he is not overbreathing the ventilator he has no gag reflex he does no purposeful movements. Patient is on pressors that time and cannot undergo a apnea test. He is full code and I will contact family member next of kin all liver at [phone] and try to obtain a CODE STATUS and possible comfort measures orders today at the latest tomorrow. Consultation Date/Type/Reason Admit Date/Time Dec 24, 2018 at 05:33 Initial Consult Date 12/24/18 Requesting Provider: YUVAL BLACKWOOD Date/Time of Note DATE: 12/29/18 TIME: 09:30 Exam/Review of Systems Exam Vitals Vital Signs Date Temp Pulse Resp B/P (MAP) Pulse Ox O2 O2 Flow FiO2 Time Delivery Rate 12/29/18 87 22 105/56 98 Mechanical 06:45 (72) Ventilator 12/29/18 30 05:01 12/29/18 99.9 04:00 Intake and Output 12/28/18 12/28/18 12/29/18 1515:00 23:00 07:00 IntakeIntake Total 778.13 ml 553.09 ml 465.66 ml OutputOutput Total 760 ml 740 ml 1000 ml BalanceBalance 18.13 ml -186.91 ml -534.34 ml Results Result Diagram: 12/29/18 0426 12/29/18 0426 Results 24hrs Laboratory Tests Test 12/28/18 12:25 12/28/18 16:43 12/28/18 21:12 12/29/18 00:36 Bedside Glucose 91 81 97 84 Test 12/29/18 04:26 12/29/18 06:11 White Blood Count 10.4 # Red Blood Count 2.80 L Hemoglobin 8.4 L Hematocrit 24.6 L Mean Corpuscular 87.9 Volume Mean Corpuscular 30.0 Hemoglobin Mean Corpuscular 34.1 Hemoglobin Concent Red Cell 14.5 Distribution Width Platelet Count 55 #L Mean Platelet Volume 12.0 H Immature 3.000 H Granulocytes % Neutrophils % 84.8 H Lymphocytes % 5.0 L Monocytes % 6.6 Eosinophils % 0.3 Basophils % 0.3 Nucleated Red Blood 0.2 H Cells % Immature 0.310 H Granulocytes # Neutrophils # 8.8 H Lymphocytes # 0.5 L Monocytes # 0.7 Eosinophils # 0.0 Basophils # 0.0 Nucleated Red Blood 0.0 Cells # Sodium Level 135 Potassium Level 4.9 Chloride Level 95 L Carbon Dioxide Level 22 Anion Gap 18 H Blood Urea Nitrogen 105 H Creatinine 6.10 H Est Glomerular 10 L Filtrat Rate mL/min Glucose Level 85 Calcium Level 5.6 *L Phosphorus Level 12.4 H Magnesium Level 3.0 H Bedside Glucose 84 Medications Medication Current Medications Albuterol (Ventolin Hfa) 4 puff Q2H RESP THERAPY PRN INH SHORTNESS OF BREATH; Start 12/24/18 at 07:30 Ipratropium [place] (Atrovent Hfa) 4 puff Q2H RESP THERAPY PRN INH SHORTNESS OF BREATH; Start 12/24/18 at 06:30 Acetaminophen (Tylenol Liquid) 650 mg Q6H PRN PO PAIN LEVEL 1-3 OR FEVER Last administered on 12/29/18at 00:40; Admin Dose 650 MG; Start 12/24/18 at 06:30 Midazolam HCl 50 ml @ 2 mls/hr PER PROTOCOL IV Last administered on 12/26/18at 02:59; Admin Dose 4 MLS/HR; Start 12/24/18 at 07:30 Propofol 100 ml @ 2.041 mls/ hr PER PROTOCOL IV Last administered on 12/24/18at 07:27; Admin Dose 2.041 MLS/HR; Start 12/24/18 at 07:30 Acetaminophen (Tylenol Supp) 650 mg Q4H PRN [place] TEMP > 37C; Start 12/24/18 at 07:30 Acetaminophen (Tylenol Liquid) 650 mg Q4H PRN PO TEMP > 37C; Start 12/24/18 at 07:30 Meperidine HCl (Demerol) 12.5 mg Q4H PRN IV POST OPERATIVE SHIVERING; Start 12/24/18 at 07:30 Meperidine HCl (Demerol) 25 mg Q4H PRN IV POST OPERATIVE SHIVERING; Start 12/24/18 at 07:30 Eye Lubricant (Artificial Tears Oph) 2 drop Q6 BOTH EYES Last administered on 12/29/18at 06:12; Admin Dose 2 DROP; Start 12/24/18 at 12:00 Miscellaneous Information (* Miscellaneous Pharmacy Order) Treatment of Hypoglycemia: 1.BG 51... Per protocol XX ; Start 12/24/18 at 07:30 Dextrose (D50w Syringe) 25 ml Q15M PRN IV .DECREASED GLUCOSE Last administered on 12/26/18at 13:32; Admin Dose 25 ML; Start 12/24/18 at 07:30 Dextrose (D50w Syringe) 50 ml Q15M PRN IV .DECREASED GLUCOSE; Start 12/24/18 at 07:30 Hypromellose (Genteal Severe) 1 applic Q6 BOTH EYES Last administered on 12/29/18 06:12; Admin Dose 1 APPLIC; Start 12/24/18 at 12:00 Fentanyl 100 ml @ 2.5 mls/hr TITRATE IV Last administered on 12/25/18at 22:00; Admin Dose 2.5 MLS/HR; Start 12/24/18 at 08:30 Pantoprazole (Protonix Iv) 40 mg BID@06,18 IV Last administered on 12/29/18 05:55; Admin Dose 40 MG; Start 12/24/18 at 18:00 Piperacillin Sod/ Tazobactam Sod 50 ml @ 100 mls/hr Q8 IVPB Last administered on 12/29/18 05:55; Admin Dose 100 MLS/HR; Start 12/24/18 at 10:00 Norepinephrine 250 ml @ 1.875 mls/ hr TITRATE IV Last administered on 12/27/18 05:02; Admin Dose 37.5 MLS/HR; Start 12/24/18 at 11:00 Dopamine HCl/ Dextrose 250 ml @ 5.115 mls/ hr TITRATE IV Last administered on 12/26/18at 23:09; Admin Dose 51.15 MLS/HR; Start 12/24/18 at 11:00 Vancomycin HCl (Vanco Iv Per Pharmacy) VANCOMYCIN PER PHARMACY PER PROTOCOL XX ; Start 12/24/18 at 13:00 Diagnostic Test (Pha) (Accu-Chek) 1 ea Q4H XX Last administered on 12/29/18 08:19; Admin Dose 1 EA; Start 12/24/18 at 16:00 Albumin Human 250 ml @ 250 mls/hr PRN PRN IV CVP<10; Start 12/24/18 at 21:30 Phenylephrine HCl 80 mg/Dextrose 250 ml @ 18.75 mls/ hr TITRATE IV Last administered on 12/29/18at 01:54; Admin Dose 9.38 MLS/HR; Start 12/24/18 at 23:00 Vasopressin 60 unit/Dextrose 60 ml @ 1.2 mls/hr Q12H IV Last administered on 12/28/18at 02:21; Admin Dose 0 MLS/HR; Start 12/25/18 at 01:00 Sodium Chloride 1,000 ml @ 50 mls/hr Q20H IV Last administered on 12/28/18at 21:48; Admin Dose 50 MLS/HR; Start 12/26/18 at 08:00 Insulin Aspart (Novolog Insulin Pen) NOVOLOG *MILD* ALGORI... Q4 SC ; Start 12/26/18 at 17:00 VERITO COLLINS Dec 29, 2018 09:32
--- NOTE | 2018-12-29 10:26 | CONS ---
Assessment/Plan Assessment/Plan Hospital Course (Demo Recall) ID PROGRESS NOTE CURRENT ABX: DAY # => Vanco IV # 5.5 + Zosyn #5.5 12/29/186 12/29/18 0426 24H INTERVAL SUMMARY * Chart reviewed -> s/p CPA in the field w/ROSC, CT brain with severe anoxic brain injury, possible brain ? * No fevers, WBC normalized today w/ABX, sputum gowning Staph Aureus -- DDx CAP vs ASP PNA vs VAP post intubation? * Family present -- I introduced myself as covering over the weekend for Dr. Olson's ID team and explained the rationale for current ABX, we discussed the fact that the PNA is treatable; nevertheless the status of his brain injury is severe. DIAGNOSTIC IMAGING * 12/27/18 CXR: Mildly increased interstitial edema suggesting cardiopulmonary congestion. * 12/28/18 CT BRAIN: Diffuse hypodense appearance of the brain and brainstem with effacement of all the sulci and basilar cisterns consistent with a diffuse anoxic event. There is diffuse cerebral edema. There is diffuse hypodense appearance in the sulci which could represent visualization of the vessels given the amount of edema versus diffuse mild subarachnoid hemorrhage. MICRO/OTHER * 12/27/18 ETT RESP CX (+) RESPIRATORY CULTURE Preliminary Organism 1 STAPHYLOCOCCUS AUREUS QUANTITY SCANT GROWTH * 12/25/18 BCx (-) * 12/24/18 BCx (-) * (-)MRSA Nares Screen PHYSICAL EXAMINATION: GENERAL: Non-responsive on the Vent HEENT: AT, NC, anicteric, ETT/OGT secure NECK: Supple, Trach midline CHEST: Equal chest rise bilaterally-=> Vented HEART: Pulse RRR, Sinus rhythm on tele ABDOMEN: Soft / NT : FC RECTAL: Fecal containment device w/liquid greenish stool EXTREMITIES: Warm, dry SKIN: No rash, no diaphoresis ID ASSESSMENT 48 yo M s/p CPA, found down on street, w/ROSC -> presented [facility] from EMS w/CODE STEMI, currently see in ICU w/: 1. Systemic shock with severe lactic acidosis likely secondary to cardiogenic shock versus neurogenic versus liver failure * Cultures are negative, source is not septic although aspiration pneumonitis cannot be excluded * Leukocytosis resolved 2. Staph Aureus PNA + Probable ASP Pneumonitis event during CPR followed by oral intubation * 12/27/18 ETT RESP CX (+) RESPIRATORY CULTURE Preliminary Organism 1 STAPHYLOCOCCUS AUREUS QUANTITY SCANT GROWTH * 12/24/18 CXR: 1. Right upper lobe interstitial opacities, improved when compared to the prior examination. 2. Asymmetric left lung interstitial opacities may reflect edema or pneumonia, not significantly changed. 3. Probable small right pleural effusion. * 12/25/17 CXR: Complete opacification of the left hemithorax, likely representing collapsed lung however coexisting pneumonia not excluded. 3. Altered mentation, likely anoxic and toxic, report of substance use. * EEG shows slow activity --> neurology following 4. s/p Cardiac arrest, likely secondary to possible substance use, status post ACLS with ROSC * NSTEMI, status post left heart catheterization with NON-OBSTRUCTED coronary arteries 5. Acute respiratory failure -> Orally intubated/vented 6. Severe rhabdomyolysis w/acute renal insufficiency 7. Acute hepatic failure likely secondary to shock liver 8. Pancytopenia 9. Coagulopathy likely secondary to DIC 10. Hyperglycemia :on Insulin GTT, but A1c 5.6 11. Multisubstance abuse (meth / marijuana) 12. Diarrhea-> ABX associated w/greenish liquid (-)MRSA Nares ABX ALLERGIES: KNDA INVASIVES: PIV CURRENT ABX: DAY # => Vanco IV # 5.5 + Zosyn #5.5 ID RECOMMENDATIONS/PLAN: 1. Continue Vanco IV ABX and await final results of Staph Aureus resp Cx pending. 2. Await recommendations from neurology 3. Family expresses understanding, agreement w/ABX plan of care. . Consultation Date/Type/Reason Admit Date/Time Dec 24, 2018 at 05:33 Initial Consult Date 12/24/18 Requesting Provider: YUVAL BLACKWOOD Date/Time of Note DATE: 12/29/18 TIME: 10:26 Exam/Review of Systems Exam Vitals Vital Signs Date Temp Pulse Resp B/P (MAP) Pulse Ox O2 O2 Flow FiO2 Time Delivery Rate 12/29/18 82 22 100/64 98 10:00 (76) 12/29/18 98.7 08:00 12/29/18 Mechanical 06:45 Ventilator 12/29/18 30 05:01 Intake and Output 12/28/18 12/28/18 12/29/18 1515:00 23:00 07:00 IntakeIntake Total 778.13 ml 553.09 ml 465.66 ml OutputOutput Total 760 ml 740 ml 1050 ml BalanceBalance 18.13 ml -186.91 ml -584.34 ml Results Result Diagram: 12/29/18 0426 12/29/18 0426 Results 24hrs Laboratory Tests Test 12/28/18 12:25 12/28/18 16:43 12/28/18 21:12 12/29/18 00:36 Bedside Glucose 91 81 97 84 Test 12/29/18 04:26 12/29/18 06:11 12/29/18 09:18 White Blood Count 10.4 # Red Blood Count 2.80 L Hemoglobin 8.4 L Hematocrit 24.6 L Mean Corpuscular 87.9 Volume Mean Corpuscular 30.0 Hemoglobin Mean Corpuscular 34.1 Hemoglobin Concent Red Cell 14.5 Distribution Width Platelet Count 55 #L Mean Platelet Volume 12.0 H Immature 3.000 H Granulocytes % Neutrophils % 84.8 H Lymphocytes % 5.0 L Monocytes % 6.6 Eosinophils % 0.3 Basophils % 0.3 Nucleated Red Blood 0.2 H Cells % Immature 0.310 H Granulocytes # Neutrophils # 8.8 H Lymphocytes # 0.5 L Monocytes # 0.7 Eosinophils # 0.0 Basophils # 0.0 Nucleated Red Blood 0.0 Cells # Sodium Level 135 Potassium Level 4.9 Chloride Level 95 L Carbon Dioxide Level 22 Anion Gap 18 H Blood Urea Nitrogen 105 H Creatinine 6.10 H Est Glomerular 10 L Filtrat Rate mL/min Glucose Level 85 Calcium Level 5.6 *L Phosphorus Level 12.4 H Magnesium Level 3.0 H Bedside Glucose 84 90 Medications Medication Current Medications Albuterol (Ventolin Hfa) 4 puff Q2H RESP THERAPY PRN INH SHORTNESS OF BREATH; Start 12/24/18 at 07:30 Ipratropium [place] (Atrovent Hfa) 4 puff Q2H RESP THERAPY PRN INH SHORTNESS OF BREATH; Start 12/24/18 at 06:30 Acetaminophen (Tylenol Liquid) 650 mg Q6H PRN PO PAIN LEVEL 1-3 OR FEVER Last administered on 12/29/18at 00:40; Admin Dose 650 MG; Start 12/24/18 at 06:30 Midazolam HCl 50 ml @ 2 mls/hr PER PROTOCOL IV Last administered on 12/26/18 02:59; Admin Dose 4 MLS/HR; Start 12/24/18 at 07:30 Propofol 100 ml @ 2.041 mls/ hr PER PROTOCOL IV Last administered on 12/24/18 07:27; Admin Dose 2.041 MLS/HR; Start 12/24/18 at 07:30 Acetaminophen (Tylenol Supp) 650 mg Q4H PRN [place] TEMP > 37C; Start 12/24/18 at 07:30 Acetaminophen (Tylenol Liquid) 650 mg Q4H PRN PO TEMP > 37C; Start 12/24/18 at 07:30 Meperidine HCl (Demerol) 12.5 mg Q4H PRN IV POST OPERATIVE SHIVERING; Start 12/24/18 at 07:30 Meperidine HCl (Demerol) 25 mg Q4H PRN IV POST OPERATIVE SHIVERING; Start 12/24/18 at 07:30 Eye Lubricant (Artificial Tears Oph) 2 drop Q6 BOTH EYES Last administered on 12/29/18 06:12; Admin Dose 2 DROP; Start 12/24/18 at 12:00 Miscellaneous Information (* Miscellaneous Pharmacy Order) Treatment of Hypoglycemia: 1.BG 51... Per protocol XX ; Start 12/24/18 at 07:30 Dextrose (D50w Syringe) 25 ml Q15M PRN IV .DECREASED GLUCOSE Last administered on 12/26/18 13:32; Admin Dose 25 ML; Start 12/24/18 at 07:30 Dextrose (D50w Syringe) 50 ml Q15M PRN IV .DECREASED GLUCOSE; Start 12/24/18 at 07:30 Hypromellose (Genteal Severe) 1 applic Q6 BOTH EYES Last administered on 12/29/18 06:12; Admin Dose 1 APPLIC; Start 12/24/18 at 12:00 Fentanyl 100 ml @ 2.5 mls/hr TITRATE IV Last administered on 12/25/18 22:00; Admin Dose 2.5 MLS/HR; Start 12/24/18 at 08:30 Pantoprazole (Protonix Iv) 40 mg BID@06,18 IV Last administered on 12/29/18 05:55; Admin Dose 40 MG; Start 12/24/18 at 18:00 Piperacillin Sod/ Tazobactam Sod 50 ml @ 100 mls/hr Q8 IVPB Last administered on 12/29/18 05:55; Admin Dose 100 MLS/HR; Start 12/24/18 at 10:00 Norepinephrine 250 ml @ 1.875 mls/ hr TITRATE IV Last administered on 12/27/18at 05:02; Admin Dose 37.5 MLS/HR; Start 12/24/18 at 11:00 Dopamine HCl/ Dextrose 250 ml @ 5.115 mls/ hr TITRATE IV Last administered on 12/26/18at 23:09; Admin Dose 51.15 MLS/HR; Start 12/24/18 at 11:00 Vancomycin HCl (Vanco Iv Per Pharmacy) VANCOMYCIN PER PHARMACY PER PROTOCOL XX ; Start 12/24/18 at 13:00 Diagnostic Test (Pha) (Accu-Chek) 1 ea Q4H XX Last administered on 12/29/18 08:19; Admin Dose 1 EA; Start 12/24/18 at 16:00 Albumin Human 250 ml @ 250 mls/hr PRN PRN IV CVP<10; Start 12/24/18 at 21:30 Phenylephrine HCl 80 mg/Dextrose 250 ml @ 18.75 mls/ hr TITRATE IV Last administered on 12/29/18at 01:54; Admin Dose 9.38 MLS/HR; Start 12/24/18 at 23:00 Vasopressin 60 unit/Dextrose 60 ml @ 1.2 mls/hr Q12H IV Last administered on 12/28/18at 02:21; Admin Dose 0 MLS/HR; Start 12/25/18 at 01:00 Sodium Chloride 1,000 ml @ 50 mls/hr Q20H IV Last administered on 12/28/18at 21:48; Admin Dose 50 MLS/HR; Start 12/26/18 at 08:00 Insulin Aspart (Novolog Insulin Pen) NOVOLOG *MILD* ALGORI... Q4 SC ; Start 12/26/18 at 17:00 ANGEL KUHN NP Dec 29, 2018 10:26
--- NOTE | 2018-12-29 11:05 | PN ---
Date/Time of Note Date/Time of Note DATE: 12/29/18 TIME: 10:57 Assessment/Plan VTE Prophylaxis Risk score [place]from [facility] [place] risk: 6 SCD applied (from [facility] [place] Yes Pharmacological prophylaxis: NA/contraindicated Pharm contraindication: blood coag disorder Lines/Catheters IV Catheter Type (from [facility]): A Line Assessment/Plan Hospital Course A 43-year-old male who was found on the street, altered, who subsequently underwent cardiac arrest with return of spontaneous circulation, went to [facility] urgently as a Code STEMI. Currently managed for the following medical problems: 1. Altered mentation, likely anoxic and toxic, report of substance use. -EEG shows slow activity -Patient appears to be brain on physical exam, neurology following -Discuss withdrawal of care with family 2. Cardiac arrest, likely secondary to possible substance use, status post ACLS with ROSC -s/p hypothermia 3. Acute respiratory failure -remains vent dependent 4. Systemic shock with severe lactic acidosis likely secondary to cardiogenic shock versus neurogenic versus liver failure -Cultures are negative, source is not septic -Follow-up on abdominal ultrasound and ammonia -Continue pressor 5. Severe rhabdomyolysis -Fluids 6. Acute hepatic failure likely secondary to shock liver 7. Acute renal insufficiency, with metabolic acidosis, -started on bicarb drip per pulm 8. NSTEMI, status post left heart catheterization with clean coronaries, 9. Pancytopenia 10. Hyperglycemia :on Insulin GTT, but A1c 5.6 11. Multisubstance abuse (meth / marijuana) 12. Coagulopathy likely secondary to DIC Prophylaxis: SCDs DC planning: Discussed withdrawal of care with family Result Diagram: 12/29/18 0426 12/29/18 0426 Results 24hrs Laboratory Tests Test 12/28/18 12:25 12/28/18 16:43 12/28/18 21:12 12/29/18 00:36 Bedside Glucose 91 81 97 84 Test 12/29/18 04:26 12/29/18 06:11 12/29/18 09:18 White Blood Count 10.4 # Red Blood Count 2.80 L Hemoglobin 8.4 L Hematocrit 24.6 L Mean Corpuscular 87.9 Volume Mean Corpuscular 30.0 Hemoglobin Mean Corpuscular 34.1 Hemoglobin Concent Red Cell 14.5 Distribution Width Platelet Count 55 #L Mean Platelet Volume 12.0 H Immature 3.000 H Granulocytes % Neutrophils % 84.8 H Lymphocytes % 5.0 L Monocytes % 6.6 Eosinophils % 0.3 Basophils % 0.3 Nucleated Red Blood 0.2 H Cells % Immature 0.310 H Granulocytes # Neutrophils # 8.8 H Lymphocytes # 0.5 L Monocytes # 0.7 Eosinophils # 0.0 Basophils # 0.0 Nucleated Red Blood 0.0 Cells # Sodium Level 135 Potassium Level 4.9 Chloride Level 95 L Carbon Dioxide Level 22 Anion Gap 18 H Blood Urea Nitrogen 105 H Creatinine 6.10 H Est Glomerular 10 L Filtrat Rate mL/min Glucose Level 85 Calcium Level 5.6 *L Phosphorus Level 12.4 H Magnesium Level 3.0 H Bedside Glucose 84 90 Subjective 24 Hr Interval Summary Subjective hx not possible: pt non-verbal Exam/Review of Systems Exam Vitals Vital Signs Date Temp Pulse Resp B/P (MAP) Pulse Ox O2 O2 Flow FiO2 Time Delivery Rate 12/29/18 82 22 100/64 98 10:00 (76) 12/29/18 98.7 08:00 12/29/18 Mechanical 06:45 Ventilator 12/29/18 30 05:01 Intake and Output 12/28/18 12/28/18 12/29/18 1515:00 23:00 07:00 IntakeIntake Total 778.13 ml 553.09 ml 465.66 ml OutputOutput Total 760 ml 740 ml 1050 ml BalanceBalance 18.13 ml -186.91 ml -584.34 ml Constitutional: non-verbal ENMT: intubated Respiratory: clear to auscultation Cardiovascular: regular rate and rhythm Gastrointestinal: soft Musculoskeletal: nl extremities to inspection Results Results 24hrs Laboratory Tests Test 12/28/18 12:25 12/28/18 16:43 12/28/18 21:12 12/29/18 00:36 Bedside Glucose 91 81 97 84 Test 12/29/18 04:26 12/29/18 06:11 12/29/18 09:18 White Blood Count 10.4 # Red Blood Count 2.80 L Hemoglobin 8.4 L Hematocrit 24.6 L Mean Corpuscular 87.9 Volume Mean Corpuscular 30.0 Hemoglobin Mean Corpuscular 34.1 Hemoglobin Concent Red Cell 14.5 Distribution Width Platelet Count 55 #L Mean Platelet Volume 12.0 H Immature 3.000 H Granulocytes % Neutrophils % 84.8 H Lymphocytes % 5.0 L Monocytes % 6.6 Eosinophils % 0.3 Basophils % 0.3 Nucleated Red Blood 0.2 H Cells % Immature 0.310 H Granulocytes # Neutrophils # 8.8 H Lymphocytes # 0.5 L Monocytes # 0.7 Eosinophils # 0.0 Basophils # 0.0 Nucleated Red Blood 0.0 Cells # Sodium Level 135 Potassium Level 4.9 Chloride Level 95 L Carbon Dioxide Level 22 Anion Gap 18 H Blood Urea Nitrogen 105 H Creatinine 6.10 H Est Glomerular 10 L Filtrat Rate mL/min Glucose Level 85 Calcium Level 5.6 *L Phosphorus Level 12.4 H Magnesium Level 3.0 H Bedside Glucose 84 90 Medications Medication Current Medications Albuterol (Ventolin Hfa) 4 puff Q2H RESP THERAPY PRN INH SHORTNESS OF BREATH; Start 12/24/18 at 07:30 Ipratropium [place] (Atrovent Hfa) 4 puff Q2H RESP THERAPY PRN INH SHORTNESS OF BREATH; Start 12/24/18 at 06:30 Acetaminophen (Tylenol Liquid) 650 mg Q6H PRN PO PAIN LEVEL 1-3 OR FEVER Last administered on 12/29/18at 00:40; Admin Dose 650 MG; Start 12/24/18 at 06:30 Midazolam HCl 50 ml @ 2 mls/hr PER PROTOCOL IV Last administered on 12/26/18at 02:59; Admin Dose 4 MLS/HR; Start 12/24/18 at 07:30 Propofol 100 ml @ 2.041 mls/ hr PER PROTOCOL IV Last administered on 12/24/18at 07:27; Admin Dose 2.041 MLS/HR; Start 12/24/18 at 07:30 Acetaminophen (Tylenol Supp) 650 mg Q4H PRN [place] TEMP > 37C; Start 12/24/18 at 07:30 Acetaminophen (Tylenol Liquid) 650 mg Q4H PRN PO TEMP > 37C; Start 12/24/18 at 07:30 Meperidine HCl (Demerol) 12.5 mg Q4H PRN IV POST OPERATIVE SHIVERING; Start 12/24/18 at 07:30 Meperidine HCl (Demerol) 25 mg Q4H PRN IV POST OPERATIVE SHIVERING; Start 12/24/18 at 07:30 Eye Lubricant (Artificial Tears Oph) 2 drop Q6 BOTH EYES Last administered on 12/29/18 06:12; Admin Dose 2 DROP; Start 12/24/18 at 12:00 Miscellaneous Information (* Miscellaneous Pharmacy Order) Treatment of Hypoglycemia: 1.BG 51... Per protocol XX ; Start 12/24/18 at 07:30 Dextrose (D50w Syringe) 25 ml Q15M PRN IV .DECREASED GLUCOSE Last administered on 12/26/18 13:32; Admin Dose 25 ML; Start 12/24/18 at 07:30 Dextrose (D50w Syringe) 50 ml Q15M PRN IV .DECREASED GLUCOSE; Start 12/24/18 at 07:30 Hypromellose (Genteal Severe) 1 applic Q6 BOTH EYES Last administered on 06:12; Admin Dose 1 APPLIC; Start 12/24/18 at 12:00 Fentanyl 100 ml @ 2.5 mls/hr TITRATE IV Last administered on 12/25/18 22:00; Admin Dose 2.5 MLS/HR; Start 12/24/18 at 08:30 Pantoprazole (Protonix Iv) 40 mg BID@06,18 IV Last administered on 12/29/18 05:55; Admin Dose 40 MG; Start 12/24/18 at 18:00 Piperacillin Sod/ Tazobactam Sod 50 ml @ 100 mls/hr Q8 IVPB Last administered on 12/29/18 05:55; Admin Dose 100 MLS/HR; Start 12/24/18 at 10:00 Norepinephrine 250 ml @ 1.875 mls/ hr TITRATE IV Last administered on 12/27/18 05:02; Admin Dose 37.5 MLS/HR; Start 12/24/18 at 11:00 Dopamine HCl/ Dextrose 250 ml @ 5.115 mls/ hr TITRATE IV Last administered on 12/26/18 23:09; Admin Dose 51.15 MLS/HR; Start 12/24/18 at 11:00 Vancomycin HCl (Vanco Iv Per Pharmacy) VANCOMYCIN PER PHARMACY PER PROTOCOL XX ; Start 12/24/18 at 13:00 Diagnostic Test (Pha) (Accu-Chek) 1 ea Q4H XX Last administered on 12/29/18 08:19; Admin Dose 1 EA; Start 12/24/18 at 16:00 Albumin Human 250 ml @ 250 mls/hr PRN PRN IV CVP<10; Start 12/24/18 at 21:30 Phenylephrine HCl 80 mg/Dextrose 250 ml @ 18.75 mls/ hr TITRATE IV Last administered on 12/29/18at 01:54; Admin Dose 9.38 MLS/HR; Start 12/24/18 at 23:00 Vasopressin 60 unit/Dextrose 60 ml @ 1.2 mls/hr Q12H IV Last administered on 12/28/18at 02:21; Admin Dose 0 MLS/HR; Start 12/25/18 at 01:00 Sodium Chloride 1,000 ml @ 50 mls/hr Q20H IV Last administered on 12/28/18at 21:48; Admin Dose 50 MLS/HR; Start 12/26/18 at 08:00 Insulin Aspart (Novolog Insulin Pen) NOVOLOG *MILD* ALGORI... Q4 SC ; Start 12/26/18 at 17:00 WANDA GEIGER Dec 29, 2018 11:05
--- NOTE | 2018-12-29 13:29 | CONS ---
Assessment/Plan Assessment/Plan Assessment/Plan (Daily) Patient pronounced brain at 1315 12/29/18. Confirmatory daeth done with Apnea test and clinical consistent with clinical brain . Jaylene Collins M.D. Consultation Date/Type/Reason Admit Date/Time Dec 24, 2018 at 05:33 Date/Time of Note DATE: 12/29/18 TIME: 13:24 Past Medical History Medical History: other (Unknown) Medications Current Medications Albuterol (Ventolin Hfa) 4 puff Q2H RESP THERAPY PRN INH SHORTNESS OF BREATH; Start 12/24/18 at 07:30 Ipratropium [place] (Atrovent Hfa) 4 puff Q2H RESP THERAPY PRN INH SHORTNESS OF BREATH; Start 12/24/18 at 06:30 Acetaminophen (Tylenol Liquid) 650 mg Q6H PRN PO PAIN LEVEL 1-3 OR FEVER Last administered on 12/29/18at 00:40; Admin Dose 650 MG; Start 12/24/18 at 06:30 Midazolam HCl 50 ml @ 2 mls/hr PER PROTOCOL IV Last administered on 12/26/18at 02:59; Admin Dose 4 MLS/HR; Start 12/24/18 at 07:30 Propofol 100 ml @ 2.041 mls/ hr PER PROTOCOL IV Last administered on 12/24/18at 07:27; Admin Dose 2.041 MLS/HR; Start 12/24/18 at 07:30 Acetaminophen (Tylenol Supp) 650 mg Q4H PRN [place] TEMP > 37C; Start 12/24/18 at 07:30 Acetaminophen (Tylenol Liquid) 650 mg Q4H PRN PO TEMP > 37C; Start 12/24/18 at 07:30 Meperidine HCl (Demerol) 12.5 mg Q4H PRN IV POST OPERATIVE SHIVERING; Start 12/24/18 at 07:30 Meperidine HCl (Demerol) 25 mg Q4H PRN IV POST OPERATIVE SHIVERING; Start 12/24/18 at 07:30 Eye Lubricant (Artificial Tears Oph) 2 drop Q6 BOTH EYES Last administered on 12/29/18at 12:45; Admin Dose 2 DROP; Start 12/24/18 at 12:00 Miscellaneous Information (* Miscellaneous Pharmacy Order) Treatment of Hypoglycemia: 1.BG 51... Per protocol XX ; Start 12/24/18 at 07:30 Dextrose (D50w Syringe) 25 ml Q15M PRN IV .DECREASED GLUCOSE Last administered on 12/26/18 13:32; Admin Dose 25 ML; Start 12/24/18 at 07:30 Dextrose (D50w Syringe) 50 ml Q15M PRN IV .DECREASED GLUCOSE; Start 12/24/18 at 07:30 Hypromellose (Genteal Severe) 1 applic Q6 BOTH EYES Last administered on 12/29/18 12:45; Admin Dose 1 APPLIC; Start 12/24/18 at 12:00 Fentanyl 100 ml @ 2.5 mls/hr TITRATE IV Last administered on 12/25/18 22:00; Admin Dose 2.5 MLS/HR; Start 12/24/18 at 08:30 Pantoprazole (Protonix Iv) 40 mg BID@06,18 IV Last administered on 12/29/18 05:55; Admin Dose 40 MG; Start 12/24/18 at 18:00 Piperacillin Sod/ Tazobactam Sod 50 ml @ 100 mls/hr Q8 IVPB Last administered on 12/29/18 05:55; Admin Dose 100 MLS/HR; Start 12/24/18 at 10:00 Norepinephrine 250 ml @ 1.875 mls/ hr TITRATE IV Last administered on 12/27/18 05:02; Admin Dose 37.5 MLS/HR; Start 12/24/18 at 11:00 Dopamine HCl/ Dextrose 250 ml @ 5.115 mls/ hr TITRATE IV Last administered on 12/26/18 23:09; Admin Dose 51.15 MLS/HR; Start 12/24/18 at 11:00 Vancomycin HCl (Vanco Iv Per Pharmacy) VANCOMYCIN PER PHARMACY PER PROTOCOL XX ; Start 12/24/18 at 13:00 Diagnostic Test (Pha) (Accu-Chek) 1 ea Q4H XX Last administered on 12/29/18 12:44; Admin Dose 1 EA; Start 12/24/18 at 16:00 Albumin Human 250 ml @ 250 mls/hr PRN PRN IV CVP<10; Start 12/24/18 at 21:30 Phenylephrine HCl 80 mg/Dextrose 250 ml @ 18.75 mls/ hr TITRATE IV Last administered on 4/13/19at 01:54; Admin Dose 9.38 MLS/HR; Start 12/24/18 at 23:00 Vasopressin 60 unit/Dextrose 60 ml @ 1.2 mls/hr Q12H IV Last administered on 12/28/18at 02:21; Admin Dose 0 MLS/HR; Start 12/25/18 at 01:00 Sodium Chloride 1,000 ml @ 50 mls/hr Q20H IV Last administered on 12/28/18at 21:48; Admin Dose 50 MLS/HR; Start 12/26/18 at 08:00 Insulin Aspart (Novolog Insulin Pen) NOVOLOG *MILD* ALGORI... Q4 SC ; Start 12/26/18 at 17:00 Allergies: Coded Allergies: No Known Allergies (Verified Allergy, Unknown, 12/24/18) Past Surgical History Past Surgical Hx: other Social History Smoking Status: Unknown if ever smoked Drug Use: cocaine, marijuana, other (Methamphetamine) Exam/Review of Systems Exam Vitals Vital Signs Date Temp Pulse Resp B/P (MAP) Pulse Ox O2 O2 Flow FiO2 Time Delivery Rate 12/29/18 81 12:00 12/29/18 22 100/64 98 10:00 (76) 12/29/18 30 08:00 12/29/18 98.7 08:00 12/29/18 Mechanical 06:45 Ventilator Intake and Output 12/28/18 12/28/18 12/29/18 1515:00 23:00 07:00 IntakeIntake Total 778.13 ml 553.09 ml 465.66 ml OutputOutput Total 760 ml 740 ml 1050 ml BalanceBalance 18.13 ml -186.91 ml -584.34 ml Results Result Diagram: 12/29/18 0426 12/29/18 0426 Results 24hrs Laboratory Tests Test 12/28/18 16:43 12/28/18 21:12 12/29/18 00:36 12/29/18 04:26 Bedside Glucose 81 97 84 White Blood 10.4 # Count Red Blood Count 2.80 L Hemoglobin 8.4 L Hematocrit 24.6 L Mean Corpuscular 87.9 Volume Mean Corpuscular 30.0 Hemoglobin Mean Corpuscular 34.1 Hemoglobin Lisa nt Red Cell 14.5 Distribution Width Platelet Count 55 #L Mean Platelet 12.0 H Volume Immature 3.000 H Granulocytes % Neutrophils % 84.8 H Lymphocytes % 5.0 L Monocytes % 6.6 Eosinophils % 0.3 Basophils % 0.3 Nucleated Red 0.2 H Blood Cells % Immature 0.310 H Granulocytes # Neutrophils # 8.8 H Lymphocytes # 0.5 L Monocytes # 0.7 Eosinophils # 0.0 Basophils # 0.0 Nucleated Red 0.0 Blood Cells # Sodium Level 135 Potassium Level 4.9 Chloride Level 95 L Carbon Dioxide 22 Level Anion Gap 18 H Blood Urea 105 H Nitrogen Creatinine 6.10 H Est Glomerular 10 L Filtrat Rate mL/min Glucose Level 85 Calcium Level 5.6 *L Phosphorus Level 12.4 H Magnesium Level 3.0 H Test 12/29/18 06:11 12/29/18 09:18 12/29/18 11:19 12/29/18 12:08 Bedside Glucose 84 90 Total Bilirubin 3.0 H Direct Bilirubin 2.40 H Indirect 0.6 Bilirubin Aspartate Amino 170 H Transf (AST/SGOT ) Alanine 123 H Aminotransferase (ALT/SGPT) Alkaline 234 H Phosphatase Ammonia < 9 L Total Protein 5.7 L Albumin 2.8 L Blood Gas Blood arterial Specimen Source Arterial Blood 12/29/2018 12:19 Date Drawn :23 PM Arterial Blood 7.375 pH (Temp corrected) Arterial Blood 36.0 pCO2 (Temp correct) Arterial Blood 96.8 pO2 (Temp corrected) Arterial Blood 20.6 L HCO3 Arterial Blood -4.1 L Base Excess Arterial Blood 96.9 Oxygen Saturatio n Adarsh Test ACCEPTAB Arterial Blood Right Radial Gas Puncture Site Arterial 0.9 Blood Carboxyhem oglobin Arterial Blood 0.3 Methemoglobin Blood Gas A-a O2 74.8 H Differential Oxyhemoglobin 95.7 Percent Blood Gas 37.0 Temperature Blood Gas 22.0 Respiration Rate Blood Gas Actual 22 Respiration Rate Blood Gas VENT - AC Modality FiO2 30.0 Blood Gas Tidal 500.0 Volume Blood Gas Low 5.0 PEEP Setting Blood Gas DAVID LA Notified Whom Blood Gas 12/29/2018 12:29 Notified Time :31 PM Test 12/29/18 12:38 12/29/18 12:53 Bedside Glucose 74 Blood Gas Blood arterial Specimen Source Arterial Blood 12/29/2018 12:49 Date Drawn :18 PM Arterial Blood 7.099 *L pH (Temp corrected) Arterial Blood 78.5 H pCO2 (Temp correct) Arterial Blood 365.6 H pO2 (Temp corrected) Arterial Blood 23.8 HCO3 Arterial Blood -6.3 L Base Excess Arterial Blood 99.8 H Oxygen Saturatio n Adarsh Test ACCEPTAB Arterial Blood Right Radial Gas Puncture Site Arterial 0.6 Blood Carboxyhem oglobin Arterial Blood 0.3 Methemoglobin Oxyhemoglobin 98.9 Percent Blood Gas 37.0 Temperature Blood Gas 0 Respiration Rate Blood Gas Actual 0 Respiration Rate Blood Gas NASAL CANNULA Modality FiO2 39.0 Blood Gas HAO ERESE Critical Value Read Back Blood Gas DAVID LA Notified Whom Blood Gas 12/29/2018 12:59 Notified Time :46 PM Medications Medication Current Medications Albuterol (Ventolin Hfa) 4 puff Q2H RESP THERAPY PRN INH SHORTNESS OF BREATH; Start 12/24/18 at 07:30 Ipratropium [place] (Atrovent Hfa) 4 puff Q2H RESP THERAPY PRN INH SHORTNESS OF BREATH; Start 12/24/18 at 06:30 Acetaminophen (Tylenol Liquid) 650 mg Q6H PRN PO PAIN LEVEL 1-3 OR FEVER Last administered on 12/29/18at 00:40; Admin Dose 650 MG; Start 12/24/18 at 06:30 Midazolam HCl 50 ml @ 2 mls/hr PER PROTOCOL IV Last administered on 12/26/18at 02:59; Admin Dose 4 MLS/HR; Start 12/24/18 at 07:30 Propofol 100 ml @ 2.041 mls/ hr PER PROTOCOL IV Last administered on 12/24/18at 07:27; Admin Dose 2.041 MLS/HR; Start 12/24/18 at 07:30 Acetaminophen (Tylenol Supp) 650 mg Q4H PRN [place] TEMP > 37C; Start 12/24/18 at 07:30 Acetaminophen (Tylenol Liquid) 650 mg Q4H PRN PO TEMP > 37C; Start 12/24/18 at 07:30 Meperidine HCl (Demerol) 12.5 mg Q4H PRN IV POST OPERATIVE SHIVERING; Start 12/24/18 at 07:30 Meperidine HCl (Demerol) 25 mg Q4H PRN IV POST OPERATIVE SHIVERING; Start 12/24/18 at 07:30 Eye Lubricant (Artificial Tears Oph) 2 drop Q6 BOTH EYES Last administered on 12/29/18 12:45; Admin Dose 2 DROP; Start 12/24/18 at 12:00 Miscellaneous Information (* Miscellaneous Pharmacy Order) Treatment of Hypoglycemia: 1.BG 51... Per protocol XX ; Start 12/24/18 at 07:30 Dextrose (D50w Syringe) 25 ml Q15M PRN IV .DECREASED GLUCOSE Last administered on 12/26/18 13:32; Admin Dose 25 ML; Start 12/24/18 at 07:30 Dextrose (D50w Syringe) 50 ml Q15M PRN IV .DECREASED GLUCOSE; Start 12/24/18 at 07:30 Hypromellose (Genteal Severe) 1 applic Q6 BOTH EYES Last administered on 12/29/18 12:45; Admin Dose 1 APPLIC; Start 12/24/18 at 12:00 Fentanyl 100 ml @ 2.5 mls/hr TITRATE IV Last administered on 12/25/18 22:00; Admin Dose 2.5 MLS/HR; Start 12/24/18 at 08:30 Pantoprazole (Protonix Iv) 40 mg BID@06,18 IV Last administered on 12/29/18 05:55; Admin Dose 40 MG; Start 12/24/18 at 18:00 Piperacillin Sod/ Tazobactam Sod 50 ml @ 100 mls/hr Q8 IVPB Last administered on 12/29/18 05:55; Admin Dose 100 MLS/HR; Start 12/24/18 at 10:00 Norepinephrine 250 ml @ 1.875 mls/ hr TITRATE IV Last administered on 12/27/18 05:02; Admin Dose 37.5 MLS/HR; Start 12/24/18 at 11:00 Dopamine HCl/ Dextrose 250 ml @ 5.115 mls/ hr TITRATE IV Last administered on 12/26/18 23:09; Admin Dose 51.15 MLS/HR; Start 12/24/18 at 11:00 Vancomycin HCl (Vanco Iv Per Pharmacy) VANCOMYCIN PER PHARMACY PER PROTOCOL XX ; Start 12/24/18 at 13:00 Diagnostic Test (Pha) (Accu-Chek) 1 ea Q4H XX Last administered on 12/29/18 12:44; Admin Dose 1 EA; Start 12/24/18 at 16:00 Albumin Human 250 ml @ 250 mls/hr PRN PRN IV CVP<10; Start 12/24/18 at 21:30 Phenylephrine HCl 80 mg/Dextrose 250 ml @ 18.75 mls/ hr TITRATE IV Last administered on 12/29/18at 01:54; Admin Dose 9.38 MLS/HR; Start 12/24/18 at 23:00 Vasopressin 60 unit/Dextrose 60 ml @ 1.2 mls/hr Q12H IV Last administered on 12/28/18at 02:21; Admin Dose 0 MLS/HR; Start 12/25/18 at 01:00 Sodium Chloride 1,000 ml @ 50 mls/hr Q20H IV Last administered on 12/28/18at 21:48; Admin Dose 50 MLS/HR; Start 12/26/18 at 08:00 Insulin Aspart (Novolog Insulin Pen) NOVOLOG *MILD* ALGORI... Q4 SC ; Start 12/26/18 at 17:00 JAYLENE COLLINS Dec 29, 2018 13:29
[2018-12-29] MEDS: SOD CHLORIDE 0.9% 1,000 ML IV SCH (15:45)
== END 2018-12-29 22:00 | disposition expired | DRG 207 ==
LOC: E/R 04:56 → ICU 05:33 → EDBD 05:33 → ICU 12-29 22:10
PROVIDERS: ADMIT Family Medicine; ATTEND Internal Medicine
PROC: 0BH18EZ Insertion of Endotracheal Airway into Trachea, Via Natural or Artificial Opening Endoscopic (ICD-10-PCS; 2018-12-24)
PROC: 4A023N7 Measurement of Cardiac Sampling and Pressure, Left Heart, Percutaneous Approach (ICD-10-PCS; 2018-12-24)
PROC: B211YZZ Fluoroscopy of Multiple Coronary Arteries using Other Contrast (ICD-10-PCS; 2018-12-24)
PROC: B215YZZ Fluoroscopy of Left Heart using Other Contrast (ICD-10-PCS; 2018-12-24)
PROC: 5A1955Z Respiratory Ventilation, Greater than 96 Consecutive Hours (ICD-10-PCS; principal; 2018-12-24 05:30)
DX: J69.0 Pneumonitis due to inhalation of food and vomit (principal); J96.00 Acute respiratory failure, unspecified whether with hypoxia or hypercapnia; K72.01 Acute and subacute hepatic failure with coma; N17.0 Acute kidney failure with tubular necrosis; G92 Toxic encephalopathy; K72.00 Acute and subacute hepatic failure without coma; I21.A1 Myocardial infarction type 2; M62.82 Rhabdomyolysis; D61.818 Other pancytopenia; E87.4 Mixed disorder of acid-base balance; G93.1 Anoxic brain damage, not elsewhere classified; D68.9 Coagulation defect, unspecified; E87.1 Hypo-osmolality and hyponatremia; J15.211 Pneumonia due to Methicillin susceptible Staphylococcus aureus; I46.8 Cardiac arrest due to other underlying condition; E87.6 Hypokalemia; D69.6 Thrombocytopenia, unspecified; D64.9 Anemia, unspecified; R73.9 Hyperglycemia, unspecified; E87.5 Hyperkalemia; E83.39 Other disorders of phosphorus metabolism; F15.129 Other stimulant abuse with intoxication, unspecified; E83.51 Hypocalcemia; R57.8 Other shock
CPT/HCPCS: 31500; 36600; 70450; 71045; 76705; 76775; 80048; 80053; 80061; 80076; 80202; 80307; 81001; 82140; 82150; 82306; 82330; 82550; 82553; 82803; 82962; 83036; 83605; 83615; 83690; 83735; 83880; 84075; 84100; 84443; 84484; 85025; 85384; 85610; 85730; 86703; 86706; 86803; 87070; 87081; 87340; 89220; 92950; 93005; 93306; 93458; 94002; 94003; 94770; C1751; C9113; C9606; J0171; J0610; J1265; J1815; J2250; J2370; J2543; J3010; J3370; J3480; J7030; J7050; J7070; P9047

== ENCOUNTER 2018-12-29 21:32 | Inpatient (IN) | payer OTHER ==
[2018-12-29 21:59] VITALS: RESP 22
[2018-12-29] MEDS ORDERED: METHYLPREDNISOLONE (10 MG/ML) IV SYG IV SCH (22:30)
[2018-12-29] MEDS ORDERED: HETASTARCH 6% NACL 500 ML BAG IV* ONE (22:30)
[2018-12-29] MEDS ORDERED: DEXTROSE 5% IV ONE (23:00)
[2018-12-29] MEDS ORDERED: METHYLPRED NA SUCC IV ONE (23:00)
[2018-12-29] MEDS: VASOPRESSIN 60 UNIT in DEXTROSE 5% 57 ML IV SCH (23:18)
[2018-12-30] VITALS (81 sets, daily range): BP systolic 88–145; BP diastolic 53–83; PULSE 60–78; RESP 20–22
[2018-12-30] MEDS: LEVOTHYROXINE 200 MCG in SOD CHLORIDE 0.9% 500 ML IV SCH ×2 (00:10→17:36)
[2018-12-30] MEDS ORDERED: SODIUM BICARBONATE (IV ADD) 150 MEQ in DEXTROSE 5% 850 ML IV SCH (00:30)
[2018-12-30] MEDS ORDERED: HETASTARCH 6% NACL 500 ML BAG IV* ONE (00:30)
[2018-12-30] MEDS ORDERED: CALCIUM GLUCONATE 10% 2 GM in DEXTROSE 5% 100 ML IVPB ONE ×2 (00:30→06:30)
[2018-12-30] MEDS ORDERED: VANCOMYCIN 1.25 GM in SOD CHLORIDE 0.9% 250 ML IVPB ONE (00:30)
[2018-12-30] MEDS: SODIUM BICARBONATE (IV ADD) 150 MEQ in DEXTROSE 5% 850 ML IV SCH ×5 (01:02→22:30)
[2018-12-30] MEDS: DOBUTamine/D5W 2 MG/ML DRIP 250 ML IV SCH (01:11)
[2018-12-30] MEDS ORDERED: FUROSEMIDE 40 MG INJ IV ONE (03:30)
[2018-12-30] MEDS ORDERED: METOLAZONE 5 MG TAB PO ONE (03:30)
[2018-12-30] MEDS ORDERED: METOLAZONE 10 MG TAB PO ONE (03:30)
[2018-12-30] MEDS ORDERED: METHYLPREDNISOLONE (10 MG/ML) IV SYG IV SCH (06:00)
[2018-12-30] MEDS: ACCU-CHEK XX SCH ×16 (07:30→23:56)
[2018-12-30] MEDS ORDERED: DEXTROSE 50% 50 ML SYRINGE IV PRN ×2 (07:30)
[2018-12-30] MEDS: SOD CHLORIDE 0.9% IV SCH ×3 (07:56→23:55)
[2018-12-30] MEDS: METHYLPRED NA SUCC IV SCH ×3 (07:56→23:55)
[2018-12-30] MEDS ORDERED: CA CHLORIDE 10% 10 ML SYRINGE IV ONE ×2 (08:00→20:00)
[2018-12-30] MEDS: PIPER-TAZO 2.25 GM (PMX) 50 ML IVPB SCH ×3 (08:04→21:38)
--- NOTE | 2018-12-30 08:11 | PN ---
DATE: 12/30/2018 SUBJECTIVE: The patient has been transferred organ procurement to [facility]. A request has been mad e for hemodialysis. The patient remains critically ill on pressor support. No other acute events no yonny. No hemoptysis, hematemesis or hematochezia. OBJECTIVE: VITAL SIGNS: Blood pressure is 110/72, respirations 22, pulse 74, temperature 97.8. HEENT: Head is normocephalic. NECK: Supple. HEART: Regular rate. LUNGS: Show diminished breath sounds at the base. ABDOMEN: Soft, nontender to palpation without rebound or guarding. EXTREMITIES: Negative for clubbing, cyanosis. Positive edema. DERMATOLOGIC: No rashes. MUSCULOSKELETAL: No joint effusion. NEUROLOGIC: No change in exam. MEDICATIONS: The patient's medication have been reviewed. LABORATORY DATA: Reviewed. ASSESSMENT AND PLAN: 1. Nonoliguric acute kidney injury with unknown baseline creatinine. Etiology is secondary to acute tubular necrosis due to ischemic hypoperfusion, shock. The patient remains in injury phase of acute tubular necrosis. A request has been made for hemodialysis per [facility]. Plan is to consult Dr. Preet paige for Jassi catheter placement. Once the catheter is placed we will initiate the patient on hemodialysis. 2. Hyperkalemia, improved. Continue to monitor. 3. Hypernatremia secondary to acute kidney injury, improved. 4. Mixed acid base disorder. The patient's ABG was reviewed. Continue to monitor. 5. Mineral bone disorder. The patient is hyperphosphatemic, hypocalcemic secondary to acute kidney injury. Anticipate dialysis for solute clearance. 6. Shock, etiology is secondary to septic, cardiac. Continue current medical management. Continue pressor support, IV antibiotics. 7. Status post cardiac arrest. Etiology is unclear. Continue to monitor. 8. Ventilator-dependent respiratory failure. Vent settings and ABG was reviewed. 9. Acute encephalopathy with anoxic injury. The patient had an apnea test, which confirmed brain de ath. DISPOSITION: The patient is being evaluated for organ procurement. We will initiate hemodialysis on ce access is obtained. Please note I spent over 30 minutes of critical care time with this patient. Dictated By: HERB VASQUEZ/TRENTON Conf#: [id number] DID#: [id number] CC: OTILIA JONES MD; ANASTASIA GILBERT MD;*[facility]*
[2018-12-30] MEDS: INSULIN HUMAN REGULAR 100 UNIT in SOD CHLORIDE 0.9% 99 ML IV SCH ×2 (08:13→21:50)
[2018-12-30] MEDS ORDERED: CALCIUM CHLORIDE IV SCH (09:00)
[2018-12-30] MEDS ORDERED: DEXTROSE 5% IV SCH (09:00)
[2018-12-30] MEDS ORDERED: HEPARIN 1000 UNITS/ML 10 ML INJ ONE (09:20)
--- NOTE | 2018-12-30 09:42 | CONS ---
DATE OF ADMISSION: 12/29/2018 DATE OF CONSULTATION: 12/30/2018 REASON FOR CONSULTATION: Evaluation for dialysis catheter placement. HISTORY OF PRESENT ILLNESS: This is a 48-year-old male who was found down. Subsequently, was resusc itated, has been declared brain . We will be going for organ donation and we will need dialysis access for acute dialysis. PAST MEDICAL HISTORY: Unknown. PAST SURGICAL HISTORY: Unknown. ALLERGIES: Unknown. SOCIAL HISTORY: Unknown. PHYSICAL EXAMINATION: VITAL SIGNS: Blood pressure is 110/72, pulse is 74, respirations 22, saturations 97%. HEENT: Orotracheally intubated. CARDIOVASCULAR: Regular rate and rhythm. LUNGS: Clear. ABDOMEN: Soft. EXTREMITIES: Warm. LABORATORY VALUES: Significant for a hemoglobin of 7, white count 9.4, platelet count 70. INR 1.14, PTT 40. IMPRESSION: Renal failure. RECOMMENDATIONS: We will proceed with the placement of a hemodialysis catheter. I discussed with [facility] nursing staff. Dictated By: OTILIA JONES MD FM/NTS Conf#: [id number] DID#: [id number] CC: OTILIA JONES MD; ANASTASIA GILBERT MD;*EndCC*
--- NOTE | 2018-12-30 09:55 | OPR ---
DATE OF OPERATION: 12/30/2018 PREOPERATIVE DIAGNOSIS: Acute renal failure. POSTOPERATIVE DIAGNOSIS: Acute renal failure. OPERATION PERFORMED: 1. Left femoral hemodialysis catheter placement. 2. Ultrasound guidance into the central vein. SURGEON: Otilia Zimmerman M.D. ANESTHESIA: Local. INDICATIONS: This is a patient who was declared brain , renal failure. I was asked to proceed w ith the placement of a dialysis catheter. OPERATIVE TECHNIQUE: Under ultrasonic guidance, access was gained in the left common femoral vein. Guidewire was advanced through without any difficulty. Subcutaneous tissues dilated 20 cm dialysis c atheter advanced over guidewire, secured to skin using 2-0 silk sutures. Both ports of the catheter were aspirated and injected using Heparin saline solution. The patient tolerated procedure well. Dictated By: OTILIA ZIMMERMAN MD FM/NTS Conf#: [id number] DID#: [id number] CC: OTILIA ZIMMERMAN MD; ANASTASIA GILBERT MD;*End*
--- NOTE | 2018-12-30 12:02 | CONS ---
Assessment/Plan Assessment/Plan Hospital Course (Demo Recall) ID PROGRESS NOTE CURRENT ABX: DAY # => Vanco IV # 6.5 + Zosyn #6.5 24H INTERVAL SUMMARY = STATUS CHANGE * DUPLICATE NOTE PLACE IN ERROR === UNABLE TO DC * PLEASE REFER TO ALTERNATIVE ID NOTE OF SAME DATE . Consultation Date/Type/Reason Admit Date/Time Dec 29, 2018 at 21:32 Initial Consult Date Date/Time of Note DATE: 12/30/18 TIME: 11:54 Exam/Review of Systems Exam Vitals Vital Signs Date Temp Pulse Resp B/P (MAP) Pulse Ox O2 O2 Flow FiO2 Time Delivery Rate 12/30/18 69 22 137/79 99 11:30 (98) 12/30/18 Mechanical 11:00 Ventilator 12/30/18 97.9 08:00 12/30/18 30 06:00 Intake and Output 12/29/18 12/29/18 12/30/18 1414:59 22:59 06:59 IntakeIntake Total 739.556 ml OutputOutput Total 350 ml 1215 ml BalanceBalance -350 ml -475.444 ml Results Result Diagram: 12/30/18 0951 12/30/18 0951 Results 24hrs Laboratory Tests Test 12/29/18 22:00 12/29/18 22:10 12/29/18 22:29 12/30/18 02:02 Urine Color CRISTINA Urine Clarity CLOUDY A Urine pH 5.0 Urine Specific 1.017 [place] Urine Ketones NEGATIVE Urine Nitrite NEGATIVE Urine Bilirubin NEGATIVE Urine NEGATIVE Urobilinogen Urine Leukocyte NEGATIVE Esterase Urine 169 H Microscopic RBC Urine 27 H Microscopic WBC Urine Squamous FEW Epithelial Cell s Urine Amorphous FEW A Crystals Urine Bacteria FEW A Urine Mucus FEW A Urine 3+ H Hemoglobin Urine Glucose NEGATIVE Urine Total 1+ H Protein White Blood 11.0 H Count Red Blood Count 2.74 L Hemoglobin 8.2 L Hematocrit 24.0 L Mean 87.6 Corpuscular Volume Mean 29.9 Corpuscular Hemoglobin Mean 34.2 Corpuscular Hemoglobin Conc ent Red Cell 14.5 Distribution Width Platelet Count 79 #L Mean Platelet 11.9 H Volume Immature 5.200 H Granulocytes % Neutrophils % Segmented 79 H Neutrophils % (Manual) Band 6 H Neutrophils % (Manual) Lymphocytes % Lymphocytes % 5 L (Manual) Monocytes % Monocytes % 7 (Manual) Eosinophils % Eosinophils % 1 (Manual) Basophils % Metamyelocytes 1 H % (manual) Myelocytes % 1 H (Manual) Nucleated Red 1 H Blood Cells % Immature 0.570 H Granulocytes # Neutrophils # Neutrophils # 8.8 H (Manual) Band 0.6 Neutrophils # Lymphocytes 0.5 L (Manual) Lymphocytes # Monocytes # Monocytes # 0.7 (Manual) Eosinophils # Basophils # Metamyelocytes 0.1 H # Myelocytes # 0.1 H Nucleated Red Blood Cells # Platelet DECREASED Estimate Polychromasia 3+ Target Cells 1+ Prothrombin 14.4 Time Prothrombin 1.1 Time Ratio INR 1.11 International Normalized Rati o Activated 40.8 H Partial Thrombo plast Time Sodium Level 131 L Potassium Level 4.5 Chloride Level 96 L Carbon Dioxide 21 Level Anion Gap 14 H Blood Urea 127 H Nitrogen Creatinine 6.96 H Est Glomerular 8 L Filtrat Rate mL/min Glucose Level 74 Osmolality 324 H Lactic Acid 0.8 Level Calcium Level 6.0 L Ionized Calcium 0.7 L (Measured) Phosphorus 13.9 H Level Magnesium Level 3.3 H Total Bilirubin 4.9 H Direct 4.50 #H Bilirubin Indirect 0.4 Bilirubin Gamma Glutamyl 455 H Transpeptidase Aspartate Amino 197 H Transf (AST/SGO T) Alanine 108 H Aminotransferas e (ALT/SGPT) Alkaline 354 #H Phosphatase Lactate 3312 H Dehydrogenase Creatine Kinase 1545 H Creatine Kinase 0.9 Index Creatinine 14.30 H Kinase MB (Mass) Troponin I 0.289 *H Total Protein 6.1 Albumin 3.0 L Globulin 3.10 Albumin/Globuli 0.96 n Ratio Amylase Level 59 Lipase 108 Blood Gas Blood arterial Specimen Source Arterial Blood 12/29/2018 10:25 Date Drawn :30 PM Arterial Blood 7.365 pH (Temp corrected ) Arterial Blood 31.0 L pCO2 (Temp correct) Arterial Blood 115.0 H pO2 (Temp corrected ) Arterial Blood 17.3 L HCO3 Arterial Blood -7.3 L Base Excess Arterial Blood 97.9 Oxygen Saturati on Adarsh Test N/A Arterial Blood A-Line Gas Puncture Site Arterial 0.7 Blood Carboxyhe moglobin Arterial Blood 0.3 Methemoglobin Blood Gas A-a 62.5 H O2 Differential Oxyhemoglobin 96.9 Percent Blood Gas 37.0 Temperature Blood Gas 22.0 Respiration Rate Blood Gas 22 Actual Respiration Rat e Blood Gas VENT - AC Modality FiO2 30.0 Blood Gas Tidal 500.0 Volume Blood Gas Low 5.0 PEEP Setting Blood Gas UP Notified Whom Blood Gas 12/29/2018 10:35 Notified Time :45 PM Bedside Glucose 124 Test 12/30/18 02:25 12/30/18 03:35 12/30/18 03:39 12/30/18 04:51 Blood Gas Blood arterial Blood Specimen arterial Source Arterial Blood 12/30/2018 2:36: 12/30/2018 5:00 Date Drawn 06 AM :48 AM Arterial Blood 7.275 *L 7.307 L pH (Temp corrected ) Arterial Blood 42.4 37.3 pCO2 (Temp correct) Arterial Blood 77.6 L 107.9 H pO2 (Temp corrected ) Arterial Blood 19.3 L 18.2 L HCO3 Arterial Blood -7.0 L -7.4 L Base Excess Arterial Blood 93.0 L 97.2 Oxygen Saturati on Adarsh Test N/A N/A Arterial Blood A-Line A-Line Gas Puncture Site Arterial 1.1 0.9 Blood Carboxyhe moglobin Arterial Blood 0.3 0.3 Methemoglobin Blood Gas A-a 86.5 H 62.2 H O2 Differential Oxyhemoglobin 91.7 L 96.0 Percent Blood Gas 37.0 37.0 Temperature Blood Gas 22.0 22.0 Respiration Rate Blood Gas 22 22 Actual Respiration Rat e Blood Gas VENT - BIPHASIC VENT Modality - BIPHASIC FiO2 30.0 30.0 Blood Gas 0.40 0.42 Inspiratory Time Blood Gas Tidal 382.0 Volume Blood Gas High 31.0 31.0 PEEP Setting Blood Gas Low 0 0 PEEP Setting Blood Gas 0 Pressure Support Blood Gas Brice FOSTER RN Critical Value Read Back Blood Gas MG UP Notified Whom Blood Gas 12/30/2018 2:43: 12/30/2018 5:16 Notified Time 29 AM :22 AM White Blood 9.4 Count Red Blood Count 2.33 L Hemoglobin 7.0 L Hematocrit 20.6 L Mean 88.4 Corpuscular Volume Mean 30.0 Corpuscular Hemoglobin Mean 34.0 Corpuscular Hemoglobin Conc ent Red Cell 14.7 H Distribution Width Platelet Count 70 L Mean Platelet 12.3 H Volume Immature 4.400 H Granulocytes % Neutrophils % 85.9 H Lymphocytes % 4.1 L Monocytes % 5.0 Eosinophils % 0.3 Basophils % 0.3 Nucleated Red 0.0 Blood Cells % Immature 0.410 H Granulocytes # Neutrophils # 8.1 H Lymphocytes # 0.4 L Monocytes # 0.5 Eosinophils # 0.0 Basophils # 0.0 Nucleated Red 0.0 Blood Cells # Prothrombin 14.4 Time Prothrombin 1.1 Time Ratio INR 1.11 International Normalized Rati o Activated 40.1 H Partial Thrombo plast Time Sodium Level 136 Potassium Level 4.8 Chloride Level 99 Carbon Dioxide 19 L Level Anion Gap 18 H Blood Urea 128 H Nitrogen Creatinine 7.13 H Est Glomerular 8 L Filtrat Rate mL/min Glucose Level 154 Osmolality 329 H Lactic Acid 0.8 Level Calcium Level 5.5 *L Ionized Calcium 0.7 L (Measured) Phosphorus 15.1 H Level Magnesium Level 3.5 H Total Bilirubin 5.3 H Direct 4.90 H Bilirubin Indirect 0.4 Bilirubin Aspartate Amino 180 H Transf (AST/SGO T) Alanine 98 H Aminotransferas e (ALT/SGPT) Alkaline 336 H Phosphatase Lactate 3175 H Dehydrogenase Creatine Kinase 1359 H Creatine Kinase 0.9 Index Creatinine 11.80 H Kinase MB (Mass) Troponin I 0.198 *H Total Protein 5.3 L Albumin 2.6 L Globulin 2.70 Albumin/Globuli 0.96 n Ratio Amylase Level 68 Lipase 125 Bedside Glucose 157 Test 12/30/18 07:04 12/30/18 08:06 12/30/18 08:56 12/30/18 09:51 Bedside Glucose 249 H 242 H 247 H White Blood 8.6 Count Red Blood Count 2.29 L Hemoglobin 6.9 *L Hematocrit 20.4 L Mean 89.1 Corpuscular Volume Mean 30.1 Corpuscular Hemoglobin Mean 33.8 Corpuscular Hemoglobin Conc ent Red Cell 14.8 H Distribution Width Platelet Count 63 L Mean Platelet 12.4 H Volume Immature 4.800 H Granulocytes % Neutrophils % 89.1 H Lymphocytes % 3.5 L Monocytes % 2.4 Eosinophils % 0.0 Basophils % 0.2 Nucleated Red 0.2 H Blood Cells % Immature 0.410 H Granulocytes # Neutrophils # 7.7 H Lymphocytes # 0.3 L Monocytes # 0.2 L Eosinophils # 0.0 Basophils # 0.0 Nucleated Red 0.0 Blood Cells # Pathologist YES Review (Hematol ogy) Prothrombin 15.6 H Time Prothrombin 1.2 Time Ratio INR 1.23 International Normalized Rati o Activated 55.6 H Partial Thrombo plast Time Sodium Level 136 Potassium Level 4.9 Chloride Level 96 L Carbon Dioxide 20 L Level Anion Gap 20 H Blood Urea 134 H Nitrogen Creatinine 7.22 H Est Glomerular 8 L Filtrat Rate mL/min Glucose Level 239 H Osmolality 338 H Lactic Acid 1.4 Level Calcium Level 6.5 L Ionized Calcium 0.8 L (Measured) Phosphorus 16.9 H Level Magnesium Level 3.4 H Total Bilirubin 5.8 H Direct 5.40 H Bilirubin Indirect 0.4 Bilirubin Aspartate Amino 180 H Transf (AST/SGO T) Alanine 98 H Aminotransferas e (ALT/SGPT) Alkaline 330 H Phosphatase Lactate 3364 H Dehydrogenase Creatine Kinase 1290 H Creatine Kinase 1.0 Index Creatinine 12.50 H Kinase MB (Mass) Troponin I 0.109 Total Protein 5.3 L Albumin 2.6 L Globulin 2.70 Albumin/Globuli 0.96 n Ratio Amylase Level 93 Lipase 125 Test 12/30/18 09:53 12/30/18 11:05 12/30/18 11:07 Bedside Glucose 253 H 217 Blood Gas Blood arterial Specimen Source Arterial Blood 12/30/2018 11:00 Date Drawn :30 AM Arterial Blood 7.313 L pH (Temp corrected ) Arterial Blood 40.9 pCO2 (Temp correct) Arterial Blood 113.2 H pO2 (Temp corrected ) Arterial Blood 20.3 L HCO3 Arterial Blood -5.5 L Base Excess Arterial Blood 97.9 Oxygen Saturati on Adarsh Test N/A Arterial Blood A-Line Gas Puncture Site Arterial 1.2 Blood Carboxyhe moglobin Arterial Blood 0.3 Methemoglobin Blood Gas A-a 52.6 H O2 Differential Oxyhemoglobin 96.4 Percent Blood Gas 37.0 Temperature Blood Gas 22.0 Respiration Rate Blood Gas 22 Actual Respiration Rat e Blood Gas VENT - BIPHASIC Modality FiO2 30.0 Blood Gas 0.42 Inspiratory Time Blood Gas Tidal 417.0 Volume Blood Gas Mean 27 Airway Pressure Blood Gas High 33.0 PEEP Setting Blood Gas Low 0 PEEP Setting Blood Gas Claudia [employer] Notified Whom Blood Gas 12/30/2018 11:22 Notified Time :32 AM Medications Medication Current Medications Piperacillin Sod/ Tazobactam Sod 50 ml @ 100 mls/hr Q8 IVPB Last administered on 12/30/18at 08:04; Admin Dose 100 MLS/HR; Start 12/30/18 at 06:00 Vasopressin 60 unit/Dextrose 60 ml @ 1.2 mls/hr Q12H IV Last administered on 12/29/18at 23:18; Admin Dose 2.4 MLS/HR; Start 12/29/18 at 22:30 Levothyroxine Sodium 200 mcg/ Sodium Chloride 500 ml @ 25 mls/hr Q20H IV Last administered on 12/30/18at 00:10; Admin Dose 25 MLS/HR; Start 12/29/18 at 23:30 Dobutamine HCl/ Dextrose 250 ml @ 0.628 mls/ hr IV IV Last administered on 12/30/18at 01:11; Admin Dose 0.628 MLS/HR; Start 12/29/18 at 23:00 Sodium Bicarbonate 150 meq/Dextrose 1,000 ml @ 150 mls/hr Q6H40M IV Last administered on 12/30/18at 07:55; Admin Dose 150 MLS/HR; Start 12/30/18 at 01:00 Methylprednisolone Sodium Succinate 500 mg/Sodium Chloride 50 ml @ 100 mls/hr Q8H IV Last administered on 12/30/18at 07:56; Admin Dose 100 MLS/HR; Start 12/30/18 at 08:00 Diagnostic Test (Pha) (Accu-Chek) 1 ea Q1H XX ; Start 12/30/18 at 07:30 Insulin Human Regular 100 unit/ Sodium Chloride 100 ml @ 0 mls/hr PER PROTOCOL IV Last administered on 12/30/18at 08:13; Admin Dose 3 MLS/HR; Start 12/30/18 at 08:00 Miscellaneous Information (* Miscellaneous Pharmacy Order) Treatment of Hypoglycemia: 1.BG 51... Per protocol XX ; Start 12/30/18 at 07:30 Dextrose (D50w Syringe) 25 ml Q15M PRN IV .DECREASED GLUCOSE; Start 12/30/18 at 07:30 Dextrose (D50w Syringe) 50 ml Q15M PRN IV .DECREASED GLUCOSE; Start 12/30/18 at 07:30 ANGEL KUHN NP Dec 30, 2018 12:02
--- NOTE | 2018-12-30 12:30 | CONS ---
Assessment/Plan Assessment/Plan Hospital Course (Demo Recall) ID PROGRESS NOTE CURRENT ABX: DAY # => Vanco IV # 6.5 + Zosyn #6.5 24H INTERVAL SUMMARY = STATUS CHANGE * YESTERDAY: Patient pronounced brain at 1315 12/29/18. Confirmatory STATUS COMPLETED with Apnea test and clinical consistent with clinical brain . * Patient TRANSFERRED TO ORGAN PROCUREMENT STATUS via [facility]. * Remains on IV ABX for clinical sepsis with recent placement of HD catheter w/plans to initiate HD. * Fevers resolving over past 36+ hours MICRO/OTHER * 12/27/18 ETT RESP CX (+) RESPIRATORY CULTURE Final Organism 1 STAPHYLOCOCCUS AUREUS QUANTITY SCANT GROWTH S AUREUS M.I.C. RX --------- --- CEFAZOLIN S CIPROFLOXACIN <=0.5 S CLINDAMYCIN R DOXYCYCLINE S ERYTHROMYCIN 4 R LEVOFLOXACIN <=0.12 S OXACILLIN 0.5 S PENICILLIN-G >=0.5 R RIFAMPIN <=0.5 S VANCOMYCIN <=0.5 S TRIMETHOPRIM/SULFAMETHOXAZOLE <=10 S * 12/25/18 BCx (-) * 12/24/18 BCx (-) * (-)MRSA Nares Screen PHYSICAL EXAMINATION: GENERAL: Non-responsive on the Vent HEENT: AT, NC, anicteric, ETT/OGT secure NECK: Supple, Trach midline CHEST: Equal chest rise bilaterally-=> Vented HEART: Pulse RRR, Sinus rhythm on tele ABDOMEN: Soft / NT : FC RECTAL: Fecal containment device w/liquid greenish stool EXTREMITIES: Warm, dry SKIN: No rash, no diaphoresis ID ASSESSMENT 48 yo M s/p CPA, found down on street, w/ROSC -> presented [facility] from EMS w/CODE STEMI, currently see in ICU w/: 1. Systemic shock with severe lactic acidosis likely secondary to cardiogenic shock versus neurogenic versus liver failure * Leukocytosis 2. Staph Aureus PNA + Probable ASP Pneumonitis event during CPR followed by oral intubation * 12/27/18 ETT RESP CX (+) RESPIRATORY CULTURE Organism 1 STAPHYLOCOCCUS AUREUS QUANTITY SCANT GROWTH * 12/24/18 CXR: 1. Right upper lobe interstitial opacities, improved when compared to the prior examination. 2. Asymmetric left lung interstitial opacities may reflect edema or pneumonia, not significantly changed. 3. Probable small right pleural effusion. * 12/25/17 CXR: Complete opacification of the left hemithorax, likely representing collapsed lung however coexisting pneumonia not excluded. 3. CALIN CONFIRMED 12/29/18 4. s/p Cardiac arrest, likely secondary to possible substance use, status post ACLS with ROSC * NSTEMI, status post left heart catheterization with NON-OBSTRUCTED coronary arteries 5. Acute respiratory failure -> Orally intubated/vented 6. Severe rhabdomyolysis w/acute renal insufficiency 7. Acute hepatic failure likely secondary to shock liver 8. Pancytopenia 9. Coagulopathy likely secondary to DIC 10. Hyperglycemia :on Insulin GTT, but A1c 5.6 11. Multisubstance abuse (meth / marijuana) 12. Diarrhea-> ABX associated w/greenish liquid (-)MRSA Nares ABX ALLERGIES: KNDA INVASIVES: PIV CURRENT ABX: DAY # => Vanco IV # 6.5 + Zosyn #6.5 ID RECOMMENDATIONS/PLAN: 1.Patient TRANSFERRED TO ORGAN PROCUREMENT STATUS via [facility]. 2. ABX will be managed from this point on by [facility] who require continuation of Vanco IV + Zosyn * Thank you -- ID consultants will sign off the case. . . Consultation Date/Type/Reason Admit Date/Time Dec 29, 2018 at 21:32 Initial Consult Date Date/Time of Note DATE: 12/30/18 TIME: 12:24 Exam/Review of Systems Exam Vitals Vital Signs Date Temp Pulse Resp B/P (MAP) Pulse Ox O2 O2 Flow FiO2 Time Delivery Rate 12/30/18 67 12:00 12/30/18 22 137/79 99 11:30 (98) 12/30/18 Mechanical 11:00 Ventilator 12/30/18 97.9 08:00 12/30/18 30 06:00 Intake and Output 12/29/18 12/29/18 12/30/18 1515:00 23:00 07:00 IntakeIntake Total 916.356 ml OutputOutput Total 350 ml 1220 ml BalanceBalance -350 ml -303.644 ml Results Result Diagram: 4/14/19 0951 12/30/18 0951 Results 24hrs Laboratory Tests Test 12/29/18 22:00 12/29/18 22:10 12/29/18 22:29 12/30/18 02:02 Urine Color CRISTINA Urine Clarity CLOUDY A Urine pH 5.0 Urine Specific 1.017 Tracy Urine Ketones NEGATIVE Urine Nitrite NEGATIVE Urine Bilirubin NEGATIVE Urine NEGATIVE Urobilinogen Urine Leukocyte NEGATIVE Esterase Urine 169 H Microscopic RBC Urine 27 H Microscopic WBC Urine Squamous FEW Epithelial Cell s Urine Amorphous FEW A Crystals Urine Bacteria FEW A Urine Mucus FEW A Urine 3+ H Hemoglobin Urine Glucose NEGATIVE Urine Total 1+ H Protein White Blood 11.0 H Count Red Blood Count 2.74 L Hemoglobin 8.2 L Hematocrit 24.0 L Mean 87.6 Corpuscular Volume Mean 29.9 Corpuscular Hemoglobin Mean 34.2 Corpuscular Hemoglobin Conc ent Red Cell 14.5 Distribution Width Platelet Count 79 #L Mean Platelet 11.9 H Volume Immature 5.200 H Granulocytes % Neutrophils % Segmented 79 H Neutrophils % (Manual) Band 6 H Neutrophils % (Manual) Lymphocytes % Lymphocytes % 5 L (Manual) Monocytes % Monocytes % 7 (Manual) Eosinophils % Eosinophils % 1 (Manual) Basophils % Metamyelocytes 1 H % (manual) Myelocytes % 1 H (Manual) Nucleated Red 1 H Blood Cells % Immature 0.570 H Granulocytes # Neutrophils # Neutrophils # 8.8 H (Manual) Band 0.6 Neutrophils # Lymphocytes 0.5 L (Manual) Lymphocytes # Monocytes # Monocytes # 0.7 (Manual) Eosinophils # Basophils # Metamyelocytes 0.1 H # Myelocytes # 0.1 H Nucleated Red Blood Cells # Platelet DECREASED Estimate Polychromasia 3+ Target Cells 1+ Prothrombin 14.4 Time Prothrombin 1.1 Time Ratio INR 1.11 International Normalized Rati o Activated 40.8 H Partial Thrombo plast Time Sodium Level 131 L Potassium Level 4.5 Chloride Level 96 L Carbon Dioxide 21 Level Anion Gap 14 H Blood Urea 127 H Nitrogen Creatinine 6.96 H Est Glomerular 8 L Filtrat Rate mL/min Glucose Level 74 Osmolality 324 H Lactic Acid 0.8 Level Calcium Level 6.0 L Ionized Calcium 0.7 L (Measured) Phosphorus 13.9 H Level Magnesium Level 3.3 H Total Bilirubin 4.9 H Direct 4.50 #H Bilirubin Indirect 0.4 Bilirubin Gamma Glutamyl 455 H Transpeptidase Aspartate Amino 197 H Transf (AST/SGO T) Alanine 108 H Aminotransferas e (ALT/SGPT) Alkaline 354 #H Phosphatase Lactate 3312 H Dehydrogenase Creatine Kinase 1545 H Creatine Kinase 0.9 Index Creatinine 14.30 H Kinase MB (Mass) Troponin I 0.289 *H Total Protein 6.1 Albumin 3.0 L Globulin 3.10 Albumin/Globuli 0.96 n Ratio Amylase Level 59 Lipase 108 Blood Gas Blood arterial Specimen Source Arterial Blood 12/29/2018 10:25 Date Drawn :30 PM Arterial Blood 7.365 pH (Temp corrected ) Arterial Blood 31.0 L pCO2 (Temp correct) Arterial Blood 115.0 H pO2 (Temp corrected ) Arterial Blood 17.3 L HCO3 Arterial Blood -7.3 L Base Excess Arterial Blood 97.9 Oxygen Saturati on Adarsh Test N/A Arterial Blood A-Line Gas Puncture Site Arterial 0.7 Blood Carboxyhe moglobin Arterial Blood 0.3 Methemoglobin Blood Gas A-a 62.5 H O2 Differential Oxyhemoglobin 96.9 Percent Blood Gas 37.0 Temperature Blood Gas 22.0 Respiration Rate Blood Gas 22 Actual Respiration Rat e Blood Gas VENT - AC Modality FiO2 30.0 Blood Gas Tidal 500.0 Volume Blood Gas Low 5.0 PEEP Setting Blood Gas UP Notified Whom Blood Gas 12/29/2018 10:35 Notified Time :45 PM Bedside Glucose 124 Test 12/30/18 02:25 12/30/18 03:35 12/30/18 03:39 12/30/18 04:51 Blood Gas Blood arterial Blood Specimen arterial Source Arterial Blood 12/30/2018 2:36: 12/30/2018 5:00 Date Drawn 06 AM :48 AM Arterial Blood 7.275 *L 7.307 L pH (Temp corrected ) Arterial Blood 42.4 37.3 pCO2 (Temp correct) Arterial Blood 77.6 L 107.9 H pO2 (Temp corrected ) Arterial Blood 19.3 L 18.2 L HCO3 Arterial Blood -7.0 L -7.4 L Base Excess Arterial Blood 93.0 L 97.2 Oxygen Saturati on Adarsh Test N/A N/A Arterial Blood A-Line A-Line Gas Puncture Site Arterial 1.1 0.9 Blood Carboxyhe moglobin Arterial Blood 0.3 0.3 Methemoglobin Blood Gas A-a 86.5 H 62.2 H O2 Differential Oxyhemoglobin 91.7 L 96.0 Percent Blood Gas 37.0 37.0 Temperature Blood Gas 22.0 22.0 Respiration Rate Blood Gas 22 22 Actual Respiration Rat e Blood Gas VENT - BIPHASIC VENT Modality - BIPHASIC FiO2 30.0 30.0 Blood Gas 0.40 0.42 Inspiratory Time Blood Gas Tidal 382.0 Volume Blood Gas High 31.0 31.0 PEEP Setting Blood Gas Low 0 0 PEEP Setting Blood Gas 0 Pressure Support Blood Gas Brice FOSTER RN Critical Value Read Back Blood Gas MG UP Notified Whom Blood Gas 12/30/2018 2:43: 12/30/2018 5:16 Notified Time 29 AM :22 AM White Blood 9.4 Count Red Blood Count 2.33 L Hemoglobin 7.0 L Hematocrit 20.6 L Mean 88.4 Corpuscular Volume Mean 30.0 Corpuscular Hemoglobin Mean 34.0 Corpuscular Hemoglobin Conc ent Red Cell 14.7 H Distribution Width Platelet Count 70 L Mean Platelet 12.3 H Volume Immature 4.400 H Granulocytes % Neutrophils % 85.9 H Lymphocytes % 4.1 L Monocytes % 5.0 Eosinophils % 0.3 Basophils % 0.3 Nucleated Red 0.0 Blood Cells % Immature 0.410 H Granulocytes # Neutrophils # 8.1 H Lymphocytes # 0.4 L Monocytes # 0.5 Eosinophils # 0.0 Basophils # 0.0 Nucleated Red 0.0 Blood Cells # Prothrombin 14.4 Time Prothrombin 1.1 Time Ratio INR 1.11 International Normalized Rati o Activated 40.1 H Partial Thrombo plast Time Sodium Level 136 Potassium Level 4.8 Chloride Level 99 Carbon Dioxide 19 L Level Anion Gap 18 H Blood Urea 128 H Nitrogen Creatinine 7.13 H Est Glomerular 8 L Filtrat Rate mL/min Glucose Level 154 Osmolality 329 H Lactic Acid 0.8 Level Calcium Level 5.5 *L Ionized Calcium 0.7 L (Measured) Phosphorus 15.1 H Level Magnesium Level 3.5 H Total Bilirubin 5.3 H Direct 4.90 H Bilirubin Indirect 0.4 Bilirubin Aspartate Amino 180 H Transf (AST/SGO T) Alanine 98 H Aminotransferas e (ALT/SGPT) Alkaline 336 H Phosphatase Lactate 3175 H Dehydrogenase Creatine Kinase 1359 H Creatine Kinase 0.9 Index Creatinine 11.80 H Kinase MB (Mass) Troponin I 0.198 *H Total Protein 5.3 L Albumin 2.6 L Globulin 2.70 Albumin/Globuli 0.96 n Ratio Amylase Level 68 Lipase 125 Bedside Glucose 157 Test 12/30/18 07:04 12/30/18 08:06 12/30/18 08:56 12/30/18 09:51 Bedside Glucose 249 H 242 H 247 H White Blood 8.6 Count Red Blood Count 2.29 L Hemoglobin 6.9 *L Hematocrit 20.4 L Mean 89.1 Corpuscular Volume Mean 30.1 Corpuscular Hemoglobin Mean 33.8 Corpuscular Hemoglobin Conc ent Red Cell 14.8 H Distribution Width Platelet Count 63 L Mean Platelet 12.4 H Volume Immature 4.800 H Granulocytes % Neutrophils % 89.1 H Lymphocytes % 3.5 L Monocytes % 2.4 Eosinophils % 0.0 Basophils % 0.2 Nucleated Red 0.2 H Blood Cells % Immature 0.410 H Granulocytes # Neutrophils # 7.7 H Lymphocytes # 0.3 L Monocytes # 0.2 L Eosinophils # 0.0 Basophils # 0.0 Nucleated Red 0.0 Blood Cells # Pathologist YES Review (Hematol ogy) Prothrombin 15.6 H Time Prothrombin 1.2 Time Ratio INR 1.23 International Normalized Rati o Activated 55.6 H Partial Thrombo plast Time Sodium Level 136 Potassium Level 4.9 Chloride Level 96 L Carbon Dioxide 20 L Level Anion Gap 20 H Blood Urea 134 H Nitrogen Creatinine 7.22 H Est Glomerular 8 L Filtrat Rate mL/min Glucose Level 239 H Osmolality 338 H Lactic Acid 1.4 Level Calcium Level 6.5 L Ionized Calcium 0.8 L (Measured) Phosphorus 16.9 H Level Magnesium Level 3.4 H Total Bilirubin 5.8 H Direct 5.40 H Bilirubin Indirect 0.4 Bilirubin Aspartate Amino 180 H Transf (AST/SGO T) Alanine 98 H Aminotransferas e (ALT/SGPT) Alkaline 330 H Phosphatase Lactate 3364 H Dehydrogenase Creatine Kinase 1290 H Creatine Kinase 1.0 Index Creatinine 12.50 H Kinase MB (Mass) Troponin I 0.109 Total Protein 5.3 L Albumin 2.6 L Globulin 2.70 Albumin/Globuli 0.96 n Ratio Amylase Level 93 Lipase 125 Test 12/30/18 09:53 12/30/18 11:05 12/30/18 11:07 12/30/18 11:57 Bedside Glucose 253 H 217 206 Blood Gas Blood arterial Specimen Source Arterial Blood 12/30/2018 11:00 Date Drawn :30 AM Arterial Blood 7.313 L pH (Temp corrected ) Arterial Blood 40.9 pCO2 (Temp correct) Arterial Blood 113.2 H pO2 (Temp corrected ) Arterial Blood 20.3 L HCO3 Arterial Blood -5.5 L Base Excess Arterial Blood 97.9 Oxygen Saturati on Adarsh Test N/A Arterial Blood A-Line Gas Puncture Site Arterial 1.2 Blood Carboxyhe moglobin Arterial Blood 0.3 Methemoglobin Blood Gas A-a 52.6 H O2 Differential Oxyhemoglobin 96.4 Percent Blood Gas 37.0 Temperature Blood Gas 22.0 Respiration Rate Blood Gas 22 Actual Respiration Rat e Blood Gas VENT - BIPHASIC Modality FiO2 30.0 Blood Gas 0.42 Inspiratory Time Blood Gas Tidal 417.0 Volume Blood Gas Mean 27 Airway Pressure Blood Gas High 33.0 PEEP Setting Blood Gas Low 0 PEEP Setting Blood Gas Claudia [facility] Notified Whom Blood Gas 12/30/2018 11:22 Notified Time :32 AM Medications Medication Current Medications Vasopressin 60 unit/Dextrose 60 ml @ 1.2 mls/hr Q12H IV Last administered on 12/29/18at 23:18; Admin Dose 2.4 MLS/HR; Start 12/29/18 at 22:30 Levothyroxine Sodium 200 mcg/ Sodium Chloride 500 ml @ 25 mls/hr Q20H IV Last administered on 12/30/18at 00:10; Admin Dose 25 MLS/HR; Start 12/29/18 at 23:30 Dobutamine HCl/ Dextrose 250 ml @ 0.628 mls/ hr IV IV Last administered on 12/30/18 01:11; Admin Dose 0.628 MLS/HR; Start 12/29/18 at 23:00 Sodium Bicarbonate 150 meq/Dextrose 1,000 ml @ 150 mls/hr Q6H40M IV Last administered on 12/30/18 07:55; Admin Dose 150 MLS/HR; Start 12/30/18 at 01:00 Methylprednisolone Sodium Succinate 500 mg/Sodium Chloride 50 ml @ 100 mls/hr Q8H IV Last administered on 12/30/18 07:56; Admin Dose 100 MLS/HR; Start 12/30/18 at 08:00 Diagnostic Test (Pha) (Accu-Chek) 1 ea Q1H XX ; Start 12/30/18 at 07:30 Insulin Human Regular 100 unit/ Sodium Chloride 100 ml @ 0 mls/hr PER PROTOCOL IV Last administered on 12/30/18at 08:13; Admin Dose 3 MLS/HR; Start 12/30/18 at 08:00 Miscellaneous Information (* Miscellaneous Pharmacy Order) Treatment of Hypoglycemia: 1.BG 51... Per protocol XX ; Start 12/30/18 at 07:30 Dextrose (D50w Syringe) 25 ml Q15M PRN IV .DECREASED GLUCOSE; Start 12/30/18 at 07:30 Dextrose (D50w Syringe) 50 ml Q15M PRN IV .DECREASED GLUCOSE; Start 12/30/18 at 07:30 Ceftriaxone Sodium 50 ml @ 100 mls/hr Q24H IVPB ; Start 12/30/18 at 13:30 ANGEL KUHN [employer] Dec 30, 2018 12:30
[2018-12-30] MEDS ORDERED: INSULIN REGULAR, HUMAN 100 UNIT/1 ML 3ML VIAL IV ONE (13:30)
[2018-12-30] MEDS ORDERED: CEFTRIAXONE 2 GM/50 ML (PMX) 50 ML IVPB SCH (13:30)
[2018-12-30] MEDS ORDERED: DESMOPRESSIN IVPB ONE (14:30)
[2018-12-30] MEDS ORDERED: SOD CHLORIDE 0.9% IVPB ONE (14:30)
[2018-12-30] MEDS: VASOPRESSIN 60 UNIT in DEXTROSE 5% 57 ML IV SCH ×2 (15:17→22:30)
[2018-12-30] MEDS: HEPARIN 1000 UNITS/ML 10 ML INJ CATHETER PRN (15:34)
[2018-12-31] VITALS (99 sets, daily range): BP systolic 65–182; BP diastolic 44–116; PULSE 57–83; RESP 9–20
[2018-12-31] MEDS: ACCU-CHEK XX SCH ×23 (01:28→23:53)
[2018-12-31] MEDS: LEVOTHYROXINE 200 MCG in SOD CHLORIDE 0.9% 500 ML IV SCH ×3 (03:46→21:33)
[2018-12-31] MEDS: PIPER-TAZO 2.25 GM (PMX) 50 ML IVPB SCH ×3 (06:08→21:33)
[2018-12-31] MEDS ORDERED: CA CHLORIDE 10% 10 ML SYRINGE ONE (06:57)
[2018-12-31] MEDS ORDERED: CA CHLORIDE 10% 10 ML SYRINGE IV ONE ×2 (07:00→12:30)
--- NOTE | 2018-12-31 08:04 | PN ---
DATE: 12/31/2018 SUBJECTIVE: The patient remains critically ill on pressor support. The patient is currently being e valuated for organ harvesting. The patient had hemodialysis yesterday, tolerated well with 2 liters removed. Hemodialysis will be performed again today. OBJECTIVE: VITAL SIGNS: Blood pressure is 107/78, respirations 10, pulse 75, temperature 99.3. HEENT: Head is normocephalic. NECK: Supple. HEART: Regular rate. LUNGS: Show diminished breath sounds at the base. ABDOMEN: Soft, nontender to palpation without rebound or guarding. EXTREMITIES: Negative for clubbing, cyanosis. Positive edema. DERMATOLOGIC: No rashes. MUSCULOSKELETAL: No joint effusion. NEUROLOGIC: No change in exam. MEDICATIONS: The patient's medications have been reviewed. LABORATORY DATA: Shows a sodium 138, potassium 5.1, chloride 93, BUN 129, creatinine 5.63 phosphorus 12.7. White count 9.0, hemoglobin 7.4, platelet count is 102. IMAGING STUDIES: Reviewed. ASSESSMENT AND PLAN: 1. Oliguric acute kidney injury with unknown baseline creatinine. Etiology of acute kidney injury i s secondary to acute tubular necrosis. The patient is currently in injury phase of acute tubular nec rosis. The patient was initiated on hemodialysis yesterday, tolerated well. Anticipate daily dialys is. Plan is for today for 4 hours on a 2K bath, calcium 2.5 with goal ultrafiltration approximately 4 liters. Anticipate dialysis again tomorrow. 2. Hyperkalemia, improved. Continue dialysis on low potassium bath. 3. Hypernatremia, improved. 4. Mixed acid base disorder. The patient's ABG was reviewed. Continue hemodialysis. 5. Mineral bone disorder. The patient is hyperphosphatemic, hypocalcemic. Continue hemodialysis. Continue dialysis on a high calcium bath. 6. Shock, etiology is septic, cardiac. The patient is currently on pressor support. Continue antib iotic therapy, continue IV fluids. 7. Status post cardiac arrest. 8. Ventilator dependent respiratory failure. 9. Anoxic injury with a confirmed brain . Please note I spent over 30 minutes of critical care time with this patient. Dictated By: HERB MATOS DO NR/NTS Conf#: [id number] DID#: [id number] CC: ANASTASIA GILBERT MD; OTILIA JONES MD;*EndCC*
[2018-12-31] MEDS: SOD CHLORIDE 0.9% IV SCH ×2 (08:08→16:10)
[2018-12-31] MEDS: METHYLPRED NA SUCC IV SCH ×2 (08:08→16:10)
[2018-12-31] MEDS: ALTEPLASE (CATHFLO) 2 MG INJ CATHETER PRN ×2 (08:23→09:30)
[2018-12-31] MEDS: SODIUM BICARBONATE (IV ADD) 150 MEQ in DEXTROSE 5% 850 ML IV SCH (10:20)
[2018-12-31] MEDS: VASOPRESSIN 60 UNIT in DEXTROSE 5% 57 ML IV SCH ×2 (11:11→21:34)
[2018-12-31] MEDS: DOBUTamine/D5W 2 MG/ML DRIP 250 ML IV SCH (12:14)
[2018-12-31] MEDS: ALBUMIN HUMAN 25% 100 ML IV PRN (12:29)
--- NOTE | 2018-12-31 13:12 | RADRPT ---
Echocardiogram Report Patient Name: Frida ESPINOZAtient ID: [id number] : 1970 (48y 8m)Study Date: 12/31/2018 7:23:38 AM Gender: MAccession #: [id number] Tech: Claudia Cantu RDCS Location: 102 Ref.Physician: FAHAD, ONE Height(Cm): BSA: Weight(Kg): Quality: Technically Difficult StudyAccount #: Procedures: Echocardiographic Report: Transthoracic echocardiogram with complete 2D, M-Mode, and doppler examination. Indications: Evaluate Left Ventricular function. Measurements: 2D/M Mode Doppler Measurement Value Normal Range Measurement Value Normal Range LVIDd 2D 4.1 [ 4.2 - 5.8 ] cm AV Peak Quinn 1.3 [ 100.0 - 170.0 ] cm/sec LVIDs 2D 3.2 [ 2.5 - 4.0 ] cm AV Peak PG 7.0 [ 2.0 - 9.0 ] mmHg LVPWd 2D 1.0 [ 0.6 - 1.0 ] cm LVOT Peak Quinn 1.0 [ 70.0 - 110.0 ] cm/sec IVSd 2D 1.0 [ 0.6 - 1.0 ] cm LVOT Peak PG 4.0 [ 2.0 - 6.0 ] mmHg AoR Diam 2D 3.0 [ 2.6 - 3.4 ] cm MV E Peak Quinn 0.7 [ 60.0 - 130.0 ] cm/sec EDV 2D 73.8 [ 62.0 - 150.0 ] ml MV A Peak Quinn 0.7 [ 100.0 - 120.0 ] cm/sec ESV 2D 39.7 [ 21.0 - 61.0 ] ml MV E/A 1.0 [ 0.8 - 1.5 ] ratio EF 2D 46.2 [ 52.0 - 72.0 ] percent MV Decel Time 197 [ 104 - 258 ] msec LA Dimen 2D 3.4 [ 3.0 - 4.0 ] cm Lat E` Quinn 0.1 [ 10.0 - 15.0 ] cm/sec IVC Diam 2.0 [ 1.2 - 2.0 ] sec Lateral E/E` 7.5 [ 1.0 - 2.0 ] ratio MV E/A 1.0 [ 0.8 - 1.5 ] ratio TR Peak Quinn 2.4 [ 100.0 - 280.0 ] cm/sec TR Peak PG 23.0 mmHg RVSP 31.0 [ 10.0 - 36.0 ] mmHg RA Pressure 8.0 mmHg Findings: Left Ventricle: Normal left ventricular cavity size. Normal left ventricular wall thickness. Mild global left ventricular systolic dysfunction. Ejection fraction is visually estimated at 45 %. Right Ventricle: Mild enlargement of right ventricle. Mild-moderate right ventricular hypokinesis. D-shaped septum in systole and diastole suggestive of pressure and volume overload. Left Atrium: The left atrium is normal in size. Right Atrium: The right atrium is normal in size. Mitral Valve: Normal appearance and function of the mitral valve with trace physiologic regurgitation. Aortic Valve: Normal appearance of the aortic valve. No significant aortic stenosis or insufficiency. Tricuspid Valve: Normal appearance of the tricuspid valve. Estimated peak PA systolic pressure 27 mmHg. There is mild tricuspid regurgitation. Pulmonic Valve: Pulmonic valve not well visualized. Pericardium: Normal pericardium with no significant pericardial effusion. Pleural effusion seen. Aorta: Normal aortic root. IVC: Inferior vena cava without respiratory collapse, however, patient on ventilator. Conclusions: Normal left ventricular cavity size. Normal left ventricular wall thickness. Mild global left ventricular systolic dysfunction. Ejection fraction is visually estimated at 45 %. Mild enlargement of right ventricle. Mild-moderate right ventricular hypokinesis. D-shaped septum in systole and diastole suggestive of pressure and volume overload. No significant valvular stenosis or regurgitation seen. Estimated peak PA systolic pressure 27 mmHg but may be underestimated. Inferior vena cava without respiratory collapse, however, patient on ventilator. Electronically Signed By: Néstor Sung 2018-12-31 13:12:12 PDT
--- NOTE | 2018-12-31 15:50 | RADRPT ---
Vent Rate: 77 bpm RR Interval: [address] Interval: 152 msec QRS Duration: 98 msec QT Interval: 436 msec QTC Interval: 493 msec P-R-T [place]: 42 - 19 - 41 degrees Normal sinus rhythm Nonspecific T wave abnormality Prolonged QT Abnormal ECG Electronically Signed By: Wood Farris
--- NOTE | 2018-12-31 16:24 | PN ---
Date/Time of Note Date/Time of Note DATE: 12/31/18 TIME: 16:19 Assessment/Plan VTE Prophylaxis Risk score (from Ns)>0 risk: 10 SCD applied (from Ns): Yes Pharmacological prophylaxis: heparin Lines/Catheters IV Catheter Type (from Nrsg): Peripheral IV Urinary Cath still in place: Yes Reason Cath still needed: urinary retention Assessment/Plan Hospital Course Brain on exam MV via ETT RRR Clear lungs 48 yo male with brain following cardiac arrest. Pending organ donation - Continue supportive care - HD per renal - Vasopressors Result Diagram: 12/31/18 1550 12/31/18 0943 Results 24hrs Laboratory Tests Test 12/30/18 18:14 12/30/18 18:15 12/30/18 19:00 12/30/18 20:08 White Blood 8.4 # Count Red Blood Count 2.52 L Hemoglobin 7.6 L Hematocrit 21.7 L Mean 86.1 Corpuscular Volume Mean 30.2 Corpuscular Hemoglobin Mean 35.0 Corpuscular Hemoglobin Conc ent Red Cell 14.5 Distribution Width Platelet Count 71 L Mean Platelet 12.6 H Volume Immature 5.700 H Granulocytes % Neutrophils % Segmented 90 H Neutrophils % (Manual) Band 3 Neutrophils % (Manual) Lymphocytes % Lymphocytes % 3 L (Manual) Monocytes % Monocytes % 3 (Manual) Eosinophils % Basophils % Myelocytes % 1 H (Manual) Nucleated Red 0.7 H Blood Cells % Immature 0.480 H Granulocytes # Neutrophils # Neutrophils # 7.6 H (Manual) Band 0.2 Neutrophils # Lymphocytes 0.2 L (Manual) Lymphocytes # Monocytes # Monocytes # 0.2 L (Manual) Eosinophils # Basophils # Myelocytes # 0.0 Nucleated Red Blood Cells # Platelet DECREASED Estimate Giant Platelets 2 H Polychromasia 1+ Hypochromasia 1+ Prothrombin 14.3 Time Prothrombin 1.1 Time Ratio INR 1.10 International Normalized Rati o Activated 38.5 H Partial Thrombo plast Time Sodium Level 136 Potassium Level 4.6 Chloride Level 93 L Carbon Dioxide 26 Level Anion Gap 17 H Blood Urea 111 H Nitrogen Creatinine 5.38 H Est Glomerular 11 L Filtrat Rate mL/min Glucose Level 159 Osmolality 321 H Lactic Acid 1.5 Level Calcium Level 6.8 L Ionized Calcium 0.9 L (Measured) Phosphorus 12.6 #H Level Magnesium Level 2.8 H Total Bilirubin 5.5 H Direct 5.00 H Bilirubin Indirect 0.5 Bilirubin Aspartate Amino 186 H Transf (AST/SGO T) Alanine 100 H Aminotransferas e (ALT/SGPT) Alkaline 353 H Phosphatase Lactate 3240 H Dehydrogenase Creatine Kinase 1020 H Creatine Kinase 1.4 Index Creatinine 14.20 H Kinase MB (Mass) Troponin I 0.085 Total Protein 5.5 L Albumin 2.6 L Globulin 2.90 Albumin/Globuli 0.89 n Ratio Amylase Level 99 Lipase 97 Bedside Glucose 161 140 Urine Color CRISTINA Urine Clarity SLIGHTLY CLOUD Y A Urine pH 5.0 Urine Specific 1.016 [place] Urine Ketones NEGATIVE Urine Nitrite NEGATIVE Urine Bilirubin NEGATIVE Urine NEGATIVE Urobilinogen Urine Leukocyte NEGATIVE Esterase Urine 67 H Microscopic RBC Urine 12 H Microscopic WBC Urine Bacteria FEW A Urine Mucus FEW A Urine 3+ H Hemoglobin Urine Glucose NEGATIVE Urine Total 1+ H Protein Test 12/30/18 21:53 12/30/18 22:57 12/30/18 23:53 12/31/18 00:00 Bedside Glucose 124 95 White Blood 9.8 Count Red Blood Count 2.44 L Hemoglobin 7.2 L Hematocrit 21.1 L Mean 86.5 Corpuscular Volume Mean 29.5 Corpuscular Hemoglobin Mean 34.1 Corpuscular Hemoglobin Conc ent Red Cell 14.2 Distribution Width Platelet Count 79 L Mean Platelet 13.0 H Volume Immature 5.600 H Granulocytes % Neutrophils % 81.5 H Lymphocytes % 4.8 L Monocytes % 7.9 Eosinophils % 0.0 Basophils % 0.2 Nucleated Red 1.2 H Blood Cells % Immature 0.550 H Granulocytes # Neutrophils # 7.9 H Lymphocytes # 0.5 L Monocytes # 0.8 Eosinophils # 0.0 Basophils # 0.0 Nucleated Red 0.1 H Blood Cells # Prothrombin 16.8 H Time Prothrombin 1.3 Time Ratio INR 1.35 International Normalized Rati o Activated 41.5 H Partial Thrombo plast Time Sodium Level 136 Potassium Level 4.4 Chloride Level 93 L Carbon Dioxide 27 Level Anion Gap 16 H Blood Urea 118 H Nitrogen Creatinine 5.54 H Est Glomerular 11 L Filtrat Rate mL/min Glucose Level 97 # Osmolality 322 H Lactic Acid 1.3 Level Calcium Level 7.5 L Ionized Calcium 0.9 L (Measured) Phosphorus 12.0 H Level Magnesium Level 2.8 H Total Bilirubin 5.3 H Direct 4.80 H Bilirubin Indirect 0.5 Bilirubin Aspartate Amino 177 H Transf (AST/SGO T) Alanine 97 H Aminotransferas e (ALT/SGPT) Alkaline 365 H Phosphatase Lactate 3074 H Dehydrogenase Creatine Kinase 796 H Creatine Kinase 1.7 Index Creatinine 13.30 H Kinase MB (Mass) Troponin I 0.086 Total Protein 5.4 L Albumin 2.6 L Globulin 2.80 Albumin/Globuli 0.92 n Ratio Amylase Level 105 Lipase 75 Urine Color CRISTINA Urine Clarity SLIGHTLY CLOUD Y A Urine pH 5.0 Urine Specific 1.014 [place] Urine Ketones NEGATIVE Urine Nitrite NEGATIVE Urine Bilirubin NEGATIVE Urine NEGATIVE Urobilinogen Urine Leukocyte NEGATIVE Esterase Urine 25 H Microscopic RBC Urine 14 H Microscopic WBC Urine Bacteria FEW A Urine Mucus FEW A Urine 3+ H Hemoglobin Urine Glucose NEGATIVE Urine Total 1+ H Protein Blood Gas Blood Specimen arterial Source Arterial Blood 12/31/2018 12:3 Date Drawn 0:25 AM Arterial Blood 7.462 H pH (Temp corrected ) Arterial Blood 38.8 pCO2 (Temp correct) Arterial Blood 135.3 H pO2 (Temp corrected ) Arterial Blood 27.1 H HCO3 Arterial Blood 3.1 H Base Excess Arterial Blood 98.5 H Oxygen Saturati on Adarsh Test N/A Arterial Blood A-Line Gas Puncture Site Arterial 0.6 Blood Carboxyhe moglobin Arterial Blood 0.3 Methemoglobin Blood Gas A-a 33.0 H O2 Differential Oxyhemoglobin 97.6 Percent Blood Gas 37.0 Temperature Blood Gas 20.0 Respiration Rate Blood Gas 20 Actual Respiration Rat e Blood Gas VENT Modality - BIPHASIC FiO2 30.0 Blood Gas Mean 32 Airway Pressure Blood Gas High 35.0 PEEP Setting Blood Gas Low 0 PEEP Setting Blood Gas 37.0 Inspiratory Pressure Blood Gas DAVID YIN Notified Whom Blood Gas 12/31/2018 12:4 Notified Time 3:22 AM Test 12/31/18 00:42 12/31/18 02:05 12/31/18 02:10 12/31/18 04:00 Random 27.6 Vancomycin Level Blood Gas Blood Specimen arterial Source Arterial Blood 12/31/2018 2:38 Date Drawn :01 AM Arterial Blood 7.438 pH (Temp corrected ) Arterial Blood 39.7 pCO2 (Temp correct) Arterial Blood 127.3 H pO2 (Temp corrected ) Arterial Blood 26.2 H HCO3 Arterial Blood 1.9 Base Excess Arterial Blood 98.4 H Oxygen Saturati on Adarsh Test N/A Arterial Blood A-Line Gas Puncture Site Arterial 0.9 Blood Carboxyhe moglobin Arterial Blood 0.3 Methemoglobin Blood Gas A-a 40.0 H O2 Differential Oxyhemoglobin 97.2 Percent Blood Gas 37.0 Temperature Blood Gas 16.0 Respiration Rate Blood Gas 16 Actual Respiration Rat e Blood Gas VENT Modality - BIPHASIC FiO2 30.0 Blood Gas Mean 32 Airway Pressure Blood Gas High 35.0 PEEP Setting Blood Gas Low 0 PEEP Setting Blood Gas 37.0 Inspiratory Pressure Blood Gas 7.3:1 IPAP/EPAP Ratio Blood Gas DAVID YIN Notified Whom Blood Gas 12/31/2018 2:50 Notified Time :53 AM Bedside Glucose 102 White Blood 9.0 Count Red Blood Count 2.42 L Hemoglobin 7.4 L Hematocrit 20.9 L Mean 86.4 Corpuscular Volume Mean 30.6 Corpuscular Hemoglobin Mean 35.4 Corpuscular Hemoglobin Conc ent Red Cell 14.3 Distribution Width Platelet Count 102 #L Mean Platelet 13.2 H Volume Immature 5.900 H Granulocytes % Neutrophils % Segmented 91 H Neutrophils % (Manual) Band 2 Neutrophils % (Manual) Lymphocytes % Lymphocytes % 5 L (Manual) Reactive 1 H Lymphocytes % (Manual) Monocytes % Monocytes % 1 (Manual) Eosinophils % Basophils % Nucleated Red 1 H Blood Cells % Immature 0.530 H Granulocytes # Neutrophils # Neutrophils # 8.2 H (Manual) Band 0.1 Neutrophils # Lymphocytes 0.4 L (Manual) Lymphocytes # Reactive 0.0 Lymphocytes # Monocytes # Monocytes # 0.0 L (Manual) Eosinophils # Basophils # Nucleated Red Blood Cells # Platelet DECREASED Estimate Giant Platelets 9 H Polychromasia 1+ Hypochromasia 2+ Anisocytosis 2+ Macrocytosis 1+ Test 12/31/18 04:09 12/31/18 04:23 12/31/18 04:36 12/31/18 04:38 Bedside Glucose 123 Blood Gas Blood Specimen arterial Source Arterial Blood 12/31/2018 4:17 Date Drawn :53 AM Arterial Blood 7.354 pH (Temp corrected ) Arterial Blood 45.4 H pCO2 (Temp correct) Arterial Blood 82.1 pO2 (Temp corrected ) Arterial Blood 24.7 HCO3 Arterial Blood -0.9 Base Excess Arterial Blood 93.6 L Oxygen Saturati on Adarsh Test N/A Arterial Blood A-Line Gas Puncture Site Arterial 0.4 Blood Carboxyhe moglobin Arterial Blood 0.3 Methemoglobin Blood Gas A-a 78.5 H O2 Differential Oxyhemoglobin 92.9 L Percent Blood Gas 37.0 Temperature Blood Gas 12.0 Respiration Rate Blood Gas 12 Actual Respiration Rat e Blood Gas VENT Modality - BIPHASIC FiO2 30.0 Blood Gas Mean 33 Airway Pressure Blood Gas High 35.0 PEEP Setting Blood Gas Low 0 PEEP Setting Blood Gas 37.0 Inspiratory Pressure Blood Gas 9.6:1 IPAP/EPAP Ratio Blood Gas DAVID YIN Notified Whom Blood Gas 12/31/2018 4:30 Notified Time :31 AM Osmolality 329 H Prothrombin 16.2 H Time Prothrombin 1.3 Time Ratio INR 1.29 International Normalized Rati o Activated 38.7 H Partial Thrombo plast Time Phosphorus 12.7 H Level Magnesium Level 2.8 H Test 12/31/18 04:42 12/31/18 04:49 12/31/18 04:54 12/31/18 06:00 Lactic Acid 1.3 Level Sodium Level 138 Potassium Level 5.1 Chloride Level 93 L Carbon Dioxide 26 Level Anion Gap 19 H Blood Urea 129 H Nitrogen Creatinine 5.63 H Est Glomerular 11 L Filtrat Rate mL/min Glucose Level 111 Calcium Level 6.2 L Total Bilirubin 5.4 H Direct 4.80 H Bilirubin Indirect 0.6 Bilirubin Aspartate Amino 195 H Transf (AST/SGO T) Alanine 116 H Aminotransferas e (ALT/SGPT) Alkaline 492 H Phosphatase Lactate 3414 H Dehydrogenase Creatine Kinase 685 H Creatine Kinase 1.6 Index Creatinine 11.20 H Kinase MB (Mass) Troponin I 0.097 Total Protein 4.8 L Albumin 2.3 L Globulin 2.50 Albumin/Globuli 0.92 n Ratio Amylase Level 101 Lipase 87 Ionized Calcium 0.8 L (Measured) Urine Color CRISTINA Urine Clarity SLIGHTLY CLOUD Y A Urine pH 5.0 Urine Specific 1.014 [place] Urine Ketones NEGATIVE Urine Nitrite NEGATIVE Urine Bilirubin NEGATIVE Urine NEGATIVE Urobilinogen Urine Leukocyte NEGATIVE Esterase Urine 13 H Microscopic RBC Urine 10 H Microscopic WBC Urine Amorphous FEW A Crystals Urine Mucus FEW A Urine 3+ H Hemoglobin Urine Glucose NEGATIVE Urine Total 1+ H Protein Test 12/31/18 06:07 12/31/18 08:10 12/31/18 09:43 12/31/18 09:44 Bedside Glucose 93 115 102 White Blood 8.6 Count Red Blood Count 2.44 L Hemoglobin 7.2 L Hematocrit 21.1 L Mean 86.5 Corpuscular Volume Mean 29.5 Corpuscular Hemoglobin Mean 34.1 Corpuscular Hemoglobin Conc ent Red Cell 14.5 Distribution Width Platelet Count 122 L Mean Platelet 12.7 H Volume Immature 6.000 H Granulocytes % Neutrophils % 82.3 H Segmented 86 H Neutrophils % (Manual) Band 3 Neutrophils % (Manual) Lymphocytes % 5.0 L Lymphocytes % 4 L (Manual) Monocytes % 6.5 Monocytes % 7 (Manual) Eosinophils % 0.0 Basophils % 0.2 Nucleated Red 4 H Blood Cells % Immature 0.510 H Granulocytes # Neutrophils # 7.1 Neutrophils # 7.4 (Manual) Band 0.2 Neutrophils # Lymphocytes 0.3 L (Manual) Lymphocytes # 0.4 L Monocytes # 0.6 Monocytes # 0.6 (Manual) Eosinophils # 0.0 Basophils # 0.0 Nucleated Red 0.2 H Blood Cells # Platelet DECREASED Estimate Giant Platelets 1 H Prothrombin 19.6 #H Time Prothrombin 1.5 Time Ratio INR 1.65 International Normalized Rati o Activated 42.4 H Partial Thrombo plast Time Sodium Level 138 Potassium Level 5.1 Chloride Level 94 L Carbon Dioxide 25 Level Anion Gap 19 H Blood Urea 143 H Nitrogen Creatinine 6.07 H Est Glomerular 10 L Filtrat Rate mL/min Glucose Level 106 Osmolality 335 H Lactic Acid 1.0 Level Calcium Level 7.2 L Ionized Calcium 0.9 L (Measured) Phosphorus 13.5 H Level Magnesium Level 2.9 H Total Bilirubin 5.0 H Direct 4.50 H Bilirubin Indirect 0.5 Bilirubin Aspartate Amino 209 H Transf (AST/SGO T) Alanine 122 H Aminotransferas e (ALT/SGPT) Alkaline 489 H Phosphatase Lactate 3425 H Dehydrogenase Creatine Kinase 589 H Creatine Kinase 1.7 Index Creatinine 10.10 H Kinase MB (Mass) Troponin I 0.068 Total Protein 5.8 #L Albumin 2.8 L Globulin 3.00 Albumin/Globuli 0.93 n Ratio Amylase Level 113 Lipase 78 Test 12/31/18 12:00 12/31/18 12:04 12/31/18 13:17 12/31/18 14:10 Blood Gas Blood arterial Specimen Source Arterial Blood 12/31/2018 10:15 Date Drawn :07 AM Arterial Blood 7.335 L pH (Temp corrected ) Arterial Blood 46.0 H pCO2 (Temp correct) Arterial Blood 117.5 H pO2 (Temp corrected ) Arterial Blood 24.0 HCO3 Arterial Blood -1.8 Base Excess Arterial Blood 97.8 Oxygen Saturati on Adarsh Test N/A Arterial Blood A-Line Gas Puncture Site Arterial 0.9 Blood Carboxyhe moglobin Arterial Blood 0.3 Methemoglobin Blood Gas A-a 42.4 H O2 Differential Oxyhemoglobin 96.6 Percent Blood Gas 37.0 Temperature Blood Gas VENT - PC Modality FiO2 30.0 Blood Gas High 35.0 PEEP Setting Blood Gas Low 0 PEEP Setting Blood Gas TM Notified Whom Blood Gas 12/31/2018 10:24 Notified Time :28 AM Bedside Glucose 112 102 Random 14.1 Vancomycin Level Test 12/31/18 15:50 12/31/18 15:51 White Blood 10.3 Count Red Blood Count 2.53 L Hemoglobin 7.6 L Hematocrit 22.1 L Mean 87.4 Corpuscular Volume Mean 30.0 Corpuscular Hemoglobin Mean 34.4 Corpuscular Hemoglobin Conc ent Red Cell 14.7 H Distribution Width Platelet Count 144 Mean Platelet 12.8 H Volume Immature 6.600 H Granulocytes % Neutrophils % 81.7 H Lymphocytes % 4.7 L Monocytes % 6.8 Eosinophils % 0.0 Basophils % 0.2 Nucleated Red 2.1 H Blood Cells % Immature 0.680 H Granulocytes # Neutrophils # 8.4 H Lymphocytes # 0.5 L Monocytes # 0.7 Eosinophils # 0.0 Basophils # 0.0 Nucleated Red 0.2 H Blood Cells # Bedside Glucose 134 Subjective 24 Hr Interval Summary Free Text/Dictation Continues on MV, HD, and vasopressors Organ donation pendign Exam/Review of Systems Exam Vitals Vital Signs Date Temp Pulse Resp B/P (MAP) Pulse Ox O2 O2 Flow FiO2 Time Delivery Rate 12/31/18 73 9 102/73 99 Mechanical 15:00 (83) Ventilator 12/31/18 97.5 12:00 12/31/18 30 11:00 Intake and Output 12/30/18 12/30/18 12/31/18 1515:00 23:00 07:00 IntakeIntake Total 2032.2 ml 1924.002 ml 836.336 ml OutputOutput Total 1375 ml 2710 ml 1060 ml BalanceBalance 657.2 ml -785.998 ml -223.664 ml Results Results 24hrs Laboratory Tests Test 12/30/18 18:14 12/30/18 18:15 12/30/18 19:00 12/30/18 20:08 White Blood 8.4 # Count Red Blood Count 2.52 L Hemoglobin 7.6 L Hematocrit 21.7 L Mean 86.1 Corpuscular Volume Mean 30.2 Corpuscular Hemoglobin Mean 35.0 Corpuscular Hemoglobin Conc ent Red Cell 14.5 Distribution Width Platelet Count 71 L Mean Platelet 12.6 H Volume Immature 5.700 H Granulocytes % Neutrophils % Segmented 90 H Neutrophils % (Manual) Band 3 Neutrophils % (Manual) Lymphocytes % Lymphocytes % 3 L (Manual) Monocytes % Monocytes % 3 (Manual) Eosinophils % Basophils % Myelocytes % 1 H (Manual) Nucleated Red 0.7 H Blood Cells % Immature 0.480 H Granulocytes # Neutrophils # Neutrophils # 7.6 H (Manual) Band 0.2 Neutrophils # Lymphocytes 0.2 L (Manual) Lymphocytes # Monocytes # Monocytes # 0.2 L (Manual) Eosinophils # Basophils # Myelocytes # 0.0 Nucleated Red Blood Cells # Platelet DECREASED Estimate Giant Platelets 2 H Polychromasia 1+ Hypochromasia 1+ Prothrombin 14.3 Time Prothrombin 1.1 Time Ratio INR 1.10 International Normalized Rati o Activated 38.5 H Partial Thrombo plast Time Sodium Level 136 Potassium Level 4.6 Chloride Level 93 L Carbon Dioxide 26 Level Anion Gap 17 H Blood Urea 111 H Nitrogen Creatinine 5.38 H Est Glomerular 11 L Filtrat Rate mL/min Glucose Level 159 Osmolality 321 H Lactic Acid 1.5 Level Calcium Level 6.8 L Ionized Calcium 0.9 L (Measured) Phosphorus 12.6 #H Level Magnesium Level 2.8 H Total Bilirubin 5.5 H Direct 5.00 H Bilirubin Indirect 0.5 Bilirubin Aspartate Amino 186 H Transf (AST/SGO T) Alanine 100 H Aminotransferas e (ALT/SGPT) Alkaline 353 H Phosphatase Lactate 3240 H Dehydrogenase Creatine Kinase 1020 H Creatine Kinase 1.4 Index Creatinine 14.20 H Kinase MB (Mass) Troponin I 0.085 Total Protein 5.5 L Albumin 2.6 L Globulin 2.90 Albumin/Globuli 0.89 n Ratio Amylase Level 99 Lipase 97 Bedside Glucose 161 140 Urine Color CRISTINA Urine Clarity SLIGHTLY CLOUD Y A Urine pH 5.0 Urine Specific 1.016 [place] Urine Ketones NEGATIVE Urine Nitrite NEGATIVE Urine Bilirubin NEGATIVE Urine NEGATIVE Urobilinogen Urine Leukocyte NEGATIVE Esterase Urine 67 H Microscopic RBC Urine 12 H Microscopic WBC Urine Bacteria FEW A Urine Mucus FEW A Urine 3+ H Hemoglobin Urine Glucose NEGATIVE Urine Total 1+ H Protein Test 12/30/18 21:53 12/30/18 22:57 12/30/18 23:53 12/31/18 00:00 Bedside Glucose 124 95 White Blood 9.8 Count Red Blood Count 2.44 L Hemoglobin 7.2 L Hematocrit 21.1 L Mean 86.5 Corpuscular Volume Mean 29.5 Corpuscular Hemoglobin Mean 34.1 Corpuscular Hemoglobin Conc ent Red Cell 14.2 Distribution Width Platelet Count 79 L Mean Platelet 13.0 H Volume Immature 5.600 H Granulocytes % Neutrophils % 81.5 H Lymphocytes % 4.8 L Monocytes % 7.9 Eosinophils % 0.0 Basophils % 0.2 Nucleated Red 1.2 H Blood Cells % Immature 0.550 H Granulocytes # Neutrophils # 7.9 H Lymphocytes # 0.5 L Monocytes # 0.8 Eosinophils # 0.0 Basophils # 0.0 Nucleated Red 0.1 H Blood Cells # Prothrombin 16.8 H Time Prothrombin 1.3 Time Ratio INR 1.35 International Normalized Rati o Activated 41.5 H Partial Thrombo plast Time Sodium Level 136 Potassium Level 4.4 Chloride Level 93 L Carbon Dioxide 27 Level Anion Gap 16 H Blood Urea 118 H Nitrogen Creatinine 5.54 H Est Glomerular 11 L Filtrat Rate mL/min Glucose Level 97 # Osmolality 322 H Lactic Acid 1.3 Level Calcium Level 7.5 L Ionized Calcium 0.9 L (Measured) Phosphorus 12.0 H Level Magnesium Level 2.8 H Total Bilirubin 5.3 H Direct 4.80 H Bilirubin Indirect 0.5 Bilirubin Aspartate Amino 177 H Transf (AST/SGO T) Alanine 97 H Aminotransferas e (ALT/SGPT) Alkaline 365 H Phosphatase Lactate 3074 H Dehydrogenase Creatine Kinase 796 H Creatine Kinase 1.7 Index Creatinine 13.30 H Kinase MB (Mass) Troponin I 0.086 Total Protein 5.4 L Albumin 2.6 L Globulin 2.80 Albumin/Globuli 0.92 n Ratio Amylase Level 105 Lipase 75 Urine Color CRISTINA Urine Clarity SLIGHTLY CLOUD Y A Urine pH 5.0 Urine Specific 1.014 [place] Urine Ketones NEGATIVE Urine Nitrite NEGATIVE Urine Bilirubin NEGATIVE Urine NEGATIVE Urobilinogen Urine Leukocyte NEGATIVE Esterase Urine 25 H Microscopic RBC Urine 14 H Microscopic WBC Urine Bacteria FEW A Urine Mucus FEW A Urine 3+ H Hemoglobin Urine Glucose NEGATIVE Urine Total 1+ H Protein Blood Gas Blood Specimen arterial Source Arterial Blood 12/31/2018 12:3 Date Drawn 0:25 AM Arterial Blood 7.462 H pH (Temp corrected ) Arterial Blood 38.8 pCO2 (Temp correct) Arterial Blood 135.3 H pO2 (Temp corrected ) Arterial Blood 27.1 H HCO3 Arterial Blood 3.1 H Base Excess Arterial Blood 98.5 H Oxygen Saturati on Adarsh Test N/A Arterial Blood A-Line Gas Puncture Site Arterial 0.6 Blood Carboxyhe moglobin Arterial Blood 0.3 Methemoglobin Blood Gas A-a 33.0 H O2 Differential Oxyhemoglobin 97.6 Percent Blood Gas 37.0 Temperature Blood Gas 20.0 Respiration Rate Blood Gas 20 Actual Respiration Rat e Blood Gas VENT Modality - BIPHASIC FiO2 30.0 Blood Gas Mean 32 Airway Pressure Blood Gas High 35.0 PEEP Setting Blood Gas Low 0 PEEP Setting Blood Gas 37.0 Inspiratory Pressure Blood Gas DAVID YIN Notified Whom Blood Gas 12/31/2018 12:4 Notified Time 3:22 AM Test 12/31/18 00:42 12/31/18 02:05 12/31/18 02:10 12/31/18 04:00 Random 27.6 Vancomycin Level Blood Gas Blood Specimen arterial Source Arterial Blood 12/31/2018 2:38 Date Drawn :01 AM Arterial Blood 7.438 pH (Temp corrected ) Arterial Blood 39.7 pCO2 (Temp correct) Arterial Blood 127.3 H pO2 (Temp corrected ) Arterial Blood 26.2 H HCO3 Arterial Blood 1.9 Base Excess Arterial Blood 98.4 H Oxygen Saturati on Adarsh Test N/A Arterial Blood A-Line Gas Puncture Site Arterial 0.9 Blood Carboxyhe moglobin Arterial Blood 0.3 Methemoglobin Blood Gas A-a 40.0 H O2 Differential Oxyhemoglobin 97.2 Percent Blood Gas 37.0 Temperature Blood Gas 16.0 Respiration Rate Blood Gas 16 Actual Respiration Rat e Blood Gas VENT Modality - BIPHASIC FiO2 30.0 Blood Gas Mean 32 Airway Pressure Blood Gas High 35.0 PEEP Setting Blood Gas Low 0 PEEP Setting Blood Gas 37.0 Inspiratory Pressure Blood Gas 7.3:1 IPAP/EPAP Ratio Blood Gas DAVID YIN Notified Whom Blood Gas 12/31/2018 2:50 Notified Time :53 AM Bedside Glucose 102 White Blood 9.0 Count Red Blood Count 2.42 L Hemoglobin 7.4 L Hematocrit 20.9 L Mean 86.4 Corpuscular Volume Mean 30.6 Corpuscular Hemoglobin Mean 35.4 Corpuscular Hemoglobin Conc ent Red Cell 14.3 Distribution Width Platelet Count 102 #L Mean Platelet 13.2 H Volume Immature 5.900 H Granulocytes % Neutrophils % Segmented 91 H Neutrophils % (Manual) Band 2 Neutrophils % (Manual) Lymphocytes % Lymphocytes % 5 L (Manual) Reactive 1 H Lymphocytes % (Manual) Monocytes % Monocytes % 1 (Manual) Eosinophils % Basophils % Nucleated Red 1 H Blood Cells % Immature 0.530 H Granulocytes # Neutrophils # Neutrophils # 8.2 H (Manual) Band 0.1 Neutrophils # Lymphocytes 0.4 L (Manual) Lymphocytes # Reactive 0.0 Lymphocytes # Monocytes # Monocytes # 0.0 L (Manual) Eosinophils # Basophils # Nucleated Red Blood Cells # Platelet DECREASED Estimate Giant Platelets 9 H Polychromasia 1+ Hypochromasia 2+ Anisocytosis 2+ Macrocytosis 1+ Test 12/31/18 04:09 12/31/18 04:23 12/31/18 04:36 12/31/18 04:38 Bedside Glucose 123 Blood Gas Blood Specimen arterial Source Arterial Blood 12/31/2018 4:17 Date Drawn :53 AM Arterial Blood 7.354 pH (Temp corrected ) Arterial Blood 45.4 H pCO2 (Temp correct) Arterial Blood 82.1 pO2 (Temp corrected ) Arterial Blood 24.7 HCO3 Arterial Blood -0.9 Base Excess Arterial Blood 93.6 L Oxygen Saturati on Adarsh Test N/A Arterial Blood A-Line Gas Puncture Site Arterial 0.4 Blood Carboxyhe moglobin Arterial Blood 0.3 Methemoglobin Blood Gas A-a 78.5 H O2 Differential Oxyhemoglobin 92.9 L Percent Blood Gas 37.0 Temperature Blood Gas 12.0 Respiration Rate Blood Gas 12 Actual Respiration Rat e Blood Gas VENT Modality - BIPHASIC FiO2 30.0 Blood Gas Mean 33 Airway Pressure Blood Gas High 35.0 PEEP Setting Blood Gas Low 0 PEEP Setting Blood Gas 37.0 Inspiratory Pressure Blood Gas 9.6:1 IPAP/EPAP Ratio Blood Gas DAVID YIN Notified Whom Blood Gas 12/31/2018 4:30 Notified Time :31 AM Osmolality 329 H Prothrombin 16.2 H Time Prothrombin 1.3 Time Ratio INR 1.29 International Normalized Rati o Activated 38.7 H Partial Thrombo plast Time Phosphorus 12.7 H Level Magnesium Level 2.8 H Test 12/31/18 04:42 12/31/18 04:49 12/31/18 04:54 12/31/18 06:00 Lactic Acid 1.3 Level Sodium Level 138 Potassium Level 5.1 Chloride Level 93 L Carbon Dioxide 26 Level Anion Gap 19 H Blood Urea 129 H Nitrogen Creatinine 5.63 H Est Glomerular 11 L Filtrat Rate mL/min Glucose Level 111 Calcium Level 6.2 L Total Bilirubin 5.4 H Direct 4.80 H Bilirubin Indirect 0.6 Bilirubin Aspartate Amino 195 H Transf (AST/SGO T) Alanine 116 H Aminotransferas e (ALT/SGPT) Alkaline 492 H Phosphatase Lactate 3414 H Dehydrogenase Creatine Kinase 685 H Creatine Kinase 1.6 Index Creatinine 11.20 H Kinase MB (Mass) Troponin I 0.097 Total Protein 4.8 L Albumin 2.3 L Globulin 2.50 Albumin/Globuli 0.92 n Ratio Amylase Level 101 Lipase 87 Ionized Calcium 0.8 L (Measured) Urine Color CRISTINA Urine Clarity SLIGHTLY CLOUD Y A Urine pH 5.0 Urine Specific 1.014 [place] Urine Ketones NEGATIVE Urine Nitrite NEGATIVE Urine Bilirubin NEGATIVE Urine NEGATIVE Urobilinogen Urine Leukocyte NEGATIVE Esterase Urine 13 H Microscopic RBC Urine 10 H Microscopic WBC Urine Amorphous FEW A Crystals Urine Mucus FEW A Urine 3+ H Hemoglobin Urine Glucose NEGATIVE Urine Total 1+ H Protein Test 12/31/18 06:07 12/31/18 08:10 12/31/18 09:43 12/31/18 09:44 Bedside Glucose 93 115 102 White Blood 8.6 Count Red Blood Count 2.44 L Hemoglobin 7.2 L Hematocrit 21.1 L Mean 86.5 Corpuscular Volume Mean 29.5 Corpuscular Hemoglobin Mean 34.1 Corpuscular Hemoglobin Conc ent Red Cell 14.5 Distribution Width Platelet Count 122 L Mean Platelet 12.7 H Volume Immature 6.000 H Granulocytes % Neutrophils % 82.3 H Segmented 86 H Neutrophils % (Manual) Band 3 Neutrophils % (Manual) Lymphocytes % 5.0 L Lymphocytes % 4 L (Manual) Monocytes % 6.5 Monocytes % 7 (Manual) Eosinophils % 0.0 Basophils % 0.2 Nucleated Red 4 H Blood Cells % Immature 0.510 H Granulocytes # Neutrophils # 7.1 Neutrophils # 7.4 (Manual) Band 0.2 Neutrophils # Lymphocytes 0.3 L (Manual) Lymphocytes # 0.4 L Monocytes # 0.6 Monocytes # 0.6 (Manual) Eosinophils # 0.0 Basophils # 0.0 Nucleated Red 0.2 H Blood Cells # Platelet DECREASED Estimate Giant Platelets 1 H Prothrombin 19.6 #H Time Prothrombin 1.5 Time Ratio INR 1.65 International Normalized Rati o Activated 42.4 H Partial Thrombo plast Time Sodium Level 138 Potassium Level 5.1 Chloride Level 94 L Carbon Dioxide 25 Level Anion Gap 19 H Blood Urea 143 H Nitrogen Creatinine 6.07 H Est Glomerular 10 L Filtrat Rate mL/min Glucose Level 106 Osmolality 335 H Lactic Acid 1.0 Level Calcium Level 7.2 L Ionized Calcium 0.9 L (Measured) Phosphorus 13.5 H Level Magnesium Level 2.9 H Total Bilirubin 5.0 H Direct 4.50 H Bilirubin Indirect 0.5 Bilirubin Aspartate Amino 209 H Transf (AST/SGO T) Alanine 122 H Aminotransferas e (ALT/SGPT) Alkaline 489 H Phosphatase Lactate 3425 H Dehydrogenase Creatine Kinase 589 H Creatine Kinase 1.7 Index Creatinine 10.10 H Kinase MB (Mass) Troponin I 0.068 Total Protein 5.8 #L Albumin 2.8 L Globulin 3.00 Albumin/Globuli 0.93 n Ratio Amylase Level 113 Lipase 78 Test 12/31/18 12:00 12/31/18 12:04 12/31/18 13:17 12/31/18 14:10 Blood Gas Blood arterial Specimen Source Arterial Blood 12/31/2018 10:15 Date Drawn :07 AM Arterial Blood 7.335 L pH (Temp corrected ) Arterial Blood 46.0 H pCO2 (Temp correct) Arterial Blood 117.5 H pO2 (Temp corrected ) Arterial Blood 24.0 HCO3 Arterial Blood -1.8 Base Excess Arterial Blood 97.8 Oxygen Saturati on Adarsh Test N/A Arterial Blood A-Line Gas Puncture Site Arterial 0.9 Blood Carboxyhe moglobin Arterial Blood 0.3 Methemoglobin Blood Gas A-a 42.4 H O2 Differential Oxyhemoglobin 96.6 Percent Blood Gas 37.0 Temperature Blood Gas VENT - PC Modality FiO2 30.0 Blood Gas High 35.0 PEEP Setting Blood Gas Low 0 PEEP Setting Blood Gas TM Notified Whom Blood Gas 12/31/2018 10:24 Notified Time :28 AM Bedside Glucose 112 102 Random 14.1 Vancomycin Level Test 12/31/18 15:50 12/31/18 15:51 White Blood 10.3 Count Red Blood Count 2.53 L Hemoglobin 7.6 L Hematocrit 22.1 L Mean 87.4 Corpuscular Volume Mean 30.0 Corpuscular Hemoglobin Mean 34.4 Corpuscular Hemoglobin Conc ent Red Cell 14.7 H Distribution Width Platelet Count 144 Mean Platelet 12.8 H Volume Immature 6.600 H Granulocytes % Neutrophils % 81.7 H Lymphocytes % 4.7 L Monocytes % 6.8 Eosinophils % 0.0 Basophils % 0.2 Nucleated Red 2.1 H Blood Cells % Immature 0.680 H Granulocytes # Neutrophils # 8.4 H Lymphocytes # 0.5 L Monocytes # 0.7 Eosinophils # 0.0 Basophils # 0.0 Nucleated Red 0.2 H Blood Cells # Bedside Glucose 134 Medications Medication Current Medications Piperacillin Sod/ Tazobactam Sod 50 ml @ 100 mls/hr Q8 IVPB Last administered on 12/31/18 14:39; Admin Dose 100 MLS/HR; Start 12/30/18 at 06:00 Vasopressin 60 unit/Dextrose 60 ml @ 1.2 mls/hr Q12H IV Last administered on 12/31/18at 11:11; Admin Dose 2.4 MLS/HR; Start 12/29/18 at 22:30 Levothyroxine Sodium 200 mcg/ Sodium Chloride 500 ml @ 50 mls/hr Q10H IV Last administered on 12/31/18 12:15; Admin Dose 100 MLS/HR; Start 12/29/18 at 23:30 Dobutamine HCl/ Dextrose 250 ml @ 0.628 mls/ hr IV IV Last administered on 12/31/18 12:14; Admin Dose 2.511 MLS/HR; Start 12/29/18 at 23:00 Methylprednisolone Sodium Succinate 500 mg/Sodium Chloride 50 ml @ 100 mls/hr Q8H IV Last administered on 12/31/18 16:10; Admin Dose 100 MLS/HR; Start 12/30/18 at 08:00 Diagnostic Test (Pha) (Accu-Chek) 1 ea Q1H XX Last administered on 12/31/18at 05:59; Admin Dose 1 EA; Start 12/30/18 at 07:30 Insulin Human Regular 100 unit/ Sodium Chloride 100 ml @ 0 mls/hr PER PROTOCOL IV Last administered on 12/30/18at 21:50; Admin Dose 5 MLS/HR; Start 12/30/18 at 08:00 Miscellaneous Information (* Miscellaneous Pharmacy Order) Treatment of Hypoglycemia: 1.BG 51... Per protocol XX ; Start 12/30/18 at 07:30 Dextrose (D50w Syringe) 25 ml Q15M PRN IV .DECREASED GLUCOSE; Start 12/30/18 at 07:30 Dextrose (D50w Syringe) 50 ml Q15M PRN IV .DECREASED GLUCOSE; Start 12/30/18 at 07:30 Albumin Human 100 ml @ 100 mls/hr DURING DIALYSIS PRN IV BLOOD PRESSURE SUPPORT Last administered on 12/31/18at 12:29; Admin Dose 100 MLS/HR; Start 12/30/18 at 15:00 Heparin Sodium (Porcine) (Heparin (1000 Units/ml)) 2,800 unit AFTER DIALYSIS PRN CATHETER Dialysis Last administered on 12/30/18at 15:34; Admin Dose 2,800 UNIT; Start 12/30/18 at 15:00 Alteplase, Recombinant (Cathflo (Activase)) 2 mg MAY REPEAT X1 PRN CATHETER IF CATHETER REMAINS OCCULUDED Last administered on 12/31/18at 09:30; Admin Dose 2 MG; Start 12/31/18 at 08:30 Vancomycin HCl 100 ml @ 100 mls/hr ONCE ONCE IVPB ; Start 12/31/18 at 17:00; Stop 12/31/18 at 17:59 CHILANGO YODER MD Dec 31, 2018 16:24
--- NOTE | 2018-12-31 16:58 | RADRPT ---
Echocardiogram Report Patient Name: Frida ESPINOZAtient ID: [id number] : 1970 (48y 8m)Study Date: 12/31/2018 3:50:30 PM Gender: MAccession #: [id number] Tech: Vishal Villeda [facility] Location: [address] Ref.Physician: FAHAD, ONE Height(Cm): BSA: Weight(Kg): Quality: Technically Difficult StudyAccount #: Procedures: Echocardiographic Report: Transthoracic echocardiogram with complete 2D, M-Mode, and doppler examination. Indications: Organ Donor. Measurements: 2D/M Mode Doppler Measurement Value Normal Range Measurement Value Normal Range LVIDd 2D 5.3 [ 4.2 - 5.8 ] cm AV Peak Quinn 1.2 [ 100.0 - 170.0 ] cm/sec LVIDs 2D 4.1 [ 2.5 - 4.0 ] cm AV Peak PG 6.0 [ 2.0 - 9.0 ] mmHg LVPWd 2D 0.8 [ 0.6 - 1.0 ] cm LVOT Peak Quinn 0.8 [ 70.0 - 110.0 ] cm/sec IVSd 2D 0.8 [ 0.6 - 1.0 ] cm LVOT Peak PG 3.0 [ 2.0 - 6.0 ] mmHg AoR Diam 2D 2.7 [ 2.6 - 3.4 ] cm MV E Peak Quinn 0.6 [ 60.0 - 130.0 ] cm/sec EDV 2D 132.0 [ 62.0 - 150.0 ] ml MV A Peak Quinn 0.4 [ 100.0 - 120.0 ] cm/sec ESV 2D 73.8 [ 21.0 - 61.0 ] ml MV E/A 1.5 [ 0.8 - 1.5 ] ratio EF 2D 44.1 [ 52.0 - 72.0 ] percent MV Decel Time 261 [ 104 - 258 ] msec LA Dimen 2D 4.0 [ 3.0 - 4.0 ] cm Lat E` Quinn 0.1 [ 10.0 - 15.0 ] cm/sec Lateral E/E` 12.0 [ 1.0 - 2.0 ] ratio MV E/A 1.5 [ 0.8 - 1.5 ] ratio TR Peak Quinn 3.1 [ 100.0 - 280.0 ] cm/sec TR Peak PG 38.0 mmHg RVSP 53.0 [ 10.0 - 36.0 ] mmHg Findings: Left Ventricle: Normal left ventricular cavity size. Normal left ventricular wall thickness. Mild global left ventricular systolic dysfunction in some views. Ejection fraction is visually estimated at 45 %. Tissue Doppler/Mitral Doppler indices are consistent with pseudonormalization with mildly elevated left atrial pressure (Stage II diastolic dysfunction). Right Ventricle: Mild enlargement of right ventricle. Mild right ventricular hypokinesis. Left Atrium: The left atrium is normal in size. Right Atrium: The right atrium is normal in size. Mitral Valve: Normal appearance of the mitral valve. Mild mitral valve regurgitation. Aortic Valve: Aortic sclerosis without significant stenosis. Mild aortic valve regurgitation. Tricuspid Valve: Normal appearance of the tricuspid valve. Estimated peak PA systolic pressure 46 mmHg. There is mild tricuspid regurgitation. Pulmonic Valve: Normal pulmonic valve appearance. Pericardium: Normal pericardium with no significant pericardial effusion. Aorta: Normal aortic root. IVC: Inferior vena cava without respiratory collapse, however, patient on ventilator. Conclusions: Overall grossly unchanged from prior study. Normal left ventricular cavity size. Normal left ventricular wall thickness. Mild global left ventricular systolic dysfunction in some views. Ejection fraction is visually estimated at 45 %. Tissue Doppler/Mitral Doppler indices are consistent with pseudonormalization with mildly elevated left atrial pressure (Stage II diastolic dysfunction). Mild enlargement of right ventricle. Mild right ventricular hypokinesis. Aortic sclerosis without significant stenosis. Mild aortic valve regurgitation. Estimated peak PA systolic pressure 46 mmHg. Inferior vena cava without respiratory collapse, however, patient on ventilator. Electronically Signed By: Néstor Sung 2018-12-31 16:57:20 PDT
[2018-12-31] MEDS ORDERED: VANCOMYCIN 500 MG (PMX) 100 ML IVPB ONE (17:00)
[2019-01-01] VITALS (115 sets, daily range): BP systolic 72–193; BP diastolic 39–99; PULSE 56–75; RESP 9–20
[2019-01-01] MEDS: METHYLPRED NA SUCC IV SCH ×3 (00:22→18:08)
[2019-01-01] MEDS: SOD CHLORIDE 0.9% IV SCH ×3 (00:22→18:08)
[2019-01-01] MEDS: ACCU-CHEK XX SCH ×23 (00:25→23:30)
[2019-01-01] MEDS ORDERED: CA CHLORIDE 10% 10 ML SYRINGE IV ONE ×5 (00:30→17:00)
[2019-01-01] MEDS: PIPER-TAZO 2.25 GM (PMX) 50 ML IVPB SCH ×3 (05:09→22:04)
[2019-01-01] MEDS: LEVOTHYROXINE 200 MCG in SOD CHLORIDE 0.9% 500 ML IV SCH ×3 (07:20→17:28)
[2019-01-01] MEDS: VASOPRESSIN 60 UNIT in DEXTROSE 5% 57 ML IV SCH ×3 (08:32→22:30)
[2019-01-01] MEDS: ALBUMIN HUMAN 25% 100 ML IV PRN ×3 (09:54→21:11)
[2019-01-01] MEDS: ALTEPLASE (CATHFLO) 2 MG INJ CATHETER PRN ×3 (10:45→13:53)
[2019-01-01] MEDS: INSULIN HUMAN REGULAR 100 UNIT in SOD CHLORIDE 0.9% 99 ML IV SCH (12:08)
--- NOTE | 2019-01-01 12:53 | PN ---
DATE: 01/01/2019 SUBJECTIVE: The patient remains critically ill on pressor support. The patient had hemodialysis yes terday, approximately 4 liters removed. Anticipate another course of hemodialysis today. No other e vents noted. OBJECTIVE: VITAL SIGNS: Blood pressure is 134/75, respiration 18, pulse 86, temperature 97.0. HEENT: Head is normocephalic. NECK: Supple. HEART: Regular rate. LUNGS: Show diminished breath sounds at the base. ABDOMEN: Soft, nontender to palpation without rebound or guarding. EXTREMITIES: Negative for clubbing, cyanosis. Positive edema. DERMATOLOGIC: No rashes. MUSCULOSKELETAL: No joint effusion. NEUROLOGIC: No change in exam. MEDICATIONS: Reviewed. LABORATORY DATA: From 01/01/2019 shows sodium 138, potassium 5.0, chloride 100, BUN 23, creatinine 4 .85, phosphorus 4.1, magnesium 2.9. White count 10.8, hemoglobin 8.0, platelet count is 155. IMAGING STUDIES: Reviewed. ASSESSMENT AND PLAN: 1. Oliguric acute kidney injury with unknown baseline creatinine. Etiology is secondary to acute tu bular necrosis. The patient remains in injury phase of acute tubular necrosis. The patient will rec eive daily dialysis for solute clearance, volume removal. Plan for dialysis today for 4 hours, 2K ba th, calcium 2.5 ultrafiltration goal 4 to 5 liters. 2. Hyperkalemia, improved. Continue dialysis on a low potassium bath. 3. Hypernatremia, improved. 4. Mixed acid base disorder. ABG was reviewed. Continue hemodialysis. 5. Mineral bone disorder. The patient is hyperphosphatemic, hypocalcemic. Continue hemodialysis. Continue dialysis on a high calcium bath. 6. Shock secondary to septic, cardiac. Continue pressor support, antibiotic therapy. 7. Status post cardiac arrest. 8. Ventilatory-dependent respiratory failure. Vent settings and ABG was reviewed. 9. Anoxic injury with confirmed brain . Please note I spent over 30 minutes of critical care time with this patient. Dictated By: HERB MATOS DO NR/NTS Conf#: [id number] DID#: [id number] CC: ANASTASIA GILBERT MD;*EndCC*
--- NOTE | 2019-01-01 14:38 | PN ---
Date/Time of Note Date/Time of Note DATE: 01/01/19 TIME: 14:37 Assessment/Plan VTE Prophylaxis Risk score (from Ns)>0 risk: 7 SCD applied (from Ns): Yes Pharmacological prophylaxis: heparin Lines/Catheters IV Catheter Type (from Nrs): BELEN Urinary Cath still in place: Yes Reason Cath still needed: urinary retention Assessment/Plan Hospital Course Brain on exam MV via ETT RRR Clear lungs 48 yo male with brain following cardiac arrest. Pending organ donation - Continue supportive care - HD per renal - Vasopressors - Organ donation per one legacy Result Diagram: 01/01/1994001/01/19 0941 Results 24hrs Laboratory Tests Test 12/31/18 15:48 12/31/18 15:49 12/31/18 15:50 12/31/18 15:51 Prothrombin 17.4 H Time Prothrombin 1.4 Time Ratio INR 1.41 International Normalized Rati o Activated 44.0 H Partial Thrombo plast Time Sodium Level 138 Potassium Level 5.2 H Chloride Level 98 Carbon Dioxide 24 Level Anion Gap 16 H Blood Urea 91 #H Nitrogen Creatinine 4.14 #H Est Glomerular 15 L Filtrat Rate mL/min Glucose Level 129 Osmolality 314 H Lactic Acid 1.5 Level Calcium Level 7.7 L Ionized Calcium 1.0 L (Measured) Total Bilirubin 4.4 H Direct 3.60 H Bilirubin Indirect 0.8 Bilirubin Aspartate Amino 184 H Transf (AST/SGO T) Alanine 134 H Aminotransferas e (ALT/SGPT) Alkaline 547 H Phosphatase Lactate 3437 H Dehydrogenase Creatine Kinase 476 H Creatine Kinase 2.2 Index Creatinine 10.30 H Kinase MB (Mass) Troponin I 0.043 Total Protein 5.7 L Albumin 3.0 L Globulin 2.70 Albumin/Globuli 1.11 n Ratio Amylase Level 117 Lipase 103 White Blood 10.3 Count Red Blood Count 2.53 L Hemoglobin 7.6 L Hematocrit 22.1 L Mean 87.4 Corpuscular Volume Mean 30.0 Corpuscular Hemoglobin Mean 34.4 Corpuscular Hemoglobin Conc ent Red Cell 14.7 H Distribution Width Platelet Count 144 Mean Platelet 12.8 H Volume Immature 6.600 H Granulocytes % Neutrophils % 81.7 H Lymphocytes % 4.7 L Monocytes % 6.8 Eosinophils % 0.0 Basophils % 0.2 Nucleated Red 2.1 H Blood Cells % Immature 0.680 H Granulocytes # Neutrophils # 8.4 H Lymphocytes # 0.5 L Monocytes # 0.7 Eosinophils # 0.0 Basophils # 0.0 Nucleated Red 0.2 H Blood Cells # Phosphorus 10.8 #H Level Magnesium Level 2.6 H Bedside Glucose 134 Test 12/31/18 18:00 12/31/18 18:02 12/31/18 20:02 12/31/18 21:58 Blood Gas Blood arterial Specimen Source Arterial Blood 12/31/2018 4:00: Date Drawn 28 PM Arterial Blood 7.337 L pH (Temp corrected ) Arterial Blood 46.6 H pCO2 (Temp correct) Arterial Blood 135.8 H pO2 (Temp corrected ) Arterial Blood 24.4 HCO3 Arterial Blood -1.6 Base Excess Arterial Blood 98.4 H Oxygen Saturati on Adarsh Test N/A Arterial Blood A-Line Gas Puncture Site Arterial 1.1 Blood Carboxyhe moglobin Arterial Blood 0.3 Methemoglobin Blood Gas A-a 23.3 O2 Differential Oxyhemoglobin 97.0 Percent Blood Gas 37.0 Temperature Blood Gas 9.0 Respiration Rate Blood Gas 9 Actual Respiration Rat e Blood Gas VENT - BIPHASIC Modality FiO2 30.0 Blood Gas 0.6 Inspiratory Time Blood Gas High 33.0 PEEP Setting Blood Gas Low 0 PEEP Setting Blood Gas RT Notified Whom Blood Gas 12/31/2018 4:08: Notified Time 54 PM Bedside Glucose 171 110 96 White Blood 10.4 Count Red Blood Count 2.30 L Hemoglobin 6.9 *L Hematocrit 20.1 L Mean 87.4 Corpuscular Volume Mean 30.0 Corpuscular Hemoglobin Mean 34.3 Corpuscular Hemoglobin Conc ent Red Cell 14.7 H Distribution Width Platelet Count 141 Mean Platelet 12.5 H Volume Immature 5.000 H Granulocytes % Neutrophils % 82.1 H Lymphocytes % 5.5 L Monocytes % 7.2 Eosinophils % 0.0 Basophils % 0.2 Nucleated Red 1.8 H Blood Cells % Immature 0.520 H Granulocytes # Neutrophils # 8.5 H Lymphocytes # 0.6 L Monocytes # 0.8 Eosinophils # 0.0 Basophils # 0.0 Nucleated Red 0.2 H Blood Cells # Prothrombin 18.3 H Time Prothrombin 1.4 Time Ratio INR 1.51 International Normalized Rati o Activated 41.0 H Partial Thrombo plast Time Sodium Level 137 Potassium Level 5.1 Chloride Level 98 Carbon Dioxide 24 Level Anion Gap 15 H Blood Urea 112 H Nitrogen Creatinine 4.84 H Est Glomerular 13 L Filtrat Rate mL/min Glucose Level 99 Osmolality 320 H Lactic Acid 1.2 Level Calcium Level 6.8 L Ionized Calcium 0.9 L (Measured) Phosphorus 12.1 H Level Magnesium Level 2.7 H Total Bilirubin 4.3 H Direct 3.60 H Bilirubin Indirect 0.7 Bilirubin Aspartate Amino 156 H Transf (AST/SGO T) Alanine 110 H Aminotransferas e (ALT/SGPT) Alkaline 447 H Phosphatase Lactate 2970 H Dehydrogenase Creatine Kinase 360 H Creatine Kinase 2.4 Index Creatinine 8.66 H Kinase MB (Mass) Troponin I 0.025 Total Protein 5.9 L Albumin 2.9 L Globulin 3.00 Albumin/Globuli 0.96 n Ratio Amylase Level 119 Lipase 51 Test 12/31/18 22:08 12/31/18 23:53 01/01/19 00:01 01/01/19 02:11 Blood Gas Blood arterial Specimen Source Arterial Blood 12/31/2018 10:05 Date Drawn :29 PM Arterial Blood 7.362 pH (Temp corrected ) Arterial Blood 41.3 pCO2 (Temp correct) Arterial Blood 155.3 H pO2 (Temp corrected ) Arterial Blood 22.9 HCO3 Arterial Blood -2.3 Base Excess Arterial Blood 98.8 H Oxygen Saturati on Adarsh Test N/A Arterial Blood A-Line Gas Puncture Site Arterial 0.6 Blood Carboxyhe moglobin Arterial Blood 0.3 Methemoglobin Blood Gas A-a 10.1 O2 Differential Oxyhemoglobin 97.9 Percent Blood Gas 37.0 Temperature Blood Gas 9.0 Respiration Rate Blood Gas 9 Actual Respiration Rat e Blood Gas VENT - BIPHASIC Modality FiO2 30.0 Blood Gas High 30.0 PEEP Setting Blood Gas Low 0 PEEP Setting Blood Gas S.H. Notified Whom Blood Gas 12/31/2018 10:23 Notified Time :31 PM Bedside Glucose 132 130 Urine Color CRISTINA Urine Clarity SLIGHTLY CLOUD Y A Urine pH 5.0 Urine Specific 1.016 [place] Urine Ketones NEGATIVE Urine Nitrite NEGATIVE Urine Bilirubin NEGATIVE Urine NEGATIVE Urobilinogen Urine Leukocyte NEGATIVE Esterase Urine 125 H Microscopic RBC Urine 12 H Microscopic WBC Urine Bacteria FEW A Urine 3+ H Hemoglobin Urine Glucose NEGATIVE Urine Total 1+ H Protein Test 01/01/19 03:52 01/01/19 04:01 01/01/19 04:04 01/01/19 04:08 Lactic Acid 1.3 Level Ionized Calcium 0.9 L (Measured) Blood Gas Blood arterial Specimen Source Arterial Blood 01/01/2019 4:15: Date Drawn 11 AM Arterial Blood 7.352 pH (Temp corrected ) Arterial Blood 37.4 pCO2 (Temp correct) Arterial Blood 158.3 H pO2 (Temp corrected ) Arterial Blood 20.3 L HCO3 Arterial Blood -4.8 L Base Excess Arterial Blood 98.8 H Oxygen Saturati on Adarsh Test N/A Arterial Blood A-Line Gas Puncture Site Arterial 0.3 Blood Carboxyhe moglobin Arterial Blood 0.3 Methemoglobin Blood Gas A-a 11.7 O2 Differential Oxyhemoglobin 98.2 Percent Blood Gas 37.0 Temperature Blood Gas 9.0 Respiration Rate Blood Gas 9 Actual Respiration Rat e Blood Gas VENT - BIPHASIC Modality FiO2 30.0 Blood Gas High 30.0 PEEP Setting Blood Gas Low 0 PEEP Setting Blood Gas Notified Whom Blood Gas 01/01/2019 4:24: Notified Time 04 AM Bedside Glucose 125 Phosphorus 12.1 H Level Magnesium Level 2.9 H Test 01/01/19 04:29 01/01/19 04:44 01/01/19 06:00 01/01/19 06:02 White Blood 10.8 Count Red Blood Count 2.63 L Hemoglobin 8.0 L Hematocrit 22.9 L Mean 87.1 Corpuscular Volume Mean 30.4 Corpuscular Hemoglobin Mean 34.9 Corpuscular Hemoglobin Conc ent Red Cell 14.6 H Distribution Width Platelet Count 155 Mean Platelet 12.7 H Volume Immature 4.300 H Granulocytes % Neutrophils % 82.9 H Lymphocytes % 5.3 L Monocytes % 7.4 Eosinophils % 0.0 Basophils % 0.1 Nucleated Red 1.9 H Blood Cells % Immature 0.460 H Granulocytes # Neutrophils # 8.9 H Lymphocytes # 0.6 L Monocytes # 0.8 Eosinophils # 0.0 Basophils # 0.0 Nucleated Red 0.2 H Blood Cells # Prothrombin 18.8 H Time Prothrombin 1.5 Time Ratio INR 1.56 International Normalized Rati o Activated 40.6 H Partial Thrombo plast Time Sodium Level 138 Potassium Level 5.0 Chloride Level 100 Carbon Dioxide 22 Level Anion Gap 16 H Blood Urea 123 H Nitrogen Creatinine 4.85 H Est Glomerular 13 L Filtrat Rate mL/min Glucose Level 126 Osmolality 330 H Calcium Level 7.3 L Total Bilirubin 4.3 H Direct 3.50 H Bilirubin Indirect 0.8 Bilirubin Aspartate Amino 142 H Transf (AST/SGO T) Alanine 111 H Aminotransferas e (ALT/SGPT) Alkaline 447 H Phosphatase Lactate 3077 H Dehydrogenase Creatine Kinase 299 H Creatine Kinase 3.0 Index Creatinine 8.87 H Kinase MB (Mass) Troponin I 0.021 Total Protein 6.0 L Albumin 3.0 L Globulin 3.00 Albumin/Globuli 1.00 n Ratio Amylase Level 105 Lipase 33 Random 23.6 Vancomycin Level Lab Scanned BLOOD TRANSFUSI Report ON Urine Color CRISTINA Urine Clarity SLIGHTLY CLOUD Y A Urine pH 5.0 Urine Specific 1.014 [place] Urine Ketones NEGATIVE Urine Nitrite NEGATIVE Urine Bilirubin NEGATIVE Urine NEGATIVE Urobilinogen Urine Leukocyte NEGATIVE Esterase Urine 21 H Microscopic RBC Urine 8 H Microscopic WBC Urine Bacteria FEW A Urine 3+ H Hemoglobin Urine Glucose NEGATIVE Urine Total 1+ H Protein Bedside Glucose 119 Test 01/01/19 08:07 01/01/19 09:41 01/01/19 10:10 01/01/19 11:50 Bedside Glucose 134 130 154 White Blood 8.6 # Count Red Blood Count 2.66 L Hemoglobin 8.0 L Hematocrit 23.7 L Mean 89.1 Corpuscular Volume Mean 30.1 Corpuscular Hemoglobin Mean 33.8 Corpuscular Hemoglobin Conc ent Red Cell 14.8 H Distribution Width Platelet Count 160 Mean Platelet 12.4 H Volume Immature 5.600 H Granulocytes % Neutrophils % Segmented 89 H Neutrophils % (Manual) Lymphocytes % Lymphocytes % 3 L (Manual) Monocytes % Monocytes % 7 (Manual) Eosinophils % Basophils % Myelocytes % 1 H (Manual) Nucleated Red 6 H Blood Cells % Immature 0.480 H Granulocytes # Neutrophils # Lymphocytes 0.2 L (Manual) Lymphocytes # Monocytes # Monocytes # 0.6 (Manual) Eosinophils # Basophils # Myelocytes # 0.0 Nucleated Red Blood Cells # Platelet NORMAL Estimate Giant Platelets 2 H Polychromasia 1+ Poikilocytosis 1+ Target Cells 1+ Prothrombin 19.0 H Time Prothrombin 1.5 Time Ratio INR 1.58 International Normalized Rati o Activated 41.4 H Partial Thrombo plast Time Sodium Level 138 Potassium Level 5.0 Chloride Level 100 Carbon Dioxide 23 Level Anion Gap 15 H Blood Urea 133 H Nitrogen Creatinine 5.05 H Est Glomerular 12 L Filtrat Rate mL/min Glucose Level 144 Osmolality 336 H Lactic Acid 1.3 Level Calcium Level 7.3 L Ionized Calcium 1.0 L (Measured) Phosphorus 12.1 H Level Magnesium Level 2.8 H Total Bilirubin 4.0 H Direct 3.30 H Bilirubin Indirect 0.7 Bilirubin Aspartate Amino 131 H Transf (AST/SGO T) Alanine 109 H Aminotransferas e (ALT/SGPT) Alkaline 433 H Phosphatase Lactate 3168 H Dehydrogenase Creatine Kinase 248 H Creatine Kinase 3.3 Index Creatinine 8.29 H Kinase MB (Mass) Troponin I 0.020 Total Protein 6.0 L Albumin 3.0 L Globulin 3.00 Albumin/Globuli 1.00 n Ratio Amylase Level 105 Lipase 26 Test 01/01/19 12:00 01/01/19 14:17 Urine Color CRISTINA Urine Clarity CLOUDY A Urine pH 5.0 Urine Specific 1.015 [place] Urine Ketones NEGATIVE Urine Nitrite NEGATIVE Urine Bilirubin NEGATIVE Urine NEGATIVE Urobilinogen Urine Leukocyte NEGATIVE Esterase Urine 175 H Microscopic RBC Urine 17 H Microscopic WBC Urine Mucus FEW A Urine 3+ H Hemoglobin Urine Glucose NEGATIVE Urine Total 1+ H Protein Blood Gas Blood arterial Specimen Source Arterial Blood 01/01/2019 10:00 Date Drawn :48 AM Arterial Blood 7.310 L pH (Temp corrected ) Arterial Blood 41.4 pCO2 (Temp correct) Arterial Blood 575.1 H pO2 (Temp corrected ) Arterial Blood 20.4 L HCO3 Arterial Blood -5.5 L Base Excess Arterial Blood 99.8 H Oxygen Saturati on Adarsh Test N/A Arterial Blood A-Line Gas Puncture Site Arterial 0.1 Blood Carboxyhe moglobin Arterial Blood 0.3 Methemoglobin Blood Gas A-a 96.5 H O2 Differential Oxyhemoglobin 99.4 H Percent Blood Gas 37.0 Temperature Blood Gas 9.0 Respiration Rate Blood Gas 9 Actual Respiration Rat e Blood Gas VENT - BIPHASIC Modality FiO2 100.0 Blood Gas High 30.0 PEEP Setting Blood Gas Low 0 PEEP Setting Blood Gas [place] Notified Whom Blood Gas 01/01/2019 10:30 Notified Time :34 AM Bedside Glucose 130 Subjective 24 Hr Interval Summary Free Text/Dictation No change to clinical status Receiving HD Awaitign organ donation Exam/Review of Systems Exam Vitals Vital Signs Date Temp Pulse Resp B/P (MAP) Pulse Ox O2 O2 Flow FiO2 Time Delivery Rate 01/01/19 97.5 66 10 187/97 99 Mechanical 14:00 (127) Ventilator 01/01/19 30 11:00 Intake and Output 12/31/18 12/31/18 01/01/19 1515:00 23:00 07:00 IntakeIntake Total 807.5 ml 700.140 ml 903.127 ml OutputOutput Total 5120 ml 150 ml 170 ml BalanceBalance -4312.5 ml 550.140 ml 733.127 ml Results Results 24hrs Laboratory Tests Test 12/31/18 15:48 12/31/18 15:49 12/31/18 15:50 12/31/18 15:51 Prothrombin 17.4 H Time Prothrombin 1.4 Time Ratio INR 1.41 International Normalized Rati o Activated 44.0 H Partial Thrombo plast Time Sodium Level 138 Potassium Level 5.2 H Chloride Level 98 Carbon Dioxide 24 Level Anion Gap 16 H Blood Urea 91 #H Nitrogen Creatinine 4.14 #H Est Glomerular 15 L Filtrat Rate mL/min Glucose Level 129 Osmolality 314 H Lactic Acid 1.5 Level Calcium Level 7.7 L Ionized Calcium 1.0 L (Measured) Total Bilirubin 4.4 H Direct 3.60 H Bilirubin Indirect 0.8 Bilirubin Aspartate Amino 184 H Transf (AST/SGO T) Alanine 134 H Aminotransferas e (ALT/SGPT) Alkaline 547 H Phosphatase Lactate 3437 H Dehydrogenase Creatine Kinase 476 H Creatine Kinase 2.2 Index Creatinine 10.30 H Kinase MB (Mass) Troponin I 0.043 Total Protein 5.7 L Albumin 3.0 L Globulin 2.70 Albumin/Globuli 1.11 n Ratio Amylase Level 117 Lipase 103 White Blood 10.3 Count Red Blood Count 2.53 L Hemoglobin 7.6 L Hematocrit 22.1 L Mean 87.4 Corpuscular Volume Mean 30.0 Corpuscular Hemoglobin Mean 34.4 Corpuscular Hemoglobin Conc ent Red Cell 14.7 H Distribution Width Platelet Count 144 Mean Platelet 12.8 H Volume Immature 6.600 H Granulocytes % Neutrophils % 81.7 H Lymphocytes % 4.7 L Monocytes % 6.8 Eosinophils % 0.0 Basophils % 0.2 Nucleated Red 2.1 H Blood Cells % Immature 0.680 H Granulocytes # Neutrophils # 8.4 H Lymphocytes # 0.5 L Monocytes # 0.7 Eosinophils # 0.0 Basophils # 0.0 Nucleated Red 0.2 H Blood Cells # Phosphorus 10.8 #H Level Magnesium Level 2.6 H Bedside Glucose 134 Test 12/31/18 18:00 12/31/18 18:02 12/31/18 20:02 12/31/18 21:58 Blood Gas Blood arterial Specimen Source Arterial Blood 12/31/2018 4:00: Date Drawn 28 PM Arterial Blood 7.337 L pH (Temp corrected ) Arterial Blood 46.6 H pCO2 (Temp correct) Arterial Blood 135.8 H pO2 (Temp corrected ) Arterial Blood 24.4 HCO3 Arterial Blood -1.6 Base Excess Arterial Blood 98.4 H Oxygen Saturati on Adrash Test N/A Arterial Blood A-Line Gas Puncture Site Arterial 1.1 Blood Carboxyhe moglobin Arterial Blood 0.3 Methemoglobin Blood Gas A-a 23.3 O2 Differential Oxyhemoglobin 97.0 Percent Blood Gas 37.0 Temperature Blood Gas 9.0 Respiration Rate Blood Gas 9 Actual Respiration Rat e Blood Gas VENT - BIPHASIC Modality FiO2 30.0 Blood Gas 0.6 Inspiratory Time Blood Gas High 33.0 PEEP Setting Blood Gas Low 0 PEEP Setting Blood Gas RT Notified Whom Blood Gas 12/31/2018 4:08: Notified Time 54 PM Bedside Glucose 171 110 96 White Blood 10.4 Count Red Blood Count 2.30 L Hemoglobin 6.9 *L Hematocrit 20.1 L Mean 87.4 Corpuscular Volume Mean 30.0 Corpuscular Hemoglobin Mean 34.3 Corpuscular Hemoglobin Conc ent Red Cell 14.7 H Distribution Width Platelet Count 141 Mean Platelet 12.5 H Volume Immature 5.000 H Granulocytes % Neutrophils % 82.1 H Lymphocytes % 5.5 L Monocytes % 7.2 Eosinophils % 0.0 Basophils % 0.2 Nucleated Red 1.8 H Blood Cells % Immature 0.520 H Granulocytes # Neutrophils # 8.5 H Lymphocytes # 0.6 L Monocytes # 0.8 Eosinophils # 0.0 Basophils # 0.0 Nucleated Red 0.2 H Blood Cells # Prothrombin 18.3 H Time Prothrombin 1.4 Time Ratio INR 1.51 International Normalized Rati o Activated 41.0 H Partial Thrombo plast Time Sodium Level 137 Potassium Level 5.1 Chloride Level 98 Carbon Dioxide 24 Level Anion Gap 15 H Blood Urea 112 H Nitrogen Creatinine 4.84 H Est Glomerular 13 L Filtrat Rate mL/min Glucose Level 99 Osmolality 320 H Lactic Acid 1.2 Level Calcium Level 6.8 L Ionized Calcium 0.9 L (Measured) Phosphorus 12.1 H Level Magnesium Level 2.7 H Total Bilirubin 4.3 H Direct 3.60 H Bilirubin Indirect 0.7 Bilirubin Aspartate Amino 156 H Transf (AST/SGO T) Alanine 110 H Aminotransferas e (ALT/SGPT) Alkaline 447 H Phosphatase Lactate 2970 H Dehydrogenase Creatine Kinase 360 H Creatine Kinase 2.4 Index Creatinine 8.66 H Kinase MB (Mass) Troponin I 0.025 Total Protein 5.9 L Albumin 2.9 L Globulin 3.00 Albumin/Globuli 0.96 n Ratio Amylase Level 119 Lipase 51 Test 12/31/18 22:08 12/31/18 23:53 01/01/19 00:01 01/01/19 02:11 Blood Gas Blood arterial Specimen Source Arterial Blood 12/31/2018 10:05 Date Drawn :29 PM Arterial Blood 7.362 pH (Temp corrected ) Arterial Blood 41.3 pCO2 (Temp correct) Arterial Blood 155.3 H pO2 (Temp corrected ) Arterial Blood 22.9 HCO3 Arterial Blood -2.3 Base Excess Arterial Blood 98.8 H Oxygen Saturati on Adarsh Test N/A Arterial Blood A-Line Gas Puncture Site Arterial 0.6 Blood Carboxyhe moglobin Arterial Blood 0.3 Methemoglobin Blood Gas A-a 10.1 O2 Differential Oxyhemoglobin 97.9 Percent Blood Gas 37.0 Temperature Blood Gas 9.0 Respiration Rate Blood Gas 9 Actual Respiration Rat e Blood Gas VENT - BIPHASIC Modality FiO2 30.0 Blood Gas High 30.0 PEEP Setting Blood Gas Low 0 PEEP Setting Blood Gas S.H. Notified Whom Blood Gas 12/31/2018 10:23 Notified Time :31 PM Bedside Glucose 132 130 Urine Color CRISTINA Urine Clarity SLIGHTLY CLOUD Y A Urine pH 5.0 Urine Specific 1.016 [place] Urine Ketones NEGATIVE Urine Nitrite NEGATIVE Urine Bilirubin NEGATIVE Urine NEGATIVE Urobilinogen Urine Leukocyte NEGATIVE Esterase Urine 125 H Microscopic RBC Urine 12 H Microscopic WBC Urine Bacteria FEW A Urine 3+ H Hemoglobin Urine Glucose NEGATIVE Urine Total 1+ H Protein Test 01/01/19 03:52 01/01/19 04:01 01/01/19 04:04 01/01/19 04:08 Lactic Acid 1.3 Level Ionized Calcium 0.9 L (Measured) Blood Gas Blood arterial Specimen Source Arterial Blood 01/01/2019 4:15: Date Drawn 11 AM Arterial Blood 7.352 pH (Temp corrected ) Arterial Blood 37.4 pCO2 (Temp correct) Arterial Blood 158.3 H pO2 (Temp corrected ) Arterial Blood 20.3 L HCO3 Arterial Blood -4.8 L Base Excess Arterial Blood 98.8 H Oxygen Saturati on Adarsh Test N/A Arterial Blood A-Line Gas Puncture Site Arterial 0.3 Blood Carboxyhe moglobin Arterial Blood 0.3 Methemoglobin Blood Gas A-a 11.7 O2 Differential Oxyhemoglobin 98.2 Percent Blood Gas 37.0 Temperature Blood Gas 9.0 Respiration Rate Blood Gas 9 Actual Respiration Rat e Blood Gas VENT - BIPHASIC Modality FiO2 30.0 Blood Gas High 30.0 PEEP Setting Blood Gas Low 0 PEEP Setting Blood Gas Notified Whom Blood Gas 01/01/2019 4:24: Notified Time 04 AM Bedside Glucose 125 Phosphorus 12.1 H Level Magnesium Level 2.9 H Test 01/01/19 04:29 01/01/19 04:44 01/01/19 06:00 01/01/19 06:02 White Blood 10.8 Count Red Blood Count 2.63 L Hemoglobin 8.0 L Hematocrit 22.9 L Mean 87.1 Corpuscular Volume Mean 30.4 Corpuscular Hemoglobin Mean 34.9 Corpuscular Hemoglobin Conc ent Red Cell 14.6 H Distribution Width Platelet Count 155 Mean Platelet 12.7 H Volume Immature 4.300 H Granulocytes % Neutrophils % 82.9 H Lymphocytes % 5.3 L Monocytes % 7.4 Eosinophils % 0.0 Basophils % 0.1 Nucleated Red 1.9 H Blood Cells % Immature 0.460 H Granulocytes # Neutrophils # 8.9 H Lymphocytes # 0.6 L Monocytes # 0.8 Eosinophils # 0.0 Basophils # 0.0 Nucleated Red 0.2 H Blood Cells # Prothrombin 18.8 H Time Prothrombin 1.5 Time Ratio INR 1.56 International Normalized Rati o Activated 40.6 H Partial Thrombo plast Time Sodium Level 138 Potassium Level 5.0 Chloride Level 100 Carbon Dioxide 22 Level Anion Gap 16 H Blood Urea 123 H Nitrogen Creatinine 4.85 H Est Glomerular 13 L Filtrat Rate mL/min Glucose Level 126 Osmolality 330 H Calcium Level 7.3 L Total Bilirubin 4.3 H Direct 3.50 H Bilirubin Indirect 0.8 Bilirubin Aspartate Amino 142 H Transf (AST/SGO T) Alanine 111 H Aminotransferas e (ALT/SGPT) Alkaline 447 H Phosphatase Lactate 3077 H Dehydrogenase Creatine Kinase 299 H Creatine Kinase 3.0 Index Creatinine 8.87 H Kinase MB (Mass) Troponin I 0.021 Total Protein 6.0 L Albumin 3.0 L Globulin 3.00 Albumin/Globuli 1.00 n Ratio Amylase Level 105 Lipase 33 Random 23.6 Vancomycin Level Lab Scanned BLOOD TRANSFUSI Report ON Urine Color CRISTINA Urine Clarity SLIGHTLY CLOUD Y A Urine pH 5.0 Urine Specific 1.014 [place] Urine Ketones NEGATIVE Urine Nitrite NEGATIVE Urine Bilirubin NEGATIVE Urine NEGATIVE Urobilinogen Urine Leukocyte NEGATIVE Esterase Urine 21 H Microscopic RBC Urine 8 H Microscopic WBC Urine Bacteria FEW A Urine 3+ H Hemoglobin Urine Glucose NEGATIVE Urine Total 1+ H Protein Bedside Glucose 119 Test 01/01/19 08:07 01/01/19 09:41 01/01/19 10:10 01/01/19 11:50 Bedside Glucose 134 130 154 White Blood 8.6 # Count Red Blood Count 2.66 L Hemoglobin 8.0 L Hematocrit 23.7 L Mean 89.1 Corpuscular Volume Mean 30.1 Corpuscular Hemoglobin Mean 33.8 Corpuscular Hemoglobin Conc ent Red Cell 14.8 H Distribution Width Platelet Count 160 Mean Platelet 12.4 H Volume Immature 5.600 H Granulocytes % Neutrophils % Segmented 89 H Neutrophils % (Manual) Lymphocytes % Lymphocytes % 3 L (Manual) Monocytes % Monocytes % 7 (Manual) Eosinophils % Basophils % Myelocytes % 1 H (Manual) Nucleated Red 6 H Blood Cells % Immature 0.480 H Granulocytes # Neutrophils # Lymphocytes 0.2 L (Manual) Lymphocytes # Monocytes # Monocytes # 0.6 (Manual) Eosinophils # Basophils # Myelocytes # 0.0 Nucleated Red Blood Cells # Platelet NORMAL Estimate Giant Platelets 2 H Polychromasia 1+ Poikilocytosis 1+ Target Cells 1+ Prothrombin 19.0 H Time Prothrombin 1.5 Time Ratio INR 1.58 International Normalized Rati o Activated 41.4 H Partial Thrombo plast Time Sodium Level 138 Potassium Level 5.0 Chloride Level 100 Carbon Dioxide 23 Level Anion Gap 15 H Blood Urea 133 H Nitrogen Creatinine 5.05 H Est Glomerular 12 L Filtrat Rate mL/min Glucose Level 144 Osmolality 336 H Lactic Acid 1.3 Level Calcium Level 7.3 L Ionized Calcium 1.0 L (Measured) Phosphorus 12.1 H Level Magnesium Level 2.8 H Total Bilirubin 4.0 H Direct 3.30 H Bilirubin Indirect 0.7 Bilirubin Aspartate Amino 131 H Transf (AST/SGO T) Alanine 109 H Aminotransferas e (ALT/SGPT) Alkaline 433 H Phosphatase Lactate 3168 H Dehydrogenase Creatine Kinase 248 H Creatine Kinase 3.3 Index Creatinine 8.29 H Kinase MB (Mass) Troponin I 0.020 Total Protein 6.0 L Albumin 3.0 L Globulin 3.00 Albumin/Globuli 1.00 n Ratio Amylase Level 105 Lipase 26 Test 01/01/19 12:00 01/01/19 14:17 Urine Color CRISTINA Urine Clarity CLOUDY A Urine pH 5.0 Urine Specific 1.015 [place] Urine Ketones NEGATIVE Urine Nitrite NEGATIVE Urine Bilirubin NEGATIVE Urine NEGATIVE Urobilinogen Urine Leukocyte NEGATIVE Esterase Urine 175 H Microscopic RBC Urine 17 H Microscopic WBC Urine Mucus FEW A Urine 3+ H Hemoglobin Urine Glucose NEGATIVE Urine Total 1+ H Protein Blood Gas Blood arterial Specimen Source Arterial Blood 01/01/2019 10:00 Date Drawn :48 AM Arterial Blood 7.310 L pH (Temp corrected ) Arterial Blood 41.4 pCO2 (Temp correct) Arterial Blood 575.1 H pO2 (Temp corrected ) Arterial Blood 20.4 L HCO3 Arterial Blood -5.5 L Base Excess Arterial Blood 99.8 H Oxygen Saturati on Adarsh Test N/A Arterial Blood A-Line Gas Puncture Site Arterial 0.1 Blood Carboxyhe moglobin Arterial Blood 0.3 Methemoglobin Blood Gas A-a 96.5 H O2 Differential Oxyhemoglobin 99.4 H Percent Blood Gas 37.0 Temperature Blood Gas 9.0 Respiration Rate Blood Gas 9 Actual Respiration Rat e Blood Gas VENT - BIPHASIC Modality FiO2 100.0 Blood Gas High 30.0 PEEP Setting Blood Gas Low 0 PEEP Setting Blood Gas [place] Notified Whom Blood Gas 01/01/2019 10:30 Notified Time :34 AM Bedside Glucose 130 Medications Medication Current Medications Piperacillin Sod/ Tazobactam Sod 50 ml @ 100 mls/hr Q8 IVPB Last administered on 01/01/19at 14:08; Admin Dose 100 MLS/HR; Start 12/30/18 at 06:00 Vasopressin 60 unit/Dextrose 60 ml @ 1.2 mls/hr Q12H IV Last administered on 01/01/19at 08:32; Admin Dose 2.4 MLS/HR; Start 12/29/18 at 22:30 Levothyroxine Sodium 200 mcg/ Sodium Chloride 500 ml @ 50 mls/hr Q10H IV Last administered on 01/01/19at 07:47; Admin Dose 50 MLS/HR; Start 12/29/18 at 23:30 Dobutamine HCl/ Dextrose 250 ml @ 0.628 mls/ hr IV IV Last administered on 12/31/18 12:14; Admin Dose 2.511 MLS/HR; Start 12/29/18 at 23:00 Methylprednisolone Sodium Succinate 500 mg/Sodium Chloride 50 ml @ 100 mls/hr Q8H IV Last administered on 01/01/19 07:46; Admin Dose 100 MLS/HR; Start 12/30/18 at 08:00 Diagnostic Test (Pha) (Accu-Chek) 1 ea Q1H XX Last administered on 01/01/19 10:32; Admin Dose 1 EA; Start 12/30/18 at 07:30 Insulin Human Regular 100 unit/ Sodium Chloride 100 ml @ 0 mls/hr PER PROTOCOL IV Last administered on 01/01/19 12:08; Admin Dose 4 MLS/HR; Start 12/30/18 at 08:00 Miscellaneous Information (* Miscellaneous Pharmacy Order) Treatment of Hypoglycemia: 1.BG 51... Per protocol XX ; Start 12/30/18 at 07:30 Dextrose (D50w Syringe) 25 ml Q15M PRN IV .DECREASED GLUCOSE; Start 12/30/18 at 07:30 Dextrose (D50w Syringe) 50 ml Q15M PRN IV .DECREASED GLUCOSE; Start 12/30/18 at 07:30 Albumin Human 100 ml @ 100 mls/hr DURING DIALYSIS PRN IV BLOOD PRESSURE SUPPORT Last administered on 01/01/19 09:54; Admin Dose 100 MLS/HR; Start 12/30/18 at 15:00 Heparin Sodium (Porcine) (Heparin (1000 Units/ml)) 2,800 unit AFTER DIALYSIS PRN CATHETER Dialysis Last administered on 12/30/18 15:34; Admin Dose 2,800 UNIT; Start 12/30/18 at 15:00 Alteplase, Recombinant (Cathflo (Activase)) 2 mg MAY REPEAT X1 PRN CATHETER IF CATHETER REMAINS OCCULUDED Last administered on 01/01/19 13:53; Admin Dose 2 MG; Start 12/31/18 at 08:30 CHILANGO YODER MD Jan 01, 2019 14:38
--- NOTE | 2019-01-01 18:04 | OPR ---
DATE OF OPERATION: PREOPERATIVE DIAGNOSIS: Renal failure. POSTOPERATIVE DIAGNOSIS: Renal failure. OPERATION PERFORMED: Left femoral hemodialysis catheter placement. SURGEON: Otilia Zimmerman MD. ANESTHESIA: Local. CONSENT: Risks, benefits, complications, alternative therapies explained to the nursing staff. This is an organ donation. OPERATIVE TECHNIQUE: Access was gained in the left femoral vein. Guidewire was advanced through wit hout any difficulties. Subcutaneous tissues were dilated. A 20 cm dialysis catheter advanced over g uidewire, secured to skin using silk sutures. Both ports of the catheter were aspirated and injected using heparinized saline solution. The patient tolerated the procedure well. Dictated By: OTILIA ZIMMERMAN MD FM/NTS Conf#: [id number] DID#: [id number] CC: ANASTASIA GILBERT MD; CHILANGO YODER MD;*EndCC*
[2019-01-01] MEDS: HEPARIN 1000 UNITS/ML 10 ML INJ CATHETER PRN (22:38)
[2019-01-02] VITALS (87 sets, daily range): BP systolic 65–185; BP diastolic 37–100; PULSE 57–95; RESP 9–25
[2019-01-02] MEDS: ACCU-CHEK XX SCH ×21 (00:30→21:47)
[2019-01-02] MEDS: SOD CHLORIDE 0.9% IV SCH ×6 (01:54→15:52)
[2019-01-02] MEDS: METHYLPRED NA SUCC IV SCH ×6 (01:54→15:52)
[2019-01-02] MEDS: PIPER-TAZO 2.25 GM (PMX) 50 ML IVPB SCH ×3 (05:48→21:36)
[2019-01-02] MEDS: LEVOTHYROXINE 200 MCG in SOD CHLORIDE 0.9% 500 ML IV SCH ×2 (06:44→13:20)
--- NOTE | 2019-01-02 08:06 | PN ---
DATE: 01/02/2019 SUBJECTIVE: The patient remains critically ill on pressor support. The patient had hemodialysis yes terday with approximately 4 liters removed. The patient is scheduled for dialysis again today. The patient is scheduled for organ harvesting. OBJECTIVE: VITAL SIGNS: Blood pressure is 136/73, respirations 9, pulse 57, temperature 97.0. HEENT: Head is normocephalic. NECK: Supple. HEART: Regular rate. LUNGS: Show diminished breath sounds at the base. ABDOMEN: Soft, nontender to palpation without rebound or guarding. EXTREMITIES: Negative for clubbing, cyanosis. Positive edema. DERMATOLOGIC: No rashes. MUSCULOSKELETAL: No joint effusion. NEUROLOGIC: No change in exam. MEDICATIONS: Reviewed. LABORATORY DATA: Reviewed. IMAGING STUDIES: Reviewed. MICROBIOLOGY: Reviewed. ASSESSMENT AND PLAN: 1. Oliguric acute kidney injury with unknown baseline creatinine. Etiology is secondary to acute tu bular necrosis. The patient is dialysis dependent. We will have another session of dialysis today 4 hours, 2K bath, calcium 2.5 with ultrafiltration goal of 4 to 5 liters. 2. Hyperkalemia, improved. Continue dialysis on low potassium bath. 3. Hypernatremia, improved. 4. Mixed acid base disorder. The patient's ABG was reviewed. Continue hemodialysis on a high bicar bonate bath. 5. Mineral bone disorder. The patient is hyperphosphatemic, hypocalcemic. Continue hemodialysis. 6. Shock, etiology is secondary to septic, cardiac. Continue pressor support and antibiotic therapy . 7. Ventilator-dependent respiratory failure. Vent settings and ABG was reviewed. 8. Status post cardiac arrest. 9. Anoxic brain injury with a confirm brain . Please note I spent over 30 minutes of critical care time with this patient. Dictated By: HERB MATOS DO NR/NTS Conf#: [id number] DID#: [id number] CC: ANASTASIA GILBERT MD; OTILIA JONES MD; CHILANGO YODER MD;*EndCC*
[2019-01-02] MEDS ORDERED: VANCOMYCIN 500 MG (PMX) 100 ML IVPB ONE (09:00)
[2019-01-02] MEDS: ALBUMIN HUMAN 25% 100 ML IV PRN ×2 (09:08→18:50)
[2019-01-02] MEDS: VASOPRESSIN 60 UNIT in DEXTROSE 5% 57 ML IV SCH ×2 (10:30→11:24)
[2019-01-02] MEDS: HEPARIN 1000 UNITS/ML 10 ML INJ CATHETER PRN (12:43)
--- NOTE | 2019-01-02 16:01 | PN ---
Date/Time of Note Date/Time of Note DATE: 01/02/19 TIME: 16:00 Assessment/Plan VTE Prophylaxis Risk score (from Nsg)>0 risk: 7 SCD applied (from Ns): Yes Pharmacological prophylaxis: heparin Lines/Catheters IV Catheter Type (from Nrsg): BELEN CATH Urinary Cath still in place: Yes Reason Cath still needed: urinary retention Assessment/Plan Hospital Course Brain on exam MV via ETT RRR Clear lungs 48 yo male with brain following cardiac arrest. Pending organ donation - Continue supportive care - HD per renal - Vasopressors - Organ donation per one legacy Result Diagram: 01/02/19 1017 01/02/19 1016 Results 24hrs Laboratory Tests Test 01/01/19 16:03 01/01/19 17:13 01/01/19 18:00 01/01/19 18:03 Bedside Glucose 136 135 Activated 42.7 H Partial Thrombo plast Time Urine Color YELLOW Urine Clarity SLIGHTLY CLOUD Y A Urine pH 5.0 Urine Specific 1.013 Maynard Urine Ketones NEGATIVE Urine Nitrite NEGATIVE Urine Bilirubin NEGATIVE Urine NEGATIVE Urobilinogen Urine Leukocyte NEGATIVE Esterase Urine 55 H Microscopic RBC Urine 7 H Microscopic WBC Urine Amorphous FEW A Crystals Urine Bacteria MODERATE Urine 3+ H Hemoglobin Urine Glucose NEGATIVE Urine Total 1+ H Protein Blood Gas Blood Specimen arterial Source Arterial Blood 01/01/2019 4:00 Date Drawn :00 PM Arterial Blood 7.334 L pH (Temp corrected ) Arterial Blood 35.2 pCO2 (Temp correct) Arterial Blood 156.8 H pO2 (Temp corrected ) Arterial Blood 18.3 L HCO3 Arterial Blood -6.9 L Base Excess Arterial Blood 98.6 H Oxygen Saturati on Adarsh Test N/A Arterial Blood A-Line Gas Puncture Site Arterial 0.7 Blood Carboxyhe moglobin Arterial Blood 0.3 Methemoglobin Blood Gas A-a 15.7 O2 Differential Oxyhemoglobin 97.6 Percent Blood Gas 37.0 Temperature Blood Gas 10.0 Respiration Rate Blood Gas 10 Actual Respiration Rat e Blood Gas VENT Modality - BIPHASIC FiO2 30.0 Blood Gas 0.7 Inspiratory Time Blood Gas High 30.0 PEEP Setting Blood Gas Low 0 PEEP Setting Blood Gas RDIX Notified Whom Blood Gas 01/01/2019 4:15 Notified Time :00 PM Test 01/01/19 19:57 01/01/19 21:30 01/01/19 21:50 01/01/19 22:05 Bedside Glucose 102 103 White Blood 15.2 H Count Red Blood Count 3.19 L Hemoglobin 9.4 L Hematocrit 27.5 L Mean 86.2 Corpuscular Volume Mean 29.5 Corpuscular Hemoglobin Mean 34.2 Corpuscular Hemoglobin Conc ent Red Cell 14.5 Distribution Width Platelet Count 172 Mean Platelet 12.5 H Volume Immature 3.600 H Granulocytes % Neutrophils % 87.0 H Lymphocytes % 3.3 L Monocytes % 6.0 Eosinophils % 0.0 Basophils % 0.1 Nucleated Red 1.1 H Blood Cells % Immature 0.550 H Granulocytes # Neutrophils # 13.2 H Lymphocytes # 0.5 L Monocytes # 0.9 Eosinophils # 0.0 Basophils # 0.0 Nucleated Red 0.2 H Blood Cells # Prothrombin 18.9 #H Time Prothrombin 1.5 Time Ratio INR 1.57 International Normalized Rati o Activated 39.4 H Partial Thrombo plast Time Sodium Level 141 Potassium Level 4.0 Chloride Level 98 Carbon Dioxide 24 Level Anion Gap 19 H Blood Urea 80 #H Nitrogen Creatinine 2.65 #H Est Glomerular 26 L Filtrat Rate mL/min Glucose Level 115 Osmolality 311 H Lactic Acid 1.4 Level Calcium Level 9.8 Ionized Calcium 1.2 (Measured) Phosphorus 5.4 #H Level Magnesium Level 2.5 Total Bilirubin 4.1 H Direct 3.00 H Bilirubin Indirect 1.1 Bilirubin Aspartate Amino 116 H Transf (AST/SGO T) Alanine 115 H Aminotransferas e (ALT/SGPT) Alkaline 506 H Phosphatase Lactate 3690 H Dehydrogenase Total Protein 8.1 # Albumin 4.3 # Globulin 3.80 H Albumin/Globuli 1.13 n Ratio Amylase Level 93 Lipase 38 Blood Gas Blood Specimen arterial Source Arterial Blood 01/01/2019 10:0 Date Drawn 0:10 PM Arterial Blood 7.428 pH (Temp corrected ) Arterial Blood 38.3 pCO2 (Temp correct) Arterial Blood 147.0 H pO2 (Temp corrected ) Arterial Blood 24.7 HCO3 Arterial Blood 0.5 Base Excess Arterial Blood 98.7 H Oxygen Saturati on Adarsh Test N/A Arterial Blood A-Line Gas Puncture Site Arterial 0.1 Blood Carboxyhe moglobin Arterial Blood 0.3 Methemoglobin Blood Gas A-a 21.9 O2 Differential Oxyhemoglobin 98.3 Percent Blood Gas 37.0 Temperature Blood Gas 10.0 Respiration Rate Blood Gas 10 Actual Respiration Rat e Blood Gas VENT Modality - BIPHASIC FiO2 30.0 Blood Gas 0.70 Inspiratory Time Blood Gas High 30.0 PEEP Setting Blood Gas Low 0 PEEP Setting Blood Gas S.H. Notified Whom Blood Gas 01/01/2019 10:1 Notified Time 0:20 PM Test 01/02/19 00:35 01/02/19 00:46 01/02/19 02:29 01/02/19 04:00 Urine Color CRISTINA Urine Clarity SLIGHTLY CLOUDY A Urine pH 5.0 Urine Specific 1.015 Maynard Urine Ketones NEGATIVE Urine Nitrite NEGATIVE Urine Bilirubin NEGATIVE Urine NEGATIVE Urobilinogen Urine Leukocyte NEGATIVE Esterase Urine 39 H Microscopic RBC Urine 6 H Microscopic WBC Urine Bacteria FEW A Urine 3+ H Hemoglobin Urine Glucose NEGATIVE Urine Total 1+ H Protein Bedside Glucose 154 154 Blood Gas Blood Specimen arterial Source Arterial Blood 01/02/2019 4:05 Date Drawn :09 AM Arterial Blood 7.285 *L pH (Temp corrected ) Arterial Blood 48.3 H pCO2 (Temp correct) Arterial Blood 128.2 H pO2 (Temp corrected ) Arterial Blood 22.4 HCO3 Arterial Blood -4.0 L Base Excess Arterial Blood 97.9 Oxygen Saturati on Adarsh Test N/A Arterial Blood A-Line Gas Puncture Site Arterial 1.0 Blood Carboxyhe moglobin Arterial Blood 0 Methemoglobin Blood Gas A-a 101.5 H O2 Differential Oxyhemoglobin 96.9 Percent Blood Gas 37.0 Temperature Blood Gas 10.0 Respiration Rate Blood Gas 10 Actual Respiration Rat e Blood Gas VENT - AC Modality FiO2 40.0 Blood Gas 3.0 Inspiratory Time Blood Gas Tidal 600.0 Volume Blood Gas Low 5.0 PEEP Setting Blood Gas R CRISTIAN RN Critical Value Read Back Blood Gas Brook [facility] [employer] Notified Whom Blood Gas 01/02/2019 4:14 Notified Time :00 AM Random 13.0 Vancomycin Level Test 01/02/19 04:05 01/02/19 04:36 01/02/19 04:46 01/02/19 05:15 White Blood 16.7 H Count Red Blood Count 2.78 L Hemoglobin 8.1 L Hematocrit 24.4 L Mean 87.8 Corpuscular Volume Mean 29.1 Corpuscular Hemoglobin Mean 33.2 Corpuscular Hemoglobin Conc ent Red Cell 14.6 H Distribution Width Platelet Count 175 Mean Platelet 12.3 H Volume Immature 4.400 H Granulocytes % Neutrophils % 85.7 H Lymphocytes % 4.3 L Monocytes % 5.4 Eosinophils % 0.0 Basophils % 0.2 Nucleated Red 0.5 H Blood Cells % Immature 0.730 H Granulocytes # Neutrophils # 14.4 H Lymphocytes # 0.7 L Monocytes # 0.9 Eosinophils # 0.0 Basophils # 0.0 Nucleated Red 0.1 H Blood Cells # Prothrombin 19.9 H Time Prothrombin 1.6 Time Ratio INR 1.68 International Normalized Rati o Activated 38.8 H Partial Thrombo plast Time Sodium Level 141 Potassium Level 5.1 Chloride Level 101 Carbon Dioxide 23 Level Anion Gap 17 H Blood Urea 109 H Nitrogen Creatinine 3.59 H Est Glomerular 18 L Filtrat Rate mL/min Glucose Level 140 Osmolality 314 H Lactic Acid 1.4 Level Calcium Level 7.5 L Ionized Calcium 1.0 L (Measured) Phosphorus 10.5 #H Level Magnesium Level 2.9 H Total Bilirubin 4.1 H Direct 3.40 H Bilirubin Indirect 0.7 Bilirubin Aspartate Amino 90 H Transf (AST/SGO T) Alanine 98 H Aminotransferas e (ALT/SGPT) Alkaline 386 H Phosphatase Lactate 3084 H Dehydrogenase Total Protein 6.0 #L Albumin 3.4 Globulin 2.60 Albumin/Globuli 1.30 n Ratio Amylase Level 72 Lipase 51 Blood Gas Blood Blood Specimen arterial arterial Source Arterial Blood 01/02/2019 4:30 01/02/2019 5:15 Date Drawn :06 AM :10 AM Arterial Blood 7.286 *L 7.322 L pH (Temp corrected ) Arterial Blood 49.2 H 43.7 pCO2 (Temp correct) Arterial Blood 443.4 H 133.6 H pO2 (Temp corrected ) Arterial Blood 22.9 22.1 HCO3 Arterial Blood -3.6 L -3.8 L Base Excess Arterial Blood 99.7 H 97.9 Oxygen Saturati on Adarsh Test N/A N/A Arterial Blood A-Line A-Line Gas Puncture Site Arterial 0.4 0.3 Blood Carboxyhe moglobin Arterial Blood 0.1 0.3 Methemoglobin Blood Gas A-a 220.4 H 29.0 H O2 Differential Oxyhemoglobin 99.2 H 97.3 Percent Blood Gas 37.0 37.0 Temperature Blood Gas 10.0 9.0 Respiration Rate Blood Gas 10 9 Actual Respiration Rat e Blood Gas VENT - AC VENT Modality - BI/LEVEL FiO2 100.0 30.0 Blood Gas 3.0 0.70 Inspiratory Time Blood Gas Tidal 600.0 Volume Blood Gas Low 5.0 0 PEEP Setting Blood Gas Faby BUI [employer] Critical Value Read Back Blood Gas [facility].H. Notified Whom Blood Gas 01/02/2019 4:52 01/02/2019 5:24 Notified Time :09 AM :45 AM Bedside Glucose 124 Blood Gas High 28.0 PEEP Setting Test 01/02/19 06:10 01/02/19 06:30 01/02/19 07:51 01/02/19 09:49 Bedside Glucose 133 117 107 Urine Color YELLOW Urine Clarity SLIGHTLY CLOUD Y A Urine pH 5.0 Urine Specific 1.013 Maynard Urine Ketones NEGATIVE Urine Nitrite NEGATIVE Urine Bilirubin NEGATIVE Urine NEGATIVE Urobilinogen Urine Leukocyte NEGATIVE Esterase Urine 34 H Microscopic RBC Urine 6 H Microscopic WBC Urine Bacteria FEW A Urine 3+ H Hemoglobin Urine Glucose NEGATIVE Urine Total 1+ H Protein Test 01/02/19 10:00 01/02/19 10:16 01/02/19 10:17 01/02/19 11:50 Blood Gas Blood arterial Specimen Source Arterial Blood 01/02/2019 10:18 Date Drawn :51 AM Arterial Blood 7.261 *L pH (Temp corrected ) Arterial Blood 61.7 H pCO2 (Temp correct) Arterial Blood 104.3 H pO2 (Temp corrected ) Arterial Blood 27.1 H HCO3 Arterial Blood -0.6 Base Excess Arterial Blood 96.4 Oxygen Saturati on Adarsh Test N/A Arterial Blood A-Line Gas Puncture Site Arterial 0.3 Blood Carboxyhe moglobin Arterial Blood 0.3 Methemoglobin Blood Gas A-a 37.1 H O2 Differential Oxyhemoglobin 95.8 Percent Blood Gas 37.0 Temperature Blood Gas 9.0 Respiration Rate Blood Gas 9 Actual Respiration Rat e Blood Gas VENT - BIPHASIC Modality FiO2 30.0 Blood Gas 0.7 Inspiratory Time Blood Gas High 28.0 PEEP Setting Blood Gas Low 0 PEEP Setting Blood Gas 30.0 Inspiratory Pressure Blood Gas 0 Pressure Support Blood Gas Stephania ROBERTSON RN Critical Value Read Back Blood Gas Cam Notified Whom Blood Gas 01/02/2019 10:27 Notified Time :45 AM Sodium Level 141 Potassium Level 4.1 Chloride Level 96 L Carbon Dioxide 30 Level Anion Gap 15 H Blood Urea 75 #H Nitrogen Creatinine 2.72 H Est Glomerular 25 L Filtrat Rate mL/min Glucose Level 111 Osmolality 311 H Lactic Acid 1.0 Level Calcium Level 8.0 L Ionized Calcium 1.0 L (Measured) Total Bilirubin 4.4 H Direct 3.40 H Bilirubin Indirect 1.0 Bilirubin Aspartate Amino 102 H Transf (AST/SGO T) Alanine 99 H Aminotransferas e (ALT/SGPT) Alkaline 424 H Phosphatase Lactate 3283 H Dehydrogenase Total Protein 7.9 # Albumin 4.4 # Globulin 3.50 H Albumin/Globuli 1.25 n Ratio Amylase Level 91 Lipase 51 White Blood 16.9 H Count Red Blood Count 3.10 L Hemoglobin 9.2 L Hematocrit 27.7 L Mean 89.4 Corpuscular Volume Mean 29.7 Corpuscular Hemoglobin Mean 33.2 Corpuscular Hemoglobin Conc ent Red Cell 15.2 H Distribution Width Platelet Count 164 Mean Platelet 12.2 H Volume Immature 3.700 H Granulocytes % Neutrophils % 88.5 H Lymphocytes % 2.3 L Monocytes % 5.4 Eosinophils % 0.0 Basophils % 0.1 Nucleated Red 0.4 H Blood Cells % Immature 0.630 H Granulocytes # Neutrophils # 15.0 H Lymphocytes # 0.4 L Monocytes # 0.9 Eosinophils # 0.0 Basophils # 0.0 Nucleated Red 0.1 H Blood Cells # Prothrombin 18.1 H Time Prothrombin 1.4 Time Ratio INR 1.49 International Normalized Rati o Activated 37.7 H Partial Thrombo plast Time Phosphorus 6.9 #H Level Magnesium Level 2.5 Bedside Glucose 106 Test 01/02/19 12:00 01/02/19 13:52 01/02/19 15:30 Urine Color YELLOW Urine Clarity SLIGHTLY CLOUDY A Urine pH 5.0 Urine Specific 1.014 Maynard Urine Ketones NEGATIVE Urine Nitrite NEGATIVE Urine Bilirubin NEGATIVE Urine NEGATIVE Urobilinogen Urine Leukocyte NEGATIVE Esterase Urine 24 H Microscopic RBC Urine 4 Microscopic WBC Urine Bacteria FEW A Urine 3+ H Hemoglobin Urine Glucose NEGATIVE Urine Total 1+ H Protein Bedside Glucose 157 Blood Gas Blood Specimen arterial Source Arterial Blood 01/02/2019 3:45 Date Drawn :42 PM Arterial Blood 7.344 L pH (Temp corrected ) Arterial Blood 54.3 H pCO2 (Temp correct) Arterial Blood 110.8 H pO2 (Temp corrected ) Arterial Blood 28.9 H HCO3 Arterial Blood 2.6 Base Excess Arterial Blood 97.3 Oxygen Saturati on Adarsh Test N/A Arterial Blood A-Line Gas Puncture Site Arterial 0.7 Blood Carboxyhe moglobin Arterial Blood 0.3 Methemoglobin Blood Gas A-a 112.0 H O2 Differential Oxyhemoglobin 96.3 Percent Blood Gas 37.0 Temperature Blood Gas 10.0 Respiration Rate Blood Gas 10 Actual Respiration Rat e Blood Gas VENT - AC Modality FiO2 40.0 Blood Gas Tidal 600.0 Volume Blood Gas RDIX Notified Whom Blood Gas 01/02/2019 3:58 Notified Time :27 PM Subjective 24 Hr Interval Summary Free Text/Dictation No change to clinical status Awaiting organ donation Exam/Review of Systems Exam Vitals Vital Signs Date Temp Pulse Resp B/P (MAP) Pulse Ox O2 O2 Flow FiO2 Time Delivery Rate 01/02/19 79 12 136/67 95 Mechanical 15:45 (90) Ventilator 01/02/19 40 15:15 01/02/19 97.1 15:00 Intake and Output 01/01/19 01/01/19 01/02/19 1515:00 23:00 07:00 IntakeIntake Total 644.686 ml 489.382 ml 332.95 ml OutputOutput Total 1310 ml 4405 ml 180 ml BalanceBalance -665.314 ml -3915.618 ml 152.95 ml Results Results 24hrs Laboratory Tests Test 01/01/19 16:03 01/01/19 17:13 01/01/19 18:00 01/01/19 18:03 Bedside Glucose 136 135 Activated 42.7 H Partial Thrombo plast Time Urine Color YELLOW Urine Clarity SLIGHTLY CLOUD Y A Urine pH 5.0 Urine Specific 1.013 Maynard Urine Ketones NEGATIVE Urine Nitrite NEGATIVE Urine Bilirubin NEGATIVE Urine NEGATIVE Urobilinogen Urine Leukocyte NEGATIVE Esterase Urine 55 H Microscopic RBC Urine 7 H Microscopic WBC Urine Amorphous FEW A Crystals Urine Bacteria MODERATE Urine 3+ H Hemoglobin Urine Glucose NEGATIVE Urine Total 1+ H Protein Blood Gas Blood Specimen arterial Source Arterial Blood 01/01/2019 4:00 Date Drawn :00 PM Arterial Blood 7.334 L pH (Temp corrected ) Arterial Blood 35.2 pCO2 (Temp correct) Arterial Blood 156.8 H pO2 (Temp corrected ) Arterial Blood 18.3 L HCO3 Arterial Blood -6.9 L Base Excess Arterial Blood 98.6 H Oxygen Saturati on Adarsh Test N/A Arterial Blood A-Line Gas Puncture Site Arterial 0.7 Blood Carboxyhe moglobin Arterial Blood 0.3 Methemoglobin Blood Gas A-a 15.7 O2 Differential Oxyhemoglobin 97.6 Percent Blood Gas 37.0 Temperature Blood Gas 10.0 Respiration Rate Blood Gas 10 Actual Respiration Rat e Blood Gas VENT Modality - BIPHASIC FiO2 30.0 Blood Gas 0.7 Inspiratory Time Blood Gas High 30.0 PEEP Setting Blood Gas Low 0 PEEP Setting Blood Gas RDIX Notified Whom Blood Gas 01/01/2019 4:15 Notified Time :00 PM Test 01/01/19 19:57 01/01/19 21:30 01/01/19 21:50 01/01/19 22:05 Bedside Glucose 102 103 White Blood 15.2 H Count Red Blood Count 3.19 L Hemoglobin 9.4 L Hematocrit 27.5 L Mean 86.2 Corpuscular Volume Mean 29.5 Corpuscular Hemoglobin Mean 34.2 Corpuscular Hemoglobin Conc ent Red Cell 14.5 Distribution Width Platelet Count 172 Mean Platelet 12.5 H Volume Immature 3.600 H Granulocytes % Neutrophils % 87.0 H Lymphocytes % 3.3 L Monocytes % 6.0 Eosinophils % 0.0 Basophils % 0.1 Nucleated Red 1.1 H Blood Cells % Immature 0.550 H Granulocytes # Neutrophils # 13.2 H Lymphocytes # 0.5 L Monocytes # 0.9 Eosinophils # 0.0 Basophils # 0.0 Nucleated Red 0.2 H Blood Cells # Prothrombin 18.9 #H Time Prothrombin 1.5 Time Ratio INR 1.57 International Normalized Rati o Activated 39.4 H Partial Thrombo plast Time Sodium Level 141 Potassium Level 4.0 Chloride Level 98 Carbon Dioxide 24 Level Anion Gap 19 H Blood Urea 80 #H Nitrogen Creatinine 2.65 #H Est Glomerular 26 L Filtrat Rate mL/min Glucose Level 115 Osmolality 311 H Lactic Acid 1.4 Level Calcium Level 9.8 Ionized Calcium 1.2 (Measured) Phosphorus 5.4 #H Level Magnesium Level 2.5 Total Bilirubin 4.1 H Direct 3.00 H Bilirubin Indirect 1.1 Bilirubin Aspartate Amino 116 H Transf (AST/SGO T) Alanine 115 H Aminotransferas e (ALT/SGPT) Alkaline 506 H Phosphatase Lactate 3690 H Dehydrogenase Total Protein 8.1 # Albumin 4.3 # Globulin 3.80 H Albumin/Globuli 1.13 n Ratio Amylase Level 93 Lipase 38 Blood Gas Blood Specimen arterial Source Arterial Blood 01/01/2019 10:0 Date Drawn 0:10 PM Arterial Blood 7.428 pH (Temp corrected ) Arterial Blood 38.3 pCO2 (Temp correct) Arterial Blood 147.0 H pO2 (Temp corrected ) Arterial Blood 24.7 HCO3 Arterial Blood 0.5 Base Excess Arterial Blood 98.7 H Oxygen Saturati on Adarsh Test N/A Arterial Blood A-Line Gas Puncture Site Arterial 0.1 Blood Carboxyhe moglobin Arterial Blood 0.3 Methemoglobin Blood Gas A-a 21.9 O2 Differential Oxyhemoglobin 98.3 Percent Blood Gas 37.0 Temperature Blood Gas 10.0 Respiration Rate Blood Gas 10 Actual Respiration Rat e Blood Gas VENT Modality - BIPHASIC FiO2 30.0 Blood Gas 0.70 Inspiratory Time Blood Gas High 30.0 PEEP Setting Blood Gas Low 0 PEEP Setting Blood Gas S.H. Notified Whom Blood Gas 01/01/2019 10:1 Notified Time 0:20 PM Test 01/02/19 00:35 01/02/19 00:46 01/02/19 02:29 01/02/19 04:00 Urine Color CRISTINA Urine Clarity SLIGHTLY CLOUDY A Urine pH 5.0 Urine Specific 1.015 Maynard Urine Ketones NEGATIVE Urine Nitrite NEGATIVE Urine Bilirubin NEGATIVE Urine NEGATIVE Urobilinogen Urine Leukocyte NEGATIVE Esterase Urine 39 H Microscopic RBC Urine 6 H Microscopic WBC Urine Bacteria FEW A Urine 3+ H Hemoglobin Urine Glucose NEGATIVE Urine Total 1+ H Protein Bedside Glucose 154 154 Blood Gas Blood Specimen arterial Source Arterial Blood 01/02/2019 4:05 Date Drawn :09 AM Arterial Blood 7.285 *L pH (Temp corrected ) Arterial Blood 48.3 H pCO2 (Temp correct) Arterial Blood 128.2 H pO2 (Temp corrected ) Arterial Blood 22.4 HCO3 Arterial Blood -4.0 L Base Excess Arterial Blood 97.9 Oxygen Saturati on Adarsh Test N/A Arterial Blood A-Line Gas Puncture Site Arterial 1.0 Blood Carboxyhe moglobin Arterial Blood 0 Methemoglobin Blood Gas A-a 101.5 H O2 Differential Oxyhemoglobin 96.9 Percent Blood Gas 37.0 Temperature Blood Gas 10.0 Respiration Rate Blood Gas 10 Actual Respiration Rat e Blood Gas VENT - AC Modality FiO2 40.0 Blood Gas 3.0 Inspiratory Time Blood Gas Tidal 600.0 Volume Blood Gas Low 5.0 PEEP Setting Blood Gas R CRISTIAN BUI Critical Value Read Back Blood Gas Brook [facility] [employer] Notified Whom Blood Gas 01/02/2019 4:14 Notified Time :00 AM Random 13.0 Vancomycin Level Test 01/02/19 04:05 01/02/19 04:36 01/02/19 04:46 01/02/19 05:15 White Blood 16.7 H Count Red Blood Count 2.78 L Hemoglobin 8.1 L Hematocrit 24.4 L Mean 87.8 Corpuscular Volume Mean 29.1 Corpuscular Hemoglobin Mean 33.2 Corpuscular Hemoglobin Conc ent Red Cell 14.6 H Distribution Width Platelet Count 175 Mean Platelet 12.3 H Volume Immature 4.400 H Granulocytes % Neutrophils % 85.7 H Lymphocytes % 4.3 L Monocytes % 5.4 Eosinophils % 0.0 Basophils % 0.2 Nucleated Red 0.5 H Blood Cells % Immature 0.730 H Granulocytes # Neutrophils # 14.4 H Lymphocytes # 0.7 L Monocytes # 0.9 Eosinophils # 0.0 Basophils # 0.0 Nucleated Red 0.1 H Blood Cells # Prothrombin 19.9 H Time Prothrombin 1.6 Time Ratio INR 1.68 International Normalized Rati o Activated 38.8 H Partial Thrombo plast Time Sodium Level 141 Potassium Level 5.1 Chloride Level 101 Carbon Dioxide 23 Level Anion Gap 17 H Blood Urea 109 H Nitrogen Creatinine 3.59 H Est Glomerular 18 L Filtrat Rate mL/min Glucose Level 140 Osmolality 314 H Lactic Acid 1.4 Level Calcium Level 7.5 L Ionized Calcium 1.0 L (Measured) Phosphorus 10.5 #H Level Magnesium Level 2.9 H Total Bilirubin 4.1 H Direct 3.40 H Bilirubin Indirect 0.7 Bilirubin Aspartate Amino 90 H Transf (AST/SGO T) Alanine 98 H Aminotransferas e (ALT/SGPT) Alkaline 386 H Phosphatase Lactate 3084 H Dehydrogenase Total Protein 6.0 #L Albumin 3.4 Globulin 2.60 Albumin/Globuli 1.30 n Ratio Amylase Level 72 Lipase 51 Blood Gas Blood Blood Specimen arterial arterial Source Arterial Blood 01/02/2019 4:30 01/02/2019 5:15 Date Drawn :06 AM :10 AM Arterial Blood 7.286 *L 7.322 L pH (Temp corrected ) Arterial Blood 49.2 H 43.7 pCO2 (Temp correct) Arterial Blood 443.4 H 133.6 H pO2 (Temp corrected ) Arterial Blood 22.9 22.1 HCO3 Arterial Blood -3.6 L -3.8 L Base Excess Arterial Blood 99.7 H 97.9 Oxygen Saturati on Adarsh Test N/A N/A Arterial Blood A-Line A-Line Gas Puncture Site Arterial 0.4 0.3 Blood Carboxyhe moglobin Arterial Blood 0.1 0.3 Methemoglobin Blood Gas A-a 220.4 H 29.0 H O2 Differential Oxyhemoglobin 99.2 H 97.3 Percent Blood Gas 37.0 37.0 Temperature Blood Gas 10.0 9.0 Respiration Rate Blood Gas 10 9 Actual Respiration Rat e Blood Gas VENT - AC VENT Modality - BI/LEVEL FiO2 100.0 30.0 Blood Gas 3.0 0.70 Inspiratory Time Blood Gas Tidal 600.0 Volume Blood Gas Low 5.0 0 PEEP Setting Blood Gas Faby BUI ONE [employer]GACY Critical Value Read Back Blood Gas S.H. Notified Whom Blood Gas 01/02/2019 4:52 01/02/2019 5:24 Notified Time :09 AM :45 AM Bedside Glucose 124 Blood Gas High 28.0 PEEP Setting Test 01/02/19 06:10 01/02/19 06:30 01/02/19 07:51 01/02/19 09:49 Bedside Glucose 133 117 107 Urine Color YELLOW Urine Clarity SLIGHTLY CLOUD Y A Urine pH 5.0 Urine Specific 1.013 Maynard Urine Ketones NEGATIVE Urine Nitrite NEGATIVE Urine Bilirubin NEGATIVE Urine NEGATIVE Urobilinogen Urine Leukocyte NEGATIVE Esterase Urine 34 H Microscopic RBC Urine 6 H Microscopic WBC Urine Bacteria FEW A Urine 3+ H Hemoglobin Urine Glucose NEGATIVE Urine Total 1+ H Protein Test 01/02/19 10:00 01/02/19 10:16 01/02/19 10:17 01/02/19 11:50 Blood Gas Blood arterial Specimen Source Arterial Blood 01/02/2019 10:18 Date Drawn :51 AM Arterial Blood 7.261 *L pH (Temp corrected ) Arterial Blood 61.7 H pCO2 (Temp correct) Arterial Blood 104.3 H pO2 (Temp corrected ) Arterial Blood 27.1 H HCO3 Arterial Blood -0.6 Base Excess Arterial Blood 96.4 Oxygen Saturati on Adarsh Test N/A Arterial Blood A-Line Gas Puncture Site Arterial 0.3 Blood Carboxyhe moglobin Arterial Blood 0.3 Methemoglobin Blood Gas A-a 37.1 H O2 Differential Oxyhemoglobin 95.8 Percent Blood Gas 37.0 Temperature Blood Gas 9.0 Respiration Rate Blood Gas 9 Actual Respiration Rat e Blood Gas VENT - BIPHASIC Modality FiO2 30.0 Blood Gas 0.7 Inspiratory Time Blood Gas High 28.0 PEEP Setting Blood Gas Low 0 PEEP Setting Blood Gas 30.0 Inspiratory Pressure Blood Gas 0 Pressure Support Blood Gas Stephania ROBERTSON RN Critical Value Read Back Blood Gas Cam Notified Whom Blood Gas 01/02/2019 10:27 Notified Time :45 AM Sodium Level 141 Potassium Level 4.1 Chloride Level 96 L Carbon Dioxide 30 Level Anion Gap 15 H Blood Urea 75 #H Nitrogen Creatinine 2.72 H Est Glomerular 25 L Filtrat Rate mL/min Glucose Level 111 Osmolality 311 H Lactic Acid 1.0 Level Calcium Level 8.0 L Ionized Calcium 1.0 L (Measured) Total Bilirubin 4.4 H Direct 3.40 H Bilirubin Indirect 1.0 Bilirubin Aspartate Amino 102 H Transf (AST/SGO T) Alanine 99 H Aminotransferas e (ALT/SGPT) Alkaline 424 H Phosphatase Lactate 3283 H Dehydrogenase Total Protein 7.9 # Albumin 4.4 # Globulin 3.50 H Albumin/Globuli 1.25 n Ratio Amylase Level 91 Lipase 51 White Blood 16.9 H Count Red Blood Count 3.10 L Hemoglobin 9.2 L Hematocrit 27.7 L Mean 89.4 Corpuscular Volume Mean 29.7 Corpuscular Hemoglobin Mean 33.2 Corpuscular Hemoglobin Conc ent Red Cell 15.2 H Distribution Width Platelet Count 164 Mean Platelet 12.2 H Volume Immature 3.700 H Granulocytes % Neutrophils % 88.5 H Lymphocytes % 2.3 L Monocytes % 5.4 Eosinophils % 0.0 Basophils % 0.1 Nucleated Red 0.4 H Blood Cells % Immature 0.630 H Granulocytes # Neutrophils # 15.0 H Lymphocytes # 0.4 L Monocytes # 0.9 Eosinophils # 0.0 Basophils # 0.0 Nucleated Red 0.1 H Blood Cells # Prothrombin 18.1 H Time Prothrombin 1.4 Time Ratio INR 1.49 International Normalized Rati o Activated 37.7 H Partial Thrombo plast Time Phosphorus 6.9 #H Level Magnesium Level 2.5 Bedside Glucose 106 Test 01/02/19 12:00 01/02/19 13:52 01/02/19 15:30 Urine Color YELLOW Urine Clarity SLIGHTLY CLOUDY A Urine pH 5.0 Urine Specific 1.014 Maynard Urine Ketones NEGATIVE Urine Nitrite NEGATIVE Urine Bilirubin NEGATIVE Urine NEGATIVE Urobilinogen Urine Leukocyte NEGATIVE Esterase Urine 24 H Microscopic RBC Urine 4 Microscopic WBC Urine Bacteria FEW A Urine 3+ H Hemoglobin Urine Glucose NEGATIVE Urine Total 1+ H Protein Bedside Glucose 157 Blood Gas Blood Specimen arterial Source Arterial Blood 01/02/2019 3:45 Date Drawn :42 PM Arterial Blood 7.344 L pH (Temp corrected ) Arterial Blood 54.3 H pCO2 (Temp correct) Arterial Blood 110.8 H pO2 (Temp corrected ) Arterial Blood 28.9 H HCO3 Arterial Blood 2.6 Base Excess Arterial Blood 97.3 Oxygen Saturati on Adarsh Test N/A Arterial Blood A-Line Gas Puncture Site Arterial 0.7 Blood Carboxyhe moglobin Arterial Blood 0.3 Methemoglobin Blood Gas A-a 112.0 H O2 Differential Oxyhemoglobin 96.3 Percent Blood Gas 37.0 Temperature Blood Gas 10.0 Respiration Rate Blood Gas 10 Actual Respiration Rat e Blood Gas VENT - AC Modality FiO2 40.0 Blood Gas Tidal 600.0 Volume Blood Gas RDIX Notified Whom Blood Gas 01/02/2019 3:58 Notified Time :27 PM Medications Medication Current Medications Piperacillin Sod/ Tazobactam Sod 50 ml @ 100 mls/hr Q8 IVPB Last administered on 01/02/19 13:47; Admin Dose 100 MLS/HR; Start 12/30/18 at 06:00 Vasopressin 60 unit/Dextrose 60 ml @ 1.2 mls/hr Q12H IV Last administered on 01/02/19 11:24; Admin Dose 2.4 MLS/HR; Start 12/29/18 at 22:30 Levothyroxine Sodium 200 mcg/ Sodium Chloride 500 ml @ 50 mls/hr Q10H IV Last administered on 01/02/19 06:44; Admin Dose 50 MLS/HR; Start 12/29/18 at 23:30 Dobutamine HCl/ Dextrose 250 ml @ 0.628 mls/ hr IV IV Last administered on 12/31/18 12:14; Admin Dose 2.511 MLS/HR; Start 12/29/18 at 23:00 Methylprednisolone Sodium Succinate 500 mg/Sodium Chloride 50 ml @ 100 mls/hr Q8H IV Last administered on 01/02/19 15:52; Admin Dose 100 MLS/HR; Start 12/30/18 at 08:00 Diagnostic Test (Pha) (Accu-Chek) 1 ea Q1H XX Last administered on 4/17/19at 06:45; Admin Dose 1 EA; Start 12/30/18 at 07:30 Insulin Human Regular 100 unit/ Sodium Chloride 100 ml @ 0 mls/hr PER PROTOCOL IV Last administered on 01/01/19at 12:08; Admin Dose 4 MLS/HR; Start 12/30/18 at 08:00 Miscellaneous Information (* Miscellaneous Pharmacy Order) Treatment of Hypoglycemia: 1.BG 51... Per protocol XX ; Start 12/30/18 at 07:30 Dextrose (D50w Syringe) 25 ml Q15M PRN IV .DECREASED GLUCOSE; Start 12/30/18 at 07:30 Dextrose (D50w Syringe) 50 ml Q15M PRN IV .DECREASED GLUCOSE; Start 12/30/18 at 07:30 Albumin Human 100 ml @ 100 mls/hr DURING DIALYSIS PRN IV BLOOD PRESSURE SUPPORT Last administered on 01/02/19at 09:08; Admin Dose 100 MLS/HR; Start 12/30/18 at 15:00 Heparin Sodium (Porcine) (Heparin (1000 Units/ml)) 2,800 unit AFTER DIALYSIS PRN CATHETER Dialysis Last administered on 01/02/19at 12:43; Admin Dose 2,800 UNIT; Start 12/30/18 at 15:00 Alteplase, Recombinant (Cathflo (Activase)) 2 mg MAY REPEAT X1 PRN CATHETER IF CATHETER REMAINS OCCULUDED Last administered on 01/01/19at 13:53; Admin Dose 2 MG; Start 12/31/18 at 08:30 CHILANGO YODER MD Jan 02, 2019 16:01
== END 2019-01-03 01:04 | disposition expired | DRG 951 ==
LOC: ICU 21:32
PROVIDERS: ADMIT Family Medicine; ATTEND Internal Medicine
PROC: 06HN33Z Insertion of Infusion Device into Left Femoral Vein, Percutaneous Approach (ICD-10-PCS; principal; 2018-12-30)
PROC: 5A1D70Z Performance of Urinary Filtration, Intermittent, Less than 6 Hours Per Day (ICD-10-PCS; 2018-12-30)
PROC: 30233N1 Transfusion of Nonautologous Red Blood Cells into Peripheral Vein, Percutaneous Approach (ICD-10-PCS; 2018-12-30)
DX: Z52.9 Donor of unspecified organ or tissue (principal)
CPT/HCPCS: 36430; 36600; 71045; 71250; 74176; 80053; 80202; 81001; 82150; 82247; 82248; 82330; 82550; 82553; 82803; 82962; 82977; 83605; 83615; 83690; 83735; 83930; 84100; 84484; 85025; 85610; 85730; 86850; 86900; 86901; 86920; 87070; 87086; 87400; 90935; 93005; 93306; 94003; 94770; J1250; C1752; J0610; J0696; J1644; J1815; J1940; J2543; J2597; J2930; J2997; J3370; J7040; J7050; J7070; P9016; P9047